=== PATIENT | female | born 1930 | race Hispanic/Latino ===

== ENCOUNTER 2017-09-30 11:15 | Emergency (ER) | payer OTHER ==
--- NOTE | 2017-09-30 13:30 | ER ---
Nurse's Notes [facility] Name: Hannah Hogan Age: 87 yrs Sex: Female : 1930 Arrival Date: 09/30/2017 Time: 11:19 Bed 24 Private MD: Khadijah Qiu F Diagnosis: Allergic Reaction Presentation: 09/30 11:27 Presenting complaint: Child states: Pt was prescribed Clindamycin yesterday for face sv redness and pt started having a rash that started today that goes to the neck, chest, abd area. Transition of care: patient was not received from another setting of care. Onset: The symptoms/episode began/occurred suddenly, today. Anaphylaxis evaluation, no signs or symptoms of anaphylaxis were noted. Onset of symptoms was September 30, 2017. Care prior to arrival: None. 11:27 Method Of Arrival: Wheelchair sv 11:27 Acuity: NEHEMIAH 3 sv 13:17 Risk Assessment: Do you want to hurt yourself or someone else? Patient reports no kr2 desire to harm self or others. Initial Sepsis Screen: Does the patient meet any 2 criteria? No. Patient's initial sepsis screen is negative. Does the patient have a suspected source of infection? No. Patient's initial sepsis screen is negative. Triage Assessment: 11:27 General: Appears in no apparent distress. comfortable, Behavior is calm, cooperative, sv appropriate for age. Pain: Denies pain. EENT: No signs and/or symptoms were reported regarding the EENT system. Neuro: Level of Consciousness is awake, alert, obeys commands, Oriented to person, place, time, situation, Moves all extremities. Speech is normal. Cardiovascular: Patient's skin is warm and dry. Respiratory: Respiratory effort is even, unlabored, Respiratory pattern is regular, symmetrical, Denies shortness of breath air hunger. Derm: Skin is normal, Rash noted that is red, on chest, abdomen and neck. Historical: - Allergies: 11:31 ambien; sv 11:31 Flagyl; sv 11:31 Clindamycin; sv - Home Meds: :31 Atrovent 0.5 mg Neb [id number] as needed for wheezing [Active]; tatyana 100 mcg/25 mcg 1 sv puff bedtime [Active]; Coumadin 2.5 mg Oral tab 1 tab once daily [Active]; Coumadin 3mg oral daily at 1700 [Active]; Cranberry 4200 mg 1 tab BID [Active]; Lantus 30 units sub q daily 20 unit [Active]; losartan potassium 50 mg daily [Active]; Lumigan 0.01 % ophthalmic drop 1 drop nightly [Active]; ProAir HFA 90 mcg/actuation inhalation HFAA as needed [Active]; Propafenone HCL 225mg oral q8 hours [Active]; simvastatin 20 mg Oral tab 1 tab nightly [Active]; Vitamin C Oral 1 tab daily [Active]; - PMHx: 11:31 "Mitral Valve; Cataracts; Diabetes - IDDM; Glaucoma; Hyperlipidemia; Hypertension; sv - PSHx: 11:31 Mitral Valve Replacement; Cholecystectomy; ovary removal; sv - Immunization history:: Adult Immunizations up to date. - Social history:: Smoking status: Patient/guardian denies using tobacco. - Ebola Screening: : No symptoms or risks identified at this time. Screenin:17 Abuse screen: Denies threats or abuse. Denies injuries from another. Nutritional kr2 screening: No deficits noted. Tuberculosis screening: No symptoms or risk factors identified. Fall Risk None identified. Assessment: 13:16 General: Appears in no apparent distress. comfortable, well groomed, well developed, kr2 well nourished, Behavior is calm, cooperative, appropriate for age. Pain: Denies pain. Neuro: Level of Consciousness is awake, alert, obeys commands, Oriented to person, place, time, situation, Appropriate for age. Cardiovascular: Capillary refill < 3 seconds in bilateral fingers Patient's skin is warm and dry. Respiratory: Airway is patent Respiratory effort is even, unlabored, Respiratory pattern is regular, symmetrical, Breath sounds are clear bilaterally. GI: Abdomen is flat, non-distended. : No signs and/or symptoms were reported regarding the genitourinary system. EENT: Nares are clear Oral mucosa is moist. Throat is clear. Derm: Skin is intact, is healthy with good turgor, Skin is pink, warm \\T\\ dry. Rash noted that is itchy, red, on back and neck and abdomen and chest. Musculoskeletal: Circulation, motion, and sensation intact. Vital Signs: 11:31 BP 102 / 64; Pulse 80; Resp 18; Temp 98.7; Pulse Ox 92% on R/A; Weight 67.13 kg; Height sv 4 ft. 7 in. (139.70 cm); Pain 0/10; 13:18 BP 147 / 89; Pulse 66; Resp 16; Pulse Ox 97% on R/A; kr2 11:31 Body Mass Index 34.40 (67.13 kg, 139.70 cm) sv 11:31 Pt placed on O2 \\T\\ 2L per NC. sv ED Course: 11:19 Patient arrived in ED. sb2 11:19 Khadijah Qiu MD is Private Physician. sb2 11:29 Triage completed. sv 11:35 Arm band placed on right wrist. sv 12:58 Pradip Cheema PA is PHCP. jr8 12:58 Abhi Erwin MD is Attending Physician. jr8 13:06 Abby Porter, RN is Primary Nurse. kr2 13:18 Patient has correct armband on for positive identification. Bed in low position. Call kr2 light in reach. Side rails up X 1. Pulse ox on. NIBP on. Door closed. Warm blanket given. Head of bed elevated. 13:28 Khadijah Qiu MD is Referral Physician. jr8 13:48 No provider procedures requiring assistance completed. Patient did not have IV access kr2 during this emergency room visit. Administered Medications: 13:35 Drug: predniSONE 40 mg Route: PO; kr2 13:47 Follow up: Response: Medication administered at discharge. kr2 13:35 Drug: Benadryl 25 mg Route: PO; kr2 13:47 Follow up: Response: Medication administered at discharge. kr2 Outcome: 13:29 Discharge ordered by . jr8 13:48 Discharged to home via wheelchair, with family. kr2 13:48 Condition: good 13:48 Discharge instructions given to family, Instructed on discharge instructions, follow up and referral plans. medication usage, Demonstrated understanding of instructions, follow-up care, medications, Prescriptions given X 3. 13:48 Patient left the ED. kr2 Signatures: Jessica Silva RN CHETAN Pradip Cheema PA PA jr8 Abby Porter, CHETAN RN kr2 David Bryanti sb2
--- NOTE | 2017-09-30 13:30 | EDPHYS ---
Physician Documentation [facility] Name: Hannah Hogan Age: 87 yrs Sex: Female : 1930 Arrival Date: 09/30/2017 Time: 11:19 Bed 24 Private MD: Khadijah Qiu F ED Physician Abhi Erwin HPI: 09/30 13:25 This 87 yrs old Female presents to ER via Wheelchair with complaints of jr8 Allergic Reaction. 13:25 The patient presents with itching, redness of skin. Onset: The symptoms/episode jr8 began/occurred acutely, today. Associated signs and symptoms: The patient has no apparent associated signs or symptoms. Possible causes: antibiotics, clindamycin . Severity of symptoms: At their worst the symptoms were mild in the emergency department the symptoms are unchanged. The patient has not experienced similar symptoms in the past. The patient has been recently seen by a physician:. Patient recently seen by PCP for lower jaw swelling. Was pun on Clindamycin. Now having redness of skin and itching post medication administration . Historical: - Allergies: 11:31 ambien; sv 11:31 Flagyl; sv 11:31 Clindamycin; sv - Home Meds: 11:31 Atrovent 0.5 mg Neb [id number] as needed for wheezing [Active]; tatyana 100 mcg/25 mcg 1 sv puff bedtime [Active]; Coumadin 2.5 mg Oral tab 1 tab once daily [Active]; Coumadin 3mg oral daily at 1700 [Active]; Cranberry 4200 mg 1 tab BID [Active]; Lantus 30 units sub q daily 20 unit [Active]; losartan potassium 50 mg daily [Active]; Lumigan 0.01 % ophthalmic drop 1 drop nightly [Active]; ProAir HFA 90 mcg/actuation inhalation HFAA as needed [Active]; Propafenone HCL 225mg oral q8 hours [Active]; simvastatin 20 mg Oral tab 1 tab nightly [Active]; Vitamin C Oral 1 tab daily [Active]; - PMHx: 11:31 "Mitral Valve; Cataracts; Diabetes - IDDM; Glaucoma; Hyperlipidemia; Hypertension; sv - PSHx: 11:31 Mitral Valve Replacement; Cholecystectomy; ovary removal; sv - Immunization history:: Adult Immunizations up to date. - Social history:: Smoking status: Patient/guardian denies using tobacco. - Ebola Screening: : No symptoms or risks identified at this time. ROS: 13:25 Eyes: Negative for injury, pain, redness, and discharge, ENT: Negative for injury, jr8 pain, and discharge, Neck: Negative for injury, pain, and swelling, Cardiovascular: Negative for chest pain, palpitations, and edema, Respiratory: Negative for shortness of breath, cough, wheezing, and pleuritic chest pain, Abdomen/GI: Negative for abdominal pain, nausea, vomiting, diarrhea, and constipation, Back: Negative for injury and pain, MS/Extremity: Negative for injury and deformity, Neuro: Negative for headache, weakness, numbness, tingling, and seizure. 13:25 Skin: Positive for erythema. Exam: 13:25 Eyes: Pupils equal round and reactive to light, extra-ocular motions intact. Lids and jr8 lashes normal. Conjunctiva and sclera are non-icteric and not injected. Cornea within normal limits. Periorbital areas with no swelling, redness, or edema. ENT: Nares patent. No nasal discharge, no septal abnormalities noted. Tympanic membranes are normal and external auditory canals are clear. Oropharynx with no redness, swelling, or masses, exudates, or evidence of obstruction, uvula midline. Mucous membranes moist. Neck: Trachea midline, no thyromegaly or masses palpated, and no cervical lymphadenopathy. Supple, full range of motion without nuchal rigidity, or vertebral point tenderness. No Meningismus. Cardiovascular: Regular rate and rhythm with a normal S1 and S2. No gallops, murmurs, or rubs. Normal PMI, no JVD. No pulse deficits. Respiratory: Lungs have equal breath sounds bilaterally, clear to auscultation and percussion. No rales, rhonchi or wheezes noted. No increased work of breathing, no retractions or nasal flaring. Abdomen/GI: Soft, non-tender, with normal bowel sounds. No distension or tympany. No guarding or rebound. No evidence of tenderness throughout. Back: No spinal tenderness. No costovertebral tenderness. Full range of motion. MS/ Extremity: Pulses equal, no cyanosis. Neurovascular intact. Full, normal range of motion. Neuro: Awake and alert, GCS 15, oriented to person, place, time, and situation. Cranial nerves II-XII grossly intact. Motor strength 5/5 in all extremities. Sensory grossly intact. Cerebellar exam normal. Normal gait. 13:25 Head/face: Noted is swelling, that is mild, of the left jaw. 13:25 Skin: mild erythema noted to chest, abdomen, and left arm and back . Vital Signs: 11:31 BP 102 / 64; Pulse 80; Resp 18; Temp 98.7; Pulse Ox 92% on R/A; Weight 67.13 kg; Height sv 4 ft. 7 in. (139.70 cm); Pain 0/10; 13:18 BP 147 / 89; Pulse 66; Resp 16; Pulse Ox 97% on R/A; kr2 11:31 Body Mass Index 34.40 (67.13 kg, 139.70 cm) sv 11:31 Pt placed on O2 \\T\\ 2L per NC. sv MDM: 12:58 Patient medically screened. jr8 13:25 Data reviewed: vital signs, nurses notes, and as a result, I will discharge patient. jr8 Data interpreted: Pulse oximetry: on room air is 97 %. Interpretation: normal. Counseling: I had a detailed discussion with the patient and/or guardian regarding: the historical points, exam findings, and any diagnostic results supporting the discharge/admit diagnosis, the need for outpatient follow up, a family practitioner, to return to the emergency department if symptoms worsen or persist or if there are any questions or concerns that arise at home. ED course: Discussed with patient that she more then likely has had allergic reaction to the Clindamycin. That she needs to not take anymore of that. Will put her on medications to help with reaction and will switch antibiotics for her . Administered Medications: 13:35 Drug: predniSONE 40 mg Route: PO; kr2 13:47 Follow up: Response: Medication administered at discharge. kr2 13:35 Drug: Benadryl 25 mg Route: PO; kr2 13:47 Follow up: Response: Medication administered at discharge. kr2 Disposition: 19:03 Co-signature as Attending Physician, Abhi Erwin MD. Disposition: 09/30/17 13:29 Discharged to Home. Impression: Allergic Reaction . - Condition is Stable. - Discharge Instructions: Anaphylactic Reaction, Dental Abscess. - Prescriptions for Augmentin 875- 125 mg Oral Tablet - take 1 tablet by ORAL route every 12 hours for 10 days; 20 tablet. Pepcid 20 mg Oral Tablet - take 1 tablet by ORAL route every 12 hours for 5 days; 10 tablet. Prednisone 20 mg Oral Tablet - take 2 tablet by ORAL route once daily for 5 days; 10 tablet. - Medication Reconciliation Form, Thank You Letter, Antibiotic Education, Prescription Opioid Use form. - Follow up: Khadijah Qiu MD; When: 5 - 6 days; Reason: Recheck today's complaints, Continuance of care, Re-evaluation by your physician. - Problem is new. - Symptoms have improved. - Notes: Benadryl 25 mg over the counter as prescribed on box Signatures: Jessica Silva RN RN Pradip King PA PA jr8 Abhi Erwin MD MD Abby Porter RN RN kr2 Corrections: (The following items were deleted from the chart) 13:48 13:29 09/30/2017 13:29 Discharged to Home. Impression: Allergic Reaction . Condition is kr2 Stable. Forms are Medication Reconciliation Form, Thank You Letter, Antibiotic Education, Prescription Opioid Use. Follow up: Khadijah Qiu; When: 5 - 6 days; Reason: Recheck today's complaints, Continuance of care, Re-evaluation by your physician. Problem is new. Symptoms have improved. jr8
[2017-09-30] MEDS ORDERED: DIPHENHYDRAMINE 25 MG TAB/CAP ONE (13:35)
[2017-09-30] MEDS ORDERED: predniSONE 20 MG TAB ONE (13:35)
[2017-09-30 14:02] VITALS: TEMP 98.7
[2017-09-30 14:04] VITALS: BP 147/89; O2SAT 97
== END 2017-09-30 13:48 | disposition home or self-care (01) ==
LOC: ER 11:15
DX: R21 Rash and other nonspecific skin eruption (principal); I10 Essential (primary) hypertension; E11.9 Type 2 diabetes mellitus without complications; E78.5 Hyperlipidemia, unspecified; Z79.4 Long term (current) use of insulin; Z79.01 Long term (current) use of anticoagulants; Z88.3 Allergy status to other anti-infective agents; Z88.8 Allergy status to other drugs, medicaments and biological substances
CPT/HCPCS: 99283; J7512

== ENCOUNTER 2017-10-27 17:06 | Inpatient (IN) | payer OTHER ==
[2017-10-27 18:34] LABS: Absolute Lymphocytes (CBC) 1.7 K/uL (0.7-4.9); Absolute Monocytes 1.5 K/uL (0.1-1.3); Absolute Neutrophil 5.7 K/uL (1.8-8.0); Basophils % 0.7 % (0-1.3); Eosinophils % 1.3 % (0-4.4); Hematocrit 45.8 % (36.0-45.0); Lymphocytes % 18.5 % (15.3-44.8); MCH 28.7 pg (27.0-35.0); MCV 85.6 fL (80-100); MPV 9.6 fL (7.6-11.3); Monocytes % 16.4 % (3.3-12.3); RBC Red Blood Cell Count 5.35 M/uL (3.86-4.86)
[2017-10-27 18:41] LABS: Protime INR 2.35
[2017-10-27 18:54] LABS: Albumin 3.1 g/dL (3.4-5.0); Bilirubin Direct 0.3 mg/dL (0-0.2); Bilirubin Total 0.7 mg/dL (0.2-1.0); Magnesium 2.5 mg/dL (1.8-2.4); Potassium 4.6 mmol/L (3.5-5.1); Protein, Total 6.7 g/dL (6.4-8.2)
--- NOTE | 2017-10-27 19:02 | RAD REPORT ---
[facility] CLINICAL HISTORY: sob COMPARISON: March 2017 FINDINGS: Mild right pulmonary opacities are present. Minimal left lung opacities are seen. The hea rt is mildly enlarged. Pacemaker leads are in place IMPRESSION: Mild right and minimal left pulmonary opacities may represent pulmonary edema or pneumon ia
--- NOTE | 2017-10-27 19:58 | ER ---
Nurse's Notes [facility] Name: Hannah Hogan Age: 87 yrs Sex: Female : 1930 Arrival Date: 10/27/2017 Time: 17:09 Bed 5 Private MD: Khadijah Qiu F Diagnosis: Dyspnea, unspecified;Pneumonia;Pulmonary edema Presentation: 10/27 17:15 Presenting complaint: Child states: Shortness of breath that started last night, denies sg cough CP diziness at this time. pt denies pain. Transition of care: patient was not received from another setting of care. Onset of symptoms was October 27, 2017. Initial Sepsis Screen: Does the patient meet any 2 criteria? No. Patient's initial sepsis screen is negative. Does the patient have a suspected source of infection? No. Patient's initial sepsis screen is negative. Care prior to arrival: None. 17:15 Method Of Arrival: Ambulatory sg 17:15 Acuity: NEHEMIAH 3 sg 17:20 Presenting complaint: pt reports using her prohair inhaler, reports not helping with sg the shortness of breath. reports pain in her back in the left scapular area for two days now, denies fall or trauma. 19:48 Risk Assessment: Do you want to hurt yourself or someone else? Patient reports no lp1 desire to harm self or others. Historical: - Allergies: 17:11 ambien; sg 17:11 Clindamycin; sg 17:11 Flagyl; sg - Home Meds: 19:49 Atrovent 0.5 mg Neb [id number] as needed for wheezing [Active]; Bimatoprost 1 drop at lp1 bedtime [Active]; tatyana 100 mcg/25 mcg 1 puff bedtime [Active]; Coumadin 2.5 mg Oral tab 1 tab once daily [Active]; Coumadin 3mg oral daily at 1700 [Active]; Cozaar 50mg oral daily [Active]; Cranberry 4200 mg 1 tab BID [Active]; Flucticasone/Vilanterol 100-25 mch INH at bedtime [Active]; Lantus 30 units sub q daily 20 unit [Active]; losartan potassium 50 mg daily [Active]; Lumigan 0.01 % ophthalmic drop 1 drop nightly [Active]; ProAir HFA 90 mcg/actuation inhalation HFAA as needed [Active]; Propafenone HCL 225mg oral q8 hours [Active]; simvastatin 20 mg Oral tab 1 tab nightly [Active]; sulfamethoxazole-trimethoprim Oral 1 tab once daily [Active]; Vitamin C Oral 1 tab daily [Active]; - PMHx: 17:11 "Mitral Valve; Cataracts; Diabetes - IDDM; Glaucoma; Hyperlipidemia; Hypertension; sg - PSHx: 17:11 Mitral Valve Replacement; Cholecystectomy; ovary removal; sg - Immunization history:: Adult Immunizations up to date. - Ebola Screening: : Patient denies travel to an Ebola-affected area in the 21 days before illness onset. - Social history:: Smoking status: Patient/guardian denies using tobacco. Screenin:47 Abuse screen: Denies threats or abuse. Denies injuries from another. Nutritional lp1 screening: No deficits noted. Tuberculosis screening: No symptoms or risk factors identified. Fall Risk None identified. Assessment: 17:53 General: Appears comfortable, Behavior is cooperative, anxious. Pain: Denies pain. ae1 Neuro: Level of Consciousness is awake, alert, obeys commands, Oriented to person, place, time, situation. Cardiovascular: Heart tones S1 S2 present Patient's skin is warm and dry. Rhythm is regular. Respiratory: Airway is patent Respiratory effort is even, unlabored, Respiratory pattern is regular, Breath sounds are diminished in left lower lobe, right lower lobe, left posterior lower lobe, right posterior middle lobe and right posterior lower lobe Breath sounds with wheezes bilaterally. GI: No signs and/or symptoms were reported involving the gastrointestinal system. Abdomen is round Bowel sounds present X 4 quads. : No signs and/or symptoms were reported regarding the genitourinary system. EENT: No signs and/or symptoms were reported regarding the EENT system. Derm: Skin is. Musculoskeletal: No signs and/or symptoms reported regarding the musculoskeletal system. 19:46 Reassessment: Patient appears in no apparent distress at this time. Patient is alert, lp1 oriented x 3, equal unlabored respirations, skin warm/dry/pink. Patient states feeling better. Respiratory: Reports shortness of breath Breath sounds are diminished bilaterally. Onset: The symptoms/episode began/occurred gradually, the patient has mild shortness of breath. 20:45 Reassessment: Patient appears in no apparent distress at this time. Patient is alert, lp1 oriented x 3, equal unlabored respirations, skin warm/dry/pink. Patient eating sandwich, family at bedside Patient denies pain at this time. 21:20 Reassessment: Attempted to call report on patient, nurse will call back. lp1 Vital Signs: 17:14 Pulse 73; Resp 22; Temp 99.2; Pulse Ox 92% on R/A; Pain 0/10; sg 17:16 BP 137 / 85; sg 19:45 BP 117 / 95; Pulse 70; Resp 21; Pulse Ox 96% on 2 lpm NC; lp1 21:00 BP 124 / 98; Pulse 75; Resp 20; Pulse Ox 97% on 2 lpm NC; lp1 ED Course: 17:09 Patient arrived in ED. sb2 17:10 Khadijah Qiu MD is Private Physician. sb2 17:12 Arm band placed on. sg 17:16 Triage completed. sg 17:23 Humberto Healy MD is Attending Physician. kdr 17:30 Jhonny David RN is Primary Nurse. ae1 17:42 EKG done, by fabrication technician. reviewed by Humberto Healy MD. sm3 18:01 Bed in low position. Call light in reach. Side rails up X 1. Adult w/ patient. Pulse ox ae1 on. Warm blanket given. 18:13 X-ray completed. Portable x-ray completed in exam room. Patient tolerated procedure kw well. 18:15 XRAY Chest (1 view) In Process Unspecified. EDMS 18:29 Inserted saline lock: 22 gauge in left antecubital area, using aseptic technique. Blood ae1 collected. 19:09 Attending Physician role handed off by Humberto Healy MD rn 19:09 Preston Myers MD is Attending Physician. rn 19:57 Khadijah Qiu MD is Hospitalizing Provider. rn 21:17 No provider procedures requiring assistance completed. Patient admitted, IV remains in lp1 place. Administered Medications: 20:30 Drug: Rocephin - (cefTRIAXone) 1 grams Route: IVPB; Infused Over: 30 mins; Site: left lp1 antecubital; 21:16 Follow up: Response: No adverse reaction; IV Status: Completed infusion lp1 20:30 Drug: Lasix 20 mg Route: IVP; Site: left antecubital; lp1 21:15 Follow up: Urine output 150 ml; Response: No adverse reaction lp1 20:35 Drug: AZITHromycin 500 mg Route: IVPB; Infused Over: 1 hrs; Site: left antecubital; lp1 21:31 Follow up: IV Status: Completed infusion lp1 Output: 21:15 Urine: 150ml; Total: 150ml. lp1 Outcome: 19:57 Decision to Hospitalize by Provider. rn 21:17 Condition: stable lp1 21:17 Instructed on the need for admit. 21:30 Admitted to Tele via stretcher, room 414, with oxygen, with chart, Report called to lp1 Amee Lr RN 21:54 Patient left the ED. 1 Signatures: Dispatcher [employer] EDMS Kobe Dominguez RN Humberto Wallace MD MD kdr Nieto, Roman, MD MD rn Whitley, Kimberlee kw Pena, Laura, RN RN lp1 Jhonny David RN RN ae1 Emily Bryant sb2 Karli Allen sm3 Corrections: (The following items were deleted from the chart) 19:48 19:46 Respiratory: Breath sounds are diminished bilaterally. lp1 lp1
--- NOTE | 2017-10-27 19:58 | EDPHYS ---
Physician Documentation [facility] Name: Hannah Hogan Age: 87 yrs Sex: Female : 1930 Arrival Date: 10/27/2017 Time: 17:09 Bed 5 Private MD: Khadijah Qiu F ED Physician Preston Myers HPI: 10/27 18:36 This 87 yrs old Female presents to ER via Ambulatory with complaints of kdr Shortness Of Breath. 18:36 The patient has shortness of breath at rest. Onset: The symptoms/episode began/occurred kdr last night. Duration: The symptoms are continuous, and are steadily getting worse. The patient's shortness of breath is aggravated by exertion, light activity. Associated signs and symptoms: The patient has no apparent associated signs or symptoms. Severity of symptoms: At their worst the symptoms were mild in the emergency department the symptoms are unchanged. The patient has experienced similar episodes in the past, several times. The patient has not recently seen a physician. Historical: - Allergies: 17:11 ambien; sg 17:11 Clindamycin; sg 17:11 Flagyl; sg - Home Meds: 19:49 Atrovent 0.5 mg Neb d2ojkol as needed for wheezing [Active]; Bimatoprost 1 drop at lp1 bedtime [Active]; tatyana 100 mcg/25 mcg 1 puff bedtime [Active]; Coumadin 2.5 mg Oral tab 1 tab once daily [Active]; Coumadin 3mg oral daily at 1700 [Active]; Cozaar 50mg oral daily [Active]; Cranberry 4200 mg 1 tab BID [Active]; Flucticasone/Vilanterol 100-25 mch INH at bedtime [Active]; Lantus 30 units sub q daily 20 unit [Active]; losartan potassium 50 mg daily [Active]; Lumigan 0.01 % ophthalmic drop 1 drop nightly [Active]; ProAir HFA 90 mcg/actuation inhalation HFAA as needed [Active]; Propafenone HCL 225mg oral q8 hours [Active]; simvastatin 20 mg Oral tab 1 tab nightly [Active]; sulfamethoxazole-trimethoprim Oral 1 tab once daily [Active]; Vitamin C Oral 1 tab daily [Active]; - PMHx: 17:11 "Mitral Valve; Cataracts; Diabetes - IDDM; Glaucoma; Hyperlipidemia; Hypertension; sg - PSHx: 17:11 Mitral Valve Replacement; Cholecystectomy; ovary removal; sg - Immunization history:: Adult Immunizations up to date. - Ebola Screening: : Patient denies travel to an Ebola-affected area in the 21 days before illness onset. - Social history:: Smoking status: Patient/guardian denies using tobacco. ROS: 18:36 Constitutional: Negative for fever, chills, and weight loss, Eyes: Negative for injury, kdr pain, redness, and discharge, Neck: Negative for injury, pain, and swelling, Cardiovascular: Negative for chest pain, palpitations, and edema, Abdomen/GI: Negative for abdominal pain, nausea, vomiting, diarrhea, and constipation, Back: Negative for injury and pain, : Negative for injury, bleeding, discharge, and swelling, MS/Extremity: Negative for injury and deformity, Skin: Negative for injury, rash, - she does have chronic discoloration of her lower extremities below the knee that is unchanged Neuro: Negative for headache, weakness, numbness, tingling, and seizure activity. Psych: Negative for depression, anxiety, suicide ideation, homicidal ideation, and hallucinations, Allergy/Immunology: Negative for hives, rash, and allergies, Endocrine: Negative for neck swelling, polydipsia, polyuria, polyphagia, and marked weight changes, Hematologic/Lymphatic: Negative for swollen nodes, abnormal bleeding, and unusual bruising. Exam: 18:36 Constitutional: This is a well developed, well nourished patient who is awake, alert, kdr and in no acute distress. Head/Face: Normocephalic, atraumatic. Eyes: Pupils equal round and reactive to light, extra-ocular motions intact. Lids and lashes normal. Conjunctiva and sclera are non-icteric and not injected. Cornea within normal limits. Periorbital areas with no swelling, redness, or edema. Neck: Trachea midline, no thyromegaly or masses palpated, and no cervical lymphadenopathy. Supple, full range of motion without nuchal rigidity, or vertebral point tenderness. No Meningismus. Chest/axilla: Normal chest wall appearance and motion. Nontender with no deformity. No lesions are appreciated. Cardiovascular: Regular rate and rhythm with a normal S1 and S2. No gallops, murmurs, or rubs. Normal PMI, no JVD. No pulse deficits. Back: No spinal tenderness. No costovertebral tenderness. Full range of motion. Neuro: Awake and alert, GCS 15, oriented to person, place, time, and situation. Cranial nerves II-XII grossly intact. Motor strength 5/5 in all extremities. Sensory grossly intact. Cerebellar exam normal. Normal gait. Psych: Awake, alert, with orientation to person, place and time. Behavior, mood, and affect are within normal limits. 18:36 Respiratory: mild respiratory distress is noted, Respirations: normal, Breath sounds: rales, that are mild, are scattered, are located in both bases. 18:36 Abdomen/GI: Inspection: obese Bowel sounds: active, diminished, in all quadrants. 18:36 Skin: induration, that is mild is noted, Mild venous stasis in both lower extremities - unchanged from ususal. Vital Signs: 17:14 Pulse 73; Resp 22; Temp 99.2; Pulse Ox 92% on R/A; Pain 0/10; sg 17:16 BP 137 / 85; sg 19:45 BP 117 / 95; Pulse 70; Resp 21; Pulse Ox 96% on 2 lpm NC; lp1 21:00 BP 124 / 98; Pulse 75; Resp 20; Pulse Ox 97% on 2 lpm NC; lp1 MDM: 19:09 Patient medically screened. rn 19:56 Differential diagnosis: asthma, CHF exacerbation, Myocardial Infarction pneumonia, rn Pneumothorax pulmonary edema, reactive airway disease. Data reviewed: vital signs, nurses notes, lab test result(s), EKG, radiologic studies, plain films, and as a result, I will admit patient. Counseling: I had a detailed discussion with the patient and/or guardian regarding: the historical points, exam findings, and any diagnostic results supporting the discharge/admit diagnosis, lab results, radiology results, the need for further work-up and treatment in the hospital. Response to treatment: the patient's symptoms have mildly improved after treatment. Admission orders: after a detailed discussion of the patient's condition and case, the admit orders are written by me. ED course: Pt admitted to Dr. Qiu, is being covered by Dr. Villarreal, called, no answer, message left \\T\\ 1955. 10/27 18:00 Order name: Basic Metabolic Panel; Complete Time: 19:10 kdr 10/27 18:00 Order name: CBC with Diff; Complete Time: 19:10 kdr 10/27 18:00 Order name: LFT's; Complete Time: 19:10 kdr 10/27 18:00 Order name: Magnesium; Complete Time: 19:10 kdr 10/27 18:00 Order name: NT PRO-BNP; Complete Time: 19:10 kdr 10/27 18:00 Order name: PT-INR; Complete Time: 19:10 kdr 10/27 17:59 Order name: EKG Electrocardiogram EDMS 10/27 18:00 Order name: Ptt, Activated; Complete Time: 19:10 kdr 10/27 18:00 Order name: Troponin (emerg Dept Use Only); Complete Time: 19:10 kdr 10/27 18:00 Order name: XRAY Chest (1 view); Complete Time: 19:10 kdr 10/27 21:19 Order name: Urine Dipstick--Ancillary (enter results) cc 10/27 18:00 Order name: Cardiac monitoring; Complete Time: 19:01 kdr 10/27 18:00 Order name: EKG - Nurse/Tech; Complete Time: 18:10 kdr 10/27 18:00 Order name: IV Saline Lock; Complete Time: 19:00 kdr 10/27 18:00 Order name: Labs collected and sent; Complete Time: 19:00 kdr 10/27 18:00 Order name: O2 Per Protocol; Complete Time: 19:00 kdr 10/27 18:00 Order name: O2 Sat Monitoring; Complete Time: 19:00 kdr 10/27 18:00 Order name: Urine Dipstick-Ancillary (obtain specimen); Complete Time: 21:15 kdr Administered Medications: 20:30 Drug: Rocephin - (cefTRIAXone) 1 grams Route: IVPB; Infused Over: 30 mins; Site: left lp1 antecubital; 21:16 Follow up: Response: No adverse reaction; IV Status: Completed infusion lp1 20:30 Drug: Lasix 20 mg Route: IVP; Site: left antecubital; lp1 21:15 Follow up: Urine output 150 ml; Response: No adverse reaction lp1 20:35 Drug: AZITHromycin 500 mg Route: IVPB; Infused Over: 1 hrs; Site: left antecubital; lp1 21:31 Follow up: IV Status: Completed infusion lp1 Disposition: 10/27/17 19:57 Hospitalization ordered by Khadijah Qiu for Inpatient Admission. Preliminary diagnosis are Dyspnea, unspecified, Pneumonia, Pulmonary edema. - Bed requested for Telemetry/MedSurg (Inpatient). - Status is Inpatient Admission. lp1 - Condition is Stable. - Problem is new. - Symptoms have improved. UTI on Admission? No Signatures: Dispatcher [employer] EDMS Ning Escobedo RN RN kl Kobe Dominguez RN RN Humberto Healy MD MD [facility] Preston Myers MD MD rn Pena, Laura, RN RN lp1 Jhonny David RN RN ae1 Corrections: (The following items were deleted from the chart) 20:22 19:57 Hospitalization Ordered by Khadijah Qiu MD for Inpatient Admission. Preliminary diagnosis is Dyspnea, unspecified; Pneumonia; Pulmonary edema. Bed requested for Telemetry/MedSurg (Inpatient). Status is Inpatient Admission. Condition is Stable. Problem is new. Symptoms have improved. UTI on Admission? No. rn 21:54 20:22 10/27/2017 19:57 Hospitalization Ordered by Khadijah Qiu MD for Inpatient lp1 Admission. Preliminary diagnosis is Dyspnea, unspecified; Pneumonia; Pulmonary edema. Bed requested for Telemetry/MedSurg (Inpatient). Status is Inpatient Admission. Condition is Stable. Problem is new. Symptoms have improved. UTI on Admission? No. kl
[2017-10-27] MEDS ORDERED: FUROSEMIDE 20 MG/ 2ML VIAL ONE (20:16)
[2017-10-27] MEDS ORDERED: CEFTRIAXONE/SWI 1gm 1 GM/10 ML SYR ONE (20:17)
[2017-10-27] MEDS ORDERED: AZITHROMYCIN 500 MG/250 ML BAG ONE (20:17)
[2017-10-27 21:57] LABS: Urine Blood 2+ (NEG); Urine Glucose NEGATIVE (NEG); Urine Protein NEGATIVE (NEG); Urine Specific Gravity 1.015 (1.005-1.030)
[2017-10-27] MEDS ORDERED: ACETAMINOPHEN 500 MG TAB PO PRN (22:24)
[2017-10-27] MEDS ORDERED: ONDANSETRON 4 MG/2 ML VIAL IV PRN (22:24)
[2017-10-27] MEDS ORDERED: ALBUTEROL 2.5 MG/3 ML NEB SOL NEB PRN (22:24)
[2017-10-27] MEDS ORDERED: IPRATROPIUM BROM 0.5MG/2.5ML NEB PRN (22:24)
[2017-10-28 06:32] LABS: Absolute Monocytes 1.5 K/uL (0.1-1.3); Absolute Neutrophil 5.4 K/uL (1.8-8.0); Basophils % 0.7 % (0-1.3); Eosinophils % 2.3 % (0-4.4); Hematocrit 45.2 % (36.0-45.0); Lymphocytes % 21.9 % (15.3-44.8); MCH 28.4 pg (27.0-35.0); MPV 10.5 fL (7.6-11.3); Monocytes % 16.2 % (3.3-12.3); RBC Red Blood Cell Count 5.32 M/uL (3.86-4.86)
[2017-10-28 06:58] LABS: Blood Morphology Comment NOT SEEN (NOT SEEN); Platelet Estimate ADEQ; Urine White Blood Cell Casts OK
[2017-10-28 06:59] LABS: BUN Blood Urea Nitrogen 16 mg/dL (7-18); Bicarbonate 27 mmol/L (21-32); NT PRO-BNP 16336 pg/mL (<450); Potassium 3.5 mmol/L (3.5-5.1); Sodium Level 139 mmol/L (136-145)
[2017-10-28 07:13] LABS: Glucose Level 41 mg/dL (74-106)
[2017-10-28] MEDS ORDERED: CEFTRIAXONE 1 GM/NS 50 ML 1 GM/50 ML BAG IV SCH (08:00)
[2017-10-28] MEDS: CEFTRIAXONE/SWI 1gm 1 GM/10 ML SYR IV SCH ×2 (09:51→21:19)
[2017-10-28] MEDS: AZITHROMYCIN IV 250 MG in NA CHLORIDE 0.9% 250 ML IVPB SCH (09:52)
--- NOTE | 2017-10-28 10:29 | EKG ---
Test Date: 2017-10-27 Test Time: 17:34:44 Fur Tanner: NAOMY MEASUREMENT RESULTS: Intervals: Rate: 67 ND: 352 QRSD: 240 QT: 552 QTc: 583 [place]: P: ND: 352 QRS: -54 T: 120 INTERPRETIVE STATEMENTS: Electronic ventricular pacemaker Compared to ECG 03/21/2017 13:35:32 No significant changes Electronically Signed On 10-28-17 10:27:17 CDT by Mike Russell
--- NOTE | 2017-10-28 13:48 | CON ---
Date of Consultation: 10/28/2017 The patient was admitted to Dr. Qiu's service on 10/27/2017. I saw the patient on 10/28/2017. Reason For Consultation: Congestive heart failure. History Of Present Illness: Ms. Hogan is an 87-year-old Latin-[place] woman with history of atrial fibrillation, chronic on Coumadin. She has a history of COPD, diabetes, dyslipidemia, and hypertens ion. She has a history of mitral valve replacement. She came in with shortness of breath that has r esolved since I saw her after IV Lasix. She had denied chest pain, denied syncope, denied palpitatio ns. Denied any fever or chills. Past Medical History: As stated earlier. Allergies: FLAGYL, AMBIEN, AND CLINDAMYCIN. Review of Systems: Negative. Social History: Negative. Family History: Noncontributory. Medications: At home include inhalers, Zocor, Cozaar, Coumadin, insulin, and Rythmol. Physical Examination: Vital Signs: Stable. She was in a paced rhythm. HEENT: Negative. Neck: Supple without any bruit, lymphadenopathy, JVD, or thyromegaly. Chest: Reveals some rales at both bases. Cardiac: Revealed a regular rhythm and rate without any murmurs, gallops, or rubs. Abdomen: Benign. Extremities: Revealed no edema, clubbing, or cyanosis. Diagnostic Data: EKG was chronic atrial fibrillation. BNP was [address]. Her troponin was negative. C hest x-ray showed mild CHF. Her INR is 2.35. EKG showed paced rhythm. Impression And Plan: 1.Mild exacerbation, acute of chronic diastolic congestive heart failure. 2.Status post pacemakers. The patient sees Dr. Hurt and she has had her pacemaker checked recentl y. 3.Status post mitral valve replacement, on Coumadin. INR is 2.35. 4.Atrial fibrillation, rate controlled. 5.Hypertension. 6.Dyslipidemia. 7.Chronic obstructive pulmonary disease. 8.Diabetes. I do not recommend any changes in her medical regimen now but I think we need to have her go home on a furosemide. She apparently takes it on an as-needed basis, but I recommended that she takes it twi ce a week for now and see how she does with that. Instructions were given regarding sodium control a nd compliance with medication. This case was discussed with the patient, the patient's family, the jayro Luke was available with me, and Dr. Qiu. Forty five minutes were spent in the care of Mrs. Nicholas luciano between chart review and seeing the patient. BELKYS Voice ID: [id number] Report ID: [id number]
[2017-10-28] MEDS ORDERED: PROPAFENONE 225 MG CAP PO SCH (17:00)
[2017-10-28] MEDS ORDERED: WARFARIN SODIUM 2.5 MG TAB PO SCH (17:00)
[2017-10-28] MEDS: PROPAFENONE HCL 150 MG TAB PO SCH (17:17)
[2017-10-28] MEDS ORDERED: D50W 25 GM/50 ML SYRINGE IV PRN (20:09)
[2017-10-28] MEDS ORDERED: GLUCAGON 1 MG/VIAL IM PRN (20:09)
[2017-10-28] MEDS: INSULIN -REGULAR HUMAN 50 UNIT/0.5 ML ML SQ SCH (21:00)
[2017-10-28] MEDS ORDERED: ATORVASTATIN 10 MG TAB PO SCH (21:00)
[2017-10-29] MEDS: PROPAFENONE HCL 150 MG TAB PO SCH ×2 (00:30→09:03)
--- NOTE | 2017-10-29 00:42 | HP ---
Date of Admission: 10/27/2017 History Of Present Illness: An 87-year-old female who presented to the emergency room with a complai nt of feeling short of breath while she was sitting at home. She tried her albuterol inhaler and casey t did not help. Her daughter mentioned that at home, her pulse oximetry was 86%, so she was brought to the emergency room and was admitted for that. The patient denies fever or chills, had minimal cou gh, but that is not unusual for her. She voiced no other complaints. Review of Systems: Cardiovascular: No complaint. Respiratory: As above. Genitourinary: No complaint. Skeletomuscular: No complaint. Neurological: No complaint. Gastrointestinal: No complaint. Past Medical History: 1.Type 2 diabetes. 2.Atrial fibrillation. 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 She had a bioprosthetic heart valve for which s he is on Coumadin. 4.Hypertension. 5.Hyperlipidemia. Social History: No smoking, alcohol, or drug abuse history. Family History: Noncontributing. Medications: Include albuterol 1 puff b.i.d. p.r.n., Lantus 20 mg subcutaneous daily, losartan 50 mg p.o. daily, propafenone 225 mg p.o. q.8 hours, simvastatin 20 mg p.o. daily, and Coumadin 2.5 mg p.o . daily. Allergies: METRONIDAZOLE, AMBIEN, CLINDAMYCIN. Physical Examination: Vital Signs: Blood pressure 125/60, pulse 85, temperature 97.3. Heart: Regular rate and rhythm. Chest: Clear to auscultation. Abdomen: Soft, nontender. No hepatosplenomegaly. Bowel sounds are normoactive. Extremities: No edema. No cyanosis. Peripheral pulses are felt. Neurological: Alert, oriented, nonfocal. Grossly intact. Imaging Studies: Chest x-ray, mild right and minimal left pulmonary opacities may represent edema ve rsus pneumonia. EKG, electronic ventricular pacemaker. Laboratory Data: White cell count 9.2, hemoglobin 15.1, hematocrit 45.2. PT 28. INR of 2.35. Chem istry: GFR more than 90. BNP is 16,336. Assessment And Plan: Shortness of breath for which the patient reports improvement since she has bee n in the hospital, could be from pneumonia versus pulmonary edema. We started her on Rocephin IV ant ibiotics, and we will go ahead and check her cardiac echo, and because of the ventricular pacemaker, we will ask Cardiology also to see the patient for that pacemaker function that may have initiated th at episode of shortness of breath. Meanwhile, we will monitor her blood sugar. We will continue her home medications and put her on a sliding scale. Look orders for details. BERTO/MODDeana Voice ID: [id number]
[2017-10-29 05:44] VITALS: BMI 33.5
[2017-10-29 06:22] LABS: Absolute Monocytes 1.9 K/uL (0.1-1.3); Absolute Neutrophil 5.8 K/uL (1.8-8.0); Basophils % 0.4 % (0-1.3); Eosinophils % 2.4 % (0-4.4); Hematocrit 44.2 % (36.0-45.0); Lymphocytes % 20.5 % (15.3-44.8); MCH 29.3 pg (27.0-35.0); MCV 86.7 fL (80-100); MPV 10.1 fL (7.6-11.3); Protime INR 3.04; RBC Red Blood Cell Count 5.09 M/uL (3.86-4.86)
[2017-10-29 06:26] LABS: Monocytes % 18.8 % (3.3-12.3)
[2017-10-29 06:34] LABS: BUN Blood Urea Nitrogen 18 mg/dL (7-18); Bicarbonate 29 mmol/L (21-32); Glucose Level 65 mg/dL (74-106); Potassium 3.8 mmol/L (3.5-5.1); Sodium Level 141 mmol/L (136-145)
[2017-10-29] MEDS: INSULIN -REGULAR HUMAN 50 UNIT/0.5 ML ML SQ SCH ×2 (07:30→11:30)
[2017-10-29 08:24] VITALS: BP 96/51; TEMP 97.9
[2017-10-29] MEDS ORDERED: ASCORBIC ACID 500 MG TABLET PO SCH (09:00)
[2017-10-29] MEDS ORDERED: LOSARTAN POTASSIUM 50 MG TABLET PO SCH (09:00)
[2017-10-29] MEDS: AZITHROMYCIN IV 250 MG in NA CHLORIDE 0.9% 250 ML IVPB SCH (09:02)
[2017-10-29] MEDS: CEFTRIAXONE/SWI 1gm 1 GM/10 ML SYR IV SCH (09:04)
[2017-10-29 09:18] VITALS: O2SAT 94
--- NOTE | 2017-10-30 07:31 | DS ---
Subjective: The patient is sitting comfortably, doing well, has no complaints. Has not had any shor tness of breath. She has not had any fever or chills. No cough. She is doing well. Objective: Vital Signs: Blood pressure 100/50, pulse 70, temperature 97.1. Heart: Regular rate and rhythm. Chest: Clear to auscultation. Abdomen: Soft, benign. Neurological: Alert, oriented, nonfocal. Grossly intact. Extremities: No edema. No cyanosis. Peripheral pulses are felt. Laboratory Data: CBC noted. PT/INR 36.3 and 3.04. Chemistry noted. Blood sugar fingersticks noted . Assessment/plan: Shortness of breath, resolved, more likely to be slightly fluid overload with conge stive failure. I appreciate Dr. Russell's input. We will put the patient on furosemide regimen at 2 0 mg p.o. daily and will be twice a week only. I have instructed the patient also about low-salt t. She understands the same plan . We will discharge the patient on Augmentin 875 b.i.d. for the next 5 days. We will have instructions for the patient to go tomorrow. Today, I have checke d her PT/INR. The patient note that antibiotics can change her warfarin level and needs t o be followed up closely. Look orders for details. MFS/MODL Voice ID: [id number] Report ID: [id number]
== END 2017-10-29 13:56 | disposition home or self-care (01) | DRG 291 ==
LOC: ER 17:06 → ERHOLD 20:08 → 4TH 21:36
PROVIDERS: ADMIT Internal Medicine; ATTEND Internal Medicine
DX: I11.0 Hypertensive heart disease with heart failure (principal); J18.9 Pneumonia, unspecified organism; I50.33 Acute on chronic diastolic (congestive) heart failure; I48.2 Chronic atrial fibrillation; E11.9 Type 2 diabetes mellitus without complications; E78.5 Hyperlipidemia, unspecified; J44.9 Chronic obstructive pulmonary disease, unspecified; Z95.3 Presence of xenogenic heart valve; Z79.01 Long term (current) use of anticoagulants; Z79.4 Long term (current) use of insulin; Z88.1 Allergy status to other antibiotic agents; Z88.8 Allergy status to other drugs, medicaments and biological substances; Z95.0 Presence of cardiac pacemaker
CPT/HCPCS: 36415; 71045; 80048; 80076; 81003; 82962; 83735; 83880; 84484; 85025; 85610; 85730; 93005; 94760; 96365; 96375; 99285; J0456; J0696; J1940

== ENCOUNTER 2017-11-28 07:00 | Day surgery (SDC) | payer OTHER ==
--- NOTE | 2017-11-24 10:31 | RAD REPORT ---
EXAM DESCRIPTION: RAD - Chest Pa And Lat (2 Views) - 11/24/2017 9:12 am CLINICAL HISTORY: Preop chest, pending cardiac catheterization and aortic valve assessment. COMPARISON: October 27 TECHNIQUE: PA and lateral views of the chest were obtained. FINDINGS: The lungs are normal volume. Chronic interstitial lung disease is present. Numerous small granulomatous calcifications are present. Interstitial pattern is not clearly different from prior im aging. No significant acute failure or volume overload. Prominent pericardial fat pad on the right. P acemaker is in place. Trachea is midline. Mild cardiomegaly similar to comparison. No pleural effusion or pneumothorax seen. No acute bony fin ding noted. No aortic abnormality. IMPRESSION: Chronic interstitial lung disease and chronic mild cardiomegaly. No acute finding suspected and no significant change from October 27.
[~2017-11-28 07:00] MED LIST: HEPA 1000U/500MLS 1,000 UNIT/500 ML BAG IV ONE; NA CHLORIDE 0.9% 0 ML ONE
[2017-11-28] MEDS ORDERED: NA CHLORIDE 0.9% 500 ML ONE (07:16)
[2017-11-28 08:02] LABS: Protime INR 0.98
[2017-11-28] MEDS ORDERED: LIDOCAINE 1% MPF 5 ML VIAL ONE (08:16)
[2017-11-28] MEDS ORDERED: NA CHLORIDE 0.9% 100 ML IV ONE (08:31)
[2017-11-28] MEDS ORDERED: MIDAZOLAM HCL 2 MG/2 ML INJ ONE (08:39)
[2017-11-28] MEDS ORDERED: FENTANYL CITR 100 MCG/2 ML ONE (08:40)
[2017-11-28] MEDS ORDERED: ATROPINE SULF 1 MG/10 ML SYR IV ONE (08:47)
[2017-11-28] MEDS ORDERED: NA CHLORIDE 0.9% 0 ML ONE (08:47)
[2017-11-28 12:29] VITALS: TEMP 97.1; O2SAT 100
[2017-11-28 12:55] VITALS: BP 139/68
--- NOTE | 2017-11-28 14:10 | OP ---
Surgeon: Braulio Hurt MD Additional Attending Physician: Khadijah Qiu MD Procedures Performed: Right and left heart catheterization, coronary angiography, determination of c ardiac output, and aortic valve area. Findings: The patient has critical aortic stenosis. Estimated aortic valve area is 0.5 square cm. The mean gradient was 40. Cardiac output 2.4. Her coronary arteries were normal. No left ventricul ar angiogram was done. Procedure In Detail: The patient had been on Coumadin. She stopped it, demonstrated an INR that is subtherapeutic. She had been on Lovenox. Her last dose of Lovenox was more than 12 hours ago. Brou ght to the cardiac laborer tree tapping in a fasting state, sedated with Versed, fentanyl, prepared and draped. Right femoral artery and vein were entered using lidocaine to anesthetize 18-gauge needle, modified S eldinger technique, 7-Guinean sheath in the vein, 4-Guinean in the artery. We used a Coleman-Osman cathete r. Thermodilution cardiac outputs for right heart measurements. Left heart measurements were done u sing a JL4 and a 3DRC. The valve was crossed using the 3DRC and straight wire. We did not inject th e ventricle. We measured the gradient for purposes of calculating aortic valve area. At the end of the procedure, an angiogram was done of the right femoral artery. Adequate anatomy was seen for [place]-Seal. Arteriotomy was closed with Angio-Seal. The vein puncture was closed using manual pressure. She will be discharged later today. She will undergo transcutaneous aortic valve replacement under the c are of Dr. Ellison. FRANCO/BURT Voice ID: [id number] Report ID: [id number]
== END 2017-11-28 13:40 | disposition home or self-care (01) ==
LOC: CCL 07:00
PROVIDERS: ATTEND Internal Medicine
PROC: 02HQ32Z Insertion of Monitoring Device into Right Pulmonary Artery, Percutaneous Approach (ICD-10-PCS; principal; 2017-11-28)
PROC: 4A133B3 Monitoring of Arterial Pressure, Pulmonary, Percutaneous Approach (ICD-10-PCS; 2017-11-28)
PROC: 4A1239Z Monitoring of Cardiac Output, Percutaneous Approach (ICD-10-PCS; 2017-11-28)
PROC: 4A023N7 Measurement of Cardiac Sampling and Pressure, Left Heart, Percutaneous Approach (ICD-10-PCS; 2017-11-28)
PROC: B211YZZ Fluoroscopy of Multiple Coronary Arteries using Other Contrast (ICD-10-PCS; 2017-11-28)
PROC: B215YZZ Fluoroscopy of Left Heart using Other Contrast (ICD-10-PCS; 2017-11-28)
DX: I08.0 Rheumatic disorders of both mitral and aortic valves (principal); Z79.01 Long term (current) use of anticoagulants; Z95.2 Presence of prosthetic heart valve; E78.2 Mixed hyperlipidemia; Z95.0 Presence of cardiac pacemaker; I48.0 Paroxysmal atrial fibrillation; J44.9 Chronic obstructive pulmonary disease, unspecified; E11.39 Type 2 diabetes mellitus with other diabetic ophthalmic complication; H42 Glaucoma in diseases classified elsewhere; E78.00 Pure hypercholesterolemia, unspecified; I10 Essential (primary) hypertension; I73.9 Peripheral vascular disease, unspecified
CPT/HCPCS: 36415; 71046; 82962 ×3; 85610; 85730; 93458; 93799; C1760; C1893; J2250; J3010; J0583

== ENCOUNTER 2017-12-04 19:12 | Observation (INO) | payer OTHER ==
--- OUTSIDE RECORDS SUMMARY | 2017-12-04 19:58 | XMS REPORT ---
:1930 Author Organization [facility] Address [address] [place] [address] Care Team Providers Name Role Phone VY FISHER Unavailable Unavailable Problems This patient has no known problems. Allergies, Adverse Reactions, Alerts This patient has no known allergies or adverse reactions. Medications This patient has no known medications. Results Test Description Test Time Test Comments Text Results Atomic Results Result Comments CT, CTA ABDOMEN 2017-12-04 12:28:[address] angiography of the thoracoabdominal aorta and pelvic arteries, 04 December 2017 INDICATION: This is a 87 year old female with a diagnosis of aortic stenosis, presents for preprocedure TAVR assessment. There is a clinical concern of aortic aneurysm. This study is performed in an attempt to avoid an invasive procedure. TECHNIQUE: Spiral acquisition before and during intravenous contrast administration using a Negro multidetector CT scanner. Images were obtained before and during the dynamic passage of intravenous contrast material. Multi-planar 3-D volume-rendering reconstruction was performed using an independent workstation interactively by the interpreting physician as well as the 3-D specialist for optimal visualization of the thoracoabdominal aorta, the pelvic arteries as well as its proximal branches. Please refer to the contrast sheet scanned in the EPIC system for the amount and route of contrast given. This exam was performed according to our departmental dose-optimisation programme, which includes automated exposure control, adjustment of the mA and/or kV according to patient size and/or use of iterative reconstruction technique. Dose modulation, iterative reconstruction, and/or weight based adjustment of the mA/kV was utilized to reduce the radiation dose to as low as reasonably achievable. FINDINGS: VASCULAR: An electronic device is identified in the left upper chest, with pacing leads identified in the right-sided cardiac chambers. The central pulmonary artery is normal in calibre. The cardiac chambers demonstrate normal atrioventricular and ventriculoarterial concordance, and systemic and pulmonary venous return. There could be some left ventricular prominence identified. Left atrial enlargement is seen. Patient is post mitral valve replacement. Coronary artery origins are normal, and coronary artery calcification is identified in the proximal and mid LAD, and also scattered along the RCA territories. Patient has a diagnosis of aortic stenosis. Aortic valve is tricuspid. Agatston score is 2025. Aortic valve area is quantified to be 35 mm sq by planimetry. The location of aortic valvular calcification can be seen in reformatted data set sent to PACS. The scattered calcifications seen in the aortic root and remainder of the ascending thoracic aorta is free of calcification. The transverse arch and descending thoracic aorta is free of calcification. The abdominal aorta only has scattered calcific atherosclerosis identified. The common iliac, external iliac, common femoral, and the Visualized superficial femoral arteries are seen to be patent with no obstructive lesion identified. A tiny hypodensity is identified in the right common femoral artery image 453, that could represent a closure device. The coeliac axis, SMA, PEPITO are widely patent. There are single left and right renal arteries that are widely patent with eccentric nonobstructive calcification identified. Single left and right renal veins are seen draining normally into the IVC. Arch vessel branching pattern is normal and the visualized arch vessels are seen to be widely patent proximally. The left subclavian artery, only had tiny focal calcific atherosclerosis identified, at image 12, it measures approximately 6 to 7 mm in diameter. The right subclavian artery, at image 12 measures approximately 6 to 7 mm in diameter. Dimensions that may be helpful for TAVR as follows: Only minimal calcification is identified at the aortic root. Remainder of the ascending thoracic aorta is free of calcification. The major and minor aortic annulus diameter measures 23.2 and 18.1 mm, respectively. The aortic annulus perimeter measured 68 mm and the cross-sectional area measures 357 mm2. The aortic annulus diameter at the traditional LVOT and coronal LVOT measures 19.3 and 18.3 mm, respectively. For reference purpose, per SHELL S3 brochure, recommendation are as follows: CT area between 273 to 345 mm2 (20 mm valve); 338 to 430 mm2 (23 mm valve); 430 to 546 mm2 (26 mm valve); 540 to 683 mm2 (29 mm valve). For reference purpose, per CoreValve Evolut R brochure, recommendation are as follows: CT perimeter between 56.5-62.8 mm (23 mm valve); 62.8-72.3 mm (26 mm valve); 72.3-81.7 mm (29 mm valve); and 81.7-94.2. mm (34 mm valve). Agatston Score is 2025. By planimetry, aortic valve area is 35 sq mm. The sinus of Valsalva height to the takeoff of the coronary artery ostium, RCC (diastole): 11.3 mmThe sinus of Valsalva height to the takeoff of the coronary artery ostium, LCC (diastole): 12.9 mm The sinus of Valsalva diameter, RCC (diastole): 29.7 mmThe sinus of Valsalva diameter, LCC (diastole): 28.8 mmThe sinus of Valsalva diameter, NCC (diastole): 27.0 mm The sinotubular junction measures approximately 25.1 x 26.6 mm. The aortic root angulation measures 56.8 degrees. The minimal and perpendicular abdominal aortic diameter measures 11.4 and 12.9 mm, respectively. There is no evidence of thoracoabdominal aortic aneurysm or stent placement present. The minimum and the perpendicular left common iliac artery measures 8.8 and 9.0 mm, respectively with minimal tortuosity and minimal calcific atherosclerosis present. The minimum and the perpendicular left external iliac artery measures 6.2 and 6.8 mm, respectively with mild to moderate tortuosity and no calcific atherosclerosis present. The minimum and the perpendicular left femoral artery measures 6.6 and 7.1 mm, respectively with minimal tortuosity and no calcific atherosclerosis present. The minimum and the perpendicular right common iliac artery measures 9.1 and 9.1 mm, respectively with mild tortuosity and minimal calcific atherosclerosis present. The minimum and the perpendicular right external iliac artery measures 5.4 and 5.9 mm, respectively with mild to moderate tortuosity and no calcific atherosclerosis present. The minimum and the perpendicular right femoral artery measures 6.3 and 6.3 mm, respectively with minimal tortuosity and no calcific atherosclerosis present. At image 454, small hypodensity is identified in the right common femoral artery, that could represent prior closure device. Overall, the left external iliac artery is a larger diameter when compared to the right external iliac artery. NONVASCULAR: Tiny focal calcification is identified in the left thyroid lobe. The chest wall and mediastinum is unremarkable. Some small lymph nodes are seen, overall small in size, therefore considered nonspecific in nature. In the lung windows, hypodensities identified in the posterior aspect of the trachea, image 48, potential differential diagnosis includes debris versus a small polyp. An addendum will be dictated thereafter, if needed. No pleural effusions identified. Some dependent changes are seen in the lung bases. Some subsegmental atelectatic changes are seen. Calcified granuloma is identified in the right lung at image 127. Small nodular opacity is seen abutting the fissure of the right lung at image 141 suggesting a small intrafissural lymph node. Overall, no suspicious pulmonary nodule is identified. In the abdomen, the liver appears unremarkable. The liver edge is smooth. There is likely perfusion phenomena identified, for example in the left hepatic lobe. Subcentimeter hypodensity is identified in the liver image 198, too small to characterize. The pancreas appears unremarkable. The spleen is not well appreciated. Correlate with patient have any prior surgical history. The adrenal glands are not enlarged. Patient is post cholecystectomy. No acute renal pathology is seen and no hydronephrosis or perirenal fluid collections identified. Minimal cortical scarring is present. Bowel is not well assessed by CT angiography as enteric contrast not given. No obvious bowel dilation is identified. Scattered diverticular disease is seen in the descending and sigmoid colon. Small lymph nodes are seen in both groins, considered nonspecific in nature and inflammatory changes are seen in the right groin with small lymph nodes, likely represent recent catheterization. Correlate clinically. In addition, there are also surgical clips identified anterior to the right SFA. No free air or free fluid seen abdomen and pelvis and no significant retroperitoneal adenopathy is identified. The uterus is identified. Calcification is seen, representing uterine fibroids. No obvious abnormal adnexal masses seen though CT is not optimised in the assessment of pelvic gynecological structures. In the bony windows, no acute bony pathology is seen. Some degenerative changes are noted. Compression fracture is identified at T12 level, age-indeterminate. Finally in the muscle group medial to the right SFA (the adductor muscle group), for example at image 533, is larger than the corresponding muscle group in the left, suggesting an haematoma. Correlate clinically as it appears patient could have recent cardiac catheterization performed. No acute extravasation of contrast is identified. CONCLUSIONS: 1. Patient has a diagnosis of aortic stenosis. Aortic valve is tricuspid. Agatston score is over 2000. Aortic valve area is 35 sq mm. Only minimal calcification seen in the aortic root. Patient is post mitral valve replacement. Dimensions that may be helpful for TAVR as described above. In general, the left pelvic arteries are larger than the right pelvic arteries. 2. Coronary atherosclerosis. 3. The central pulmonary artery is normal in calibre. Evidence of prior granulomatous disease. 4. Other findings as described above, including more prominent of the adductor muscle group in the right side that may represent an haematoma. No acute extravasation of contrast is identified. 5. An addendum will be dictated by the Assembler Crimper Radiologist regarding the nonvascular findings. 6. Impression was discussed with Dr. Fisher at the time of dictation. Signed: Sudhir Kovacs MDReport Verified Date/Time: 12/04/2017 12:28:54 Reading Location: [place] [address] Cardiology MRI , CTA, CHEST 2017-12-04 12:28:[address] angiography of the thoracoabdominal aorta and pelvic arteries, 04 December 2017 INDICATION: This is a 87 year old female with a diagnosis of aortic stenosis, presents for preprocedure TAVR assessment. There is a clinical concern of aortic aneurysm. This study is performed in an attempt to avoid an invasive procedure. TECHNIQUE: Spiral acquisition before and during intravenous contrast administration using a Negro multidetector CT scanner. Images were obtained before and during the dynamic passage of intravenous contrast material. Multi-planar 3-D volume-rendering reconstruction was performed using an independent workstation interactively by the interpreting physician as well as the 3-D specialist for optimal visualization of the thoracoabdominal aorta, the pelvic arteries as well as its proximal branches. Please refer to the contrast sheet scanned in the EPIC system for the amount and route of contrast given. This exam was performed according to our departmental dose-optimisation programme, which includes automated exposure control, adjustment of the mA and/or kV according to patient size and/or use of iterative reconstruction technique. Dose modulation, iterative reconstruction, and/or weight based adjustment of the mA/kV was utilized to reduce the radiation dose to as low as reasonably achievable. FINDINGS: VASCULAR: An electronic device is identified in the left upper chest, with pacing leads identified in the right-sided cardiac chambers. The central pulmonary artery is normal in calibre. The cardiac chambers demonstrate normal atrioventricular and ventriculoarterial concordance, and systemic and pulmonary venous return. There could be some left ventricular prominence identified. Left atrial enlargement is seen. Patient is post mitral valve replacement. Coronary artery origins are normal, and coronary artery calcification is identified in the proximal and mid LAD, and also scattered along the RCA territories. Patient has a diagnosis of aortic stenosis. Aortic valve is tricuspid. Agatston score is 2025. Aortic valve area is quantified to be 35 mm sq by planimetry. The location of aortic valvular calcification can be seen in reformatted data set sent to PACS. The scattered calcifications seen in the aortic root and remainder of the ascending thoracic aorta is free of calcification. The transverse arch and descending thoracic aorta is free of calcification. The abdominal aorta only has scattered calcific atherosclerosis identified. The common iliac, external iliac, common femoral, and the Visualized superficial femoral arteries are seen to be patent with no obstructive lesion identified. A tiny hypodensity is identified in the right common femoral artery image 453, that could represent a closure device. The coeliac axis, SMA, PEPITO are widely patent. There are single left and right renal arteries that are widely patent with eccentric nonobstructive calcification identified. Single left and right renal veins are seen draining normally into the IVC. Arch vessel branching pattern is normal and the visualized arch vessels are seen to be widely patent proximally. The left subclavian artery, only had tiny focal calcific atherosclerosis identified, at image 12, it measures approximately 6 to 7 mm in diameter. The right subclavian artery, at image 12 measures approximately 6 to 7 mm in diameter. Dimensions that may be helpful for TAVR as follows: Only minimal calcification is identified at the aortic root. Remainder of the ascending thoracic aorta is free of calcification. The major and minor aortic annulus diameter measures 23.2 and 18.1 mm, respectively. The aortic annulus perimeter measured 68 mm and the cross-sectional area measures 357 mm2. The aortic annulus diameter at the traditional LVOT and coronal LVOT measures 19.3 and 18.3 mm, respectively. For reference purpose, per SHELL S3 brochure, recommendation are as follows: CT area between 273 to 345 mm2 (20 mm valve); 338 to 430 mm2 (23 mm valve); 430 to 546 mm2 (26 mm valve); 540 to 683 mm2 (29 mm valve). For reference purpose, per CoreValve Evolut R dianna, recommendation are as follows: CT perimeter between 56.5-62.8 mm (23 mm valve); 62.8-72.3 mm (26 mm valve); 72.3-81.7 mm (29 mm valve); and 81.7-94.2. mm (34 mm valve). Agatston Score is 2025. By planimetry, aortic valve area is 35 sq mm. The sinus of Valsalva height to the takeoff of the coronary artery ostium, RCC (diastole): 11.3 mmThe sinus of Valsalva height to the takeoff of the coronary artery ostium, LCC (diastole): 12.9 mm The sinus of Valsalva diameter, RCC (diastole): 29.7 mmThe sinus of Valsalva diameter, LCC (diastole): 28.8 mmThe sinus of Valsalva diameter, NCC (diastole): 27.0 mm The sinotubular junction measures approximately 25.1 x 26.6 mm. The aortic root angulation measures 56.8 degrees. The minimal and perpendicular abdominal aortic diameter measures 11.4 and 12.9 mm, respectively. There is no evidence of thoracoabdominal aortic aneurysm or stent placement present. The minimum and the perpendicular left common iliac artery measures 8.8 and 9.0 mm, respectively with minimal tortuosity and minimal calcific atherosclerosis present. The minimum and the perpendicular left external iliac artery measures 6.2 and 6.8 mm, respectively with mild to moderate tortuosity and no calcific atherosclerosis present. The minimum and the perpendicular left femoral artery measures 6.6 and 7.1 mm, respectively with minimal tortuosity and no calcific atherosclerosis present. The minimum and the perpendicular right common iliac artery measures 9.1 and 9.1 mm, respectively with mild tortuosity and minimal calcific atherosclerosis present. The minimum and the perpendicular right external iliac artery measures 5.4 and 5.9 mm, respectively with mild to moderate tortuosity and no calcific atherosclerosis present. The minimum and the perpendicular right femoral artery measures 6.3 and 6.3 mm, respectively with minimal tortuosity and no calcific atherosclerosis present. At image 454, small hypodensity is identified in the right common femoral artery, that could represent prior closure device. Overall, the left external iliac artery is a larger diameter when compared to the right external iliac artery. NONVASCULAR: Tiny focal calcification is identified in the left thyroid lobe. The chest wall and mediastinum is unremarkable. Some small lymph nodes are seen, overall small in size, therefore considered nonspecific in nature. In the lung windows, hypodensities identified in the posterior aspect of the trachea, image 48, potential differential diagnosis includes debris versus a small polyp. An addendum will be dictated thereafter, if needed. No pleural effusions identified. Some dependent changes are seen in the lung bases. Some subsegmental atelectatic changes are seen. Calcified granuloma is identified in the right lung at image 127. Small nodular opacity is seen abutting the fissure of the right lung at image 141 suggesting a small intrafissural lymph node. Overall, no suspicious pulmonary nodule is identified. In the abdomen, the liver appears unremarkable. The liver edge is smooth. There is likely perfusion phenomena identified, for example in the left hepatic lobe. Subcentimeter hypodensity is identified in the liver image 198, too small to characterize. The pancreas appears unremarkable. The spleen is not well appreciated. Correlate with patient have any prior surgical history. The adrenal glands are not enlarged. Patient is post cholecystectomy. No acute renal pathology is seen and no hydronephrosis or perirenal fluid collections identified. Minimal cortical scarring is present. Bowel is not well assessed by CT angiography as enteric contrast not given. No obvious bowel dilation is identified. Scattered diverticular disease is seen in the descending and sigmoid colon. Small lymph nodes are seen in both groins, considered nonspecific in nature and inflammatory changes are seen in the right groin with small lymph nodes, likely represent recent catheterization. Correlate clinically. In addition, there are also surgical clips identified anterior to the right SFA. No free air or free fluid seen abdomen and pelvis and no significant retroperitoneal adenopathy is identified. The uterus is identified. Calcification is seen, representing uterine fibroids. No obvious abnormal adnexal masses seen though CT is not optimised in the assessment of pelvic gynecological structures. In the bony windows, no acute bony pathology is seen. Some degenerative changes are noted. Compression fracture is identified at T12 level, age-indeterminate. Finally in the muscle group medial to the right SFA (the adductor muscle group), for example at image 533, is larger than the corresponding muscle group in the left, suggesting an haematoma. Correlate clinically as it appears patient could have recent cardiac catheterization performed. No acute extravasation of contrast is identified. CONCLUSIONS: 1. Patient has a diagnosis of aortic stenosis. Aortic valve is tricuspid. Agatston score is over 2000. Aortic valve area is 35 sq mm. Only minimal calcification seen in the aortic root. Patient is post mitral valve replacement. Dimensions that may be helpful for TAVR as described above. In general, the left pelvic arteries are larger than the right pelvic arteries. 2. Coronary atherosclerosis. 3. The central pulmonary artery is normal in calibre. Evidence of prior granulomatous disease. 4. Other findings as described above, including more prominent of the adductor muscle group in the right side that may represent an haematoma. No acute extravasation of contrast is identified. 5. An addendum will be dictated by the Assembler Crimper Radiologist regarding the nonvascular findings. 6. Impression was discussed with Dr. Fisher at the time of dictation. Signed: Sudhir Kovacs MDReport Verified Date/Time: 12/04/2017 12:28:54 Reading Location: [place] [address] Cardiology MRI -CREATININE 2017-12-04 08:55:00 Test Item Value Reference Range Comments POC-CREATININE (ADITI) (test 0.5 mg/dL 0.6-1.3 TESTED AT [facility] [address] [facility] [id number]) [facility] [address] POC-EGFR (ADITI) (test mL/min/1.73M2 Insufficient clinical data to [id number]) calculate estimated GFR
--- OUTSIDE RECORDS SUMMARY | 2017-12-04 19:58 | XMS REPORT | Clinical Summary ---
:1930 Author Organization [facility] Address [address] [place] [address] Phone Care Team Providers Name Role Phone Unavailable Primary Care Provider Unavailable Allergies No Known Allergies Current Medications Not on file Active Problems Not on file Encounters Date Type Specialty Care Team Description 12/04/2017 Hospital Encounter Radiology Alberto Ellison Aortic valve MD Kerrie stenosis, etiology of cardiac valve disease unspecified 12/04/2017 Hospital Encounter Radiology Alberto Ellison Aortic valve MD Kerrie stenosis, etiology of cardiac valve disease unspecified 12/01/2017 Outside Orders Central Scheduling Alberto Ellison Aortic valve MD Kerrie stenosis, etiology of cardiac valve disease unspecified (Primary Dx) after 12/03/2016 Social History Tobacco Use Types Packs/Day Years Used Date Never Assessed Sex Assigned at Date Recorded Not on file Last Filed Vital Signs Not on file Plan of Treatment Date Type Specialty Care Team Description 12/07/2017 Office Visit Cardiology Rich Barr MD [address] [facility] [id number] [place] [address] 12/11/2017 Office Visit Cardiology Benny Hernandez MD [address] [facility] [id number] [place], [place] [id number] 12/14/2017 Surgery Alberto Ellison, TAVR / NAHID KP - MARGO [facility] PROC ONLY [address] [facility] [address] [place] [address] [phone] 12/14/2017 Procedure Pass 12/14/2017 Hospital Encounter Alberto Ellison MD [address] [place], [place] [id number] Health Maintenance Due Date Last Done Comments INFLUENZA VACCINE 01/15/2018 Results CTA chest (12/04/2017 9:41 AM) Specimen Performing Laboratory [employer] Narrative FINAL REPORT CT angiography of the thoracoabdominal [...] during the dynamic passage of intravenous contrast material.Multi-planar 3-D volume-rendering reconstruction was performed using an [...] mm (34 mm valve). Agatston Score is 2025.By planimetry, aortic valve area is 35 sq mm. The sinus of Valsalva height to the takeoff of the coronary artery ostium, RCC (diastole): 11.3 mm The sinus of Valsalva height to the takeoff of the coronary artery ostium, LCC (diastole): 12.9 mm The sinus of Valsalva diameter, RCC (diastole): 29.7 mm The sinus of Valsalva diameter, LCC (diastole): 28.8 mm The sinus of Valsalva diameter, NCC (diastole): 27.0 [...] measures 8.8 and 9.0 mm, respectively with minimaltortuosity and minimal calcific atherosclerosis present. The minimum and the perpendicular left external iliac artery measures 6.2 and 6.8 mm, respectively with mild to moderatetortuosity and nocalcific atherosclerosis present. The minimum and the perpendicular left femoral artery measures 6.6 and 7.1 mm, respectively with minimaltortuosity and no calcific atherosclerosis present. The minimum and the perpendicular right common iliac artery measures 9.1 and 9.1 mm, respectively with mildtortuosity and minimal calcific atherosclerosis present. The minimum and the perpendicular rightexternal iliac artery measures 5.4 and 5.9 mm, respectively with mild to moderatetortuosity and nocalcific atherosclerosis present. The minimum and the perpendicular right femoral artery measures 6.3 and 6.3 mm, respectively with minimaltortuosity and no calcific atherosclerosis present. At image [...] seen though CT is not optimised in theassessment of pelvic gynecological structures. In the bony [...] acute extravasation of contrast is identified. CONCLUSIONS: 1.Patient has a diagnosis of aortic stenosis. Aortic valve is tricuspid. Agatston score is over 2000. Aortic valve area is 35 sq mm. Only minimal calcification seen in the aortic root. Patient is post mitral valve replacement. Dimensions that may be helpful for TAVR as described above. In general, the left pelvic arteries are larger than the right pelvic arteries. 2.Coronary atherosclerosis. 3.The central pulmonary artery is normal in calibre. Evidence of prior granulomatous disease. 4.Other findings as described above, including more prominent of the adductor muscle group in the right side that may represent an haematoma. No acute extravasation of contrast is identified. 5.An addendum will be dictated by the [employer] Radiologist regarding the nonvascular findings. 6.Impression was discussed with Dr. Ellison at the time of dictation. Signed: Sudhir Kovacs MD Report Verified Date/Time:12/04/2017 12:28:54 Reading Location: [place] [id number] Cardiology MRI Procedure Note Interface, External Ris In - 12/04/2017 12:31 PM CDT FINAL REPORT CT angiography of the thoracoabdominal [...] the coronary artery ostium, RCC (diastole): 11.3 mm The sinus of Valsalva height to the takeoff of the coronary artery ostium, LCC (diastole): 12.9 mm The sinus of Valsalva diameter, RCC (diastole): 29.7 mm The sinus of Valsalva diameter, LCC (diastole): 28.8 mm The sinus of Valsalva diameter, NCC (diastole): 27.0 [...] An addendum will be dictated by the Music Catalog[employer] Radiologist regarding the nonvascular findings. 6. Impression was discussed with Dr. Ellison at the time of dictation. Signed: Sudhir Kovacs MD Report Verified Date/Time: 12/04/2017 12:28:54 Reading Location: [place] [address] Cardiology MRI abdomen & pelvis (12/04/2017 9:41 AM) Specimen Performing Laboratory [employer] Narrative FINAL REPORT CT angiography of the thoracoabdominal [...] during the dynamic passage of intravenous contrast material.Multi-planar 3-D volume-rendering reconstruction was performed using an [...] mm (34 mm valve). Agatston Score is 2025.By planimetry, aortic valve area is 35 sq mm. The sinus of Valsalva height to the takeoff of the coronary artery ostium, RCC (diastole): 11.3 mm The sinus of Valsalva height to the takeoff of the coronary artery ostium, LCC (diastole): 12.9 mm The sinus of Valsalva diameter, RCC (diastole): 29.7 mm The sinus of Valsalva diameter, LCC (diastole): 28.8 mm The sinus of Valsalva diameter, NCC (diastole): 27.0 [...] measures 8.8 and 9.0 mm, respectively with minimaltortuosity and minimal calcific atherosclerosis present. The minimum and the perpendicular left external iliac artery measures 6.2 and 6.8 mm, respectively with mild to moderatetortuosity and nocalcific atherosclerosis present. The minimum and the perpendicular left femoral artery measures 6.6 and 7.1 mm, respectively with minimaltortuosity and no calcific atherosclerosis present. The minimum and the perpendicular right common iliac artery measures 9.1 and 9.1 mm, respectively with mildtortuosity and minimal calcific atherosclerosis present. The minimum and the perpendicular rightexternal iliac artery measures 5.4 and 5.9 mm, respectively with mild to moderatetortuosity and nocalcific atherosclerosis present. The minimum and the perpendicular right femoral artery measures 6.3 and 6.3 mm, respectively with minimaltortuosity and no calcific atherosclerosis present. At image [...] seen though CT is not optimised in theassessment of pelvic gynecological structures. In the bony [...] acute extravasation of contrast is identified. CONCLUSIONS: 1.Patient has a diagnosis of aortic stenosis. Aortic valve is tricuspid. Agatston score is over 2000. Aortic valve area is 35 sq mm. Only minimal calcification seen in the aortic root. Patient is post mitral valve replacement. Dimensions that may be helpful for TAVR as described above. In general, the left pelvic arteries are larger than the right pelvic arteries. 2.Coronary atherosclerosis. 3.The central pulmonary artery is normal in calibre. Evidence of prior granulomatous disease. 4.Other findings as described above, including more prominent of the adductor muscle group in the right side that may represent an haematoma. No acute extravasation of contrast is identified. 5.An addendum will be dictated by the Music Catalog[employer] Radiologist regarding the nonvascular findings. 6.Impression was discussed with Dr. Ellison at the time of dictation. Signed: Sudhir Kovacs MD Report Verified Date/Time:12/04/2017 12:28:54 Reading Location: [place] [address] Cardiology MRI Procedure Note Interface, External Ris In - 12/04/2017 12:31 PM CDT FINAL REPORT CT angiography of the thoracoabdominal [...] the coronary artery ostium, RCC (diastole): 11.3 mm The sinus of Valsalva height to the takeoff of the coronary artery ostium, LCC (diastole): 12.9 mm The sinus of Valsalva diameter, RCC (diastole): 29.7 mm The sinus of Valsalva diameter, LCC (diastole): 28.8 mm The sinus of Valsalva diameter, NCC (diastole): 27.0 [...] An addendum will be dictated by the Music Catalog[employer] Radiologist regarding the nonvascular findings. 6. Impression was discussed with Dr. Ellison at the time of dictation. Signed: Sudhir Kovacs MD Report Verified Date/Time: 12/04/2017 12:28:54 Reading Location: [place] [address] Cardiology MRI -Creatinine (12/04/2017 8:51 AM) Component Value Ref Range POC-Creatinine 0.5 (L)Comment: TESTED AT [address] 0.6 - 1.3 mg/[place] [address] POC-EGFR Comment: Insufficient clinical data to calculate mL/min/1.73M2 estimated GFR Specimen Performing [place] [id number] after 12/03/2016
[2017-12-04 20:21] LABS: Absolute Lymphocytes (CBC) 1.7 K/uL (0.7-4.9); Absolute Monocytes 1.6 K/uL (0.1-1.3); Basophils % 0.6 % (0-1.3); Hematocrit 40.8 % (36.0-45.0); Lymphocytes % 11.6 % (15.3-44.8); MCH 28.4 pg (27.0-35.0); MCV 87.2 fL (80-100); Monocytes % 11.3 % (3.3-12.3); RBC Red Blood Cell Count 4.68 M/uL (3.86-4.86)
[2017-12-04 20:23] LABS: Protime INR 1.27
[2017-12-04 20:40] LABS: Albumin 3.1 g/dL (3.4-5.0); Bilirubin Direct 0.2 mg/dL (0-0.2); Bilirubin Total 0.7 mg/dL (0.2-1.0); CKMB Creatine Kinase MB 1.7 ng/mL (0.3-3.6); Magnesium 2.6 mg/dL (1.8-2.4); Potassium 4.8 mmol/L (3.5-5.1); Protein, Total 6.6 g/dL (6.4-8.2)
--- NOTE | 2017-12-04 20:42 | RAD REPORT ---
EXAM DESCRIPTION: RAD - Chest Single View - 12/04/2017 8:30 pm CLINICAL HISTORY: DYSPNEA Chest pain. COMPARISON: Chest Pa And Lat (2 Views) dated 11/24/2017; Chest Single View dated 10/27/2017; Chest Pa And Lat (2 Views) dated 03/25/2017; Chest Pa And Lat (2 Views) dated 03/21/2017 FINDINGS: Portable technique limits examination quality. The lungs are grossly clear. The heart is upper limit normal in size with a dual lead pacer device pr esent. Tortuous thoracic aorta is seen. No displaced fractures. IMPRESSION: No acute intrathoracic process suspected.
[2017-12-04] MEDS ORDERED: NA CHLORIDE 0.9% 500 ML ONE ×2 (20:51→22:45)
--- NOTE | 2017-12-04 22:50 | EDPHYS ---
Physician Documentation [facility] Name: Hannah Hogan Age: 87 yrs Sex: Female : 1930 Arrival Date: 12/04/2017 Time: 19:16 Bed 6 Private MD: ED Physician Gautam Beaver HPI: 12/05 00:43 This 87 yrs old Female presents to ER via Wheelchair with complaints of Leg tw4 Pain, Nausea. 00:43 The patient presents with pain, that is acute, swelling, tenderness. tw4 00:57 The complaints affect the medial aspect of right thigh and right quadriceps. Context: tw4 The problem was sustained in the hospital. Onset: The symptoms/episode began/occurred 2 day(s) ago. Modifying factors: The symptoms are alleviated by nothing. the symptoms are aggravated by nothing. Associated signs and symptoms: The patient has no apparent associated signs or symptoms. Severity of symptoms: At their worst the symptoms were moderate, in the emergency department the symptoms are unchanged. The patient has not experienced similar symptoms in the past. Historical: - Allergies: 12/04 19:41 ambien; sr5 19:41 Clindamycin; sr5 19:41 Flagyl; sr5 - Home Meds: 21:16 Atrovent 0.5 mg Neb h0tddax as needed for wheezing [Active]; Bimatoprost 1 drop at lp1 bedtime [Active]; tatyana 100 mcg/25 mcg 1 puff bedtime [Active]; Coumadin 2.5 mg Oral tab 1 tab once daily [Active]; Coumadin 3mg oral daily at 1700 [Active]; Cozaar 50mg oral daily [Active]; Cranberry 4200 mg 1 tab BID [Active]; Flucticasone/Vilanterol 100-25 mch INH at bedtime [Active]; Lantus 30 units sub q daily 20 unit [Active]; losartan potassium 50 mg daily [Active]; Lumigan 0.01 % ophthalmic drop 1 drop nightly [Active]; ProAir HFA 90 mcg/actuation inhalation HFAA as needed [Active]; Propafenone HCL 225mg oral q8 hours [Active]; simvastatin 20 mg Oral tab 1 tab nightly [Active]; sulfamethoxazole-trimethoprim Oral 1 tab once daily [Active]; Vitamin C Oral 1 tab daily [Active]; - PMHx: 21:16 "Mitral Valve; Cataracts; Diabetes - IDDM; Glaucoma; Hyperlipidemia; Hypertension; lp1 - PSHx: 21:16 Mitral valve replacement; Cholecystectomy; Ovary removal; cardiac cath 11/28/17; lp1 - Immunization history:: Adult Immunizations up to date. - Social history:: Smoking status: Patient/guardian denies using tobacco. - Ebola Screening: : No symptoms or risks identified at this time. ROS: 12/05 00:57 Constitutional: Negative for fever, chills, and weight loss, Eyes: Negative for injury, tw4 pain, redness, and discharge, Cardiovascular: Negative for chest pain, palpitations, and edema. Abdomen/GI: Negative for abdominal pain, nausea, vomiting, diarrhea, and constipation, Back: Negative for injury and pain, MS/Extremity: Negative for injury and deformity, Skin: Negative for injury, rash, and discoloration, Neuro: Negative for headache, weakness, numbness, tingling, and seizure. Respiratory: Positive for shortness of breath, at rest. Negative for cough, dyspnea on exertion, hemoptysis. Exam: 00:57 Constitutional: This is a well developed, well nourished patient who is awake, alert, tw4 and in no acute distress. Head/Face: Normocephalic, atraumatic. Chest/axilla: Normal chest wall appearance and motion. Nontender with no deformity. No lesions are appreciated. Cardiovascular: Regular rate and rhythm with a normal S1 and S2. No gallops, murmurs, or rubs. Normal PMI, no JVD. No pulse deficits. Respiratory: Lungs have equal breath sounds bilaterally, clear to auscultation and percussion. No rales, rhonchi or wheezes noted. No increased work of breathing, no retractions or nasal flaring. Neuro: Awake and alert, GCS 15, oriented to person, place, time, and situation. Cranial nerves II-XII grossly intact. Motor strength 5/5 in all extremities. Sensory grossly intact. Cerebellar exam normal. Normal gait. 00:57 Musculoskeletal/extremity: Extremities: noted in the medial aspect of right thigh: ecchymosis, swelling. Vital Signs: 12/04 19:41 BP 87 / 58 LA Sitting; sr5 19:42 BP 84 / 61 RA Sitting; Pulse 71; Resp 18; Temp 98.7; Pulse Ox 97% on R/A; Weight 68.04 sr5 kg (R); Height 4 ft. 8 in. (142.24 cm); Pain 7/10; 20:11 BP 98 / 40; Pulse 72; Resp 21; Pulse Ox 94% on R/A; lp1 21:00 BP 80 / 59; Pulse 85; Resp 23; Pulse Ox 96% on R/A; lp1 21:32 BP 97 / 50; Pulse 84; Resp 22; Pulse Ox 96% on R/A; lp1 21:50 BP 100 / 72; Pulse 86; Resp 20; Pulse Ox 96% on R/A; lp1 22:30 BP 83 / 57; Pulse 89; Resp 24; Pulse Ox 96% on R/A; lp1 23:15 BP 97 / 75; Pulse 85; Resp 24; Pulse Ox 94% on R/A; lp1 23:27 BP 100 / 48; Pulse 80; Resp 25; Pulse Ox 94% on R/A; lp1 12/05 00:29 BP 102 / 68; Pulse 89; Resp 25; Pulse Ox 96% on R/A; lp1 00:56 BP 112 / 64; Pulse 94; Resp 25; Pulse Ox 96% on R/A; lp1 12/04 19:42 Body Mass Index 33.63 (68.04 kg, 142.24 cm) sr5 12/04 19:42 took HTN meds around noon today "Losartan" sr5 MDM: 19:51 Patient medically screened. tw4 12/05 00:57 Differential diagnosis: contusion, tendonitis. Data reviewed: vital signs, nurses tw4 notes. Counseling: I had a detailed discussion with the patient and/or guardian regarding: the historical points, exam findings, and any diagnostic results supporting the discharge/admit diagnosis. Physician consultation: Khadijah Qiu MD was contacted at 22:36, regarding admission, patient's condition, and will see patient in inpatient room, would like consultation with Dr. Dr Hurt. Physician consultation: would like consultation with Dr. Dr Hurt consulted at [phone]. Admission orders: after a detailed discussion of the patient's condition and case, the admit orders are written by me. ED course: pt rested comfortably in the ER. Had no specifics complaints in the ED. CT scan negative for PE. Will admit pt for evaluation of hypotension. D/W Dr Goss will admit agrees with treatment plan. 12/04 19:59 Order name: Basic Metabolic Panel; Complete Time: 21:17 tw4 12/04 21:18 Interpretation: Normal except: NA 132; GFR 47; BUN 26; GLUC 217. 12/04 19:59 Order name: CBC with Diff; Complete Time: 21:17 tw4 12/04 21:18 Interpretation: WBC 14.4; RDW 16.1; LAILA% 76.5; LYM% 11.6; NEUT A 11.0. 12/04 19:59 Order name: Ckmb; Complete Time: 21:17 tw4 12/04 21:19 Interpretation: Within normal limits: CKMB 1.7. 12/04 19:59 Order name: CPK; Complete Time: 21:17 tw4 12/04 21:18 Interpretation: Normal except: CPK 197. 12/04 19:59 Order name: LFT's; Complete Time: 21:17 tw4 12/04 21:18 Interpretation: Normal except: ALB 3.1; A/G 0.9. 12/04 19:59 Order name: Magnesium; Complete Time: 21:17 4 12/04 21:18 Interpretation: Normal except: MG 2.6. 12/04 19:59 Order name: NT PRO-BNP; Complete Time: 21:17 tw4 12/04 21:18 Interpretation: Abnormal: NT PRO-BNP 41932. 12/04 19:59 Order name: PT-INR; Complete Time: 21:17 4 12/04 21:18 Interpretation: Normal except: PT 15.0. 12/04 19:59 Order name: Ptt, Activated; Complete Time: 21:17 4 12/04 21:19 Interpretation: Normal except: PTT 38.1. 12/04 19:59 Order name: Troponin (emerg Dept Use Only); Complete Time: 21:17 4 12/04 21:19 Interpretation: Within normal limits: TROPED 0.04. 12/04 19:59 Order name: XRAY Chest (1 view); Complete Time: 21:17 12/04 22:28 Order name: CT Chest Angio 12/05 00:28 Order name: Urine Dipstick--Ancillary (enter results) ms 12/04 19:59 Order name: EKG; Complete Time: 19:59 tw4 12/04 19:59 Order name: Cardiac monitoring; Complete Time: 20:32 tw4 12/04 19:59 Order name: EKG - Nurse/Tech; Complete Time: 20:32 tw4 12/04 19:59 Order name: IV Saline Lock; Complete Time: 20:32 tw4 12/04 19:59 Order name: Labs collected and sent; Complete Time: 20:32 tw4 12/04 19:59 Order name: O2 Per Protocol; Complete Time: 20:32 tw4 12/04 19:59 Order name: O2 Sat Monitoring; Complete Time: 20:32 tw4 12/04 19:59 Order name: Urine Dipstick-Ancillary (obtain specimen); Complete Time: 00:21 tw4 Administered Medications: 12/04 21:08 Drug: NS 0.9% 500 ml Route: IV; Rate: bolus; Site: right antecubital; lp1 21:45 Follow up: IV Status: Completed infusion; IV Intake: 500ml lp1 22:46 Drug: NS 0.9% 500 ml Route: IV; Rate: bolus; Site: right antecubital; ao 12/05 00:00 Follow up: IV Status: Completed infusion; IV Intake: 500ml lp1 Disposition: 12/04/17 22:49 Hospitalization ordered by Khadijah Qiu for Inpatient Admission. Preliminary diagnosis are Weakness, Hypotension, unspecified. - Bed requested for Intensive Care Unit. - Status is Inpatient Admission. lp1 - Condition is Stable. - Problem is an ongoing problem. - Symptoms are unchanged. UTI on Admission? No Signatures: Dispatcher [employer] EDMS Maria De Jesus Muñoz RN RN lp1 Mona Ibanez RN RN cg Christiano Sandoval RN RN ao Resecker, Sam RN RN sr5 Gautam Beaver MD MD tw4 Corrections: (The following items were deleted from the chart) 00:23 12/04 22:49 Hospitalization Ordered by Khadijah Qiu MD for Inpatient Admission. cg Preliminary diagnosis is Weakness; Hypotension, unspecified. Bed requested for Intensive Care Unit. Status is Inpatient Admission. Condition is Stable. Problem is an ongoing problem. Symptoms are unchanged. UTI on Admission? No. tw4 12/05 00:55 00:23 12/04/2017 22:49 Hospitalization Ordered by Khadijah Qiu MD for Inpatient lp1 Admission. Preliminary diagnosis is Weakness; Hypotension, unspecified. Bed requested for Intensive Care Unit. Status is Inpatient Admission. Condition is Stable. Problem is an ongoing problem. Symptoms are unchanged. UTI on Admission? No. cg
--- NOTE | 2017-12-04 22:50 | ER ---
Nurse's Notes [facility] Name: Hannah Hogan Age: 87 yrs Sex: Female : 1930 Arrival Date: 12/04/2017 Time: 19:16 Bed 6 Private MD: Diagnosis: Weakness;Hypotension, unspecified Presentation: 12/04 19:38 Presenting complaint: family reports concern regarding swelling to RIGHT groin area sr5 where cardiac cath was performed last Monday. Family reports pt was seen today for echo and CT but do not have results. Pt c/o nausea, weakness started today. Transition of care: patient was not received from another setting of care. Onset of symptoms was December 04, 2017. Risk Assessment: Do you want to hurt yourself or someone else? Patient reports no desire to harm self or others. Initial Sepsis Screen: Does the patient meet any 2 criteria? Systolic BP < 90 mmHg. Does the patient have a suspected source of infection? No. Patient's initial sepsis screen is negative. Care prior to arrival: None. 19:38 Method Of Arrival: Wheelchair sr5 19:38 Acuity: NEHEMIAH 2 sr5 Triage Assessment: 19:41 General: Appears ill, Behavior is calm, cooperative. Pain: Complains of pain in pelvis sr5 and right leg Aggravated by repositioning, unable to assess skin in triage, stockings on as well as pants. GI: Reports nausea. Historical: - Allergies: 19:41 ambien; sr5 19:41 Clindamycin; sr5 19:41 Flagyl; sr5 - Home Meds: 21:16 Atrovent 0.5 mg Neb [id number] as needed for wheezing [Active]; Bimatoprost 1 drop at lp1 bedtime [Active]; tatyana 100 mcg/25 mcg 1 puff bedtime [Active]; Coumadin 2.5 mg Oral tab 1 tab once daily [Active]; Coumadin 3mg oral daily at 1700 [Active]; Cozaar 50mg oral daily [Active]; Cranberry 4200 mg 1 tab BID [Active]; Flucticasone/Vilanterol 100-25 mch INH at bedtime [Active]; Lantus 30 units sub q daily 20 unit [Active]; losartan potassium 50 mg daily [Active]; Lumigan 0.01 % ophthalmic drop 1 drop nightly [Active]; ProAir HFA 90 mcg/actuation inhalation HFAA as needed [Active]; Propafenone HCL 225mg oral q8 hours [Active]; simvastatin 20 mg Oral tab 1 tab nightly [Active]; sulfamethoxazole-trimethoprim Oral 1 tab once daily [Active]; Vitamin C Oral 1 tab daily [Active]; - PMHx: 21:16 "Mitral Valve; Cataracts; Diabetes - IDDM; Glaucoma; Hyperlipidemia; Hypertension; lp1 - PSHx: 21:16 Mitral valve replacement; Cholecystectomy; Ovary removal; cardiac cath 11/28/17; lp1 - Immunization history:: Adult Immunizations up to date. - Social history:: Smoking status: Patient/guardian denies using tobacco. - Ebola Screening: : No symptoms or risks identified at this time. Screenin:12 Abuse screen: Denies threats or abuse. Denies injuries from another. Nutritional lp1 screening: No deficits noted. Tuberculosis screening: No symptoms or risk factors identified. Fall Risk Total Arzola Fall Scale indicates High Risk Score (45 or more points). Fall prevention measures have been instituted. Side Rails Up X 2 Family Present and informed to notify staff if the need to leave the bedside As available patient and family educated on Fall Prevention Program and Strategies. Assessment: 20:07 General: Appears in no apparent distress. Behavior is appropriate for age. Pain: lp1 Complains of pain in right femoral area Pain currently is 7 out of 10 on a pain scale. Quality of pain is described as aching, throbbing. Neuro: Level of Consciousness is awake, alert, obeys commands, Oriented to person, place, situation, Reports weakness generalized. Cardiovascular: Reports Cardiac Cath performed to right groin area last Monday Capillary refill < 3 seconds in bilateral fingers toes Patient's skin is warm and dry. Rhythm is Paced. Respiratory: Airway is patent Respiratory effort is even, unlabored, Respiratory pattern is regular, Breath sounds are clear bilaterally. GI: Abdomen is non-distended, Abd is soft and non tender X 4 quads. Reports nausea. : No signs and/or symptoms were reported regarding the genitourinary system. EENT: No signs and/or symptoms were reported regarding the EENT system. Derm: Skin is intact, Skin is dry, Bruising that is dark purple, on right femoral area, medial aspect of right thigh and lateral aspect of left thigh. Musculoskeletal: Circulation, motion, and sensation intact. 21:15 Reassessment: Patient appears in no apparent distress at this time. Patient and/or lp1 family updated on plan of care and expected duration. Pain level reassessed. 22:15 Reassessment: Patient appears in no apparent distress at this time. No changes from lp1 previously documented assessment. Patient and/or family updated on plan of care and expected duration. Pain level reassessed. 23:30 Reassessment: Patient appears in no apparent distress at this time. Patient and/or lp1 family updated on plan of care and expected duration. Pain level reassessed. Patient is alert, oriented x 3, equal unlabored respirations, skin warm/dry/pink. family at bedside, aware of waiting for CT results. 12/05 00:00 Reassessment: Patient attempted to void at this time on bed presley, small amount of urine lp1 voided with odor; Provider notified, verbal order for straight cath. Vital Signs: 12/04 19:41 BP 87 / 58 LA Sitting; sr5 19:42 BP 84 / 61 RA Sitting; Pulse 71; Resp 18; Temp 98.7; Pulse Ox 97% on R/A; Weight 68.04 sr5 kg (R); Height 4 ft. 8 in. (142.24 cm); Pain 7/10; 20:11 BP 98 / 40; Pulse 72; Resp 21; Pulse Ox 94% on R/A; lp1 21:00 BP 80 / 59; Pulse 85; Resp 23; Pulse Ox 96% on R/A; lp1 21:32 BP 97 / 50; Pulse 84; Resp 22; Pulse Ox 96% on R/A; lp1 21:50 BP 100 / 72; Pulse 86; Resp 20; Pulse Ox 96% on R/A; lp1 22:30 BP 83 / 57; Pulse 89; Resp 24; Pulse Ox 96% on R/A; lp1 23:15 BP 97 / 75; Pulse 85; Resp 24; Pulse Ox 94% on R/A; lp1 23:27 BP 100 / 48; Pulse 80; Resp 25; Pulse Ox 94% on R/A; lp1 12/05 00:29 BP 102 / 68; Pulse 89; Resp 25; Pulse Ox 96% on R/A; lp1 00:56 BP 112 / 64; Pulse 94; Resp 25; Pulse Ox 96% on R/A; lp1 12/04 19:42 Body Mass Index 33.63 (68.04 kg, 142.24 cm) sr5 12/04 19:42 took HTN meds around noon today "Losartan" sr5 ED Course: 19:16 Patient arrived in ED. es 19:40 Triage completed. sr5 19:42 Arm band placed on Patient placed in an exam room, on a stretcher, on developmental services worker, sr5 on pulse oximetry. 19:51 Gautam Beaver MD is Attending Physician. tw4 20:00 Inserted saline lock: 20 gauge in right antecubital area, using aseptic technique. lp1 Blood collected. 20:07 Maria De Jesus Muñoz, CHETAN is Primary Nurse. lp1 20:12 Patient has correct armband on for positive identification. Bed in low position. Call lp1 light in reach. Side rails up X2. hem marker on. Pulse ox on. NIBP on. 20:27 XRAY Chest (1 view) In Process Unspecified. EDMS 21:50 No provider procedures requiring assistance completed. lp1 22:48 Khadijah Qiu MD is Hospitalizing Provider. tw4 23:[address] via stretcher. nj 23:12 CT Chest Angio In Process Unspecified. EDMS 12/05 00:17 Straight cath inserted, using sterile technique, 16 Fr. Specimen obtained. lp1 00:17 Patient admitted, IV remains in place. lp1 Administered Medications: 12/04 21:08 Drug: NS 0.9% 500 ml Route: IV; Rate: bolus; Site: right antecubital; lp1 21:45 Follow up: IV Status: Completed infusion; IV Intake: 500ml lp1 22:46 Drug: NS 0.9% 500 ml Route: IV; Rate: bolus; Site: right antecubital; ao 12/05 00:00 Follow up: IV Status: Completed infusion; IV Intake: 500ml lp1 Intake: 12/04 21:45 IV: 500ml; Total: 500ml. lp1 12/05 00:00 IV: 500ml; Total: 1000ml. lp1 00:17 IV: 1000ml (IV Fluid); Total: 2000ml. lp1 Output: 00:17 Urine: 400ml (Straight Cath); Total: 400ml. lp1 Outcome: 12/04 22:49 Decision to Hospitalize by Provider. tw4 23:36 Condition: stable lp1 23:36 Instructed on the need for admit. 12/05 00:48 Admitted to ICU accompanied by nurse, accompanied by tech, family with patient, via lp1 stretcher, room 3, on monitor, with chart, Report called to CHETAN Cornejo 00:55 Patient left the ED. lp1 Signatures: Dispatcher [employer] Luisa Baxter Laura RN RN lp1 Christiano Sandoval RN RN Nicolas Mcghee RN RN sr5 Kaleb Holden Terrence, MD MD tw4 Corrections: (The following items were deleted from the chart) 12/04 21:32 21:15 Reassessment: Patient appears in no apparent distress at this time. Patient lp1 and/or family updated on plan of care and expected duration. Pain level reassessed. lp1
[2017-12-04] MEDS ORDERED: ACETAMINOPHEN 500 MG TAB PO PRN (23:29)
[2017-12-05 01:44] LABS: Urine Blood NEGATIVE (NEG); Urine Glucose NEGATIVE (NEG); Urine Protein NEGATIVE (NEG); Urine Specific Gravity 1.015 (1.005-1.030); Urine pH 6.5 (5.0-7.0)
[2017-12-05 01:52] VITALS: BMI 32.8
[2017-12-05 05:12] LABS: Absolute Lymphocytes (CBC) 2.6 K/uL (0.7-4.9); Absolute Monocytes 2.2 K/uL (0.1-1.3); Absolute Neutrophil 10.6 K/uL (1.8-8.0); Basophils % 0.4 % (0-1.3); Hematocrit 35.2 % (36.0-45.0); Lymphocytes % 16.8 % (15.3-44.8); MCH 29.2 pg (27.0-35.0); MCV 85.7 fL (80-100); MPV 12.1 fL (7.6-11.3); Monocytes % 14.4 % (3.3-12.3)
[2017-12-05 05:55] LABS: Potassium 4.3 mmol/L (3.5-5.1)
[2017-12-05] MEDS ORDERED: ESTRADIOL TOP SCH (07:45)
--- NOTE | 2017-12-05 08:13 | RAD REPORT ---
EXAM DESCRIPTION: CT - Chest Angio - 12/05/2017 4:17 am CLINICAL HISTORY: Chest pain. DYSPNEA COMPARISON: Chest For Pe Angio dated 03/21/2017Chest For Pe Angio dated 03/21/2017 TECHNIQUE: CT angiogram of the pulmonary arteries was performed with MIP. All CT scans are performed using dose optimization technique as appropriate and may include automated exposure control or mA/KV adjustment according to patient size. FINDINGS: No evidence of pulmonary thromboembolism. No acute aortic finding demonstrated. Prominent cardiomegaly seen. Mild interstitial pulmonary edema is noted. Linear subsegmental atelectasis is present both lung base s. No significant pericardial or pleural fluid. No concerning bony finding. IMPRESSION: No evidence of pulmonary thromboembolism. Mild CHF.
[2017-12-05] MEDS ORDERED: PROPAFENONE HCL 150 MG TAB PO SCH (09:00)
[2017-12-05] MEDS ORDERED: ENOXAPARIN 80 MG/0.8 ML SQ SCH (09:00)
[2017-12-05] MEDS ORDERED: LOSARTAN POTASSIUM 50 MG TABLET PO SCH (09:00)
[2017-12-05] MEDS: ALBUTEROL INHALER 60 PUFF/8 GM IH SCH ×2 (09:00→14:00)
[2017-12-05] MEDS ORDERED: INSULIN GLARGINE 100 UNITS/ML SQ SCH (09:00)
[2017-12-05] MEDS ORDERED: BIMATOPROST OPHTH DROPS/2.5 ML BTL OPTH SCH (09:00)
[2017-12-05] MEDS ORDERED: FUROSEMIDE 40 MG TABLET PO SCH (09:00)
--- NOTE | 2017-12-05 12:48 | EKG ---
Test Date: 2017-12-04 Test Time: 19:51:23 Weaver Hand: NICHELLE MEASUREMENT RESULTS: Intervals: Rate: 70 AR: 80 QRSD: 148 QT: 506 QTc: 546 [place]: P: 101 AR: 80 QRS: -43 T: -89 INTERPRETIVE STATEMENTS: Demand pacemaker, interpretation is based on intrinsic rhythm Sinus rhythm with short AR with frequent and consecutive premature ventricular complexes and fusion complexes Left axis deviation Left ventricular hypertrophy with QRS widening and repolarization abnormality Abnormal ECG Compared to ECG 10/27/2017 17:34:44 Fusion complex(es) now present Ventricular premature complex(es) now present Short AR interval now present Left-axis deviation now present Left ventricular hypertrophy now present Early repolarization now present Electronically Signed On 12-05-17 12:44:43 CDT by Mike Russell
[2017-12-05 14:29] VITALS: TEMP 97.5
[2017-12-05 15:09] VITALS: BP 121/68
[2017-12-05 15:49] VITALS: O2SAT 96
[2017-12-05] MEDS ORDERED: WARFARIN SODIUM 2.5 MG TAB PO SCH (17:00)
[2017-12-05] MEDS ORDERED: ATORVASTATIN 10 MG TAB PO SCH (21:00)
[2017-12-05] MEDS ORDERED: HOME MED 1 EA UNK (Fluticasone/Vilanterol [Breo Ellipta 100-25 Mcg Inh] 1 PUFF) IH SCH (21:00)
--- NOTE | 2017-12-06 11:00 | SS ---
Date of Discharge: 12/05/2017 History Of Present Illness: An 87-year-old female with severe aortic stenosis. She has been followi ng up with Cardiology here in [place], and she was having preparation to have next month surgery in h er aortic valve. She has been on Lovenox and warfarin. She has had her Cozaar medication increased recently to 100/12.5 once a day, however, when she started taking that the patient yesterday felt nasreen seated. After she had left heart catheterization, she went home, she then felt nauseated, and she sa id she felt short of breath, but no chest pain. She came to the emergency room. By that time her sh ortness of breath resolved, but she was found to have systolic blood pressure down to 90 and she was admitted for hypotension. Review of Systems: Cardiovascular: No complaints. Respiratory: The patient's shortness of breath resolved by the time she was in the emergency room. Gastrointestinal: Mild nausea and vomiting also resolved by the time she is in the hospital. Neurological: No complaints. Genitourinary: No complaints. Skeletomuscular: No complaints. Past Medical History: 1.Type 2 diabetes. 2.Atrial fibrillation. 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 4.Hypertension. 5.Hyperlipidemia. Social History: No smoking, alcohol, or drug abuse history. Family History: Noncontributory. Medications: Include Lovenox 80 subcutaneous b.i.d., furosemide 40 mg p.o. daily, Lantus 15 units duke bcutaneous daily, losartan 100 mg daily, simvastatin 20 mg p.o. daily, ProAir 2 puffs q.i.d. p.r.n., and warfarin 2.5 mg p.o. daily. Allergies: METRONIDAZOLE, ZOLPIDEM, CLINDAMYCIN. Physical Examination: Vital Signs: By the time the patient is seen, her blood pressure was 100/60, pulse 93, temperature 9 7.8. Heart: Regular rate and rhythm. Chest: Clear to auscultation. Abdomen: Soft, nontender, nondistended. Bowel sounds normoactive. Extremities: No edema. No cyanosis. Peripheral pulses are felt. Neurological: Alert, oriented x4. Nonfocal. Grossly intact. Diagnostic Data: Chest x-ray and chest CT, no PE and no acute pathology. White cell count 14.4, hem oglobin 13.3, hematocrit 40.8, platelets 170. PT 15. INR 1.27. Chemistry noted. Troponin 0.04 and 0.03. BNP 4402. Hospital Course: The patient was admitted to the hospital for observation, her room air pulse oximet ry remained above 90 on room air. She remained stable with no shortness of breath and no complaints. Her blood pressure went up to 120 systolic, however, when she was given the Cozaar 100 mg after an hour went down to 90. I think that the patient's hypotension was secondary to this blood pressure me dication as she is reacting for it but had instructed the family and the patient to stop this medicin e. We will put her on Cozaar 50 mg daily and followup with Cardiology. Cardiology has seen the griselda ent and thought that from the standpoint that she is stable to be discharged, so we will go ahead and discharge the patient on a lower dose of Cozaar, to continue the rest of current medications and to follow up with Cardiology as planned for her and to follow up with me. Look discharge orders for det ails. MFS/MODL Voice ID: [id number] Report ID: [id number]
--- NOTE | 2017-12-07 00:48 | CON ---
Date of Consultation: 12/05/2017 Ms. Hogan was admitted to Dr. Qiu's service on 12/04/2017. She was seen on 12/05/2017. Reason For Consultation: Weakness and hypotension. History Of Present Illness: Ms. Hogan is an 87-year-old [place] woman. She is a patient of Dr. Hurt. She has documented severe aortic stenosis. She has an appointment coming up in 1 week w sriram Ellison at [facility] for possible TAVR. She was admitted with hypotension, weakn ess. She has a very complicated past history including mitral valve replacement, pacemakers insertio n, diabetes, hypertension, and dyslipidemia. She denied any fever or chills or cough. Denied any PN D, orthopnea, pedal edema, palpitations, or syncope. She has improved after some gentle hydration. She is not in congestive heart failure. She had a normal chest x-ray, normal CT angiogram. EKG show ed paced rhythm. Her BNP was 4402. She had a white count of 15,000. She is on Coumadin with minima lly elevated INR. She is on Lovenox in preparation for her TAVR. Review of Systems: Negative. Social History: Negative. Family History: Noncontributory. Allergies: INCLUDE FLAGYL, AMBIEN, AND CLINDAMYCIN. Medications: At home include Coumadin, inhalers, Lovenox, Lasix, insulin, losartan, and Zocor. Physical Examination: General: She appears to be in no acute distress. Vital Signs: When I saw her pressure was 100/60. She was in a paced rhythm. HEENT: Negative. Neck: Supple with no bruit, lymphadenopathy, JVD, or thyromegaly. Chest: Clear. Cardiac: Revealed a regular rhythm and rate with an aortic stenosis, murmur radiating to the carotid s. Abdomen: Benign. Extremities: Revealed no clubbing, cyanosis, or edema. Diagnostic Data: As stated earlier. Impression And Plan: Severe aortic stenosis, probably causing the hypotension exacerbated by polypha rmacy. She is normotensive now. She is on Lovenox and no Coumadin. Has an appointment for possible TAVR with Dr. Ellison on . I believe her surgery is planned for the . We would continue Lo venox. No Coumadin. Continue her inhalers, insulin. Decrease her losartan. Continue Zocor. Hold Lasix. Her issues with diabetes, hypertension, dyslipidemia, and her mitral valve replacement appear to be stable at this point. Her pacemaker seems to be functioning properly. She can go home whenjosé miguele r it is okay with Dr. Qiu. LOU/BURT Voice ID: [id number] Report ID: [id number]
== END 2017-12-05 15:20 | disposition home or self-care (01) ==
LOC: ER 19:12 → INTOOBSV 22:49 → ERHOLD 22:49 → 3RD-ICU 12-05 00:50
PROVIDERS: ADMIT Internal Medicine; ATTEND Internal Medicine
DX: I95.9 Hypotension, unspecified (principal); I35.0 Nonrheumatic aortic (valve) stenosis; E11.9 Type 2 diabetes mellitus without complications; E78.5 Hyperlipidemia, unspecified; I10 Essential (primary) hypertension; R53.1 Weakness; H40.9 Unspecified glaucoma; Z95.0 Presence of cardiac pacemaker; Z95.2 Presence of prosthetic heart valve; Z53.1 Procedure and treatment not carried out because of patient's decision for reasons of belief and group pressure; Z88.1 Allergy status to other antibiotic agents; Z88.3 Allergy status to other anti-infective agents; Z88.8 Allergy status to other drugs, medicaments and biological substances; Z79.01 Long term (current) use of anticoagulants; Z79.4 Long term (current) use of insulin
CPT/HCPCS: 36415; 51702; 71045; 71275; 80048 ×2; 80076; 81003; 82550; 82553; 82962 ×2; 83605; 83735; 83880 ×2; 84484 ×3; 85025 ×2; 85610; 85730; 87040; 93005; 96360; 96361; 99285; G0378 ×2; J1650; Q9967

== ENCOUNTER 2017-12-13 16:21 | Inpatient (IN) | payer OTHER ==
--- OUTSIDE RECORDS SUMMARY | 2017-12-13 16:24 | XMS REPORT ---
:1930 [facility] [address] [place] [address] Care Team Providers Name Role Phone VY FISHER Unavailable Unavailable FIORELLA SIEGEL Unavailable Unavailable Problems This patient has no known problems. Allergies, Adverse Reactions, Alerts This patient has no known allergies or adverse reactions. Medications This patient has no known medications. Results Test Description Test Time Test Comments Text Results Atomic Results Result Comments B-TYPE NATRIURETIC FACTOR (BNP) 2017-12-11 16:03:00 Test Item Value Reference Range Comments B-TYPE NATRIURETIC PEPTIDE (BEAKER) (test xdhx=441) 1193 pg/mL 0-100 [id number] 15:49:00 Test Item Value Reference Range Comments ALBUMIN (BEAKER) (test nlin=2870) 3.2 g/dL 3.5-5.0 CBC W/PLT COUNT & AUTO [id number] 14:39:00 Test Item Value Reference Range Comments WHITE BLOOD CELL COUNT (BEAKER) (test glcd=780) 16.9 K/ L 3.5-10.5 RED BLOOD CELL COUNT (BEAKER) (test qjlx=899) 2.92 M/ L 3.93-5.22 HEMOGLOBIN (BEAKER) (test fgpk=495) 8.5 GM/DL 11.2-15.7 HEMATOCRIT (BEAKER) (test znni=206) 26.9 % 34.1-44.9 MEAN CORPUSCULAR VOLUME (BEAKER) (test tzti=037) 92.1 fL 79.4-94.8 MEAN CORPUSCULAR HEMOGLOBIN (BEAKER) (test 29.1 pg 25.6-32.2 evnu=430) MEAN CORPUSCULAR HEMOGLOBIN CONC (BEAKER) (test 31.6 GM/DL 32.2-35.5 ohyt=620) RED CELL DISTRIBUTION WIDTH (BEAKER) (test 19.9 % 11.7-14.4 euag=476) PLATELET COUNT (BEAKER) (test lroj=279) 328 K/CU MM 150-450 MEAN PLATELET VOLUME (BEAKER) (test efpb=653) 11.7 fL 9.4-12.3 NUCLEATED RED BLOOD CELLS (BEAKER) (test 9 /100 WBC 0-0 cien=591) (CELLAVISION MANUAL DIFF)2017-12-11 14:39:00 Test Item Value Reference Range Comments NEUTROPHILS - REL (CELLAVISION)(BEAKER) (test 64 % eyfd=6848) LYMPHOCYTES - REL (CELLAVISION)(BEAKER) (test 6 % wuwa=6296) MONOCYTES - REL (CELLAVISION)(BEAKER) (test 13 % ebxr=3666) EOSINOPHILS - REL (CELLAVISION)(BEAKER) (test 3 % efbp=6510) BASOPHILS - REL (CELLAVISION)(BEAKER) (test 1 % rplf=4338) METAMYELOCYTES - REL (CELLAVISION)(BEAKER) (test 2 % 0-0 prwl=1111) BANDS - REL (CELLAVISION)(BEAKER) (test 10 % 0-10 idhr=4831) NEUTROPHILS - ABS (CELLAVISION)(BEAKER) (test 10.82 K/ul 1.56-6.13 wqyp=9613) LYMPHOCYTES - ABS (CELLAVISION)(BEAKER) (test 1.01 K/ul 1.18-3.74 rhwi=0849) MONOCYTES - ABS (CELLAVISION)(BEAKER) (test 2.20 K/uL 0.24-0.36 bdzi=8084) EOSINOPHILS - ABS (CELLAVISION)(BEAKER) (test 0.51 K/uL 0.04-0.36 noda=7693) BASOPHILS - ABS (CELLAVISION)(BEAKER) (test 0.17 K/uL 0.01-0.08 bqiy=6628) METAMYELOCYTES - ABS (CELLAVISION)(BEAKER) (test 0.34 K/uL 0.00-0.00 qpez=1567) BANDS - ABS (CELLAVISION)(BEAKER) (test 1.69 K/uL 0.00-0.80 fzqv=8657) TOTAL COUNTED (BEAKER) (test tslp=4986) 100 MANUAL NRBC PER 100 CELLS (BEAKER) (test 10 /100 WBC 0-0 uimo=6898) WBC MORPHOLOGY (BEAKER) (test movl=996) Normal PLT MORPHOLOGY (BEAKER) (test sklj=419) Normal POLYCHROMATOPHILLIC RBCS(BEAKER) (test dymw=703) 2+ moderate ANISOCYTOSIS (BEAKER) (test opgm=230) 2+ moderate POIKILOCYTES (BEAKER) (test csox=826) 2+ moderate ARTIFACT (CELLAVISION)(BEAKER) (test vqqq=8228) Present PLATELET CONCENTRATION (CELLAVISION)(BEAKER) Adequate (test vfob=9090) Received comment: User comments: Slide comments:BILIRUBIN, ADULT [id number] 13:43:00 Test Item Value Reference Range Comments BILIRUBIN TOTAL (BEAKER) (test ymfc=396) 2.7 mg/dL 0.2-1.2 BASIC METABOLIC [id number] 13:43:00 Test Item Value Reference Range Comments SODIUM (BEAKER) (test 122 meq/L 136-145 fond=376) POTASSIUM (BEAKER) (test 4.6 meq/L 3.5-5.1 ebzw=969) CHLORIDE (BEAKER) (test 92 meq/L 98-107 rvnw=591) CO2 (BEAKER) (test 23 meq/L 22-29 oyhv=266) BLOOD UREA NITROGEN 25 mg/dL 7-21 (BEAKER) (test kqyi=796) CREATININE (BEAKER) (test 0.79 mg/dL 0.57-1.25 gatc=065) GLUCOSE RANDOM (BEAKER) 107 mg/dL 70-105 (test jkgh=276) CALCIUM (BEAKER) (test 8.4 mg/dL 8.4-10.2 pumw=417) EGFR (BEAKER) (test 69 mL/min/1.73 sq m ESTIMATED GFR IS NOT pcoh=4100) ACCURATE CREATININE CLEARANCE IN PREDICTING GLOMERULAR FILTRATION RATE. ESTIMATED GFR IS NOT APPLICABLE FOR DIALYSIS PATIENTS. Specimen slightly ictericPROTHROMBIN [id number] 13:36:00 Test Item Value Reference Range Comments PROTIME (BEAKER) (test yzvn=864) 15.8 seconds 11.7-14.7 INR (ADITI) (test tstm=074) 1.3 <=5.9 RECOMMENDED COUMADIN/WARFARIN INR THERAPY RANGESSTANDARD DOSE: 2.0 - 3.0 Includes: PROPHYLAXIS forvenous thrombosis, systemic embolization; TREATMENT for venous thrombosis and/or pulmonary embolus.HIGH RISK: Target INR is 2.5-3.5 for patients with mechanical heart valves.Within 24 hours, if on CoumadinCT, CTA [id number] 16:55:00Addendum BeginsREPORT STATUS:A Addendum: I agree with the previously described non vascular findings by Dr. Haddad. Signed: Tay Keenan MDReport Verified Date/Time: 12/05/201716: 55:06 Reading Location: [place] [address] Angio Body Reading RoomAddendum EndsFINAL REPORT CT angiography of the thoracoabdominal aorta and pelvic arteries, 04 December 2017 INDICATION: This is a 87 year old female with a diagnosis of aortic stenosis, presents for preprocedure TAVRassessment. There is a clinical concern of aortic aneurysm. This study is performed in an attempt toavoid an invasive procedure. TECHNIQUE: Spiral acquisition before and during intravenous contrast administration using a Negro multidetector CT scanner. Images were obtained before and during the dynamic passage of intravenous contrast material. Multi-planar 3-D volume-rendering reconstruction was performed using an independent workstation interactively by the interpreting physician as well as the3-D specialist for optimal visualization of the thoracoabdominal [...] descending thoracic aorta is free of calcification. Theabdominal aorta only has scattered calcific atherosclerosis identified. [...] (26 mm valve); 72.3-81.7 mm (29 mm valve);and 81.7-94.2. mm (34 mm valve). Agatston Score is 2025. By planimetry, aortic valve area is 35 sq mm. The sinus of Valsalva height to the takeoff of the coronary artery ostium, RCC ( diastole): 11.3 mmThe sinus of Valsalva height to the takeoff of the coronary artery ostium, LCC (diastole): 12.9 mm The sinus of Valsalva diameter, RCC ( diastole): 29.7 mmThe sinus of Valsalva diameter, LCC (diastole):28.8 mmThe sinus of Valsalva diameter, NCC (diastole): [...] thyroid lobe. The chest wall and mediastinum isunremarkable. Some small lymph nodes are seen, overall [...] to characterize. The pancreas appears unremarkable. The spleenis not well appreciated. Correlate with patient have any prior surgical history. The adrenal glands are not enlarged. Patient is post cholecystectomy. No acute renal pathology is seen and no hydronephrosis or perirenal fluid collections identified. Minimal cortical scarring is present. Bowel is not well assessed by CT angiography as enteric contrast not given. No obvious bowel dilation is identified.Scattered diverticular disease is seen in the descending [...] than the corresponding muscle group in the left , suggesting an haematoma. Correlate clinically as it appears patient could have recent cardiac catheterization performed. No acute extravasation of contrast is identified. CONCLUSIONS: 1. Patient hasa diagnosis of aortic stenosis. Aortic valve is tricuspid. Agatston score is over 2000. Aortic valvearea is 35 sq mm. Only minimal calcification [...] An addendum will be dictated by the Digital Community Manager Radiologist regarding the nonvascular findings. 6. Impression was discussed with Dr. Fisher at the time of dictation. Signed: Sudhir Haddad Verified Date/Time: 12/04/2017 12:28:54 Reading Location: [place] [address], CTA, [id number] 16:55:00Addendum BeginsREPORT STATUS:A Addendum: I agree with the previously described non vascular findings by Dr. Haddad. Signed: Tay Keenan Verified Date/Time: 12/05/201716:55:06 Reading Location: [place] [address] Angio Body Reading RoomAddendum EndsFINAL REPORT CT angiography of the thoracoabdominal aorta and pelvic arteries, 04 December 2017 INDICATION: This is a 87 year old female with a diagnosis of aortic stenosis, presents for preprocedure TAVRassessment. There is a clinical concern of aortic aneurysm. This study is performed in an attempt toavoid an invasive procedure. TECHNIQUE: Spiral acquisition before and during intravenous contrast administration using a Negro multidetector CT scanner. Images were obtained before and during the dynamic passage of intravenous contrast material. Multi-planar 3-D volume- rendering reconstruction was performed using an independent workstation interactively by the interpreting physician as well as the3-D specialist for optimal visualization of the thoracoabdominal aorta, the pelvic arteries as well as its proximal branches. Please refer to the contrast sheet scanned in the [employer] system for the amount and route of contrast given. This exam was performed according to our departmental dose-optimisation programme, which includes automated exposure control, adjustment of the mA and/or kV according to patient size and/or use of iterative reconstruction technique. Dose modulation, iterative reconstruction, and/or weight based adjustment of the mA/ kV was utilized to reduce the radiation dose [...] descending thoracic aorta is free of calcification. Theabdominal aorta only has scattered calcific atherosclerosis identified. [...] annulus perimeter measured 68 mm and the cross -sectional area measures 357 mm2. The aortic annulus [...] 62.8-72.3 mm (26 mm valve); 72.3-81.7 mm ( 29 mm valve);and 81.7-94.2. mm (34 mm valve). Agatston Score [...] 29.7 mmThe sinus of Valsalva diameter, LCC (diastole):28.8 mmThe sinus of Valsalva diameter, NCC ( diastole): 27.0 mm The sinotubular junction measures approximately [...] thyroid lobe. The chest wall and mediastinum isunremarkable. Some small lymph nodes are seen, overall [...] to characterize. The pancreas appears unremarkable. The spleenis not well appreciated. Correlate with patient have any prior surgical history. The adrenal glands are not enlarged. Patient is post cholecystectomy. No acute renal pathology is seen and no hydronephrosis or perirenal fluid collections identified. Minimal cortical scarring is present. Bowel is not well assessed by CT angiography as enteric contrast not given. No obvious bowel dilation is identified.Scattered diverticular disease is seen in the descending [...] than the corresponding muscle group in the left , suggesting an haematoma. Correlate clinically as it appears patient could have recent cardiac catheterization performed. No acute extravasation of contrast is identified. CONCLUSIONS: 1. Patient hasa diagnosis of aortic stenosis. Aortic valve is tricuspid. Agatston score is over 2000. Aortic valvearea is 35 sq mm. Only minimal calcification [...] An addendum will be dictated by the Digital Community Manager Radiologist regarding the nonvascular findings. 6. Impression was discussed with Dr. Fisher at the time of dictation. Signed: Sudhir Haddadeport Verified Date/Time: 12/04/2017 12:28:54 Reading Location: [place] [address] Cardiology MRI [id number] 08:55:00 Test Item Value Reference Range Comments POC-CREATININE (ADITI) 0.5 mg/dL 0.6-1.3 TESTED AT [facility] [address] [facility] (test ehuh=5735) [facility] [address] POC-EGFR (ADITI) (test mL/min/1.73M2 Insufficient clinical data to waew=7061) calculate estimated GFR
--- OUTSIDE RECORDS SUMMARY | 2017-12-13 16:24 | XMS REPORT | Clinical Summary ---
:1930 Author Organization [facility] Address [address] [place] [address] Phone Care Team Providers Name Role Phone Unavailable Primary Care Provider Unavailable Allergies Active Allergy Reactions Severity Noted Date Comments Clindamycin 12/07/2017 Metronidazole Zolpidem Current Medications Prescription Sig. Disp. Refills Start Date End Date Status bimatoprost (LUMIGAN) Place 1 drop into both Active 0.01 % Drop eyes nightly. ophthalmic solution albuterol HFA Inhale 2 puffs by mouth Active (VENTOLIN HFA) 90 via inhaler every 6 mcg/actuation inhaler (six) hours as needed for Wheezing. simvastatin (ZOCOR) Take 20 mg by mouth Active 20 MG tablet nightly. propafenone (RYTHMOL) Take 225 mg by mouth 2 Active 225 MG tablet (two) times daily . fluticasone-vilantero Inhale 1 puff by mouth Active l (BREO ELLIPTA) via inhaler daily. 100-25 mcg/dose DsDv losartan (COZAAR) 25 Take 25 mg by mouth Active MG tablet daily. insulin glargine Inject 15 Units Active (LANTUS) 100 unit/mL subcutaneously nightly injection Use as directed . furosemide (LASIX) 40 Take 40 mg by mouth Active MG tablet daily. warfarin (COUMADIN) Take 2.5 mg by mouth Active 2.5 MG tablet daily. estradiol (ESTRACE) Place 2 g vaginally Active 0.01 % (0.1 mg/gram) once a week. vaginal cream enoxaparin (LOVENOX) Inject 40 mg Active 80 mg/0.8 mL Syrg subcutaneously 2 (two) times daily . Active Problems Not on file Encounters Date Type Specialty Care Team Description 12/11/2017 Hospital Encounter Aleks Ellison MD 12/11/2017 Hospital Encounter Cardiology Crissy Ellison MD right femoral artery (HCC);Postprocedural hematoma of skin and subcutaneous tissue following other procedure 12/11/2017 Office Visit Cardiology Aleks Hernandez MD 12/11/2017 Outside Orders Central Scheduling Terra Pseudoaneurysm Boy Sy MD right femoral artery (HCC) (Primary Dx);Postprocedural hematoma of skin and subcutaneous tissue following other procedure 12/07/2017 Office Visit Cardiology Rich Barr Aortic stenosisRadha MD severe (Primary Dx);Type 2 diabetes mellitus without complication, unspecified whether fdc insulin use (HCC);Chronic atrial fibrillation (HCC);Chronic combined systolic and diastolic congestive heart failure (HCC) 12/04/2017 Hospital Encounter Radiology Terra Aortic valve stenosisAlberto MD etiology of cardiac valve disease unspecified 12/04/2017 Hospital Encounter Radiology Terra Aortic valve stenosisAlberto MD etiology of cardiac valve disease unspecified 12/01/2017 Outside Orders Central Scheduling Terra Aortic valve stenosis Alberto MD etiology of cardiac valve disease unspecified (Primary Dx) after 12/12/2016 Family History Medical History Relation Name Comments Cancer Brother Asthma Father Relation Name Status Comments Brother Father Social History Tobacco Use Types Packs/Day Years Used Date Former Smoker Smokeless Tobacco: Never Used Comments: quit in 1971 Alcohol Use Drinks/Week oz/Week Comments No Sex Assigned at Date Recorded Not on file Last Filed Vital Signs Vital Sign Reading Time Taken Blood Pressure 93/61 12/11/2017 1:45 PM CDT Pulse 86 12/11/2017 1:45 PM CDT Temperature 37.1 C (98.7 F) 12/11/2017 1:45 PM CDT Respiratory Rate 16 12/11/2017 1:45 PM CDT Oxygen Saturation 98% 12/11/2017 1:45 PM CDT Inhaled Oxygen Concentration - - Weight 70 kg (154 lb 6.4 oz) 12/11/2017 1:45 PM CDT Height 142.2 cm (4' 8") 12/11/2017 1:45 PM CDT Body Mass Index 34.62 12/11/2017 1:45 PM CDT Plan of Treatment Date Type Specialty Care Team Description 12/28/2017 Surgery Alberto Ellison, TAVR / NAHID MCR - IP PROC ONLY [address] [facility] [address] [place] [address] [phone] 12/28/2017 Procedure Pass 12/28/2017 Hospital Encounter Alberto Ellison MD [address] [facility] [address] [place], [place] [id number] Health Maintenance Due Date Last Done Comments INFLUENZA VACCINE 01/15/2018 Results B-type Natriuretic Factor (BNP) (12/11/2017 3:19 PM) Component Value Ref Range BNP 1193 (H) 0 - 100 pg/mL Specimen Performing Laboratory Blood [address] [address] Albumin (12/11/2017 3:19 PM) Component Value Ref Range Albumin 3.2 (L) 3.5 - 5.0 g/dL Specimen Performing Laboratory Blood [address] [address] Arterial Doppler Leg Right (12/11/2017 1:41 PM) Component Value Ref Range Ejection Fraction Specimen Performing Laboratory [facility] Impressions Right Impression 1. There is no pseudoaneurysm visualized. 2. There are two hematomas visualized. #1. 13 cm x 9.9 cm x 6.5 cm. #2. 6.2 cm x 4.3 cm x 6.6 cm. 3. There is no venous obstruction or arteriovenous fistula visualized. 4. The common femoral artery flow is biphasic with a velocity of 103 cm/sec. (within normal range). Left Impression Not ordered. Conclusions Summary Duplex imaging of the right groin area was performed. The vessels were adequately visualized. There was no evidence of a pseudoaneurysm, venous obstruction or arteriovenous fistula in the right groin area. There were two hematomas present in the upper leg groin region. Signature Velocities are measured in cm/s ; Diameters are measured in cm Narrative [facility] - Pseudoaneurysm Survey Demographics Patient Name GEMA HOGAN Date of Study2016 [id number] Visit Number [id number] Female Accession Number [id number] Birth1930 [facility] Alberto SyRoom Number Physician SonographerGniurka Valiente. Interpreting Rich Barr MD RVT, ARDMSPhysician Procedure Type of Study: Pseudoaneurysm: PSEUDOANEURYSM, GROIN DOPPLER RIGHT. Indications for Study:Hematoma. Patient Status:Routine. Study Location:Vascular Lab. Technical Quality:Technically Difficult. - Results were reported to:Dr. Ellison called at 13:25 on 12/11/2017.. Risk Factors History of Disease +---------+----+ + !Diagnosis!Date!Comments ! +---------+----+ + !Other!!post cath procedure 12/05/2017. ! +---------+----+ + Procedure Note Interface, External Ris In - 12/11/2017 4:20 PM CDT [facility] - Pseudoaneurysm Survey Demographics Patient Name GEMA HOGAN Date of Study 12/11/2017 Age 87 Visit Number [id number] Gender Female Accession Number [id number] Date of 1930 Referring Terra Sy Room Number Physician Director Loss Prevention Jama Valiente. Interpreting Rich Barr MD RVT, BANNERS Physician Procedure Type of Study: Pseudoaneurysm: PSEUDOANEURYSM, GROIN DOPPLER RIGHT. Indications for Study:Hematoma. Patient Status:Routine. Study Location:Vascular Lab. Technical Quality:Technically Difficult. - Results were reported to:Dr. Ellison called at 13:25 on 12/11/2017.. Risk Factors History of Disease +---------+----+ + !Diagnosis!Date!Comments ! +---------+----+ + !Other ! !post cath procedure 12/05/2017. ! +---------+----+ + Impressions Right Impression 1. There is no pseudoaneurysm visualized. 2. There are two hematomas visualized. #1. 13 cm x 9.9 cm x 6.5 cm. #2. 6.2 cm x 4.3 cm x 6.6 cm. 3. There is no venous obstruction or arteriovenous fistula visualized. 4. The common femoral artery flow is biphasic with a velocity of 103 cm/sec. (within normal range). Left Impression Not ordered. Conclusions Summary Duplex imaging of the right groin area was performed. The vessels were adequately visualized. There was no evidence of a pseudoaneurysm, venous obstruction or arteriovenous fistula in the right groin area. There were two hematomas present in the upper leg groin region. Signature Velocities are measured in cm/s ; Diameters are measured in cm Manual Differential (12/11/2017 1:19 PM) Component Value Ref Range % Neutros 64 % % Lymphs 6 % % Monos 13 % % Eos 3 % % Baso 1 % % Metamyelo 2 (H) 0 - 0 % % Bands 10 0 - 10 % # Neutros 10.82 (H) 1.56 - 6.13 K/ul # Lymphs 1.01 (L) 1.18 - 3.74 K/ul # Monos 2.20 (H) 0.24 - 0.36 K/uL # Eos 0.51 (H) 0.04 - 0.36 K/uL # Baso 0.17 (H) 0.01 - 0.08 K/uL # Metamyelo 0.34 (H) 0.00 - 0.00 K/uL # Bands 1.69 (H) 0.00 - 0.80 K/uL Total Counted 100 nRBC (manual) 10 (H) 0 - 0 /100 WBC WBC Morphology Normal Platelet Morphology Normal Polychromasia 2+ moderate Anisocytosis 2+ moderate Poikilocytes 2+ moderate Artifact Present Platelet Conc Adequate Specimen [place] [address] Narrative Received comment: User comments: Slide comments: CBC with platelet count + automated diff (12/11/2017 1:19 PM) Component Value Ref Range WBC 16.9 (H) 3.5 - 10.5 K/L RBC 2.92 (L) 3.93 - 5.22 M/L Hemoglobin 8.5 (L) 11.2 - 15.7 GM/DL Hematocrit 26.9 (L) 34.1 - 44.9 % MCV 92.1 79.4 - 94.8 fL MCH 29.1 25.6 - 32.2 pg MCHC 31.6 (L) 32.2 - 35.5 GM/DL RDW 19.9 (H) 11.7 - 14.4 % Platelets 328 150 - 450 K/CU MM MPV 11.7 9.4 - 12.3 fL nRBC 9 (H) 0 - 0 /100 WBC Specimen Performing Laboratory Blood [address] [address] Prothrombin time/INR (12/11/2017 1:19 PM) Component Value Ref Range Protime 15.8 (H) 11.7 - 14.7 seconds INR 1.3 <=5.9 Specimen Performing Laboratory Blood [place] [id number] Narrative RECOMMENDED COUMADIN/WARFARIN INR THERAPY RANGES STANDARD DOSE: 2.0 - 3.0 Includes: PROPHYLAXIS for venous thrombosis, systemic embolization; TREATMENT for venous thrombosis and/or pulmonary embolus. HIGH RISK: Target INR is 2.5-3.5 for patients with mechanical heart valves. Within 24 hours, if on Coumadin CBC with platelet count + automated diff (12/11/2017 1:19 PM) Specimen Performing Laboratory Blood Narrative The following orders were created for panel order CBC with platelet count + automated diff. Procedure Abnormality Status --------- ------ CBC with platelet count ...[[id number]]AbnormalFinal result Please view results for these tests on the individual orders. Bilirubin, adult total (12/11/2017 1:19 PM) Component Value Ref Range Total Bilirubin 2.7 (H) 0.2 - 1.2 mg/dL Specimen Performing Laboratory Blood [address] [address] Basic Metabolic Panel (12/11/2017 1:19 PM) Component Value Ref Range Sodium 122 (L) 136 - 145 meq/L Potassium 4.6 3.5 - 5.1 meq/L Chloride 92 (L) 98 - 107 meq/L CO2 23 22 - 29 meq/L BUN 25 (H) 7 - 21 mg/dL Creatinine 0.79 0.57 - 1.25 mg/dL Glucose 107 (H) 70 - 105 mg/dL Calcium 8.4 8.4 - 10.2 mg/dL EGFR 69Comment: ESTIMATED GFR IS NOT ACCURATE mL/min/1.73 sq m CREATININE CLEARANCE IN PREDICTING GLOMERULAR FILTRATION RATE. ESTIMATED GFR IS NOT APPLICABLE FOR DIALYSIS PATIENTS. Specimen Performing Laboratory Blood [address] [address] Narrative Specimen slightly icteric CTA chest (12/04/2017 9:41 AM) Specimen Performing Laboratory GE RIS Narrative Addendum Begins REPORT STATUS:A Addendum: I agree with the previously described non vascular findings by Dr. Haddad. Signed: Tay Keenan MD Report Verified Date/Time:12/05/2017 16:55:06 Reading Location: [place] [address] Angio Body Reading Room Addendum Ends FINAL REPORT CT angiography of the thoracoabdominal [...] 5.An addendum will be dictated by the Hyster Driver Radiologist regarding the nonvascular findings. 6.Impression was discussed with Dr. Ellison at the time of dictation. Signed: Sudhir Haddad MD Report Verified Date/Time:12/04/2017 12:28:54 Reading Location: [place] [id number] Cardiology MRI Procedure Note Interface, External Ris In - 12/05/2017 4:57 PM CDT Addendum Begins REPORT STATUS:A Addendum: I agree with the previously described non vascular findings by Dr. Haddad. Signed: Tay Keenan MD Report Verified Date/Time: 12/05/2017 16:55:06 Reading Location: [facility] P048 Angio Body Reading Room Addendum Ends FINAL REPORT CT angiography of the thoracoabdominal [...] An addendum will be dictated by the Hyster Driver Radiologist regarding the nonvascular findings. 6. Impression was discussed with Dr. Ellison at the time of dictation. Signed: Sudhir Haddad MD Report Verified Date/Time: 12/04/2017 12:28:54 Reading Location: [place] [id number] Cardiology MRI abdomen & pelvis (12/04/2017 9:41 AM) Specimen Performing Laboratory [facility] RIS Narrative Addendum Begins REPORT STATUS:A Addendum: I agree with the previously described non vascular findings by Dr. Haddad. Signed: Tay Keenan MD Report Verified Date/Time:12/05/2017 16:55:06 Reading Location: [facility] P048 Angio Body Reading Room Addendum Ends FINAL REPORT CT angiography of the thoracoabdominal [...] 5.An addendum will be dictated by the Hyster Driver Radiologist regarding the nonvascular findings. 6.Impression was discussed with Dr. Ellison at the time of dictation. Signed: Sudhir Haddad MD Report Verified Date/Time:12/04/2017 12:28:54 Reading Location: [place] [address] Cardiology MRI Procedure Note Interface, External Ris In - 12/05/2017 4:57 PM CDT Addendum Begins REPORT STATUS:A Addendum: I agree with the previously described non vascular findings by Dr. Haddad. Signed: Tay Keenan MD Report Verified Date/Time: 12/05/2017 16:55:06 Reading Location: [place] [address] Angio Body Reading Room Addendum Ends FINAL REPORT CT angiography of the thoracoabdominal [...] An addendum will be dictated by the Hyster Driver Radiologist regarding the nonvascular findings. 6. Impression was discussed with Dr. Ellison at the time of dictation. Signed: Sudhir Haddad MD Report Verified Date/Time: 12/04/2017 12:28:54 Reading Location: [place] [address] Cardiology MRI -Creatinine (12/04/2017 8:51 AM) Component Value Ref Range POC-Creatinine 0.5 (L)Comment: TESTED AT [address] 0.6 - 1.3 mg/[place] [id number] POC-EGFR Comment: Insufficient clinical data to calculate mL/min/1.73M2 estimated GFR Specimen Performing Laboratory Blood [facility] [address] [address] after 12/12/2016
[2017-12-13 17:35] LABS: Protime INR 1.04
[2017-12-13 17:52] LABS: Absolute Lymphocytes (CBC) 0.3 K/uL (0.7-4.9); Absolute Monocytes 1.1 K/uL (0.1-1.3); Absolute Neutrophil 12.3 K/uL (1.8-8.0); Basophils % 1.1 % (0-1.3); Eosinophils % 6.2 % (0-4.4); Hematocrit 26.9 % (36.0-45.0); Lymphocytes % 2.1 % (15.3-44.8); MCH 30.9 pg (27.0-35.0); MCV 93.7 fL (80-100); MPV 9.3 fL (7.6-11.3); Monocytes % 7.6 % (3.3-12.3); RBC Red Blood Cell Count 2.87 M/uL (3.86-4.86)
[2017-12-13 17:56] LABS: Albumin 2.7 g/dL (3.4-5.0); Bilirubin Direct 0.9 mg/dL (0-0.2); Bilirubin Total 2.6 mg/dL (0.2-1.0); CKMB Creatine Kinase MB 3.2 ng/mL (0.3-3.6); Magnesium 2.6 mg/dL (1.8-2.4); Potassium 5.2 mmol/L (3.5-5.1)
[2017-12-13 18:10] LABS: Platelet Estimate ADEQ; Urine White Blood Cell Casts OK
[2017-12-13 18:11] LABS: Blood Morphology Comment NOT SEEN (NOT SEEN)
--- NOTE | 2017-12-13 19:11 | RAD REPORT ---
EXAM DESCRIPTION: US - EXTREMITY VENOUS UNI LTD - 12/13/2017 5:58 pm CLINICAL HISTORY: Pain;Swelling<Reason For Exam>Pain;Swelling COMPARISON: Extrem Venous W Compress Hugo dated 10/30/2015<Comparisons> None. TECHNIQUE: Real-time sonographic evaluation of the right lower extremity deep venous systems was per formed. FINDINGS: Normal compressibility, flow augmentation, phasic flow and spontaneous flow are identified in the right lower extremity common femoral, superficial femoral, popliteal and posterior tibial vei ns. No intraluminal filling defects seen. Medial to the right common femoral vein and there is a large 9 x 7 x 5 centimeter oval hypoechoic mas s. On Doppler evaluation there was no blood flow within the mass. No evidence for communication to th e common femoral artery or vein to diagnosis pseudoaneurysm. IMPRESSION: No DVT in the right lower extremity. Large 9 centimeter hypoechoic mass medial to the right common femoral vasculature. Finding is most likely a large old hematoma. No grayscale or Doppler evidence for pseudoaneurysm.
--- NOTE | 2017-12-13 19:14 | RAD REPORT ---
EXAM DESCRIPTION: US - LOWER EXTREMITY ARTERY UNI LTD - 12/13/2017 5:57 pm CLINICAL HISTORY: Pain;Swelling<Reason For Exam>Pain;Swelling COMPARISON: Extremity Venous Uni Ltd dated 12/13/2017<Comparisons> TECHNIQUE: Doppler evaluation of the arterial tree performed. Grayscale and Doppler interrogation pe rformed. Waveforms and velocity values were obtained along with visual inspection. FINDINGS: Right common femoral artery triphasic waveform pattern is seen with a peak systolic veloci ty of 122 cm/second. Waveform pattern shows progressive transition from proximal triphasic waveform p attern to a monophasic waveform pattern at the ankle. No occlusion or flow restricting lesion identif iable. Femoral artery velocity values range from 72-83 cm/second. Popliteal artery velocity was 50 cm /second with posterior tibial and dorsalis pedis velocity values measuring 73 cm/second and 55 cm/sec ond, respectively. Medial to the right common femoral vasculature there is a 9 centimeter oval hypoechoic mass. This is detailed on the DVT study of the same date. This is most likely old hematoma. No sonographic findings to diagnosis pseudoaneurysm. IMPRESSION: Lower extremity peripheral arterial disease seen on the right; however, there is no flow restricting lesion or focal stenosis. The 9 centimeter mass medial to the vasculature is believed to be an old hematoma. No sonographic fin dings to diagnose pseudoaneurysm.
--- NOTE | 2017-12-13 19:24 | RAD REPORT ---
EXAM DESCRIPTION: RAD - Chest Single View - 12/13/2017 6:13 pm CLINICAL HISTORY: SWELLING<Reason For Exam>SWELLING Shortness of breath COMPARISON: Chest Single View dated 12/04/2017; Chest Pa And Lat (2 Views) dated 11/24/2017; Chest Sin gle View dated 10/27/2017; Chest Pa And Lat (2 Views) dated 03/25/2017<Comparisons> TECHNIQUE: AP portable chest image was obtained 1809 hours . FINDINGS: Lung volumes are low. Chronic interstitial lung disease is present not clearly different f rom comparison. Severity of the chronic disease could mask early infiltrate. Significant failure is d oubtful. Cardiac silhouette is enlarged but stable. Pacemaker is in place. No measurable pleural effu evelia and no pneumothorax. No gross bony abnormality seen. No acute aortic findings suspected. IMPRESSION: Chronic interstitial lung disease not clearly different from comparison. Cardiomegaly similar to comparison.
[2017-12-13] MEDS ORDERED: VANCOMYCIN 1 GM/250 ML BAG ONE (20:36)
[2017-12-13] MEDS ORDERED: PIPER/TAZO/NS 3.375gm 3.375 GM/100 ML BAG ONE (20:36)
[2017-12-13] MEDS ORDERED: NA CHLORIDE 0.9% 500 ML ONE ×2 (20:36→21:54)
--- NOTE | 2017-12-13 20:47 | ER ---
Nurse's Notes [facility] Name: Hannah Hogan Age: 87 yrs Sex: Female : 1930 Arrival Date: 12/13/2017 Time: 16:23 Bed 14 Private MD: Khadijah Qiu F Diagnosis: Cellulitis of right lower limb;Urinary tract infection, site not specified;Hyponatremia Presentation: 12/13 16:30 Presenting complaint: Patient states: Right lower leg swelling that got worse today. aj Transition of care: patient was not received from another setting of care. Onset of symptoms was December 13, 2017. Risk Assessment: Do you want to hurt yourself or someone else? Patient reports no desire to harm self or others. Initial Sepsis Screen: Does the patient meet any 2 criteria? No. Patient's initial sepsis screen is negative. Does the patient have a suspected source of infection? No. Patient's initial sepsis screen is negative. Care prior to arrival: None. 16:30 Method Of Arrival: Wheelchair aj 16:30 Acuity: NEHEMIAH 3 aj Triage Assessment: 16:32 General: Appears in no apparent distress. comfortable, obese, Behavior is calm, aj cooperative, appropriate for age. Pain: Denies pain. Neuro: Level of Consciousness is awake, alert, obeys commands, Oriented to person, place, time, situation, Appropriate for age. Respiratory: Airway is patent Respiratory effort is even, unlabored, Respiratory pattern is regular, symmetrical. Derm: Skin is intact, is healthy with good turgor, Skin is pink, warm \\T\\ dry. normal. Derm: Redness noted to bilateral lower extremities. Musculoskeletal: Swelling present in right leg. Historical: - Allergies: 16:32 ambien; aj 16:32 Clindamycin; aj 16:32 Flagyl; aj - Home Meds: 16:32 Atrovent 0.5 mg Neb [id number] as needed for wheezing [Active]; Bimatoprost 1 drop at aj bedtime [Active]; tatyana 100 mcg/25 mcg 1 puff bedtime [Active]; Coumadin 2.5 mg Oral tab 1 tab once daily [Active]; Coumadin 3mg oral daily at 1700 [Active]; Cozaar 50mg oral daily [Active]; Cranberry 4200 mg 1 tab BID [Active]; Flucticasone/Vilanterol 100-25 mch INH at bedtime [Active]; Lantus 30 units sub q daily 20 unit [Active]; losartan potassium 50 mg daily [Active]; Lumigan 0.01 % ophthalmic drop 1 drop nightly [Active]; ProAir HFA 90 mcg/actuation inhalation HFAA as needed [Active]; simvastatin 20 mg Oral tab 1 tab nightly [Active]; Propafenone HCL 225mg oral q8 hours [Active]; sulfamethoxazole-trimethoprim Oral 1 tab once daily [Active]; Vitamin C Oral 1 tab daily [Active]; - PMHx: 16:32 "Mitral Valve; Cataracts; Diabetes - IDDM; Glaucoma; Hyperlipidemia; Hypertension; aj - PSHx: 16:32 Mitral valve replacement; Ovary removal; Cholecystectomy; cardiac cath 11/28/17; aj - Immunization history:: Adult Immunizations up to date. - Social history:: Smoking status: Patient/guardian denies using tobacco. - Ebola Screening: : Patient negative for fever greater than or equal to 101.5 degrees Fahrenheit, and additional compatible Ebola Virus Disease symptoms Patient denies exposure to infectious person Patient denies travel to an Ebola-affected area in the 21 days before illness onset No symptoms or risks identified at this time. Screenin:33 Abuse screen: Denies threats or abuse. Denies injuries from another. Nutritional ph screening: No deficits noted. Tuberculosis screening: No symptoms or risk factors identified. Fall Risk No fall in past 12 months (0 pts). No secondary diagnosis (0 pts). No IV (0 pts). Ambulatory Aid- None/Bed Rest/Nurse Assist (0 pts). Gait- Impaired (20 pts.). Mental Status- Oriented to own ability (0 pts). Total Arzola Fall Scale indicates No Risk (0-24 pts). Assessment: 17:29 General: Appears in no apparent distress. uncomfortable, Behavior is calm, cooperative, ph appropriate for age, Reports fever for 12-24 hours. Pain: Complains of pain in right leg. Neuro: Level of Consciousness is awake, alert, obeys commands, Oriented to person, place, time, situation. Cardiovascular: Capillary refill < 3 seconds in bilateral fingers Patient's skin is warm and dry. skin to giovanny lower extremities noted to be darkened and discolored, appears to be worse on R leg. Edema is 2+ to right upper thigh, right lower thigh, right knee, right midcalf, right ankle, right foot and right toes. Respiratory: Airway is patent Respiratory effort is even, unlabored. GI: No signs and/or symptoms were reported involving the gastrointestinal system. Derm: Skin is fragile, is thin, Skin is. Musculoskeletal: Circulation, motion, and sensation intact. Range of motion: intact in all extremities. 18:30 Reassessment: Patient appears in no apparent distress at this time. Patient and/or ph family updated on plan of care and expected duration. Pain level reassessed. Patient is alert, oriented x 3, equal unlabored respirations, skin warm/dry/pink. Pt resting quietly, family at bedside, awaiting US and lab results. 19:05 Reassessment: Report received from CHETAN Kaur. bs1 19:05 General: Appears in no apparent distress. uncomfortable, Behavior is calm, cooperative, bs1 appropriate for age. General: Behavior is calm, cooperative, appropriate for age. Pain: Complains of pain in right leg. Neuro: Level of Consciousness is awake, alert, obeys commands, Oriented to person, place, time, situation. Cardiovascular: Denies chest pain, shortness of breath, Heart tones S1 S2 present Capillary refill < 3 seconds. Cardiovascular: Edema is 2+ to right toes and right foot and right ankle and right midcalf and right knee and right lower thigh and right upper thigh and right leg. Respiratory: Airway is patent Trachea midline Respiratory effort is even, unlabored, Respiratory pattern is regular, symmetrical, Breath sounds are clear bilaterally. GI: No signs and/or symptoms were reported involving the gastrointestinal system. Derm: Skin is fragile, is thin, Bruising that is dark purple, on right leg. Musculoskeletal: Circulation, motion, and sensation intact. Capillary refill < 3 seconds, Range of motion: limited in right leg. 20:45 Reassessment: Patient appears in no apparent distress at this time. Patient and/or bs1 family updated on plan of care and expected duration. Pain level reassessed. Patient is alert, oriented x 3, equal unlabored respirations, skin warm/dry/pink. No further needs. 22:15 Reassessment: Patient appears in no apparent distress at this time. Patient and/or bs1 family updated on plan of care and expected duration. Pain level reassessed. Patient is alert, oriented x 3, equal unlabored respirations, skin warm/dry/pink. Patient being admitted to 2nd floor. Patient a0x3, NS 100ml/hr started per meditech order/tylenol 500mg po x1 patient c/o pain. Vital Signs: 16:32 BP 97 / 43; Pulse 63; Resp 20; Temp 97.8; Pulse Ox 95% on R/A; Weight 69.85 kg; Height aj 4 ft. 8 in. (142.24 cm) (R); 16:40 BP 98 / 80; aj 18:00 BP 100 / 56; Pulse 87; Resp 16; Pulse Ox 96% on R/A; ph 19:00 BP 98 / 62; Pulse 76; Resp 18; Pulse Ox 97% on R/A; ph 19:39 BP 98 / 71; Pulse 100; Resp 17 S; Pulse Ox 95% on R/A; bs1 20:30 BP 94 / 61; Pulse 93; Resp 16; Pulse Ox 97% on R/A; bs1 21:00 BP 93 / 64; Pulse 101; Resp 16; Pulse Ox 99% on R/A; bs1 22:00 BP 96 / 63; Pulse 96; Resp 16; Pulse Ox 95% on R/A; bs1 22:30 BP 94 / 59; Pulse 98; Resp 16; Temp 98(O); Pulse Ox 98% on R/A; Pain 5/10; bs1 16:32 Body Mass Index 34.53 (69.85 kg, 142.24 cm) ED Course: 16:23 Patient arrived in ED. sb2 16:23 Khadijah Qiu MD is Private Physician. sb2 16:31 Triage completed. aj 16:32 Arm band placed on left wrist. Patient placed in an exam room. aj 16:37 Jeremy Charles NP is PHCP. pm1 16:37 Preston Myers MD is Attending Physician. pm1 16:59 Natasha Knapp, CHETAN is Primary Nurse. ph 17:06 EKG done, by line service technician. reviewed by Jeremy Charles NP. sm3 17:10 Missed attempt(s): 22 gauge in right hand. Bleeding controlled, band aid applied, ph catheter tip intact. 17:15 Inserted saline lock: 22 gauge in right antecubital area, using aseptic technique. ph Blood collected. 17:34 Patient has correct armband on for positive identification. Bed in low position. Call ph light in reach. Side rails up X2. personnel monitor on. Pulse ox on. NIBP on. Warm blanket given. Pillow given. 17:58 Lower Extremity Artery Uni Ltd US In Process Unspecified. EDMS 17:58 Extremity Venous Uni Ltd US In Process Unspecified. EDMS 18:11 X-ray completed. Portable x-ray completed in exam room. Patient tolerated procedure ml well. 18:13 XRAY Chest (1 view) In Process Unspecified. EDMS 20:05 Straight cath inserted, using sterile technique, 15F Returned candelario urine. Patient bs1 tolerated well. 20:46 Khadijah Qiu MD is Hospitalizing Provider. pm1 22:26 No provider procedures requiring assistance completed. Patient admitted, IV remains in bs1 place. intact. Administered Medications: 20:51 Drug: Zosyn 3.375 grams Route: IVPB; Infused Over: 60 mins; Site: left forearm; bs1 22:32 Follow up: IV Status: Completed infusion bs1 20:51 Drug: NS 0.9% 500 ml Route: IV; Rate: bolus; Site: left forearm; bs1 22:32 Follow up: IV Status: Completed infusion bs1 21:22 Drug: vancoMYCIN 1 grams Route: IVPB; Infused Over: 2 hrs; Site: left forearm; bs1 22:32 Follow up: IV Status: Infusion continued upon admission bs1 21:51 Not Given (incorrect med): NS 0.9% 1000 ml IV at 1 bolus Per protocol; 1000 mL bolus bs1 21:53 Drug: NS 0.9% 500 ml Route: IV; Rate: bolus; Site: left forearm; bs1 22:32 Follow up: IV Status: Completed infusion bs1 Outcome: 20:47 Decision to Hospitalize by Provider. pm1 22:26 Admitted to Med/surg accompanied by tech, via stretcher, room 201, with chart, Report bs1 called to CHETAN Saldivar 22:26 Condition: stable 22:26 Instructed on the need for admit, Demonstrated understanding of instructions. 22:57 Patient left the ED. bs1 Signatures: Dispatcher [employer] EDMS Divya Hollins RN RN aj Lopez, Melissa ml Hall, Patricia, RN RN ph Marinas, Patrick, BRINE ROOM LABORER BRINE ROOM LABORER pm1 Em Ross, RN RN bs1 Emily Bryant sb2 Karli Allen sm3
--- NOTE | 2017-12-13 20:47 | EDPHYS ---
Physician Documentation [facility] Name: Hannah Hogan Age: 87 yrs Sex: Female : 1930 Arrival Date: 12/13/2017 Time: 16:23 Bed 14 Private MD: Khadijah Qiu F ED Physician Preston Myers HPI: 12/13 17:00 This 87 yrs old Female presents to ER via Wheelchair with complaints of Leg pm1 Swelling. 17:00 The patient presents with pain, swelling. The complaints affect the right leg. Context: pm1 resulted from an unknown cause. Onset: The symptoms/episode began/occurred 10 day(s) ago. Modifying factors: The symptoms are alleviated by nothing. the symptoms are aggravated by movement, palpation. Associated signs and symptoms: Pertinent positives: calf tenderness, swelling, of the right leg, Pertinent negatives fever. Treatment prior to arrival includes: no previous treatment. Severity of symptoms: in the emergency department the symptoms are actually worse. The patient has been recently been admitted at [facility], was discharged last week. Patient was admitted last week to the hospital for hypotension. Patient's blood pressure improved with NS given in the emergency department and she was discharged home. Patient followed up with Dr. Ellison and he discontinued all her blood pressure medications and decreased the frequency of her propafenone 225 mg PO to BID from TID. Patient currently on a Lovenox bridge for her planned TAVR. Historical: - Allergies: 16:32 ambien; aj 16:32 Clindamycin; aj 16:32 Flagyl; aj - Home Meds: 16:32 Atrovent 0.5 mg Neb [id number] as needed for wheezing [Active]; Bimatoprost 1 drop at aj bedtime [Active]; tatyana 100 mcg/25 mcg 1 puff bedtime [Active]; Coumadin 2.5 mg Oral tab 1 tab once daily [Active]; Coumadin 3mg oral daily at 1700 [Active]; Cozaar 50mg oral daily [Active]; Cranberry 4200 mg 1 tab BID [Active]; Flucticasone/Vilanterol 100-25 mch INH at bedtime [Active]; Lantus 30 units sub q daily 20 unit [Active]; losartan potassium 50 mg daily [Active]; Lumigan 0.01 % ophthalmic drop 1 drop nightly [Active]; ProAir HFA 90 mcg/actuation inhalation HFAA as needed [Active]; simvastatin 20 mg Oral tab 1 tab nightly [Active]; Propafenone HCL 225mg oral q8 hours [Active]; sulfamethoxazole-trimethoprim Oral 1 tab once daily [Active]; Vitamin C Oral 1 tab daily [Active]; - PMHx: 16:32 "Mitral Valve; Cataracts; Diabetes - IDDM; Glaucoma; Hyperlipidemia; Hypertension; aj - PSHx: 16:32 Mitral valve replacement; Ovary removal; Cholecystectomy; cardiac cath 11/28/17; aj - Immunization history:: Adult Immunizations up to date. - Social history:: Smoking status: Patient/guardian denies using tobacco. - Ebola Screening: : Patient negative for fever greater than or equal to 101.5 degrees Fahrenheit, and additional compatible Ebola Virus Disease symptoms Patient denies exposure to infectious person Patient denies travel to an Ebola-affected area in the 21 days before illness onset No symptoms or risks identified at this time. ROS: 17:00 Constitutional: Negative for fever, chills, and weight loss, Eyes: Negative for injury, pm1 pain, redness, and discharge, ENT: Negative for injury, pain, and discharge, Neck: Negative for injury, pain, and swelling, Cardiovascular: Negative for chest pain, palpitations, and edema, Respiratory: Negative for shortness of breath, cough, wheezing, and pleuritic chest pain, Abdomen/GI: Negative for abdominal pain, nausea, vomiting, diarrhea, and constipation, Back: Negative for injury and pain. 17:00 Neuro: Negative for headache, weakness, numbness, tingling, and seizure. 17:00 : Positive for urinary frequency, small amounts, sensation of needing to urinate frequently without any urine or very little coming out. 17:00 MS/extremity: Positive for swelling, tenderness, of the lateral aspect of right calf, right calf, medial aspect of right calf and right daley. 17:00 Skin: Positive for ulceration, of the lateral aspect of right calf and medial aspect of right calf. Exam: 17:00 Constitutional: This is a well developed, well nourished patient who is awake, alert, pm1 and in no acute distress. Head/Face: Normocephalic, atraumatic. Neck: Trachea midline, no thyromegaly or masses palpated, and no cervical lymphadenopathy. Supple, full range of motion without nuchal rigidity, or vertebral point tenderness. No Meningismus. Chest/axilla: Normal chest wall appearance and motion. Nontender with no deformity. No lesions are appreciated. Cardiovascular: Regular rate and rhythm with a normal S1 and S2. No gallops, murmurs, or rubs. Normal PMI, no JVD. No pulse deficits. Respiratory: Lungs have equal breath sounds bilaterally, clear to auscultation and percussion. No rales, rhonchi or wheezes noted. No increased work of breathing, no retractions or nasal flaring. Abdomen/GI: Soft, non-tender, with normal bowel sounds. No distension or tympany. No guarding or rebound. No evidence of tenderness throughout. Back: No spinal tenderness. No costovertebral tenderness. Full range of motion. 17:00 Skin: Appearance: cellulitis, that is moderate, well demarcated, on the lateral aspect of right calf, right calf, medial aspect of right calf and right daley, lesion(s), located on the lateral aspect of right calf and medial aspect of right calf, two sub centimeter ulcerations, Ecchymosis present to right toes and dorsal aspect of right foot. 17:00 Neuro: Orientation: is normal, Motor: moves all fours. Vital Signs: 16:32 BP 97 / 43; Pulse 63; Resp 20; Temp 97.8; Pulse Ox 95% on R/A; Weight 69.85 kg; Height aj 4 ft. 8 in. (142.24 cm) (R); 16:40 BP 98 / 80; aj 18:00 BP 100 / 56; Pulse 87; Resp 16; Pulse Ox 96% on R/A; ph 19:00 BP 98 / 62; Pulse 76; Resp 18; Pulse Ox 97% on R/A; ph 19:39 BP 98 / 71; Pulse 100; Resp 17 S; Pulse Ox 95% on R/A; bs1 20:30 BP 94 / 61; Pulse 93; Resp 16; Pulse Ox 97% on R/A; bs1 21:00 BP 93 / 64; Pulse 101; Resp 16; Pulse Ox 99% on R/A; bs1 22:00 BP 96 / 63; Pulse 96; Resp 16; Pulse Ox 95% on R/A; bs1 22:30 BP 94 / 59; Pulse 98; Resp 16; Temp 98(O); Pulse Ox 98% on R/A; Pain 5/10; bs1 16:32 Body Mass Index 34.53 (69.85 kg, 142.24 cm) aj MDM: 16:37 Patient medically screened. pm1 20:44 Data reviewed: vital signs. Data interpreted: Pulse oximetry: on room air is 95 %. pm1 Interpretation: normal. Counseling: I had a detailed discussion with the patient and/or guardian regarding: the historical points, exam findings, and any diagnostic results supporting the discharge/admit diagnosis, lab results, radiology results, the need for further work-up and treatment in the hospital. 21:00 ED course: Patient's blood pressure medications have been discontinued by her pm1 branch lending officer Dr. Ellison. Propafenone 225 mg PO TID was decreased to BID. 21:30 Physician consultation: Khadijah Qiu MD was contacted at 21:30, regarding admission, pm1 patient's condition, and will see patient tomorrow, Discontinue patient's blood pressure medications. 12/13 16:49 Order name: Basic Metabolic Panel; Complete Time: 18:16 pm1 12/13 16:49 Order name: CBC with Diff; Complete Time: 18:16 pm1 12/13 16:49 Order name: Ckmb; Complete Time: 18:16 pm1 12/13 16:49 Order name: CPK; Complete Time: 18:16 pm1 12/13 16:49 Order name: LFT's; Complete Time: 18:16 pm1 12/13 16:49 Order name: Magnesium; Complete Time: 18:16 pm1 12/13 16:49 Order name: NT PRO-BNP; Complete Time: 18:16 pm1 12/13 16:49 Order name: PT-INR; Complete Time: 17:46 pm1 12/13 16:49 Order name: Ptt, Activated; Complete Time: 17:46 pm1 12/13 16:49 Order name: Troponin (emerg Dept Use Only); Complete Time: 18:03 pm1 12/13 17:45 Order name: Blood Culture Adult (2) pm1 12/13 18:10 Order name: CBC Smear Scan; Complete Time: 18:16 EDMS 12/13 20:06 Order name: Urine Culture bs1 08/29 20:17 Order name: Urine Microscopic Only; Complete Time: 21:48 bs1 12/13 16:49 Order name: XRAY Chest (1 view); Complete Time: 19:25 pm1 12/13 16:49 Order name: EKG; Complete Time: 16:49 pm12/13 16:49 Order name: Cardiac monitoring; Complete Time: 18:53 pm12/13 16:49 Order name: EKG - Nurse/Tech; Complete Time: 18:53 pm12/13 16:49 Order name: IV Saline Lock; Complete Time: 18:53 pm12/13 16:49 Order name: Labs collected and sent; Complete Time: 18:53 pm1 12/13 16:49 Order name: O2 Per Protocol; Complete Time: 18:53 pm12/13 16:49 Order name: O2 Sat Monitoring; Complete Time: 18:53 pm1 12/13 16:49 Order name: Lower Extremity Artery Duo Security US; Complete Time: 19:25 pm12/13 16:49 Order name: Extremity Venous Duo Security US; Complete Time: 19:25 pm12/13 20:23 Order name: Urine Dipstick--Ancillary (enter results); Complete Time: 21:20 mt 12/13 16:49 Order name: Urine Dipstick-Ancillary (obtain specimen); Complete Time: 20:21 pm1 12/13 20:09 Order name: Straight Cath; Complete Time: 20:09 bs1 Administered Medications: 20:51 Drug: Zosyn 3.375 grams Route: IVPB; Infused Over: 60 mins; Site: left forearm; bs1 22:32 Follow up: IV Status: Completed infusion bs1 20:51 Drug: NS 0.9% 500 ml Route: IV; Rate: bolus; Site: left forearm; bs1 22:32 Follow up: IV Status: Completed infusion bs1 21:22 Drug: vancoMYCIN 1 grams Route: IVPB; Infused Over: 2 hrs; Site: left forearm; bs1 22:32 Follow up: IV Status: Infusion continued upon admission bs1 21:51 Not Given (incorrect med): NS 0.9% 1000 ml IV at 1 bolus Per protocol; 1000 mL bolus bs1 21:53 Drug: NS 0.9% 500 ml Route: IV; Rate: bolus; Site: left forearm; bs1 22:32 Follow up: IV Status: Completed infusion bs1 Disposition: 12/14 08:11 Co-signature as Attending Physician, Preston Myers MD. rn Disposition: 12/13/17 20:47 Hospitalization ordered by Khadijah Qiu for Observation. Preliminary diagnosis are Cellulitis of right lower limb, Urinary tract infection, site not specified, Hyponatremia. - Bed requested for Telemetry/MedSurg (observation). - Status is Observation. bs1 - Condition is Stable. - Problem is new. - Symptoms have improved. UTI on Admission? Yes Signatures: Dispatcher [employer] EDMS Karly Nathan RN Divya Gutierres RN Preston Valdez MD MD rn Marinas, Patrick, ODIN LABOR CONTRACT ANALYST pm1 Em Ross RN RN bs1 Corrections: (The following items were deleted from the chart) 12/13 20:49 20:47 Hospitalization Ordered by Khadijah Qiu MD for Observation. Preliminary mw diagnosis is Cellulitis of right lower limb; Urinary tract infection, site not specified; Hyponatremia. Bed requested for Telemetry/MedSurg (observation). Status is Observation. Condition is Stable. Problem is new. Symptoms have improved. UTI on Admission? Yes. pm1 22:57 20:49 12/13/2017 20:47 Hospitalization Ordered by Khadijah Qiu MD for Observation. bs1 Preliminary diagnosis is Cellulitis of right lower limb; Urinary tract infection, site not specified; Hyponatremia. Bed requested for Telemetry/MedSurg (observation). Status is Observation. Condition is Stable. Problem is new. Symptoms have improved. UTI on Admission? Yes. mw
[2017-12-13 21:02] LABS: Urine Blood TRACE (NEG); Urine Glucose NEGATIVE (NEG); Urine Protein NEGATIVE (NEG); Urine Specific Gravity 1.015 (1.005-1.030); Urine pH 5.5 (5.0-7.0)
[2017-12-13 21:42] LABS: Urine Bacteria >50 /HPF (<20)
[2017-12-13 21:43] LABS: Urine Culture Reflex Order NOT NEEDED
[2017-12-13] MEDS ORDERED: NA CHLORIDE 0.9% 0 ML ONE (21:52)
[2017-12-13] MEDS ORDERED: D50W 25 GM/50 ML SYRINGE IV PRN (22:09)
[2017-12-13] MEDS ORDERED: GLUCAGON 1 MG/VIAL IM PRN (22:09)
[2017-12-13] MEDS: NA CHLORIDE 0.9% 1,000 ML IV SCH (22:09)
[2017-12-13] MEDS ORDERED: ACETAMINOPHEN 500 MG TAB ONE (22:25)
[2017-12-13] MEDS: ACETAMINOPHEN 500 MG TAB PO PRN (22:25)
[2017-12-13] MEDS ORDERED: NA CHLORIDE 0.9% 1,000 ML ONE (22:25)
[2017-12-13 23:44] VITALS: BMI 34.6
[2017-12-14] MEDS: PIPER/TAZO/NS 3.375gm 3.375 GM/100 ML BAG IVPB SCH ×3 (01:00→19:11)
[2017-12-14] MEDS ORDERED: PIPER/TAZO/NS 3.375gm 3.375 GM/100 ML BAG ONE (01:07)
[2017-12-14 05:31] LABS: Absolute Lymphocytes (CBC) 1.6 K/uL (0.7-4.9); Absolute Monocytes 1.9 K/uL (0.1-1.3); Absolute Neutrophil 9.9 K/uL (1.8-8.0); Basophils % 0.3 % (0-1.3); Hematocrit 24.8 % (36.0-45.0); Lymphocytes % 11.5 % (15.3-44.8); MCH 31.5 pg (27.0-35.0); MCV 94.1 fL (80-100); MPV 9.1 fL (7.6-11.3); Monocytes % 13.9 % (3.3-12.3); RBC Red Blood Cell Count 2.64 M/uL (3.86-4.86)
[2017-12-14 05:54] LABS: BUN Blood Urea Nitrogen 16 mg/dL (7-18); Bicarbonate 23 mmol/L (21-32); Glucose Level 85 mg/dL (74-106); Potassium 4.3 mmol/L (3.5-5.1); Sodium Level 132 mmol/L (136-145)
[2017-12-14 06:26] LABS: Anisocytosis 1+; Blood Morphology Comment NOTED (NOT SEEN); Burr Cells 1+; Platelet Estimate ADEQ; Polychromasia 3+; Target Cells 1+
--- NOTE | 2017-12-14 07:06 | EKG ---
Test Date: 2017-12-13 Test Time: 17:03:38 Egg Crater: NAOMY MEASUREMENT RESULTS: Intervals: Rate: 83 UT: QRSD: 228 QT: 516 QTc: 606 [place]: P: UT: QRS: -51 T: 121 INTERPRETIVE STATEMENTS: Electronic ventricular pacemaker Compared to ECG 12/04/2017 19:51:23 Sinus rhythm no longer present Ventricular premature complex(es) no longer present Short UT interval no longer present Left-axis deviation no longer present Left ventricular hypertrophy no longer present Early repolarization no longer present Electronically Signed On 12-14-17 07:05:28 CDT by Mike Russell
[2017-12-14] MEDS: INSULIN -REGULAR HUMAN 50 UNIT/0.5 ML ML SQ SCH ×4 (07:30→21:00)
[2017-12-14] MEDS ORDERED: VANCOMYCIN 1GM/D5W 200 ML IV SCH (09:00)
[2017-12-14] MEDS: NA CHLORIDE 0.9% 1,000 ML IV SCH ×3 (09:49→21:00)
[2017-12-14] MEDS: PROPAFENONE HCL 150 MG TAB PO SCH ×2 (09:49→20:59)
[2017-12-14] MEDS: ENOXAPARIN 40 MG/0.4 ML SQ SCH ×2 (09:51→21:00)
[2017-12-14] MEDS: ACETAMINOPHEN 500 MG TAB PO PRN ×3 (09:53→22:49)
[2017-12-14] MEDS ORDERED: PROPAFENONE HCL 225 MG PO SCH (16:30)
[2017-12-14] MEDS ORDERED: CALCIUM GLUC 10% INJ 4.65 MEQ in NA CHLORIDE 0.9% 100 ML IV ONE (17:00)
[2017-12-14] MEDS ORDERED: VANCOMYCIN 1.25 GM in NA CHLORIDE 0.9% 250 ML IVPB SCH (21:00)
[2017-12-14] MEDS ORDERED: HOME MED 1 EA UNK (Simvastatin [Simvastatin] 20 MG) PO SCH (21:00)
[2017-12-14] MEDS ORDERED: ATORVASTATIN 10 MG TAB PO SCH (21:00)
[2017-12-14] MEDS: PROPAFENONE 225 MG CAP PO SCH (21:00)
[2017-12-14] MEDS ORDERED: ALBUTEROL INHALER 60 PUFF/8 GM IH SCH (21:00)
[2017-12-15] MEDS: PIPER/TAZO/NS 3.375gm 3.375 GM/100 ML BAG IVPB SCH ×2 (00:59→09:47)
--- NOTE | 2017-12-15 03:59 | HP ---
Date of Admission: 12/13/2017 History Of Present Illness: The patient is an 87-year-old female with multiple medical problems incl uding bilateral lower extremity venous insufficiency and also she has severe aortic stenosis, for [facility] the plan for her was to have surgery for that in [place]. The patient, however, is a Jehovah's Wi tness. She refused to have blood transfusion and because she has significant chronic anemia. Cardio logy needs to put her on Epogen injections and we will wait until her blood numbers improved to where they can do the surgery. She came to emergency room because of right leg pain. She was found to jean baptiste ve cellulitis in that area. The patient has varicose vein ulcer. She apparently had scratched it an d started spreading erythema and warmness in that leg. She also was found to have cystitis and she w as admitted for all that. Past Medical History: Kindly look her recent admit and discharge plans and reports. Social History: Kindly look her recent admit and discharge plans and reports. Family History: Kindly look her recent admit and discharge plans and reports. Medications: Kindly look her recent admit and discharge plans and reports. Allergies: KINDLY LOOK HER RECENT ADMIT AND DISCHARGE PLANS AND REPORTS. Physical Examination: Vital Signs: Blood pressure 100/53, pulse 86, temperature 97.9. Heart: Regular rate and rhythm. Chest: Clear to auscultation. Abdomen: Soft, benign. Neurological: Alert, oriented, nonfocal. Grossly intact. Extremities: Bilateral venous insufficiency with visible varicose veins. The right leg showed a sma ll ulcer with dry eschar along with spreading erythema around that and tenderness. No discharge. Imaging: Chest x-ray: No acute pathology. Venous vascular study showed peripheral arterial disease , but no DVT. EKG, ventricular pacemaker rhythm. Laboratory Data: White cell count 14.8 that went down to 13.5, hemoglobin 8.3, hematocrit , platelets 352. PT/INR within normal. The patient had sodium 125, went up to 132. The rest of the chem 7 noted calcium at 7.2. Urinalysis showed evidence of infection. Assessment And Plan: 1.Right leg cellulitis. The patient is being admitted for IV antibiotic. She was put on vancomycin and Zosyn. The patient also had cystitis, for which also antibiotics are given. Cultures are pendi ng. 2.Hyponatremia, correcting. 3.Hypotension due to severe aortic stenosis. 4.Anemia of chronic illness, clinically stable. We will continue with the rest of her home medicati ons. Expect discharge in 1-2 days. Look orders for details. MFS/MODL Voice ID: [id number]
[2017-12-15 05:23] LABS: Absolute Lymphocytes (CBC) 1.1 K/uL (0.7-4.9); Absolute Monocytes 1.6 K/uL (0.1-1.3); Absolute Neutrophil 9.4 K/uL (1.8-8.0); Basophils % 0.4 % (0-1.3); Eosinophils % 1.1 % (0-4.4); Hematocrit 26.4 % (36.0-45.0); Lymphocytes % 9.2 % (15.3-44.8); MCH 31.9 pg (27.0-35.0); MCV 94.1 fL (80-100); MPV 8.5 fL (7.6-11.3); Monocytes % 13.1 % (3.3-12.3); RBC Red Blood Cell Count 2.81 M/uL (3.86-4.86)
[2017-12-15 05:46] LABS: BUN Blood Urea Nitrogen 13 mg/dL (7-18); Bicarbonate 24 mmol/L (21-32); Glucose Level 104 mg/dL (74-106); Potassium 4.6 mmol/L (3.5-5.1); Sodium Level 132 mmol/L (136-145)
[2017-12-15] MEDS: INSULIN -REGULAR HUMAN 50 UNIT/0.5 ML ML SQ SCH ×3 (07:30→16:30)
[2017-12-15] MEDS ORDERED: VANCOMYCIN 1.25 GM in NA CHLORIDE 0.9% 250 ML IVPB SCH (09:00)
[2017-12-15] MEDS ORDERED: INSULIN GLARGINE 100 UNITS/ML SQ SCH (09:00)
[2017-12-15] MEDS: PROPAFENONE 225 MG CAP PO SCH (09:00)
[2017-12-15] MEDS: PROPAFENONE HCL 150 MG TAB PO SCH (09:46)
[2017-12-15] MEDS: ENOXAPARIN 40 MG/0.4 ML SQ SCH (09:47)
[2017-12-15] MEDS: NA CHLORIDE 0.9% 1,000 ML IV SCH (10:43)
[2017-12-15 13:19] VITALS: O2SAT 95
[2017-12-15] MEDS ORDERED: EPOGEN SQ ONE (13:24)
[2017-12-15] MEDS: ACETAMINOPHEN 500 MG TAB PO PRN (14:58)
[2017-12-15 16:51] VITALS: BP 105/55; TEMP 97.5
[2017-12-15] MEDS ORDERED: Meropenem 1,000 MG in NA CHLORIDE 0.9% 100 ML IV SCH (18:00)
[2017-12-15] MEDS ORDERED: Meropenem 1000 MG/VIAL IV SCH (21:00)
--- NOTE | 2017-12-16 14:41 | DS ---
Date of Discharge: 12/15/2017 History Of Present Illness: The patient is an 87-year-old female who was admitted to the hospital be cause of right leg cellulitis along with UTI. The patient also has severe aortic stenosis. She was hypotensive from that at the time of her admission. Past Medical History: As per admit note. Social History: As per admit note. Family History: As per admit note. Medications: As per admit note. Allergies: PER ADMIT NOTE. Physical Examination: As per admit note. Diagnostic Data: As per admit note. Hospital Course: The patient was admitted to the hospital. She was initially put on Zosyn and vanco mycin, IV antibiotic for her UTI and right leg cellulitis. However, her urine culture grew E. coli w hich are resistant to most oral antibiotics except for meropenem, bacterium, so we have st opped the 2 antibiotics and started her on meropenem 1000 mg IV q.12 hours. The patient is feeling w ell and has no complaint. They have contacted her cardiovascular surgeon in [place], who wanted to d o valvoplasty on her aortic valve for severe aortic stenosis. He requested the patient be transferre d [facility] care from this standpoint so we can do the procedure too, and so we will initiate transfer of t patient. We will continue her on the current antibiotics and current medications, and we will tra nsfer the patient once the paperwork is done to the cardiovascular surgeon's care. From that standpo int the patient is hemodynamically stable and doing well. On her physical exam today, there is basically no change. Look orders for details. MFS/MODL Voice ID: [id number] Report ID: [id number]
== END 2017-12-15 17:35 | disposition short-term general hospital (02) | DRG 603 ==
LOC: ER 16:21 → ERHOLD 21:08 → 2ND 22:26 → OBSVTOIN 12-14 16:22
PROVIDERS: ADMIT Internal Medicine; ATTEND Internal Medicine
DX: L03.115 Cellulitis of right lower limb (principal); N39.0 Urinary tract infection, site not specified; E87.1 Hypo-osmolality and hyponatremia; I35.0 Nonrheumatic aortic (valve) stenosis; I95.9 Hypotension, unspecified; B96.20 Unspecified Escherichia coli [E. coli] as the cause of diseases classified elsewhere; Z16.24 Resistance to multiple antibiotics; I87.2 Venous insufficiency (chronic) (peripheral); D63.8 Anemia in other chronic diseases classified elsewhere; E11.9 Type 2 diabetes mellitus without complications; E78.5 Hyperlipidemia, unspecified; I10 Essential (primary) hypertension; Z79.4 Long term (current) use of insulin; Z88.8 Allergy status to other drugs, medicaments and biological substances; Z88.3 Allergy status to other anti-infective agents; Z88.1 Allergy status to other antibiotic agents; Z79.01 Long term (current) use of anticoagulants; Z95.2 Presence of prosthetic heart valve; Z53.29 Procedure and treatment not carried out because of patient's decision for other reasons; E66.9 Obesity, unspecified; Z68.34 Body mass index [BMI] 34.0-34.9, adult; H40.9 Unspecified glaucoma
CPT/HCPCS: 36415; 51702; 71045; 80048; 80076; 81003; 81015; 82550; 82553; 82962; 83735; 83880; 84484; 85025; 85610; 85730; 87040; 87077; 87086; 87088; 87186; 93005; 93926; 93971; 96365; 99285; J0610; J1650; J2543; J3370; J7030

== ENCOUNTER 2019-04-19 17:33 | Inpatient (IN) | payer OTHER ==
--- OUTSIDE RECORDS SUMMARY | 2019-04-19 17:37 | XMS REPORT ---
:1930 Author Organization [facility] Address [address] [place] [address] Care Team Providers Name Role Phone VY FISHER Unavailable Unavailable FIORELLA SIEGEL Unavailable Unavailable Problems This patient has no known problems. Allergies, Adverse Reactions, Alerts This patient has no known allergies or adverse reactions. Medications This patient has no known medications. Results Test Description Test Time Test Comments Text Results Atomic Results Result Comments POCT-GLUCOSE METER 2018-01-01 09:11:00 Test Item Value Reference Range Comments POC-GLUCOSE METER (BEAKER) (test 107 mg/dL 70-110 TESTED AT [address] wgwv=9414) [facility] [address] POCT-GLUCOSE [id number] 21:36:00 Test Item Value Reference Range Comments POC-GLUCOSE METER (BEAKER) 153 mg/dL 70-110 TESTED AT [address] (test iaok=0319) [facility] [address] POCT-GLUCOSE [id number] 18:41:00 Test Item Value Reference Range Comments POC-GLUCOSE METER (BEAKER) 109 mg/dL 70-110 TESTED AT [address] (test bjxy=3325) [facility] [address] POCT-GLUCOSE [id number] 13:04:00 Test Item Value Reference Range Comments POC-GLUCOSE METER (BEAKER) 152 mg/dL 70-110 TESTED AT [address] (test vvgy=1141) [facility] [address] POCT-GLUCOSE [id number] 08:44:00 Test Item Value Reference Range Comments POC-GLUCOSE METER (BEAKER) 100 mg/dL 70-110 TESTED AT [address] (test qhzr=3590) [facility] [address] (CELLAVISION MANUAL DIFF)2017-12-31 08:07:00 Test Item Value Reference Range Comments NEUTROPHILS - REL (CELLAVISION)(BEAKER) (test 68 % lptm=4367) LYMPHOCYTES - REL (CELLAVISION)(BEAKER) (test 14 % zjyu=8560) MONOCYTES - REL (CELLAVISION)(BEAKER) (test 13 % gxdv=0735) EOSINOPHILS - REL (CELLAVISION)(BEAKER) (test 3 % nlyc=9591) MYELOCYTES - REL (CELLAVISION)(BEAKER) (test 1 % 0-0 jocp=7487) NEUTROPHILS - ABS (CELLAVISION)(BEAKER) (test 8.16 K/ul 1.56-6.13 dkrk=1679) LYMPHOCYTES - ABS (CELLAVISION)(BEAKER) (test 1.68 K/ul 1.18-3.74 yzfz=9058) MONOCYTES - ABS (CELLAVISION)(BEAKER) (test 1.56 K/uL 0.24-0.36 tcbp=1792) EOSINOPHILS - ABS (CELLAVISION)(BEAKER) (test 0.36 K/uL 0.04-0.36 nctr=9612) MYELOCYTES-ABS (CELLAVISION)(BEAKER) (test 0.12 K/uL 0.00-0.00 jfxu=8001) TOTAL COUNTED (BEAKER) (test siak=7289) 100 MANUAL NRBC PER 100 CELLS (BEAKER) (test 1 /100 WBC 0-0 ccmy=9082) SMUDGE CELLS (BEAKER) (test eroi=3544) Present GIANT PLATELETS (BEAKER) (test xcis=315) Present ANISOCYTOSIS (BEAKER) (test puhc=935) 2+ moderate MACROCYTES (BEAKER) (test gnmf=770) 1+ few POIKILOCYTES (BEAKER) (test okil=906) 2+ moderate SCHISTOCYTES (BEAKER) (test frbi=890) 1+ few TOMMY CELLS (BEAKER) (test eulb=885) 2+ moderate PLATELET CONCENTRATION (CELLAVISION)(BEAKER) Adequate (test yeev=3113) Received comment: User comments: Slide comments:[id number] 05:39:00 Test Item Value Reference Range Comments MAGNESIUM (BEAKER) (test 1.7 mg/dL 1.6-2.6 Specimen slightly hemolyzed vhna=857) BASIC METABOLIC [id number] 05:39:00 Test Item Value Reference Range Comments SODIUM (BEAKER) (test 134 meq/L 136-145 fgcr=707) POTASSIUM (BEAKER) (test 4.3 meq/L 3.5-5.1 Specimen slightly bvgm=752) hemolyzed CHLORIDE (BEAKER) (test 102 meq/L 98-107 egmg=119) CO2 (BEAKER) (test 25 meq/L 22-29 nygd=322) BLOOD UREA NITROGEN 16 mg/dL 7-21 (BEAKER) (test kzvl=710) CREATININE (BEAKER) (test 0.61 mg/dL 0.57-1.25 Specimen slightly cthc=039) hemolyzed GLUCOSE RANDOM (BEAKER) 132 mg/dL 70-105 (test jlmm=287) CALCIUM (BEAKER) (test 8.2 mg/dL 8.4-10.2 yqny=426) EGFR (BEAKER) (test 93 mL/min/1.73 sq m ESTIMATED GFR IS NOT cwwg=3895) ACCURATE CREATININE CLEARANCE IN PREDICTING GLOMERULAR FILTRATION RATE. ESTIMATED GFR IS NOT APPLICABLE FOR DIALYSIS PATIENTS. CBC W/PLT COUNT & AUTO [id number] 05:13:00 Test Item Value Reference Range Comments WHITE BLOOD CELL COUNT (BEAKER) (test escj=005) 12.0 K/ L 3.5-10.5 RED BLOOD CELL COUNT (BEAKER) (test lqsj=535) 3.27 M/ L 3.93-5.22 HEMOGLOBIN (BEAKER) (test shtj=813) 9.9 GM/DL 11.2-15.7 HEMATOCRIT (BEAKER) (test ishj=205) 32.4 % 34.1-44.9 MEAN CORPUSCULAR VOLUME (BEAKER) (test ehhb=015) 99.1 fL 79.4-94.8 MEAN CORPUSCULAR HEMOGLOBIN (BEAKER) (test 30.3 pg 25.6-32.2 dkpm=921) MEAN CORPUSCULAR HEMOGLOBIN CONC (BEAKER) (test 30.6 GM/DL 32.2-35.5 ubsh=934) RED CELL DISTRIBUTION WIDTH (BEAKER) (test 19.8 % 11.7-14.4 hzjf=136) PLATELET COUNT (BEAKER) (test rjls=973) 193 K/CU MM 150-450 MEAN PLATELET VOLUME (BEAKER) (test axwn=739) 11.8 fL 9.4-12.3 NUCLEATED RED BLOOD CELLS (BEAKER) (test 0 /100 WBC 0-0 nbdi=338) POCT-GLUCOSE [id number] 20:52:00 Test Item Value Reference Range Comments POC-GLUCOSE METER (BEAKER) 150 mg/dL 70-110 TESTED AT [address] (test aems=4768) [place] [id number] URINALYSIS W/ REFLEX URINE [id number] 18:42:00 Test Item Value Reference Range Comments COLOR (BEAKER) (test ygov=130) Yellow CLARITY (BEAKER) (test rpaq=254) Clear SPECIFIC GRAVITY UA (BEAKER) (test swoz=410) 1.009 1.001-1.035 PH UA (BEAKER) (test uexm=424) 5.0 5.0-8.0 PROTEIN UA (BEAKER) (test gcfm=961) Negative Negative GLUCOSE UA (BEAKER) (test yyis=947) Negative Negative KETONES UA (BEAKER) (test ykek=459) Negative Negative BILIRUBIN UA (BEAKER) (test zjpp=831) Negative Negative BLOOD UA (BEAKER) (test roas=953) Small Negative NITRITE UA (BEAKER) (test bhse=175) Negative Negative LEUKOCYTE ESTERASE UA (BEAKER) (test ihqe=998) Moderate Negative UROBILINOGEN UA (BEAKER) (test ukff=810) 0.2 mg/dL 0.2-1.0 RBC UA (BEAKER) (test wutt=545) 4 /HPF WBC UA (BEAKER) (test oych=075) 12 /HPF BACTERIA (BEAKER) (test apzi=723) Rare SQUAMOUS EPITHELIAL (BEAKER) (test aiyw=668) < /HPF HYALINE CASTS (BEAKER) (test gcnu=358) 1 /LPF SOURCE(BEAKER) (test svcz=2514) POCT-GLUCOSE [id number] 17:21:00 Test Item Value Reference Range Comments POC-GLUCOSE METER (BEAKER) 195 mg/dL 70-110 TESTED AT [address] (test ydln=4577) [place] [address] POCT-GLUCOSE [id number] 13:31:00 Test Item Value Reference Range Comments POC-GLUCOSE METER (BEAKER) 181 mg/dL 70-110 TESTED AT [address] (test eqvl=2400) [facility] [address] POCT-GLUCOSE [id number] 08:23:00 Test Item Value Reference Range Comments POC-GLUCOSE METER (BEAKER) 117 mg/dL 70-110 TESTED AT [address] (test fjzo=3500) [facility] [address] POCT-GLUCOSE [id number] 21:13:00 Test Item Value Reference Range Comments POC-GLUCOSE METER (BEAKER) 186 mg/dL 70-110 TESTED AT [address] (test plmn=4731) [facility] [address] POCT-GLUCOSE [id number] 18:30:00 Test Item Value Reference Range Comments POC-GLUCOSE METER (BEAKER) 135 mg/dL 70-110 TESTED AT [address] (test ppuh=5533) [facility] [address] CBC W/PLT COUNT & AUTO [id number] 15:55:00 Test Item Value Reference Range Comments WHITE BLOOD CELL COUNT (BEAKER) (test dbwz=892) 15.2 K/ L 3.5-10.5 RED BLOOD CELL COUNT (BEAKER) (test cepu=284) 3.56 M/ L 3.93-5.22 HEMOGLOBIN (BEAKER) (test mshb=805) 10.9 GM/DL 11.2-15.7 HEMATOCRIT (BEAKER) (test bdww=879) 35.5 % 34.1-44.9 MEAN CORPUSCULAR VOLUME (BEAKER) (test gnva=043) 99.7 fL 79.4-94.8 MEAN CORPUSCULAR HEMOGLOBIN (BEAKER) (test 30.6 pg 25.6-32.2 ityx=655) MEAN CORPUSCULAR HEMOGLOBIN CONC (BEAKER) (test 30.7 GM/DL 32.2-35.5 eqwb=999) RED CELL DISTRIBUTION WIDTH (BEAKER) (test 20.5 % 11.7-14.4 igci=031) PLATELET COUNT (BEAKER) (test ufrj=440) 223 K/CU MM 150-450 MEAN PLATELET VOLUME (BEAKER) (test xidi=956) 10.7 fL 9.4-12.3 NUCLEATED RED BLOOD CELLS (BEAKER) (test 0 /100 WBC 0-0 iyft=249) NEUTROPHILS RELATIVE PERCENT (BEAKER) (test 70 % bfml=507) LYMPHOCYTES RELATIVE PERCENT (BEAKER) (test 14 % pgyv=277) MONOCYTES RELATIVE PERCENT (BEAKER) (test 15 % ddvh=292) EOSINOPHILS RELATIVE PERCENT (BEAKER) (test 0 % wpto=740) BASOPHILS RELATIVE PERCENT (BEAKER) (test 0 % pqqd=797) NEUTROPHILS ABSOLUTE COUNT (BEAKER) (test 10.62 K/ L 1.56-6.13 pwzq=937) LYMPHOCYTES ABSOLUTE COUNT (BEAKER) (test 2.15 K/ L 1.18-3.74 tpqz=823) MONOCYTES ABSOLUTE COUNT (BEAKER) (test 2.28 K/ L 0.24-0.36 skqu=152) EOSINOPHILS ABSOLUTE COUNT (BEAKER) (test 0.00 K/ L 0.04-0.36 zacj=443) BASOPHILS ABSOLUTE COUNT (BEAKER) (test 0.06 K/ L 0.01-0.08 arnu=652) IMMATURE GRANULOCYTES-RELATIVE PERCENT (BEAKER) 1 % 0-1 (test zale=0714) POCT-GLUCOSE [id number] 12:55:00 Test Item Value Reference Range Comments POC-GLUCOSE METER (BEAKER) 162 mg/dL 70-110 TESTED AT [place] [id number] [facility] (test igpr=2704) [facility] [address] CBC W/PLT COUNT & AUTO [id number] 10:06:00 Test Item Value Reference Range Comments WHITE BLOOD CELL COUNT (BEAKER) (test dfbd=359) 15.9 K/ L 3.5-10.5 RED BLOOD CELL COUNT (BEAKER) (test llac=579) 3.79 M/ L 3.93-5.22 HEMOGLOBIN (BEAKER) (test yysx=501) 11.5 GM/DL 11.2-15.7 HEMATOCRIT (BEAKER) (test bsme=675) 38.2 % 34.1-44.9 MEAN CORPUSCULAR VOLUME (BEAKER) (test ahww=339) 100.8 fL 79.4-94.8 MEAN CORPUSCULAR HEMOGLOBIN (BEAKER) (test 30.3 pg 25.6-32.2 sjaz=842) MEAN CORPUSCULAR HEMOGLOBIN CONC (BEAKER) (test 30.1 GM/DL 32.2-35.5 icvh=996) RED CELL DISTRIBUTION WIDTH (BEAKER) (test 21.2 % 11.7-14.4 opsb=776) PLATELET COUNT (BEAKER) (test dncy=513) 260 K/CU MM 150-450 MEAN PLATELET VOLUME (BEAKER) (test nsks=331) 11.2 fL 9.4-12.3 NUCLEATED RED BLOOD CELLS (BEAKER) (test 0 /100 WBC 0-0 aygf=847) (CELLAVISION MANUAL DIFF)2017-12-29 10:06:00 Test Item Value Reference Range Comments NEUTROPHILS - REL (CELLAVISION)(BEAKER) (test 89 % hiih=6760) LYMPHOCYTES - REL (CELLAVISION)(BEAKER) (test 2 % awnv=7504) MONOCYTES - REL (CELLAVISION)(BEAKER) (test 4 % vrux=0341) BASOPHILS - REL (CELLAVISION)(BEAKER) (test 1 % zbsb=2421) MYELOCYTES - REL (CELLAVISION)(BEAKER) (test 1 % 0-0 bewo=8555) BANDS - REL (CELLAVISION)(BEAKER) (test 3 % 0-10 dnix=4424) NEUTROPHILS - ABS (CELLAVISION)(BEAKER) (test 14.15 K/ul 1.56-6.13 jmvy=4833) LYMPHOCYTES - ABS (CELLAVISION)(BEAKER) (test 0.32 K/ul 1.18-3.74 uusy=4359) MONOCYTES - ABS (CELLAVISION)(BEAKER) (test 0.64 K/uL 0.24-0.36 wijb=1954) BASOPHILS - ABS (CELLAVISION)(BEAKER) (test 0.16 K/uL 0.01-0.08 wznk=2260) MYELOCYTES-ABS (CELLAVISION)(BEAKER) (test 0.16 K/uL 0.00-0.00 jczl=6189) BANDS - ABS (CELLAVISION)(BEAKER) (test 0.48 K/uL 0.00-0.80 xyqs=4297) TOTAL COUNTED (BEAKER) (test pgwh=4279) 100 SMUDGE CELLS (BEAKER) (test szpa=7994) Present GIANT PLATELETS (BEAKER) (test mapi=615) Present ANISOCYTOSIS (BEAKER) (test rsuf=483) 2+ moderate MACROCYTES (BEAKER) (test rzvd=217) 2+ moderate POIKILOCYTES (BEAKER) (test xvlk=460) 2+ moderate SCHISTOCYTES (BEAKER) (test vbyg=331) 1+ few SPHEROCYTES (BEAKER) (test ckoi=457) 1+ few TOMMY CELLS (BEAKER) (test uhhm=899) 1+ few PLATELET CONCENTRATION (CELLAVISION)(BEAKER) Adequate (test fctp=1926) Received comment: User comments: Slide comments:POCT-GLUCOSE [id number] 08: 47:00 Test Item Value Reference Range Comments POC-GLUCOSE METER (BEAKER) 133 mg/dL 70-110 TESTED AT [facility] [address] [facility] (test qmbk=4949) [facility] [address] [id number] 05:18:00 Test Item Value Reference Range Comments MAGNESIUM (BEAKER) (test hxje=257) 1.8 mg/dL 1.6-2.6 BASIC METABOLIC [id number] 05:18:00 Test Item Value Reference Range Comments SODIUM (BEAKER) (test 138 meq/L 136-145 pqqy=234) POTASSIUM (BEAKER) (test 4.2 meq/L 3.5-5.1 pfqa=469) CHLORIDE (BEAKER) (test 106 meq/L 98-107 ngvp=619) CO2 (BEAKER) (test 23 meq/L 22-29 riup=856) BLOOD UREA NITROGEN 11 mg/dL 7-21 (BEAKER) (test xkgm=359) CREATININE (BEAKER) (test 0.72 mg/dL 0.57-1.25 rapl=763) GLUCOSE RANDOM (BEAKER) 160 mg/dL 70-105 (test oxbe=168) CALCIUM (BEAKER) (test 8.4 mg/dL 8.4-10.2 cpov=321) EGFR (BEAKER) (test 77 mL/min/1.73 sq m ESTIMATED GFR IS NOT pchy=8900) ACCURATE CREATININE CLEARANCE IN PREDICTING GLOMERULAR FILTRATION RATE. ESTIMATED GFR IS NOT APPLICABLE FOR DIALYSIS PATIENTS. POCT-GLUCOSE [id number] 19:36:00 Test Item Value Reference Range Comments POC-GLUCOSE METER (BEAKER) 187 mg/dL 70-110 TESTED AT [address] (test ppgf=4247) [place] [id number] 16:33:00 Test Item Value Reference Range Comments ACTIVATED CLOTTING TIME 147 sec TESTED AT [place] [address] [address] (BEAKER) (test dsur=876) [place] [address] [id number] 16:09:00 Test Item Value Reference Range Comments ACTIVATED CLOTTING TIME 274 sec TESTED AT [place] [address] [address] (BEAKER) (test ulyv=156) [place] [address] [id number] 16:09:00 Test Item Value Reference Range Comments ACTIVATED CLOTTING TIME 257 sec TESTED AT [address] (BEAKER) (test brtg=513) [place] [id number] POCT-GLUCOSE [id number] 09:19:00 Test Item Value Reference Range Comments POC-GLUCOSE METER (BEAKER) 115 mg/dL 70-110 TESTED AT [address] (test hwwn=9658) [facility] [address] COMPREHENSIVE METABOLIC [id number] 07:07:00 Test Item Value Reference Range Comments TOTAL PROTEIN (BEAKER) 5.7 gm/dL 6.0-8.3 (test yqys=063) ALBUMIN (BEAKER) (test 3.1 g/dL 3.5-5.0 padq=8698) ALKALINE PHOSPHATASE 111 U/L 40-150 (BEAKER) (test qkbt=053) BILIRUBIN TOTAL (BEAKER) 0.8 mg/dL 0.2-1.2 (test ficy=338) SODIUM (BEAKER) (test 132 meq/L 136-145 ptnk=334) POTASSIUM (BEAKER) (test 3.9 meq/L 3.5-5.1 tigi=523) CHLORIDE (BEAKER) (test 100 meq/L 98-107 ecuu=066) CO2 (BEAKER) (test 25 meq/L 22-29 vlkr=216) BLOOD UREA NITROGEN 13 mg/dL 7-21 (BEAKER) (test kcrx=796) CREATININE (BEAKER) (test 0.65 mg/dL 0.57-1.25 ajcg=888) GLUCOSE RANDOM (BEAKER) 106 mg/dL 70-105 (test ysyd=472) CALCIUM (BEAKER) (test 8.5 mg/dL 8.4-10.2 kdnu=396) AST (SGOT) (BEAKER) (test 30 U/L 5-34 tjtc=487) ALT (SGPT) (BEAKER) (test 12 U/L 6-55 sibc=732) EGFR (BEAKER) (test 86 mL/min/1.73 sq m ESTIMATED GFR IS NOT xlmd=7558) ACCURATE CREATININE CLEARANCE IN PREDICTING GLOMERULAR FILTRATION RATE. ESTIMATED GFR IS NOT APPLICABLE FOR DIALYSIS PATIENTS. [id number] 06:31:00 Test Item Value Reference Range Comments PARTIAL THROMBOPLASTIN TIME (BEAKER) (test 33.9 seconds 22.5-36.0 djzw=066) PROTHROMBIN [id number] 06:30:00 Test Item Value Reference Range Comments PROTIME (BEAKER) (test xojg=173) 15.4 seconds 11.7-14.7 INR (BEAKER) (test zkdr=046) 1.2 <=5.9 RECOMMENDED COUMADIN/WARFARIN INR THERAPY RANGESSTANDARD DOSE: 2.0 - 3.0 Includes: PROPHYLAXIS forvenous thrombosis, systemic embolization; TREATMENT for venous thrombosis and/or pulmonary embolus.HIGH RISK: Target INR is 2.5-3.5 for patients with mechanical heart valves.CBC W/PLT COUNT & AUTO [id number] 06:25:00 Test Item Value Reference Range Comments WHITE BLOOD CELL COUNT (BEAKER) (test ziao=015) 8.2 K/ L 3.5-10.5 RED BLOOD CELL COUNT (BEAKER) (test ojyy=731) 4.03 M/ L 3.93-5.22 HEMOGLOBIN (BEAKER) (test tjix=551) 12.3 GM/DL 11.2-15.7 HEMATOCRIT (BEAKER) (test wdil=143) 39.8 % 34.1-44.9 MEAN CORPUSCULAR VOLUME (BEAKER) (test bdkp=254) 98.8 fL 79.4-94.8 MEAN CORPUSCULAR HEMOGLOBIN (BEAKER) (test 30.5 pg 25.6-32.2 ztnu=835) MEAN CORPUSCULAR HEMOGLOBIN CONC (BEAKER) (test 30.9 GM/DL 32.2-35.5 jrdh=159) RED CELL DISTRIBUTION WIDTH (BEAKER) (test 21.1 % 11.7-14.4 ohto=993) PLATELET COUNT (BEAKER) (test hxeq=387) 324 K/CU MM 150-450 MEAN PLATELET VOLUME (BEAKER) (test ojnj=716) 10.5 fL 9.4-12.3 NUCLEATED RED BLOOD CELLS (BEAKER) (test 0 /100 WBC 0-0 slba=468) NEUTROPHILS RELATIVE PERCENT (BEAKER) (test 53 % dlak=670) LYMPHOCYTES RELATIVE PERCENT (BEAKER) (test 25 % asdv=837) MONOCYTES RELATIVE PERCENT (BEAKER) (test 16 % zhae=372) EOSINOPHILS RELATIVE PERCENT (BEAKER) (test 3 % ffgw=263) BASOPHILS RELATIVE PERCENT (BEAKER) (test 1 % jgrn=466) NEUTROPHILS ABSOLUTE COUNT (BEAKER) (test 4.28 K/ L 1.56-6.13 kquh=542) LYMPHOCYTES ABSOLUTE COUNT (BEAKER) (test 2.01 K/ L 1.18-3.74 qazq=130) MONOCYTES ABSOLUTE COUNT (BEAKER) (test 1.34 K/ L 0.24-0.36 nfoj=900) EOSINOPHILS ABSOLUTE COUNT (BEAKER) (test 0.28 K/ L 0.04-0.36 cyop=360) BASOPHILS ABSOLUTE COUNT (BEAKER) (test 0.09 K/ L 0.01-0.08 jbbt=568) IMMATURE GRANULOCYTES-RELATIVE PERCENT (BEAKER) 2 % 0-1 (test nmlc=1192) POCT-GLUCOSE [id number] 22:59:00 Test Item Value Reference Range Comments POC-GLUCOSE METER (BEAKER) 128 mg/dL 70-110 TESTED AT [address] (test ttyh=8478) [facility] [address] POCT-GLUCOSE [id number] 18:57:00 Test Item Value Reference Range Comments POC-GLUCOSE METER (BEAKER) 143 mg/dL 70-110 TESTED AT [address] (test nofa=3779) [facility] [address] POCT-GLUCOSE [id number] 12:03:00 Test Item Value Reference Range Comments POC-GLUCOSE METER (BEAKER) 113 mg/dL 70-110 TESTED AT [address] (test ncud=7474) [facility] [address] POCT-GLUCOSE [id number] 08:00:00 Test Item Value Reference Range Comments POC-GLUCOSE METER (BEAKER) 110 mg/dL 70-110 TESTED AT [address] (test ntrj=0238) [facility] [address] POCT-GLUCOSE [id number] 21:07:00 Test Item Value Reference Range Comments POC-GLUCOSE METER (BEAKER) 185 mg/dL 70-110 TESTED AT [address] (test squu=7530) [facility] [address] POCT-GLUCOSE [id number] 18:42:00 Test Item Value Reference Range Comments POC-GLUCOSE METER (BEAKER) 110 mg/dL 70-110 TESTED AT [address] (test kgxu=1940) [facility] [address] POCT-GLUCOSE [id number] 11:54:00 Test Item Value Reference Range Comments POC-GLUCOSE METER (BEAKER) 172 mg/dL 70-110 TESTED AT [address] (test emom=3651) [facility] [address] BASIC METABOLIC [id number] 10:16:00 Test Item Value Reference Range Comments SODIUM (BEAKER) (test 135 meq/L 136-145 vgig=687) POTASSIUM (BEAKER) (test 4.1 meq/L 3.5-5.1 xdkb=694) CHLORIDE (BEAKER) (test 102 meq/L 98-107 qouf=714) CO2 (BEAKER) (test 23 meq/L 22-29 lfvp=058) BLOOD UREA NITROGEN 12 mg/dL 7-21 (BEAKER) (test njjd=671) CREATININE (BEAKER) (test 0.60 mg/dL 0.57-1.25 rktk=451) GLUCOSE RANDOM (BEAKER) 121 mg/dL 70-105 (test iusn=111) CALCIUM (BEAKER) (test 9.0 mg/dL 8.4-10.2 rbhf=780) EGFR (BEAKER) (test 95 mL/min/1.73 sq m ESTIMATED GFR IS NOT gsgl=0892) ACCURATE CREATININE CLEARANCE IN PREDICTING GLOMERULAR FILTRATION RATE. ESTIMATED GFR IS NOT APPLICABLE FOR DIALYSIS PATIENTS. CBC W/PLT COUNT & AUTO [id number] 10:16:00 Test Item Value Reference Range Comments WHITE BLOOD CELL COUNT (BEAKER) (test pbnp=642) 9.3 K/ L 3.5-10.5 RED BLOOD CELL COUNT (BEAKER) (test iinx=731) 4.34 M/ L 3.93-5.22 HEMOGLOBIN (BEAKER) (test ucnk=222) 13.2 GM/DL 11.2-15.7 HEMATOCRIT (BEAKER) (test rljg=219) 43.5 % 34.1-44.9 MEAN CORPUSCULAR VOLUME (BEAKER) (test cjsn=175) 100.2 fL 79.4-94.8 MEAN CORPUSCULAR HEMOGLOBIN (BEAKER) (test 30.4 pg 25.6-32.2 xvfj=615) MEAN CORPUSCULAR HEMOGLOBIN CONC (BEAKER) (test 30.3 GM/DL 32.2-35.5 quqa=480) RED CELL DISTRIBUTION WIDTH (BEAKER) (test 22.2 % 11.7-14.4 jxwy=602) PLATELET COUNT (BEAKER) (test egkj=203) 341 K/CU MM 150-450 MEAN PLATELET VOLUME (BEAKER) (test bgec=230) 10.6 fL 9.4-12.3 NUCLEATED RED BLOOD CELLS (BEAKER) (test 1 /100 WBC 0-0 rvxq=350) NEUTROPHILS RELATIVE PERCENT (BEAKER) (test 58 % eqzg=203) LYMPHOCYTES RELATIVE PERCENT (BEAKER) (test 24 % jisj=413) MONOCYTES RELATIVE PERCENT (BEAKER) (test 13 % mbhx=572) EOSINOPHILS RELATIVE PERCENT (BEAKER) (test 2 % ghpp=143) BASOPHILS RELATIVE PERCENT (BEAKER) (test 1 % kuhp=927) NEUTROPHILS ABSOLUTE COUNT (BEAKER) (test 5.41 K/ L 1.56-6.13 dexa=453) LYMPHOCYTES ABSOLUTE COUNT (BEAKER) (test 2.19 K/ L 1.18-3.74 ljra=769) MONOCYTES ABSOLUTE COUNT (BEAKER) (test 1.24 K/ L 0.24-0.36 wtla=858) EOSINOPHILS ABSOLUTE COUNT (BEAKER) (test 0.22 K/ L 0.04-0.36 ztbc=899) BASOPHILS ABSOLUTE COUNT (BEAKER) (test 0.10 K/ L 0.01-0.08 xmhf=455) IMMATURE GRANULOCYTES-RELATIVE PERCENT (BEAKER) 2 % 0-1 (test fdtv=3000) POCT-GLUCOSE [id number] 08:56:00 Test Item Value Reference Range Comments POC-GLUCOSE METER (BEAKER) 104 mg/dL 70-110 TESTED AT [address] (test ehvo=1140) [facility] [id number] POCT-GLUCOSE [id number] 21:49:00 Test Item Value Reference Range Comments POC-GLUCOSE METER (BEAKER) 163 mg/dL 70-110 TESTED AT [address] (test nqjx=2968) [facility] [address] POCT-GLUCOSE [id number] 18:18:00 Test Item Value Reference Range Comments POC-GLUCOSE METER (BEAKER) 124 mg/dL 70-110 TESTED AT [address] (test pyvg=6303) [facility] [address] POCT-GLUCOSE [id number] 12:56:00 Test Item Value Reference Range Comments POC-GLUCOSE METER (BEAKER) 135 mg/dL 70-110 TESTED AT [address] (test akmi=5717) [place] [id number] POCT-GLUCOSE [id number] 08:50:00 Test Item Value Reference Range Comments POC-GLUCOSE METER (BEAKER) 131 mg/dL 70-110 TESTED AT [address] (test xfsa=6280) [facility] [address] POCT-GLUCOSE [id number] 23:31:00 Test Item Value Reference Range Comments POC-GLUCOSE METER (BEAKER) 125 mg/dL 70-110 TESTED AT [address] (test ehcu=8715) [facility] [address] POCT-GLUCOSE [id number] 18:55:00 Test Item Value Reference Range Comments POC-GLUCOSE METER (BEAKER) 114 mg/dL 70-110 TESTED AT [address] (test rwzd=7450) [facility] [address] POCT-GLUCOSE [id number] 13:26:00 Test Item Value Reference Range Comments POC-GLUCOSE METER (BEAKER) 121 mg/dL 70-110 TESTED AT [address] (test ijsa=1960) [facility] [address] POCT-GLUCOSE [id number] 08:23:00 Test Item Value Reference Range Comments POC-GLUCOSE METER (BEAKER) 81 mg/dL 70-110 TESTED AT [address] (test caju=4919) [facility] [address] POCT-GLUCOSE [id number] 22:43:00 Test Item Value Reference Range Comments POC-GLUCOSE METER (BEAKER) 187 mg/dL 70-110 TESTED AT [address] (test ssng=7327) [facility] [address] POCT-GLUCOSE [id number] 18:01:00 Test Item Value Reference Range Comments POC-GLUCOSE METER (BEAKER) 149 mg/dL 70-110 TESTED AT [address] (test csuf=1285) [facility] [address] POCT-GLUCOSE [id number] 12:48:00 Test Item Value Reference Range Comments POC-GLUCOSE METER (BEAKER) 87 mg/dL 70-110 TESTED AT [address] (test wyen=8552) [facility] [address] POCT-GLUCOSE [id number] 09:05:00 Test Item Value Reference Range Comments POC-GLUCOSE METER (BEAKER) 105 mg/dL 70-110 TESTED AT [address] (test hvzj=6972) [place] [id number] POCT-GLUCOSE [id number] 08:04:00 Test Item Value Reference Range Comments POC-GLUCOSE METER (BEAKER) 67 mg/dL 70-110 TESTED AT [address] (test faqq=3666) [place] [id number] POCT-GLUCOSE [id number] 21:37:00 Test Item Value Reference Range Comments POC-GLUCOSE METER (BEAKER) 274 mg/dL 70-110 TESTED AT [address] (test pqpt=2283) [place] [id number] POCT-GLUCOSE [id number] 14:28:00 Test Item Value Reference Range Comments POC-GLUCOSE METER (BEAKER) 84 mg/dL 70-110 TESTED AT [address] (test lcjm=8427) [facility] [address] POCT-GLUCOSE [id number] 08:08:00 Test Item Value Reference Range Comments POC-GLUCOSE METER (BEAKER) 97 mg/dL 70-110 TESTED AT [address] (test tvhq=2841) [facility] [address] BASIC METABOLIC [id number] 06:56:00 Test Item Value Reference Range Comments SODIUM (BEAKER) (test 130 meq/L 136-145 szcn=059) POTASSIUM (BEAKER) (test 4.2 meq/L 3.5-5.1 umfr=929) CHLORIDE (BEAKER) (test 96 meq/L 98-107 xtnc=095) CO2 (BEAKER) (test 30 meq/L 22-29 gzis=611) BLOOD UREA NITROGEN 11 mg/dL 7-21 (BEAKER) (test oxqu=656) CREATININE (BEAKER) (test 0.54 mg/dL 0.57-1.25 fhad=642) GLUCOSE RANDOM (BEAKER) 71 mg/dL 70-105 (test ckiq=691) CALCIUM (BEAKER) (test 8.3 mg/dL 8.4-10.2 bdvh=234) EGFR (BEAKER) (test 107 mL/min/1.73 sq m ESTIMATED GFR IS NOT jrvh=2264) ACCURATE CREATININE CLEARANCE IN PREDICTING GLOMERULAR FILTRATION RATE. ESTIMATED GFR IS NOT APPLICABLE FOR DIALYSIS PATIENTS. CBC W/PLT COUNT & AUTO [id number] 06:10:00 Test Item Value Reference Range Comments WHITE BLOOD CELL COUNT (BEAKER) (test mhpa=588) 10.6 K/ L 3.5-10.5 RED BLOOD CELL COUNT (BEAKER) (test nqef=161) 3.35 M/ L 3.93-5.22 HEMOGLOBIN (BEAKER) (test hemz=581) 10.1 GM/DL 11.2-15.7 HEMATOCRIT (BEAKER) (test waki=145) 33.3 % 34.1-44.9 MEAN CORPUSCULAR VOLUME (BEAKER) (test vinn=368) 99.4 fL 79.4-94.8 MEAN CORPUSCULAR HEMOGLOBIN (BEAKER) (test 30.1 pg 25.6-32.2 sqoo=115) MEAN CORPUSCULAR HEMOGLOBIN CONC (BEAKER) (test 30.3 GM/DL 32.2-35.5 bxib=621) RED CELL DISTRIBUTION WIDTH (BEAKER) (test 23.9 % 11.7-14.4 kdiw=649) PLATELET COUNT (BEAKER) (test pnqr=827) 365 K/CU MM 150-450 MEAN PLATELET VOLUME (BEAKER) (test jhkg=044) 10.4 fL 9.4-12.3 NUCLEATED RED BLOOD CELLS (BEAKER) (test 1 /100 WBC 0-0 zxua=005) NEUTROPHILS RELATIVE PERCENT (BEAKER) (test 68 % eyyz=751) LYMPHOCYTES RELATIVE PERCENT (BEAKER) (test 15 % qefe=456) MONOCYTES RELATIVE PERCENT (BEAKER) (test 12 % ommq=971) EOSINOPHILS RELATIVE PERCENT (BEAKER) (test 4 % kwol=432) BASOPHILS RELATIVE PERCENT (BEAKER) (test 0 % gkzs=581) NEUTROPHILS ABSOLUTE COUNT (BEAKER) (test 7.18 K/ L 1.56-6.13 gtqr=401) LYMPHOCYTES ABSOLUTE COUNT (BEAKER) (test 1.62 K/ L 1.18-3.74 amvq=232) MONOCYTES ABSOLUTE COUNT (BEAKER) (test 1.23 K/ L 0.24-0.36 qwlh=958) EOSINOPHILS ABSOLUTE COUNT (BEAKER) (test 0.40 K/ L 0.04-0.36 vrno=307) BASOPHILS ABSOLUTE COUNT (BEAKER) (test 0.03 K/ L 0.01-0.08 ximx=231) IMMATURE GRANULOCYTES-RELATIVE PERCENT (BEAKER) 1 % 0-1 (test hqck=6535) POCT-GLUCOSE [id number] 21:34:00 Test Item Value Reference Range Comments POC-GLUCOSE METER (BEAKER) 194 mg/dL 70-110 TESTED AT [address] (test jvkv=8961) [place] [address] POCT-GLUCOSE [id number] 13:42:00 Test Item Value Reference Range Comments POC-GLUCOSE METER (BEAKER) 120 mg/dL 70-110 TESTED AT [address] (test bijs=4570) [place] [address] POCT-GLUCOSE [id number] 08:16:00 Test Item Value Reference Range Comments POC-GLUCOSE METER (BEAKER) 134 mg/dL 70-110 TESTED AT [address] (test frwv=6047) [place] [address] BLOOD [id number] 06:00:00 Test Item Value Reference Range Comments CULTURE (BEAKER) (test xfyi=0584) No growth in 5 days BLOOD [id number] 06:00:00 Test Item Value Reference Range Comments CULTURE (BEAKER) (test tdej=2380) No growth in 5 days POCT-GLUCOSE [id number] 21:09:00 Test Item Value Reference Range Comments POC-GLUCOSE METER (BEAKER) 93 mg/dL 70-110 TESTED AT [address] (test shih=8748) [facility] [address] POCT-GLUCOSE [id number] 17:50:00 Test Item Value Reference Range Comments POC-GLUCOSE METER (BEAKER) 103 mg/dL 70-110 TESTED AT [address] (test huwf=5161) [facility] [address] POCT-GLUCOSE [id number] 08:53:00 Test Item Value Reference Range Comments POC-GLUCOSE METER (BEAKER) 97 mg/dL 70-110 TESTED AT [address] (test evua=9045) [facility] [address] POCT-GLUCOSE [id number] 21:32:00 Test Item Value Reference Range Comments POC-GLUCOSE METER (BEAKER) 143 mg/dL 70-110 TESTED AT [address] (test tshu=2372) [facility] [address] POCT-GLUCOSE [id number] 17:35:00 Test Item Value Reference Range Comments POC-GLUCOSE METER (BEAKER) 110 mg/dL 70-110 TESTED AT [address] (test tywr=7648) [facility] [address] POCT-GLUCOSE [id number] 13:23:00 Test Item Value Reference Range Comments POC-GLUCOSE METER (BEAKER) 101 mg/dL 70-110 TESTED AT [address] (test qmdq=5687) [facility] [address] POCT-GLUCOSE [id number] 07:50:00 Test Item Value Reference Range Comments POC-GLUCOSE METER (BEAKER) 91 mg/dL 70-110 TESTED AT [address] (test cxdq=7701) [facility] [address] POCT-GLUCOSE [id number] 22:30:00 Test Item Value Reference Range Comments POC-GLUCOSE METER (BEAKER) 131 mg/dL 70-110 TESTED AT [address] (test titk=7230) [facility] [address] POCT-GLUCOSE [id number] 22:01:00 Test Item Value Reference Range Comments POC-GLUCOSE METER (BEAKER) 149 mg/dL 70-110 TESTED AT [address] (test mesl=4552) [facility] [address] CBC W/PLT COUNT & AUTO [id number] 10:35:00 Test Item Value Reference Range Comments WHITE BLOOD CELL COUNT (BEAKER) (test uubd=261) 12.0 K/ L 3.5-10.5 RED BLOOD CELL COUNT (BEAKER) (test mhon=578) 3.04 M/ L 3.93-5.22 HEMOGLOBIN (BEAKER) (test zxsq=336) 9.0 GM/DL 11.2-15.7 HEMATOCRIT (BEAKER) (test dzfe=083) 29.6 % 34.1-44.9 MEAN CORPUSCULAR VOLUME (BEAKER) (test fqhy=445) 97.4 fL 79.4-94.8 MEAN CORPUSCULAR HEMOGLOBIN (BEAKER) (test 29.6 pg 25.6-32.2 vwzk=998) MEAN CORPUSCULAR HEMOGLOBIN CONC (BEAKER) (test 30.4 GM/DL 32.2-35.5 mbjt=960) RED CELL DISTRIBUTION WIDTH (BEAKER) (test 24.8 % 11.7-14.4 simb=394) PLATELET COUNT (BEAKER) (test ugty=837) 410 K/CU MM 150-450 MEAN PLATELET VOLUME (BEAKER) (test lxtx=502) 10.1 fL 9.4-12.3 NUCLEATED RED BLOOD CELLS (BEAKER) (test 14 /100 WBC 0-0 gzwk=986) (CELLAVISION MANUAL DIFF)2017-12-17 10:35:00 Test Item Value Reference Range Comments NEUTROPHILS - REL (CELLAVISION)(BEAKER) (test 70 % akkl=3699) LYMPHOCYTES - REL (CELLAVISION)(BEAKER) (test 11 % wecp=9998) MONOCYTES - REL (CELLAVISION)(BEAKER) (test 6 % fmgf=9706) METAMYELOCYTES - REL (CELLAVISION)(BEAKER) (test 1 % 0-0 eijk=2587) MYELOCYTES - REL (CELLAVISION)(BEAKER) (test 1 % 0-0 tlrx=0057) BANDS - REL (CELLAVISION)(BEAKER) (test 11 % 0-10 pfle=4200) NEUTROPHILS - ABS (CELLAVISION)(BEAKER) (test 8.40 K/ul 1.56-6.13 ojep=5551) LYMPHOCYTES - ABS (CELLAVISION)(BEAKER) (test 1.32 K/ul 1.18-3.74 fjxg=2365) MONOCYTES - ABS (CELLAVISION)(BEAKER) (test 0.72 K/uL 0.24-0.36 nycx=6159) METAMYELOCYTES - ABS (CELLAVISION)(BEAKER) (test 0.12 K/uL 0.00-0.00 jxzx=7569) MYELOCYTES-ABS (CELLAVISION)(BEAKER) (test 0.12 K/uL 0.00-0.00 qlit=4873) BANDS - ABS (CELLAVISION)(BEAKER) (test 1.32 K/uL 0.00-0.80 bxnm=3803) TOTAL COUNTED (BEAKER) (test eswa=3840) 100 MANUAL NRBC PER 100 CELLS (BEAKER) (test 15 /100 WBC 0-0 knry=1698) WBC MORPHOLOGY (BEAKER) (test fuli=934) Normal PLT MORPHOLOGY (BEAKER) (test divx=309) Normal POLYCHROMATOPHILLIC RBCS(BEAKER) (test liye=498) 3+ many ANISOCYTOSIS (BEAKER) (test vwtp=964) 3+ many POIKILOCYTES (BEAKER) (test psax=535) 2+ moderate TARGET CELLS (BEAKER) (test nztv=321) 2+ moderate SCHISTOCYTES (BEAKER) (test bhzq=821) 1+ few TOMMY CELLS (BEAKER) (test kliy=132) 2+ moderate ARTIFACT (CELLAVISION)(BEAKER) (test ucll=1643) Present PLATELET CONCENTRATION (CELLAVISION)(BEAKER) Adequate (test ctzh=7041) Received comment: User comments: Slide comments:POCT-GLUCOSE [id number] 07: 47:00 Test Item Value Reference Range Comments POC-GLUCOSE METER (BEAKER) 156 mg/dL 70-110 TESTED AT [facility] [address] [place] [address] (test jqmg=3987) [facility] [address] BASIC METABOLIC [id number] 07:03:00 Test Item Value Reference Range Comments SODIUM (BEAKER) (test 129 meq/L 136-145 bqzs=879) POTASSIUM (BEAKER) (test 4.4 meq/L 3.5-5.1 llzm=712) CHLORIDE (BEAKER) (test 101 meq/L 98-107 emnw=628) CO2 (BEAKER) (test 23 meq/L 22-29 rjef=723) BLOOD UREA NITROGEN 9 mg/dL 7-21 (BEAKER) (test ipzf=577) CREATININE (BEAKER) (test 0.53 mg/dL 0.57-1.25 zhco=510) GLUCOSE RANDOM (BEAKER) 110 mg/dL 70-105 (test ugwv=413) CALCIUM (BEAKER) (test 7.9 mg/dL 8.4-10.2 mdck=401) EGFR (BEAKER) (test 109 mL/min/1.73 sq m ESTIMATED GFR IS NOT qntx=4876) ACCURATE CREATININE CLEARANCE IN PREDICTING GLOMERULAR FILTRATION RATE. ESTIMATED GFR IS NOT APPLICABLE FOR DIALYSIS PATIENTS. [id number] 07:02:00 Test Item Value Reference Range Comments MAGNESIUM (BEAKER) (test jhic=045) 2.1 mg/dL 1.6-2.6 [id number] 17:22:00 Test Item Value Reference Range Comments POTASSIUM (BEAKER) (test wbby=321) 3.8 meq/L 3.5-5.1 Check Serum Potassium level 2 hours after oral potassium replacement completed or 30 min after intravenous potassium replacement.[id number] 17:22:00 Test Item Value Reference Range Comments MAGNESIUM (BEAKER) (test ziue=822) 2.0 mg/dL 1.6-2.6 Check Serum Potassium level 2 hours after oral potassium replacement completed or 30 min after intravenous potassium replacement.POCT-GLUCOSE [id number] 13:31:00 Test Item Value Reference Range Comments POC-GLUCOSE METER (BEAKER) 127 mg/dL 70-110 TESTED AT [address] (test wxvh=5792) [facility] [address] CBC W/PLT COUNT & AUTO [id number] 10:22:00 Test Item Value Reference Range Comments WHITE BLOOD CELL COUNT (BEAKER) (test ojbs=506) 13.9 K/ L 3.5-10.5 RED BLOOD CELL COUNT (BEAKER) (test jwar=555) 2.80 M/ L 3.93-5.22 HEMOGLOBIN (BEAKER) (test oudu=053) 8.4 GM/DL 11.2-15.7 HEMATOCRIT (BEAKER) (test sxjb=732) 26.7 % 34.1-44.9 MEAN CORPUSCULAR VOLUME (BEAKER) (test wrex=766) 95.4 fL 79.4-94.8 MEAN CORPUSCULAR HEMOGLOBIN (BEAKER) (test 30.0 pg 25.6-32.2 exbj=367) MEAN CORPUSCULAR HEMOGLOBIN CONC (BEAKER) (test 31.5 GM/DL 32.2-35.5 wkae=317) RED CELL DISTRIBUTION WIDTH (BEAKER) (test 23.6 % 11.7-14.4 bpqy=642) PLATELET COUNT (BEAKER) (test svyy=273) 419 K/CU MM 150-450 MEAN PLATELET VOLUME (BEAKER) (test reux=480) 10.1 fL 9.4-12.3 NUCLEATED RED BLOOD CELLS (BEAKER) (test 8 /100 WBC 0-0 npnm=213) (CELLAVISION MANUAL DIFF)2017-12-16 10:22:00 Test Item Value Reference Range Comments NEUTROPHILS - REL (CELLAVISION)(BEAKER) (test 85 % nyeu=7850) LYMPHOCYTES - REL (CELLAVISION)(BEAKER) (test 6 % uaxi=5925) MONOCYTES - REL (CELLAVISION)(BEAKER) (test 7 % fdti=9621) MYELOCYTES - REL (CELLAVISION)(BEAKER) (test 1 % 0-0 gngt=6165) ATYPICAL LYMPHOCYTES - REL (CELLAVISION)(BEAKER) 1 % 0-0 (test uvhk=1537) NEUTROPHILS - ABS (CELLAVISION)(BEAKER) (test 11.82 K/ul 1.56-6.13 mudo=0329) LYMPHOCYTES - ABS (CELLAVISION)(BEAKER) (test 0.83 K/ul 1.18-3.74 hjwt=1962) MONOCYTES - ABS (CELLAVISION)(BEAKER) (test 0.97 K/uL 0.24-0.36 ecvo=1777) MYELOCYTES-ABS (CELLAVISION)(BEAKER) (test 0.14 K/uL 0.00-0.00 sfic=5213) ATYPICAL LYMPHOCYTES - ABS (CELLAVISION)(BEAKER) 0.14 K/uL 0.00-0.00 (test zwrd=7241) TOTAL COUNTED (BEAKER) (test nbur=0040) 100 MANUAL NRBC PER 100 CELLS (BEAKER) (test 12 /100 WBC 0-0 ptur=7443) SMUDGE CELLS (BEAKER) (test gwug=1172) Present GIANT PLATELETS (BEAKER) (test lxui=534) Present POLYCHROMATOPHILLIC RBCS(BEAKER) (test uzno=626) 2+ moderate ANISOCYTOSIS (BEAKER) (test lvfr=992) 2+ moderate MACROCYTES (BEAKER) (test bxqm=181) 2+ moderate POIKILOCYTES (BEAKER) (test qddp=847) 3+ many TARGET CELLS (BEAKER) (test wmal=109) 1+ few TOMMY CELLS (BEAKER) (test dbzh=936) 2+ moderate PLATELET CONCENTRATION (CELLAVISION)(BEAKER) Adequate (test hndo=7363) Received comment: User comments: Slide comments:URINALYSIS W/ REFLEX URINE [id number] 10:09:00 Test Item Value Reference Range Comments COLOR (BEAKER) (test qira=671) Colorless CLARITY (BEAKER) (test gtnp=501) Clear SPECIFIC GRAVITY UA (BEAKER) (test dsub=243) 1.003 1.001-1.035 PH UA (BEAKER) (test irhj=729) 5.0 5.0-8.0 PROTEIN UA (BEAKER) (test xwoq=268) Negative Negative GLUCOSE UA (BEAKER) (test fyup=646) Negative Negative KETONES UA (BEAKER) (test yfts=735) Negative Negative BILIRUBIN UA (BEAKER) (test hhxs=967) Negative Negative BLOOD UA (BEAKER) (test mwey=059) Negative Negative NITRITE UA (BEAKER) (test ntgd=805) Negative Negative LEUKOCYTE ESTERASE UA (BEAKER) (test gyfi=502) Large Negative UROBILINOGEN UA (BEAKER) (test edqv=823) 0.2 mg/dL 0.2-1.0 RBC UA (BEAKER) (test cltz=196) 2 /HPF WBC UA (BEAKER) (test tpfv=021) 10 /HPF BACTERIA (BEAKER) (test zvyw=288) Rare SQUAMOUS EPITHELIAL (BEAKER) (test vois=247) < /HPF SOURCE(BEAKER) (test auhr=3821) POCT-GLUCOSE [id number] 07:56:00 Test Item Value Reference Range Comments POC-GLUCOSE METER (BEAKER) 132 mg/dL 70-110 TESTED AT [facility] [address] (test znvq=1170) [facility] [address] BASIC METABOLIC [id number] 07:17:00 Test Item Value Reference Range Comments SODIUM (BEAKER) (test 126 meq/L 136-145 ovue=660) POTASSIUM (BEAKER) (test 4.3 meq/L 3.5-5.1 pqol=053) CHLORIDE (BEAKER) (test 99 meq/L 98-107 znqw=104) CO2 (BEAKER) (test 19 meq/L 22-29 sczs=713) BLOOD UREA NITROGEN 14 mg/dL 7-21 (BEAKER) (test smyb=503) CREATININE (BEAKER) (test 0.62 mg/dL 0.57-1.25 anqd=457) GLUCOSE RANDOM (BEAKER) 130 mg/dL 70-105 (test fbvu=225) CALCIUM (BEAKER) (test 7.9 mg/dL 8.4-10.2 cxlm=488) EGFR (BEAKER) (test 91 mL/min/1.73 sq m ESTIMATED GFR IS NOT zpcc=6229) ACCURATE CREATININE CLEARANCE IN PREDICTING GLOMERULAR FILTRATION RATE. ESTIMATED GFR IS NOT APPLICABLE FOR DIALYSIS PATIENTS. [id number] 07:14:00 Test Item Value Reference Range Comments MAGNESIUM (BEAKER) (test ctlk=187) 2.0 mg/dL 1.6-2.6 RAD, CHEST, 1 VIEW, NON [id number] 03:24:00Reason for exam:->to rule out shortness of breatheShould this be performed at the bedside?->YesFINAL REPORT History: Shortness of breath. Comparison: None. Findings: A single view of the chest is submitted. The cardiac silhouette is enlarged. There is atherosclerotic calcification of the aorta. 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 There is central pulmonary vascular congestion. Bilateral interstitial and airspace opacities are centered on the perihilar lungs and may reflect a combination of atelectasis and edema. Pneumonitis should be excluded clinically. Small bilateral pleural effusions are suspected. There is no pneumothorax or acute bony abnormality. Signed: Kristin Herreraeport Verified Date/Time: 12/16/2017 03:24:14 Reading Location : [address] Reading Room VANCOMYCIN LEVEL, [id number] 00:20:00 Test Item Value Reference Range Comments VANCOMYCIN RANDOM (BEAKER) (test mydx=841) 8.3 ug/mL Reference Range: No [id number] 22:40:00 Test Item Value Reference Range Comments PROCALCITONIN (BEAKER) (test tqnp=4574) 0.05 ng/mL <0.05 SEPSIS RISK (ng/mL)Low: 0.05-0.50Intermediate: 0.51-2.00High: & gt;=2.01B-TYPE NATRIURETIC FACTOR (BNP)2017-12-15 22:11:00 Test Item Value Reference Range Comments B-TYPE NATRIURETIC PEPTIDE (BEAKER) (test 3331 pg/mL 0-100 nong=777) CBC W/PLT COUNT & AUTO [id number] 22:07:00 Test Item Value Reference Range Comments WHITE BLOOD CELL COUNT (BEAKER) (test veuf=892) 14.8 K/ L 3.5-10.5 RED BLOOD CELL COUNT (BEAKER) (test nfbu=438) 3.06 M/ L 3.93-5.22 HEMOGLOBIN (BEAKER) (test dyfs=530) 9.2 GM/DL 11.2-15.7 HEMATOCRIT (BEAKER) (test jowj=102) 29.6 % 34.1-44.9 MEAN CORPUSCULAR VOLUME (BEAKER) (test bhlw=296) 96.7 fL 79.4-94.8 MEAN CORPUSCULAR HEMOGLOBIN (BEAKER) (test 30.1 pg 25.6-32.2 suia=433) MEAN CORPUSCULAR HEMOGLOBIN CONC (BEAKER) (test 31.1 GM/DL 32.2-35.5 zgif=513) RED CELL DISTRIBUTION WIDTH (BEAKER) (test 23.9 % 11.7-14.4 yojk=405) PLATELET COUNT (BEAKER) (test puqn=545) 440 K/CU MM 150-450 MEAN PLATELET VOLUME (BEAKER) (test ancy=163) 9.9 fL 9.4-12.3 NUCLEATED RED BLOOD CELLS (BEAKER) (test 8 /100 WBC 0-0 uvrq=327) (CELLAVISION MANUAL DIFF)2017-12-15 22:07:00 Test Item Value Reference Range Comments NEUTROPHILS - REL (CELLAVISION)(BEAKER) (test 88 % wemy=8762) LYMPHOCYTES - REL (CELLAVISION)(BEAKER) (test 3 % fhrr=2460) MONOCYTES - REL (CELLAVISION)(BEAKER) (test 5 % stix=8655) METAMYELOCYTES - REL (CELLAVISION)(BEAKER) (test 1 % 0-0 cfsm=9472) MYELOCYTES - REL (CELLAVISION)(BEAKER) (test 1 % 0-0 zzwn=4476) BANDS - REL (CELLAVISION)(BEAKER) (test 2 % 0-10 kwdj=4601) NEUTROPHILS - ABS (CELLAVISION)(BEAKER) (test 13.02 K/ul 1.56-6.13 eeje=9601) LYMPHOCYTES - ABS (CELLAVISION)(BEAKER) (test 0.44 K/ul 1.18-3.74 ogbo=6265) MONOCYTES - ABS (CELLAVISION)(BEAKER) (test 0.74 K/uL 0.24-0.36 wnip=5484) METAMYELOCYTES - ABS (CELLAVISION)(BEAKER) (test 0.15 K/uL 0.00-0.00 sibe=8243) MYELOCYTES-ABS (CELLAVISION)(BEAKER) (test 0.15 K/uL 0.00-0.00 aqwo=3857) BANDS - ABS (CELLAVISION)(BEAKER) (test 0.30 K/uL 0.00-0.80 tnsw=3389) TOTAL COUNTED (BEAKER) (test slhz=5629) 100 MANUAL NRBC PER 100 CELLS (BEAKER) (test 9 /100 WBC 0-0 jond=0060) WBC MORPHOLOGY (BEAKER) (test pfkj=480) Normal GIANT PLATELETS (BEAKER) (test bilf=403) Present POLYCHROMATOPHILLIC RBCS(BEAKER) (test aipr=772) 3+ many ANISOCYTOSIS (BEAKER) (test eovs=735) 2+ moderate MACROCYTES (BEAKER) (test wllp=754) 2+ moderate POIKILOCYTES (BEAKER) (test ynzw=870) 3+ many TARGET CELLS (BEAKER) (test doen=004) 1+ few TEAR DROP CELLS (BEAKER) (test lpgu=035) 1+ few TOMMY CELLS (BEAKER) (test tvtt=167) 1+ few ARTIFACT (CELLAVISION)(BEAKER) (test hpau=0471) Present HELMET CELLS (CELLAVISION)(BEAKER) (test 1+ few itgc=0933) PLATELET CONCENTRATION (CELLAVISION)(BEAKER) Adequate (test wiyh=1681) Received comment: User comments: Slide comments:COMPREHENSIVE METABOLIC [id number] 22:06:00 Test Item Value Reference Range Comments TOTAL PROTEIN (BEAKER) 5.7 gm/dL 6.0-8.3 (test nxay=836) ALBUMIN (BEAKER) (test 2.9 g/dL 3.5-5.0 xfpq=7586) ALKALINE PHOSPHATASE 120 U/L 40-150 (BEAKER) (test yyfq=876) BILIRUBIN TOTAL (BEAKER) 2.7 mg/dL 0.2-1.2 (test oqtg=225) SODIUM (BEAKER) (test 125 meq/L 136-145 gwoz=878) POTASSIUM (BEAKER) (test 5.0 meq/L 3.5-5.1 shnb=508) CHLORIDE (BEAKER) (test 100 meq/L 98-107 hbsk=239) CO2 (BEAKER) (test 18 meq/L 22-29 fvta=152) BLOOD UREA NITROGEN 14 mg/dL 7-21 (BEAKER) (test sgaf=752) CREATININE (BEAKER) (test 0.71 mg/dL 0.57-1.25 jnmc=883) GLUCOSE RANDOM (BEAKER) 141 mg/dL 70-105 (test lpfg=144) CALCIUM (BEAKER) (test 8.4 mg/dL 8.4-10.2 zfvv=853) AST (SGOT) (BEAKER) (test 30 U/L 5-34 aziw=460) ALT (SGPT) (BEAKER) (test 17 U/L 6-55 othx=744) EGFR (BEAKER) (test 78 mL/min/1.73 sq m ESTIMATED GFR IS NOT pedx=5329) ACCURATE CREATININE CLEARANCE IN PREDICTING GLOMERULAR FILTRATION RATE. ESTIMATED GFR IS NOT APPLICABLE FOR DIALYSIS PATIENTS. POCT-GLUCOSE [id number] 19:09:00 Test Item Value Reference Range Comments POC-GLUCOSE METER (BEAKER) 184 mg/dL 70-110 TESTED AT [facility] [address] [facility] (test lcfi=7979) [facility] [address] B-TYPE NATRIURETIC FACTOR (BNP)2017-12-11 16:03:00 Test Item Value Reference Range Comments B-TYPE NATRIURETIC PEPTIDE (BEAKER) (test 1193 pg/mL 0-100 tqvy=984) [id number] 15:49:00 Test Item Value Reference Range Comments ALBUMIN (BEAKER) (test drpz=2292) 3.2 g/dL 3.5-5.0 CBC W/PLT COUNT & AUTO [id number] 14:39:00 Test Item Value Reference Range Comments WHITE BLOOD CELL COUNT (BEAKER) (test bhqc=997) 16.9 K/ L 3.5-10.5 RED BLOOD CELL COUNT (BEAKER) (test bpie=129) 2.92 M/ L 3.93-5.22 HEMOGLOBIN (BEAKER) (test yaxj=093) 8.5 GM/DL 11.2-15.7 HEMATOCRIT (BEAKER) (test bvok=201) 26.9 % 34.1-44.9 MEAN CORPUSCULAR VOLUME (BEAKER) (test tawo=272) 92.1 fL 79.4-94.8 MEAN CORPUSCULAR HEMOGLOBIN (BEAKER) (test 29.1 pg 25.6-32.2 dbln=316) MEAN CORPUSCULAR HEMOGLOBIN CONC (BEAKER) (test 31.6 GM/DL 32.2-35.5 wnmz=673) RED CELL DISTRIBUTION WIDTH (BEAKER) (test 19.9 % 11.7-14.4 jzdh=594) PLATELET COUNT (BEAKER) (test wqjl=322) 328 K/CU MM 150-450 MEAN PLATELET VOLUME (BEAKER) (test xgvi=590) 11.7 fL 9.4-12.3 NUCLEATED RED BLOOD CELLS (BEAKER) (test 9 /100 WBC 0-0 oesd=481) (CELLAVISION MANUAL DIFF)2017-12-11 14:39:00 Test Item Value Reference Range Comments NEUTROPHILS - REL (CELLAVISION)(BEAKER) (test 64 % inbt=2958) LYMPHOCYTES - REL (CELLAVISION)(BEAKER) (test 6 % jito=7335) MONOCYTES - REL (CELLAVISION)(BEAKER) (test 13 % iyjv=4563) EOSINOPHILS - REL (CELLAVISION)(BEAKER) (test 3 % owwz=1479) BASOPHILS - REL (CELLAVISION)(BEAKER) (test 1 % hqlf=0451) METAMYELOCYTES - REL (CELLAVISION)(BEAKER) (test 2 % 0-0 touv=0025) BANDS - REL (CELLAVISION)(BEAKER) (test 10 % 0-10 axvk=4770) NEUTROPHILS - ABS (CELLAVISION)(BEAKER) (test 10.82 K/ul 1.56-6.13 vonb=0862) LYMPHOCYTES - ABS (CELLAVISION)(BEAKER) (test 1.01 K/ul 1.18-3.74 ypgp=5619) MONOCYTES - ABS (CELLAVISION)(BEAKER) (test 2.20 K/uL 0.24-0.36 evcd=9761) EOSINOPHILS - ABS (CELLAVISION)(BEAKER) (test 0.51 K/uL 0.04-0.36 axbo=7244) BASOPHILS - ABS (CELLAVISION)(BEAKER) (test 0.17 K/uL 0.01-0.08 ulqg=3834) METAMYELOCYTES - ABS (CELLAVISION)(BEAKER) (test 0.34 K/uL 0.00-0.00 ntdb=3938) BANDS - ABS (CELLAVISION)(BEAKER) (test 1.69 K/uL 0.00-0.80 luri=1196) TOTAL COUNTED (BEAKER) (test vkfm=4928) 100 MANUAL NRBC PER 100 CELLS (BEAKER) (test 10 /100 WBC 0-0 wxrx=4554) WBC MORPHOLOGY (BEAKER) (test elfz=349) Normal PLT MORPHOLOGY (BEAKER) (test qpkt=944) Normal POLYCHROMATOPHILLIC RBCS(BEAKER) (test odkb=265) 2+ moderate ANISOCYTOSIS (BEAKER) (test wefe=763) 2+ moderate POIKILOCYTES (BEAKER) (test pkwk=729) 2+ moderate ARTIFACT (CELLAVISION)(BEAKER) (test mpra=4888) Present PLATELET CONCENTRATION (CELLAVISION)(BEAKER) Adequate (test narg=5082) Received comment: User comments: Slide comments:BILIRUBIN, ADULT [id number] 13:43:00 Test Item Value Reference Range Comments BILIRUBIN TOTAL (BEAKER) (test hajv=700) 2.7 mg/dL 0.2-1.2 BASIC METABOLIC [id number] 13:43:00 Test Item Value Reference Range Comments SODIUM (BEAKER) (test 122 meq/L 136-145 hvcy=239) POTASSIUM (BEAKER) (test 4.6 meq/L 3.5-5.1 sbcc=264) CHLORIDE (BEAKER) (test 92 meq/L 98-107 plxz=708) CO2 (BEAKER) (test 23 meq/L 22-29 ohrk=693) BLOOD UREA NITROGEN 25 mg/dL 7-21 (BEAKER) (test gcdl=753) CREATININE (BEAKER) (test 0.79 mg/dL 0.57-1.25 kicj=714) GLUCOSE RANDOM (BEAKER) 107 mg/dL 70-105 (test edtc=604) CALCIUM (BEAKER) (test 8.4 mg/dL 8.4-10.2 fiae=249) EGFR (BEAKER) (test 69 mL/min/1.73 sq m ESTIMATED GFR IS NOT rnmx=2469) ACCURATE CREATININE CLEARANCE IN PREDICTING GLOMERULAR FILTRATION RATE. ESTIMATED GFR IS NOT APPLICABLE FOR DIALYSIS PATIENTS. Specimen slightly ictericPROTHROMBIN [id number] 13:36:00 Test Item Value Reference Range Comments PROTIME (BEAKER) (test ndzj=591) 15.8 seconds 11.7-14.7 INR (BEAKER) (test ggww=573) 1.3 <=5.9 RECOMMENDED COUMADIN/WARFARIN INR THERAPY RANGESSTANDARD DOSE: 2.0 - 3.0 Includes: PROPHYLAXIS forvenous thrombosis, systemic embolization; TREATMENT for venous thrombosis and/or pulmonary embolus.HIGH RISK: Target INR is 2.5-3.5 for patients with mechanical heart valves.Within 24 hours, if on CoumadinCT, CTA [id number] 16:55:00Addendum BeginsREPORT STATUS:A Addendum: I agree with the previously described non vascular findings by Dr. Haddad. Signed: Tay Keenan MDReport Verified Date/Time: 12/05/201716: 55:06 Reading Location: [place] [address] Angio Body Reading RoomAddendum EndsFINAL REPORT CT [...] An addendum will be dictated by the Materials Manager Radiologist regarding the nonvascular findings. 6. Impression was discussed with Dr. Fisher at the time of dictation. Signed: Sudhir Haddad MDReport Verified Date/Time: 12/04/2017 12:28:54 Reading Location: [place] [address], CTA, [id number] 16:55:00Addendum BeginsREPORT STATUS:A Addendum: I agree with the previously described non vascular findings by Dr. Haddad. Signed: Tay Keenan MDReport Verified Date/Time: 12/05/201716:55:06 Reading Location: [place] [address] Angio Body Reading RoomAddendum EndsFINAL REPORT CT [...] An addendum will be dictated by the Materials Manager Radiologist regarding the nonvascular findings. 6. Impression was discussed with Dr. Fisher at the time of dictation. Signed: Sudhir Haddadeport Verified Date/Time: 12/04/2017 12:28:54 Reading Location: [place] [address] Cardiology MRI [id number] 08:55:00 Test Item Value Reference Range Comments POC-CREATININE (ADITI) 0.5 mg/dL 0.6-1.3 TESTED AT [facility] [address] (test lsbe=2623) [facility] [address] POC-EGFR (ADITI) (test mL/min/1.73M2 Insufficient clinical data to tcbu=6311) calculate estimated GFR
[2019-04-19] MEDS ORDERED: ALBUTEROL 2.5 MG/3 ML NEB SOL ONE (18:29)
[2019-04-19 18:46] LABS: Basophils % 0.5 % (0-1.3); Hematocrit 43.2 % (36.0-45.0); Lymphocytes % 17.3 % (15.3-44.8); MPV 11.4 fL (7.6-11.3); RBC Red Blood Cell Count 5.05 M/uL (3.86-4.86)
[2019-04-19 18:55] LABS: Potassium 3.6 mmol/L (3.5-5.1)
--- NOTE | 2019-04-19 19:02 | RAD REPORT ---
EXAM DESCRIPTION: Fay Zurita (2 Views)04/19/2019 6:41 pm CLINICAL HISTORY: Cough COMPARISON: 2018 FINDINGS: Onur-ay-wwugixpx right lower lobe opacity Left lung appears clear The heart is mildly enlarged. Pacemaker leads are in place. Postsurgical changes involve the chest Marked old compression fracture lower thoracic vertebral body IMPRESSION: Mild to moderate right lower lobe opacity probably pneumonia
[2019-04-19] MEDS ORDERED: AZITHROMYCIN 250 MG TAB ONE (19:59)
[2019-04-19] MEDS ORDERED: CEFTRIAXONE/SWI 1gm 1 GM/10 ML SYR ONE (20:00)
--- NOTE | 2019-04-19 20:16 | EDPHYS ---
Physician Documentation [facility] Name: Hannah Hogan Age: 88 yrs Sex: Female : 1930 Arrival Date: 04/19/2019 Time: 17:36 Bed 30 Private MD: Khadijah Qiu F ED Physician Manuel Quintero HPI: 04/19 18:24 This 88 yrs old Female presents to ER via Ambulatory with complaints of Fever, kdr Congestion. 18:29 The patient or guardian reports cough, flu symptoms, low-grade fever, myalgias. Onset: kdr The symptoms/episode began/occurred gradually, yesterday. Severity of symptoms: At their worst the symptoms were mild, in the emergency department the symptoms are unchanged. Modifying factors: The symptoms are alleviated by nothing, the symptoms are aggravated by nothing. Associated signs and symptoms: Pertinent positives: fever, Pertinent negatives: chest pain, diarrhea, ear ache, nausea, rhinorrhea, sore throat, vomiting. The patient has not experienced similar symptoms in the past. The patient has not recently seen a physician. Family noted that the patient has been wheezing since yesterday. Historical: - Allergies: 17:50 ambien; ss 17:50 Clindamycin; ss 17:50 Flagyl; ss - PMHx: 17:50 "Mitral Valve; Glaucoma; Hyperlipidemia; Cataracts; Diabetes - IDDM; Hypertension; ss - PSHx: 17:50 Mitral valve replacement; Ovary removal; Cholecystectomy; cardiac cath 11/28/17; ss - Immunization history:: Adult Immunizations up to date. - Social history:: Smoking status: Patient/guardian denies using tobacco. - Ebola Screening: : Patient denies exposure to infectious person Patient denies travel to an Ebola-affected area in the 21 days before illness onset. ROS: 18:29 Constitutional: Negative for chills, and weight loss - the patient has had subjective kdr fever Eyes: Negative for injury, pain, redness, and discharge, ENT: Negative for injury, pain, and discharge, Neck: Negative for injury, pain, and swelling, Cardiovascular: Negative for chest pain, palpitations, and edema, Abdomen/GI: Negative for abdominal pain, nausea, vomiting, diarrhea, and constipation, Back: Negative for injury and pain, : Negative for injury, bleeding, discharge, and swelling, MS/Extremity: Negative for injury and deformity, Skin: Negative for injury, rash, and discoloration, Neuro: Negative for headache, weakness, numbness, tingling, and seizure activity. Psych: Negative for depression, anxiety, suicide ideation, homicidal ideation, and hallucinations, Allergy/Immunology: Negative for hives, rash, and allergies, Endocrine: Negative for neck swelling, polydipsia, polyuria, polyphagia, and marked weight changes, Hematologic/Lymphatic: Negative for swollen nodes, abnormal bleeding, and unusual bruising. 18:29 Respiratory: Positive for cough, with clear sputum, Negative for dyspnea on exertion, hemoptysis, orthopnea, pleurisy, shortness of breath, wheezing. Exam: 18:29 Constitutional: This is a well developed, well nourished patient who is awake, alert, kdr and in no acute distress. Head/Face: Normocephalic, atraumatic. Eyes: Pupils equal round and reactive to light, extra-ocular motions intact. Lids and lashes normal. Conjunctiva and sclera are non-icteric and not injected. Cornea within normal limits. Periorbital areas with no swelling, redness, or edema. Neck: Trachea midline, no thyromegaly or masses palpated, and no cervical lymphadenopathy. Supple, full range of motion without nuchal rigidity, or vertebral point tenderness. No Meningismus. Chest/axilla: Normal chest wall appearance and motion. Nontender with no deformity. No lesions are appreciated. Cardiovascular: Regular rate and rhythm with a normal S1 and S2. No gallops, murmurs, or rubs. Normal PMI, no JVD. No pulse deficits. Abdomen/GI: Soft, non-tender, with normal bowel sounds. No distension or tympany. No guarding or rebound. No evidence of tenderness throughout. Back: No spinal tenderness. No costovertebral tenderness. Full range of motion. Skin: Warm, dry with normal turgor. Normal color with no rashes, no lesions, and no evidence of cellulitis. MS/ Extremity: Pulses equal, no cyanosis. Neurovascular intact. Full, normal range of motion. Neuro: Awake and alert, GCS 15, oriented to person, place, time, and situation. Cranial nerves II-XII grossly intact. Motor strength 5/5 in all extremities. Sensory grossly intact. Cerebellar exam normal. Normal gait. Psych: Awake, alert, with orientation to person, place and time. Behavior, mood, and affect are within normal limits. 18:29 Respiratory: the patient does not display signs of respiratory distress, Respirations: normal, Breath sounds: wheezing: expiratory that is mild, is heard diffusely, is heard in the left posterior lower lobe and right posterior lower lobe. Vital Signs: 17:50 BP 144 / 78; Pulse 76; Resp 20; Temp 98.8(TE); Pulse Ox 92% on R/A; Weight 65.32 kg; ss Height 4 ft. 5 in. (134.62 cm); 18:45 BP 138 / 81; Pulse 72; Resp 16 S; Pulse Ox 93% on R/A; ca1 19:51 BP 123 / 76; Pulse 79; Resp 18 S; Pulse Ox 95% on R/A; ca1 20:49 BP 145 / 95; Pulse 72; Resp 19 S; Temp 98.7(O); Pulse Ox 100% on R/A; ca1 17:50 Body Mass Index 36.04 (65.32 kg, 134.62 cm) ss MDM: 18:29 Data reviewed: vital signs, nurses notes, lab test result(s), radiologic studies. kdr Counseling: I had a detailed discussion with the patient and/or guardian regarding: the historical points, exam findings, and any diagnostic results supporting the discharge/admit diagnosis, lab results, radiology results, the need for outpatient follow up. 20:12 Patient medically screened. ps1 04/19 18:19 Order name: Flu; Complete Time: 19:46 kdr 04/19 18:19 Order name: CBC with Diff kdr 04/19 18:19 Order name: Chem 7; Complete Time: 19:46 kdr 04/19 20:23 Order name: Basic Metabolic Panel EDMS 04/19 20:23 Order name: Basic Metabolic Panel EDMS 04/19 20:23 Order name: CBC with Automated Diff EDMS 04/19 18:19 Order name: Chest Pa And Lat (2 Views) XRAY; Complete Time: 19:46 kdr 04/19 20:23 Order name: CBC with Automated Diff EDMS 04/19 20:23 Order name: NT PRO-BNP EDMS 04/19 20:23 Order name: NT PRO-BNP EDMS 04/19 20:23 Order name: Troponin I EDMS 04/19 20:23 Order name: Troponin I EDMS 04/19 20:23 Order name: Troponin I EDMS Administered Medications: 18:44 Drug: Albuterol 2.5 mg Route: Inhalation; ca1 19:55 Drug: Rocephin 1 grams Route: IV; Rate: bolus; Site: right antecubital; ca1 20:44 Follow up: Response: No adverse reaction; IV Status: Completed infusion ca1 20:05 Drug: AZITHromycin 500 mg Route: PO; ca1 20:44 Follow up: Response: No adverse reaction ca1 Disposition: 04/19/19 20:14 Hospitalization ordered by Khadijah Qiu for Observation. Preliminary diagnosis are Community Acquired Pneumonia, Shortness of breath. - Bed requested for Telemetry/MedSurg (observation). - Status is Observation. ca1 - Condition is Stable. - Problem is new. - Symptoms are unchanged. UTI on Admission? No Signatures: Dispatcher [employer] EDMS Sujata Yates RN RN dw Humberto Healy MD MD [facility] Naila Dillon RN RN ss Manuel Quintero MD MD ps1 Margaux Jacobo RN RN ca1 Corrections: (The following items were deleted from the chart) 20:28 20:14 Hospitalization Ordered by Khadijah Qiu MD for Observation. Preliminary dw diagnosis is Community Acquired Pneumonia; Shortness of breath. Bed requested for Telemetry/MedSurg (observation). Status is Observation. Condition is Stable. Problem is new. Symptoms are unchanged. UTI on Admission? No. ps1 21:17 20:28 04/19/2019 20:14 Hospitalization Ordered by Khadijah Qiu MD for Observation. ca1 Preliminary diagnosis is Community Acquired Pneumonia; Shortness of breath. Bed requested for Telemetry/MedSurg (observation). Status is Observation. Condition is Stable. Problem is new. Symptoms are unchanged. UTI on Admission? No. dw
--- NOTE | 2019-04-19 20:16 | ER ---
Nurse's Notes [facility] Name: Hannah Hogan Age: 88 yrs Sex: Female : 1930 Arrival Date: 04/19/2019 Time: 17:36 Bed 30 Private MD: Khadijah Qiu F Diagnosis: Community Acquired Pneumonia;Shortness of breath Presentation: 04/19 17:48 Presenting complaint: granddaughter is concerned because they have noticed patient has ss had some wheezing, productive cough and a low grade temperature since yesterday. Family is concerned because patient has a history of pneumonia. Transition of care: patient was not received from another setting of care. Resp Distress? No respiratory distress is noted at this time. Onset of symptoms was April 18, 2019. Risk Assessment: Do you want to hurt yourself or someone else? Patient reports no desire to harm self or others. Initial Sepsis Screen: Does the patient meet any 2 criteria? No. Patient's initial sepsis screen is negative. Does the patient have a suspected source of infection? Yes: Productive cough/pneumonia. Care prior to arrival: None. 17:48 Method Of Arrival: Ambulatory ss 17:48 Acuity: NEHEMIAH 2 ss Historical: - Allergies: 17:50 ambien; ss 17:50 Clindamycin; ss 17:50 Flagyl; ss - PMHx: 17:50 "Mitral Valve; Glaucoma; Hyperlipidemia; Cataracts; Diabetes - IDDM; Hypertension; ss - PSHx: 17:50 Mitral valve replacement; Ovary removal; Cholecystectomy; cardiac cath 11/28/17; ss - Immunization history:: Adult Immunizations up to date. - Social history:: Smoking status: Patient/guardian denies using tobacco. - Ebola Screening: : Patient denies exposure to infectious person Patient denies travel to an Ebola-affected area in the 21 days before illness onset. Screenin:05 Abuse screen: Denies threats or abuse. Denies injuries from another. Nutritional ca1 screening: No deficits noted. Tuberculosis screening: No symptoms or risk factors identified. Fall Risk IV access (20 points). Ambulatory Aid- Crutches/Cane/Walker (15 pts). Assessment: 18:05 General: Appears in no apparent distress. comfortable, Behavior is calm, cooperative, ca1 appropriate for age. Pain: Denies pain. Neuro: Level of Consciousness is awake, alert, obeys commands, Oriented to person, place, time, situation. Cardiovascular: Heart tones S1 S2 present Capillary refill < 3 seconds Patient's skin is warm and dry. Respiratory: Reports cough that is Airway is patent Trachea midline Respiratory effort is even, unlabored, Respiratory pattern is regular, symmetrical, Breath sounds are clear bilaterally. GI: Abdomen is round non-distended, Bowel sounds present X 4 quads. Abd is soft and non tender X 4 quads. : No deficits noted. No signs and/or symptoms were reported regarding the genitourinary system. EENT: No signs and/or symptoms were reported regarding the EENT system. EENT: Reports nasal discharge that is watery. Derm: Skin is intact, is healthy with good turgor, Skin is pink, warm \\T\\ dry. Musculoskeletal: Circulation, motion, and sensation intact. Capillary refill < 3 seconds. 18:45 Reassessment: Patient appears in no apparent distress at this time. Patient is alert, ca1 oriented x 3, equal unlabored respirations, skin warm/dry/pink. 19:51 Reassessment: Patient appears in no apparent distress at this time. Patient is alert, ca1 oriented x 3, equal unlabored respirations, skin warm/dry/pink. 20:49 Reassessment: Patient appears in no apparent distress at this time. Patient is alert, ca1 oriented x 3, equal unlabored respirations, skin warm/dry/pink. Vital Signs: 17:50 BP 144 / 78; Pulse 76; Resp 20; Temp 98.8(TE); Pulse Ox 92% on R/A; Weight 65.32 kg; ss Height 4 ft. 5 in. (134.62 cm); 18:45 BP 138 / 81; Pulse 72; Resp 16 S; Pulse Ox 93% on R/A; ca1 19:51 BP 123 / 76; Pulse 79; Resp 18 S; Pulse Ox 95% on R/A; ca1 20:49 BP 145 / 95; Pulse 72; Resp 19 S; Temp 98.7(O); Pulse Ox 100% on R/A; ca1 17:50 Body Mass Index 36.04 (65.32 kg, 134.62 cm) ED Course: 17:36 Patient arrived in ED. mr 17:36 Khadijah Qiu MD is Private Physician. mr 17:49 Triage completed. ss 17:50 Arm band placed on right wrist. ss 17:55 Margaux Jacobo, CHETAN is Primary Nurse. ca1 18:05 Patient has correct armband on for positive identification. Placed in gown. Bed in low ca1 position. Call light in reach. Side rails up X 1. Pulse ox on. NIBP on. Warm blanket given. 18:13 Humberto Healy MD is Attending Physician. kdr 18:33 No provider procedures requiring assistance completed. Initial lab(s) drawn, by me, ca1 sent to lab. Flu and/or RSV swab sent to lab. Inserted saline lock: 22 gauge 24 gauge antecubital area, using aseptic technique. Blood collected. 18:40 Chest Pa And Lat (2 Views) XRAY In Process Unspecified. EDMS 19:46 Attending Physician role handed off by Humberto Healy MD ps1 19:46 Manuel Quintero MD is Attending Physician. ps1 20:14 Khadijah Qiu MD is Hospitalizing Provider. ps1 20:48 Patient admitted, IV remains in place. ca1 Administered Medications: 18:44 Drug: Albuterol 2.5 mg Route: Inhalation; ca1 19:55 Drug: Rocephin 1 grams Route: IV; Rate: bolus; Site: right antecubital; ca1 20:44 Follow up: Response: No adverse reaction; IV Status: Completed infusion ca1 20:05 Drug: AZITHromycin 500 mg Route: PO; ca1 20:44 Follow up: Response: No adverse reaction ca1 Outcome: 20:14 Decision to Hospitalize by Provider. ps1 20:48 Admitted to Tele accompanied by [facility], via wheelchair, room 430, with chart, Report ca1 called to Chantal Truong 20:48 Condition: stable 20:48 Instructed on the need for admit. 21:17 Patient left the ED. ca1 Signatures: Dispatcher [employer] EDMS Humberto Healy MD MD kdr Rivera, Mary mr Smirch, Shelby, CHETAN RN Manuel Qiuntero MD MD ps1 Margaux Jacobo, CHETAN RN ca1 Corrections: (The following items were deleted from the chart) 17:51 17:50 BP 144 / 78; Pulse 76bpm; Resp 19bpm; Pulse Ox 92% RA; Temp 98.8F Temporal; 65.32 ss kg; Height 4 ft. 5 in.; BMI: 36.0; ss
[2019-04-19] MEDS ORDERED: ACETAMINOPHEN 500 MG TAB PO PRN (20:17)
[2019-04-19] MEDS ORDERED: IPRATROPIUM BROM 0.5MG/2.5ML NEB PRN (20:17)
[2019-04-19] MEDS ORDERED: ALBUTEROL 2.5 MG/3 ML NEB SOL NEB PRN (20:17)
[2019-04-19] MEDS ORDERED: CEFTRIAXONE 1 GM/NS 50 ML 1 GM/50 ML BAG IV SCH (21:00)
[2019-04-19] MEDS: CEFTRIAXONE/SWI 1gm 1 GM/10 ML SYR IV SCH (22:15)
[2019-04-20 06:46] LABS: Absolute Lymphocytes (CBC) 1.7 K/uL (0.7-4.9); Basophils % 0.3 % (0-1.3); Hematocrit 40.9 % (36.0-45.0); Lymphocytes % 15.7 % (15.3-44.8); MPV 10.3 fL (7.6-11.3); RBC Red Blood Cell Count 4.74 M/uL (3.86-4.86)
[2019-04-20 07:03] LABS: Potassium 3.5 mmol/L (3.5-5.1)
[2019-04-20] MEDS ORDERED: ALBUTEROL 2.5 MG/3 ML NEB SOL NEB PRN (08:00)
[2019-04-20] MEDS: CEFTRIAXONE/SWI 1gm 1 GM/10 ML SYR IV SCH ×2 (08:42→21:22)
[2019-04-20] MEDS: AZITHROMYCIN IV 250 MG in NA CHLORIDE 0.9% 250 ML IVPB SCH (09:00)
[2019-04-20] MEDS ORDERED: CEFTRIAXONE/SWI 1gm 1 GM/10 ML SYR IV SCH (09:00)
[2019-04-20] MEDS ORDERED: GLUCAGON 1 MG/VIAL IM PRN (11:26)
[2019-04-20] MEDS ORDERED: D50W 25 GM/50 ML SYRINGE/VIAL IV PRN (11:26)
[2019-04-20] MEDS: INSULIN -REGULAR HUMAN 50 UNIT/0.5 ML ML SQ SCH ×3 (11:59→21:00)
--- NOTE | 2019-04-20 12:19 | HP ---
Date of Admission: 04/19/2019 History Of Present Illness: 88-year-old female who presented to the emergency room with a complaint of being coughing for few days and then started feeling feverish, but she did not take her temperatur e. She had minimal chills. However, workup in the emergency room showed that the patient had right lower lobe pneumonia and was admitted for that. Review of Systems: Respiratory: As above. Cardiovascular: No complaints. Genitourinary: No complaints. Skeletomuscular: No complaints. Neurological: No complaints. Gastrointestinal: No complaint. Past Medical History: Includes: 1.Type 2 diabetes. 2.Chronic atrial fibrillation. 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 4.Hypertension. 5.Hyperlipidemia. Social History: No smoking, alcohol, or drug abuse history. Family History: Noncontributing. Medications: Includes Cordarone 200 mg p.o. daily, Eliquis 2.5 mg p.o. b.i.d., Lantus 15 units subcu taneous daily, Synthroid 25 60 mg p.o. daily, simvastatin 20 mg p.o. daily. Demadex 20 mg p.o. daily. Allergies: METRONIDAZOLE AND CLINDAMYCIN. Physical Examination: Vital Signs: Blood pressure 145/65, pulse 70, temperature 100.2. Heart: Regular rate and rhythm. Chest: Right basilar crackles and wheezing. Abdomen: Soft, nontender, no hepatosplenomegaly. Bowel sounds are normoactive. Extremities: No edema. No cyanosis. Peripheral pulses are felt. Neurological examination: Alert, oriented, nonfocal. Grossly intact. Chest x-ray [id number] right lower lobe opacity for pneumonia. Laboratory Data: White cell count 11.6, hemoglobin 14.4, hematocrit 43.21, platelets 134. Chemistry : Sodium 133, BNP 7832, troponin 0.04 and 0.05. Assessment And Plan: Right lower lobe pneumonia. The patient is being admitted, put on IV ceftriaxo ne antibiotic 1 g q.12 hours. We will monitor her blood sugar and we will continue her home medicati ons and we will put her on regular insulin sliding scale. We will put her on also with agonist breat nico treatments. The patient's BNP and mild elevation in troponin, she has no symptoms suggestive of coronary problem at this time. I think it is from her pneumonia and could have increased that and a lso she is clinically not in heart failure, pending sputum cultures. Look orders for details. MFS/MODL Voice ID: [id number]
[2019-04-20 13:54] LABS: Urine Appearance CLEAR; Urine Bilirubin NEGATIVE (NEG); Urine Blood NEGATIVE (NEG); Urine Color YELLOW; Urine Glucose NEGATIVE (NEG); Urine Protein NEGATIVE (NEG); Urine Specific Gravity 1.015 (1.005-1.030); Urine pH 6.5 (5.0-7.0)
[2019-04-20 13:56] LABS: Urine Microscopic Reflex ORDER UMIC
[2019-04-20 14:18] LABS: Urine Bacteria <20 /HPF (<20); Urine Culture Reflex Order REFLEXED; Urine RBC NONE SEEN /HPF (NONE SEEN)
[2019-04-20] MEDS ORDERED: METHYLPREDNISOLONE 40 MG INJ IV ONE (15:47)
[2019-04-20] MEDS ORDERED: FUROSEMIDE 20 MG/ 2ML VIAL IV ONE (15:52)
[2019-04-20] MEDS ORDERED: HOME MED 1 EA UNK (Simvastatin [Simvastatin] 20 MG) PO SCH (21:00)
[2019-04-20] MEDS: APIXABAN 2.5 MG TABLET PO SCH (21:21)
[2019-04-20] MEDS: ATORVASTATIN 10 MG TAB PO SCH (21:22)
[2019-04-20] MEDS: IPRATROPIUM BROM 0.5MG/2.5ML NEB PRN (22:20)
[2019-04-20] MEDS: ALBUTEROL 2.5 MG/3 ML NEB SOL NEB SCH (22:20)
[2019-04-21] MEDS: ALBUTEROL 2.5 MG/3 ML NEB SOL NEB SCH ×4 (02:58→19:15)
[2019-04-21] MEDS: IPRATROPIUM BROM 0.5MG/2.5ML NEB PRN ×3 (02:58→19:15)
[2019-04-21 05:14] LABS: Absolute Lymphocytes (CBC) 0.5 K/uL (0.7-4.9); Basophils % 0.1 % (0-1.3); Hematocrit 42.3 % (36.0-45.0); MPV 11.1 fL (7.6-11.3); RBC Red Blood Cell Count 4.91 M/uL (3.86-4.86)
[2019-04-21 05:22] LABS: Potassium 3.6 mmol/L (3.5-5.1)
[2019-04-21] MEDS: LEVOTHYROXINE SOD 0.025 MG TAB PO SCH (06:18)
[2019-04-21 06:23] LABS: Blood Morphology Comment NOT SEEN (NOT SEEN); Platelet Estimate DECR
[2019-04-21] MEDS: INSULIN -REGULAR HUMAN 50 UNIT/0.5 ML ML SQ SCH ×4 (08:31→21:00)
[2019-04-21] MEDS ORDERED: OSPEMIFENE 60 MG PO SCH (09:00)
[2019-04-21] MEDS: AZITHROMYCIN IV 250 MG in NA CHLORIDE 0.9% 250 ML IVPB SCH ×2 (09:00→11:26)
[2019-04-21] MEDS: APIXABAN 2.5 MG TABLET PO SCH ×3 (09:00→21:26)
[2019-04-21] MEDS ORDERED: TORSEMIDE 20 MG TAB PO SCH ×2 (09:00→11:00)
[2019-04-21] MEDS: INSULIN GLARGINE 100 UNITS/ML SQ SCH (09:43)
[2019-04-21] MEDS: AMIODARONE HCL 200 MG TAB PO SCH (09:43)
[2019-04-21] MEDS: CEFTRIAXONE/SWI 1gm 1 GM/10 ML SYR IV SCH ×2 (09:43→21:26)
--- NOTE | 2019-04-21 16:46 | PN ---
Subjective: Patient this morning is doing very well. She is resting comfortable on 2 L nasal cannul a. Has no new complaint. Objective: Vital Signs: Blood pressure 122/98, pulse 85, temperature 97.5. Heart: Regular rate and rhythm. Chest: Mild right basilar crackles. No wheezing. Abdomen: Soft, nontender. No hepatosplenomegaly. Bowel sounds are normoactive. Extremities: No edema. No cyanosis. Peripheral pulses are felt. Neurological: Alert, oriented, nonfocal. Grossly intact. Laboratory Data: Influenza A and B on admission were negative. Her sputum Gram stain showed more th an 25 white BCs with gram-positive cocci in pairs and clusters. White cell count 9.7, hemoglobin 14. 5, hematocrit 42.3, platelets 142. Assessment And Plan: 1.Patient for right basilar pneumonia. She apparently went into rapid breathing and she was thought to have decompensated respiratory function seen by the hospitalist and was moved to the ICU. She wa s put on BiPAP and about 2 hours after being on BiPAP, the patient have come down and her breathing w as basically back with saturation on 2 L oxygen nasal cannula more than 90%. She is clinically stabl e. We will go ahead and transfer her to a regular floor bed and will continue her on her current ant ibiotics and will do a chest x-ray. 2.Rest of chronic medical problems stable. Continue current treatment. Look orders for detail. MFS/MODL Voice ID: [id number] Report ID: [id number]
--- NOTE | 2019-04-21 17:31 | RAD REPORT ---
EXAM DESCRIPTION: RAD - Chest Single View - 04/21/2019 5:00 pm CLINICAL HISTORY: for monitoring Chest pain. COMPARISON: Chest Pa And Lat (2 Views) dated 04/19/2019; Chest Single View dated 12/13/2017; Chest Sing le View dated 12/04/2017; Chest Pa And Lat (2 Views) dated 11/24/2017 FINDINGS: Portable technique limits examination quality. Mild interstitial pulmonary edema is present. The heart is enlarged with dual lead pacer device prese nt. No displaced fractures. IMPRESSION: Mild CHF versus volume overload.
[2019-04-21] MEDS: ATORVASTATIN 10 MG TAB PO SCH (21:26)
[2019-04-21] MEDS: FUROSEMIDE 20 MG/ 2ML VIAL IV SCH (21:27)
[2019-04-21 23:18] VITALS: BMI 33.3
[2019-04-21] MEDS ORDERED: ALPRAZOLAM 0.25 MG TABLET PO PRN (23:33)
[2019-04-22] MEDS: ALBUTEROL 2.5 MG/3 ML NEB SOL NEB SCH ×4 (02:18→19:40)
[2019-04-22] MEDS: LEVOTHYROXINE SOD 0.025 MG TAB PO SCH (05:13)
[2019-04-22 05:55] LABS: Absolute Lymphocytes (CBC) 1.1 K/uL (0.7-4.9); Basophils % 0.2 % (0-1.3); Lymphocytes % 8.1 % (15.3-44.8); MPV 11.3 fL (7.6-11.3); RBC Red Blood Cell Count 5.28 M/uL (3.86-4.86)
[2019-04-22 06:05] LABS: Potassium 3.5 mmol/L (3.5-5.1)
[2019-04-22] MEDS: INSULIN -REGULAR HUMAN 50 UNIT/0.5 ML ML SQ SCH ×4 (07:30→21:00)
[2019-04-22] MEDS: AMIODARONE HCL 200 MG TAB PO SCH (08:31)
[2019-04-22] MEDS: APIXABAN 2.5 MG TABLET PO SCH ×2 (08:31→21:08)
[2019-04-22] MEDS: FUROSEMIDE 20 MG/ 2ML VIAL IV SCH ×2 (08:31→21:08)
[2019-04-22] MEDS: CEFTRIAXONE/SWI 1gm 1 GM/10 ML SYR IV SCH ×2 (08:32→21:10)
[2019-04-22] MEDS: INSULIN GLARGINE 100 UNITS/ML SQ SCH (08:32)
[2019-04-22] MEDS ORDERED: ALPRAZOLAM 0.25 MG TABLET PO SCH (09:00)
[2019-04-22] MEDS: OSPEMIFENE 60 MG PO SCH (09:00)
[2019-04-22] MEDS: AZITHROMYCIN IV 250 MG in NA CHLORIDE 0.9% 250 ML IVPB SCH (09:43)
[2019-04-22] MEDS: IPRATROPIUM BROM 0.5MG/2.5ML NEB PRN (19:40)
[2019-04-22] MEDS: ATORVASTATIN 10 MG TAB PO SCH (21:09)
[2019-04-23] MEDS: ALBUTEROL 2.5 MG/3 ML NEB SOL NEB SCH ×4 (01:40→20:05)
[2019-04-23] MEDS: LEVOTHYROXINE SOD 0.025 MG TAB PO SCH (05:21)
[2019-04-23 06:57] LABS: Magnesium 2.4 mg/dL (1.8-2.4)
[2019-04-23] MEDS: INSULIN -REGULAR HUMAN 50 UNIT/0.5 ML ML SQ SCH ×4 (07:30→20:49)
--- NOTE | 2019-04-23 07:59 | ECHO ---
HEIGHT: 4 ft 7 in WEIGHT: 143 lb 4.8 oz DATE OF STUDY: 04/22/[address]: Khadijah Qiu MD 2-DIMENSIONAL: YES M.MODE: YES DOPPLER: YES COLOR FLOW: YES TDS: YES PORTABLE: YES DEFINITY: NO BUBBLE STUDY: NO DIAGNOSIS: CONGESTIVE HEART FAILURE CARDIAC HISTORY: CATHERIZATION: YES SURGERY: YES PROSTHETIC VALVE: YES PACEMAKER: YES MEASUREMENTS (cm) DIASTOLIC (NORMALS) SYSTOLIC (NORMALS) IVSd 1.0 (0.6-1.2) LA Diam 4.7 (1.9-4.0) LVEF 50-55% LVIDd 3.9 (3.5-5.7) LVIDs 3.1 (2.0-3.5) %FS 20% LVPWd 1.0 (0.6-1.2) Ao Diam 2.6 (2.0-3.7) 2 DIMENSIONAL ASSESSMENT: RIGHT ATRIUM: DILATED LEFT ATRIUM: DILATED RIGHT VENTRICLE: PACEMAKER CATHETER LEFT VENTRICLE: NORMAL TRICUSPID VALVE: NORMAL MITRAL VALVE: BIO PROSTHETIC PULMONIC VALVE: NORMAL AORTIC VALVE: BIO PROSTHETIC PERICARDIAL EFFUSION: NONE AORTIC ROOT: NORMAL LEFT VENTRICULAR WALL MOTION: NORMAL DOPPLER/COLOR FLOW: MILD TRICUSPID REGURGITATION. MODERATE PULMONARY HYPERTENSION. ESTIMATED RIGHT VENTRICULAR SYSTOLIC PRESSURE 50 mmHg. COMMENTS: NORMAL LEFT VENTRICULAR EJECTION FRACTION. DILATED LEFT AND RIGHT ATRIUM. BIO PROSTHETIC AORTIC AND MITRAL VALVES WITH NORMAL FUNCTION. MILD TRICUSPID REGURGITATION. MODERATE PULMONARY HYPERTENSION. PACEMAKER IN RIGHT VENTRICLE. TECHNOLOGIST: Marva ROBIN
[2019-04-23] MEDS: AZITHROMYCIN IV 250 MG in NA CHLORIDE 0.9% 250 ML IVPB SCH (08:36)
[2019-04-23] MEDS: CEFTRIAXONE/SWI 1gm 1 GM/10 ML SYR IV SCH ×2 (08:36→20:49)
[2019-04-23] MEDS: INSULIN GLARGINE 100 UNITS/ML SQ SCH (08:37)
[2019-04-23] MEDS: AMIODARONE HCL 200 MG TAB PO SCH (08:42)
[2019-04-23] MEDS: APIXABAN 2.5 MG TABLET PO SCH ×2 (08:43→20:49)
[2019-04-23] MEDS: FUROSEMIDE 20 MG/ 2ML VIAL IV SCH (08:43)
[2019-04-23] MEDS: OSPEMIFENE 60 MG PO SCH (08:43)
[2019-04-23] MEDS ORDERED: POTASSIUM CL SA 10 MEQ TAB PO ONE (09:00)
[2019-04-23] MEDS: IPRATROPIUM BROM 0.5MG/2.5ML NEB PRN (20:05)
[2019-04-23] MEDS: ATORVASTATIN 10 MG TAB PO SCH (20:49)
--- NOTE | 2019-04-23 21:27 | PN ---
Subjective: The patient is doing well. She is not short of breath and sitting in bed, comfortable. Objective: Vital Signs: Blood pressure 115/70, pulse 80, temperature 97.3. Heart: Regular rate and rhythm. Chest: Clear to auscultation. Abdomen: Soft, benign. Bowel sounds are active. Extremities: No edema. No cyanosis. Peripheral pulses are felt. Neurological: Alert, oriented, nonfocal. Grossly intact. The patient's cardiac echo showed left ventricular ejection fraction at 50% to 55%. She had moderate pulmonary hypertension. Assessment And Plan: 1.Right lower lobe pneumonia, the patient recovering well. 2.Shortness of breath. I think the patient with pulmonary hypertension had some acute diastolic dys function, which caused her shortness of breath. She responded well to Lasix. We will then decrease that to once a day IV and then we may send her home on oral 20 mg daily. Should the patient continue to do well. Expect discharge her tomorrow. The rest of her medical problems are stable. MFS/MODL Voice ID: [id number] Report ID: [id number]
[2019-04-24] MEDS: IPRATROPIUM BROM 0.5MG/2.5ML NEB PRN ×2 (01:56→13:52)
[2019-04-24] MEDS: ALBUTEROL 2.5 MG/3 ML NEB SOL NEB SCH ×3 (01:56→13:52)
[2019-04-24] MEDS: LEVOTHYROXINE SOD 0.025 MG TAB PO SCH (05:09)
[2019-04-24 06:03] LABS: Potassium 3.8 mmol/L (3.5-5.1)
[2019-04-24] MEDS: INSULIN -REGULAR HUMAN 50 UNIT/0.5 ML ML SQ SCH ×2 (07:30→11:30)
[2019-04-24] MEDS: CEFTRIAXONE/SWI 1gm 1 GM/10 ML SYR IV SCH (08:39)
[2019-04-24] MEDS: AZITHROMYCIN IV 250 MG in NA CHLORIDE 0.9% 250 ML IVPB SCH (08:40)
[2019-04-24] MEDS: AMIODARONE HCL 200 MG TAB PO SCH (08:40)
[2019-04-24] MEDS: APIXABAN 2.5 MG TABLET PO SCH (08:41)
[2019-04-24] MEDS: OSPEMIFENE 60 MG PO SCH (08:42)
[2019-04-24] MEDS: INSULIN GLARGINE 100 UNITS/ML SQ SCH (08:43)
[2019-04-24 08:56] VITALS: O2SAT 97
[2019-04-24] MEDS ORDERED: FUROSEMIDE 20 MG TABLET PO SCH (09:00)
[2019-04-24] MEDS ORDERED: POTASSIUM CL SA 10 MEQ TAB PO ONE (09:00)
[2019-04-24 12:08] VITALS: BP 137/72; TEMP 97.1
--- NOTE | 2019-04-25 03:00 | DS ---
Date of Discharge: 04/24/2019 History: An 88-year-old female, was admitted to the hospital because of right lower lobe pneumonia w hen she presented with increased shortness of breath. Past Medical History: As per admit note. Social History: As per admit note. Family History: As per admit note. Medications: As per admit note. Allergies: PER ADMIT NOTE. Physical Examination: As per admit note. Diagnostic Data: As per admit note. Hospital Course: The patient was admitted to the hospital. She was put on IV ceftriaxone and Zithro max antibiotics. We monitored her blood sugar and put her on regular insulin sliding scale. The pat ient improved, however her shortness of breath kept getting worse at times and the patient had to be transferred one day to the ICU to be put on BiPAP. Her chest x-ray followup showed that patient may have congestive heart failure, mild. We went ahead and did a cardiac echo, which showed left ventric ular ejection fraction of 50% to 55% with moderate pulmonary hypertension and I think that the patien t had diastolic dysfunction with the pulmonary hypertension that may have caused her also increased s hortness of breath. We put her on IV Lasix on top of the torsemide that she was on as diuretic and s he got good relief from that. We monitored her electrolytes and put her on electrolyte protocol. Th e patient has improved significant and her pulse oximetry saturation is above 90% on room air. It wa s thought that the patient is stable enough to be discharged home to follow up with me and she was di scharged to continue her home medicines including the diuretic torsemide, and also I have added her p otassium 10 mEq p.o. daily and have put her also on 5 days of Augmentin 500 one p.o. b.i.d. for the next 5 day s. Look discharge orders for details. MFS/MODL Voice ID: [id number] Report ID: [id number]
== END 2019-04-24 14:23 | disposition home or self-care (01) | DRG 193 ==
LOC: ER 17:33 → ERHOLD 20:48 → OBSVTOIN 20:48 → INTOOBSV 20:48 → 4TH 20:53 → OBSVTOIN 04-20 11:30 → 3RD-ICU 04-20 16:00 → 2ND 04-21 22:58
PROVIDERS: ADMIT Internal Medicine; ATTEND Internal Medicine
PROC: 5A09357 Assistance with Respiratory Ventilation, Less than 24 Consecutive Hours, Continuous Positive Airway Pressure (ICD-10-PCS; principal; 2019-04-20)
DX: J18.9 Pneumonia, unspecified organism (principal); I50.31 Acute diastolic (congestive) heart failure; I48.20 Chronic atrial fibrillation, unspecified; I11.0 Hypertensive heart disease with heart failure; I27.20 Pulmonary hypertension, unspecified; E11.9 Type 2 diabetes mellitus without complications; Z79.01 Long term (current) use of anticoagulants; Z95.2 Presence of prosthetic heart valve; E78.5 Hyperlipidemia, unspecified
CPT/HCPCS: 36415; 71045; 71046; 80048; 81003; 81015; 82947; 83735; 83880; 84100; 84132; 84484; 85025; 87070; 87086; 87088; 87205; 87804; 93306; 94640; 94660; 94760; 96365; 99285; G0378; J0456; J0696; J1815; J1940; J2920; J7030

== ENCOUNTER 2019-09-08 16:31 | Observation (INO) | payer OTHER ==
--- OUTSIDE RECORDS SUMMARY | 2019-09-08 16:35 | XMS REPORT | Clinical Summary ---
:1930 Author Organization [facility] Address [address] [place] [address] Care Team Providers Name Role Phone Khadijah Qiu MD Primary Care Provider [phone] [facility] Unavailable Allergies Active Allergy Reactions Severity Noted Date Comments Clindamycin 12/07/2017 Metronidazole Zolpidem Medications Medication Sig Dispensed Refills Start Date End Date Status bimatoprost Place 1 drop into 0 Active (LUMIGAN) 0.01 % both eyes nightly. Drop ophthalmic solution albuterol HFA Inhale 2 puffs by 0 Active (VENTOLIN HFA) 90 mouth via inhaler mcg/actuation every 6 (six) hours inhaler as needed for Wheezing. fluticasone-vilan Inhale 1 puff by 0 Active terol (BREO mouth via inhaler ELLIPTA) 100-25 daily. mcg/dose DsDv insulin glargine Inject 15 Units 0 Active (LANTUS) 100 subcutaneously unit/mL injection nightly Use as directed . estradiol Place 2 g vaginally 0 Active (ESTRACE) 0.01 % once a week. (0.1 mg/gram) vaginal cream apixaban Take 1 tablet (2.5 180 tablet 3 01/01/2018 Active (ELIQUIS) 2.5 mg mg total) by mouth 2 Tab tablet (two) times daily. amiodarone Take 1 tablet (200 90 tablet 3 01/01/2018 09/17/201 9 (PACERONE) 200 MG mg total) by mouth tablet daily. torsemide Take 1 tablet (20 mg 30 tablet 11 01/02/2018 01/03/20 19 (DEMADEX) 20 MG total) by mouth tablet daily. 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 Severe aortic stenosis Insulin dependent diabetes mellitus Hypertension Asthma COPD (chronic obstructive pulmonary disease) Pacemaker S/P MVR (mitral valve repair) Atrial fibrillation CHF (congestive heart failure) Pulmonary hypertension Obesity Advanced age Frailty Family History Medical History Relation Name Comments Cancer Brother Asthma Father Relation Name Status Comments Brother Father Social History Tobacco Use Types Packs/Day Years Used Date Former Smoker Smokeless Tobacco: Never Used Comments: quit in 1971 Alcohol Use Drinks/Week oz/Week Comments No Sex Assigned at Date Recorded Not on file Job Start Date Occupation Industry Not on file Not on file Not on file Travel History Travel Start Travel End No recent travel history available. Last Filed Vital Signs Not on file Plan of Treatment Health Maintenance Due Date Last Done Comments PNEUMOCOCCAL 65+ HIGH/HIGHEST RISK (1 of 2 - PCV13) 09/17/1996 HEMOGLOBIN A1C 12/16/2017 MEDICARE ANNUAL WELLNESS (YEAR 2 or FIRST YEAR if no 04/18/2018 IPPE) INFLUENZA VACCINE (Season Ended) 2019 Implants Implanted Type Area Od Grinder Operator Device Shelf Model / Identifier Expiration Serial / Date Lot Valve Heart Amanda 3 23mm [id number] - [id number] Valves N/A: SHELL [employer]IFESCI 09/19/2019 [id number] / Implanted: Qty: 1 on 12/28/2017 by [facility] [id number] / Results Not on fileafter 09/07/2018 Insurance Payer Benefit Plan / Group Subscriber ID Type Phone A ddress CARE IMPROVEMENT MEDICARE CARE IMPROVEMENT PLUS xxxxxxxxx MGD CARE MEDICAID MEDICAID OF [place] xxxxxxxxx Medicaid Advance Directives Patient has advance care planning documents, and code status on file. For more information, please contact:[address] [phone] Code Status Date Activated Date Inactivated Comments Full Code 12/28/2017 10:55 PM 01/01/2018 8:27 PM This code status was determined by: Patient Full Code 12/26/2017 6:11 PM 12/28/2017 10:55 PM This code status was determined by: Patient Partial Code 12/15/2017 9:47 PM 12/18/2017 3:01 PM This code status was determined by: Patient Drug Protocol After Arrest Occurs? Yes Mechanical Ventilation with Intubation? No Bag/Mask? Yes Internal/External Pacemaker? Yes Transfer to Critical Care? Yes Chest Compressions? Yes Defibrillation/Cardioversion? Yes Full Code 12/15/2017 9:09 PM 12/15/2017 9:47 PM This code status was determined by: Patient
--- OUTSIDE RECORDS SUMMARY | 2019-09-08 16:38 | XMS REPORT ---
:1930 Author Organization [facility] Address [address] [place] [address] Care Team Providers Name Role Phone VY ELLISON Attending Clinician Unavailable MARIE SIEGEL Attending Clinician Unavailable Kerrie ELLISON Admitting Clinician Unavailable Problems This patient has no known problems. Allergies, Adverse Reactions, Alerts This patient has no known allergies or adverse reactions. Medications This patient has no known medications. Procedures This patient has no known procedures. Results Test Description Test Time Test Comments Results Result Comments Source POCT-GLUCOSE METER 2018-01-01 09:11:00 Test Item Value Reference Range Interpretation Comme nts POC-GLUCOSE METER ([employer]) (test 107 mg/dL 70-110 [address] 1538) [facility] 7703 0 POCT-GLUCOSE [id number] 21:36:00 Test Item Value Reference Range Interpretation Comments POC-GLUCOSE METER 153 mg/dL 70-[address] [facility] 6720 ([employer]) (test code = [facility] 1538) [id number] POCT-GLUCOSE [id number] 18:41:00 Test Item Value Reference Range Interpretation Comments POC-GLUCOSE METER 109 mg/dL 70-[address] [facility] 6720 [facility] (test code = [facility] 1538) [address] POCT-GLUCOSE [id number] 13:04:00 Test Item Value Reference Range Interpretation Comments POC-GLUCOSE METER 152 mg/dL 70-[address] [facility] 6720 ([employer]) (test code = [facility] 1538) [address] POCT-GLUCOSE [id number] 08:44:00 Test Item Value Reference Range Interpretation Comments POC-GLUCOSE METER 100 mg/dL 70-[address] [facility] 6720 [facility] (test code = [facility] 1538) [id number] (CELLAVISION MANUAL DIFF)2017-12-31 08:07:00 Test Item Value Reference Range Interpretation Comments NEUTROPHILS - REL 68 % (CELLAVISION)(BEAKER) (test code = 2816) LYMPHOCYTES - REL 14 % (CELLAVISION)(BEAKER) (test code = 2817) MONOCYTES - REL 13 % (CELLAVISION)(BEAKER) (test code = 2818) EOSINOPHILS - REL 3 % (CELLAVISION)(BEAKER) (test code = 2819) MYELOCYTES - REL 1 % 0-0 H (CELLAVISION)(BEAKER) (test code = 2822) NEUTROPHILS - ABS 8.16 K/ul 1.56-6.13 H (CELLAVISION)(BEAKER) (test code = 2830) LYMPHOCYTES - ABS 1.68 K/ul 1.18-3.74 (CELLAVISION)(BEAKER) (test code = 2831) MONOCYTES - ABS 1.56 K/uL 0.24-0.36 H (CELLAVISION)(BEAKER) (test code = 2832) EOSINOPHILS - ABS 0.36 K/uL 0.04-0.36 (CELLAVISION)(BEAKER) (test code = 2834) MYELOCYTES-ABS 0.12 K/uL 0.00-0.00 H (CELLAVISION)(BEAKER) (test code = 2837) TOTAL COUNTED (BEAKER) (test code 100 = 1351) MANUAL NRBC PER 100 CELLS 1 /100 WBC 0-0 H (BEAKER) (test code = 1353) SMUDGE CELLS (BEAKER) (test code Present = 1371) GIANT PLATELETS (BEAKER) (test Present code = 313) ANISOCYTOSIS (BEAKER) (test code 2+ moderate = 961) MACROCYTES (BEAKER) (test code = 1+ few 964) POIKILOCYTES (BEAKER) (test code 2+ moderate = 966) SCHISTOCYTES (BEAKER) (test code 1+ few = 765) TOMMY CELLS (BEAKER) (test code = 2+ moderate 474) PLATELET CONCENTRATION Adequate (CELLAVISION)(BEAKER) (test code = 3438) Received comment: User comments: Slide comments:[id number] 05:39:00 Test Item Value Reference Range Interpretation Comments MAGNESIUM (BEAKER) 1.7 mg/dL 1.6-2.6 Specimen slightly (test code = 627) hemolyzed BASIC METABOLIC [id number] 05:39:00 Test Item Value Reference Range Interpretation Comments SODIUM (BEAKER) 134 meq/L 136-145 L (test code = 381) POTASSIUM (BEAKER) 4.3 meq/L 3.5-5.1 Specimen slightly (test code = 379) hemolyzed CHLORIDE (BEAKER) 102 meq/L 98-107 (test code = 382) CO2 (BEAKER) (test 25 meq/L 22-29 code = 355) BLOOD UREA NITROGEN 16 mg/dL 7-21 (BEAKER) (test code = 354) CREATININE (BEAKER) 0.61 mg/dL 0.57-1.25 Specimen slightly (test code = 358) hemolyzed GLUCOSE RANDOM 132 mg/dL 70-105 H (BEAKER) (test code = 652) CALCIUM (BEAKER) 8.2 mg/dL 8.4-10.2 L (test code = 697) EGFR (BEAKER) (test 93 mL/min/1.73 ESTIMA OLIVIA GFR IS code = 1092) sq m NOT ACCURATE CREATININE CLEARANCE IN PREDICTING GLOMERULAR FILTRATION RATE . ESTIMATED GFR I S NOT APPLICABLE FOR DIALYSIS PATIEN TS. CBC W/PLT COUNT & AUTO [id number] 05:13:00 Test Item Value Reference Range Interpretation Comments WHITE BLOOD CELL COUNT (BEAKER) 12.0 K/ L 3.5-10.5 H (test code = 775) RED BLOOD CELL COUNT (BEAKER) 3.27 M/ L 3.93-5.22 L (test code = 761) HEMOGLOBIN (BEAKER) (test code = 9.9 GM/DL 11.2-15.7 L 410) HEMATOCRIT (BEAKER) (test code = 32.4 % 34.1-44.9 L 411) MEAN CORPUSCULAR VOLUME (BEAKER) 99.1 fL 79.4-94.8 H (test code = 753) MEAN CORPUSCULAR HEMOGLOBIN 30.3 pg 25.6-32.2 (BEAKER) (test code = 751) MEAN CORPUSCULAR HEMOGLOBIN CONC 30.6 GM/DL 32.2-35.5 L (BEAKER) (test code = 752) RED CELL DISTRIBUTION WIDTH 19.8 % 11.7-14.4 H (BEAKER) (test code = 412) PLATELET COUNT (BEAKER) (test 193 K/CU MM 150-450 code = 756) MEAN PLATELET VOLUME (BEAKER) 11.8 fL 9.4-12.3 (test code = 754) NUCLEATED RED BLOOD CELLS 0 /100 WBC 0-0 (BEAKER) (test code = 413) POCT-GLUCOSE [id number] 20:52:00 Test Item Value Reference Range Interpretation Comments POC-GLUCOSE METER 150 mg/dL 70-[address] [facility] 6720 (BEAKER) (test code = [facility] 1538) [id number] URINALYSIS W/ REFLEX URINE [id number] 18:42:00 Test Item Value Reference Range Interpretation Comments COLOR (BEAKER) (test code = 470) Yellow CLARITY (BEAKER) (test code = 469) Clear SPECIFIC GRAVITY UA (BEAKER) (test 1.009 1.001-1.035 code = 468) PH UA (BEAKER) (test code = 467) 5.0 5.0-8.0 PROTEIN UA (BEAKER) (test code = Negative Negative 464) GLUCOSE UA (BEAKER) (test code = Negative Negative 365) KETONES UA (BEAKER) (test code = Negative Negative 371) BILIRUBIN UA (BEAKER) (test code = Negative Negative 462) BLOOD UA (BEAKER) (test code = 461) Small Negative A NITRITE UA (BEAKER) (test code = Negative Negative 465) LEUKOCYTE ESTERASE UA (BEAKER) Moderate Negative A (test code = 466) UROBILINOGEN UA (BEAKER) (test code 0.2 mg/dL 0.2-1.0 = 463) RBC UA (BEAKER) (test code = 519) 4 /HPF WBC UA (BEAKER) (test code = 520) 12 /HPF BACTERIA (BEAKER) (test code = 517) Rare SQUAMOUS EPITHELIAL (BEAKER) (test < /HPF code = 516) HYALINE CASTS (BEAKER) (test code = 1 /LPF 514) SOURCE(BEAKER) (test code = 2795) POCT-GLUCOSE [id number] 17:21:00 Test Item Value Reference Range Interpretation Comments POC-GLUCOSE METER 195 mg/dL 70-110 H TESTED AT [place] [address] ([facility]) (test code = [facility] 1538) [address] POCT-GLUCOSE [id number] 13:31:00 Test Item Value Reference Range Interpretation Comments POC-GLUCOSE METER 181 mg/dL 70-110 H TESTED AT [place] [address] ([facility]) (test code = [facility] [employer] [place] 1538) [address] POCT-GLUCOSE [id number] 08:23:00 Test Item Value Reference Range Interpretation Comments POC-GLUCOSE METER 117 mg/dL 70-110 H TESTED AT [place] [address] ([facility]) (test code = [facility] 1538) [address] POCT-GLUCOSE [id number] 21:13:00 Test Item Value Reference Range Interpretation Comments POC-GLUCOSE METER 186 mg/dL 70-110 H TESTED AT [place] [address] ([facility]) (test code = [facility] 1538) [address] POCT-GLUCOSE [id number] 18:30:00 Test Item Value Reference Range Interpretation Comments POC-GLUCOSE METER 135 mg/dL 70-110 H TESTED AT [place] [address] ([facility]) (test code = [facility] 1538) [address] CBC W/PLT COUNT & AUTO [id number] 15:55:00 Test Item Value Reference Range Interpretation Comments WHITE BLOOD CELL COUNT (AKER) 15.2 K/ L 3.5-10.5 H (test code = 775) RED BLOOD CELL COUNT (AKER) 3.56 M/ L 3.93-5.22 L (test code = 761) HEMOGLOBIN (BEAKER) (test code = 10.9 GM/DL 11.2-15.7 L 410) HEMATOCRIT (BEAKER) (test code = 35.5 % 34.1-44.9 411) MEAN CORPUSCULAR VOLUME (BEAKER) 99.7 fL 79.4-94.8 H (test code = 753) MEAN CORPUSCULAR HEMOGLOBIN 30.6 pg 25.6-32.2 (BEAKER) (test code = 751) MEAN CORPUSCULAR HEMOGLOBIN CONC 30.7 GM/DL 32.2-35.5 L (BEAKER) (test code = 752) RED CELL DISTRIBUTION WIDTH 20.5 % 11.7-14.4 H (BEAKER) (test code = 412) PLATELET COUNT (BEAKER) (test 223 K/CU MM 150-450 code = 756) MEAN PLATELET VOLUME (BEAKER) 10.7 fL 9.4-12.3 (test code = 754) NUCLEATED RED BLOOD CELLS 0 /100 WBC 0-0 (BEAKER) (test code = 413) NEUTROPHILS RELATIVE PERCENT 70 % (BEAKER) (test code = 429) LYMPHOCYTES RELATIVE PERCENT 14 % (BEAKER) (test code = 430) MONOCYTES RELATIVE PERCENT 15 % (BEAKER) (test code = 431) EOSINOPHILS RELATIVE PERCENT 0 % (BEAKER) (test code = 432) BASOPHILS RELATIVE PERCENT 0 % (BEAKER) (test code = 437) NEUTROPHILS ABSOLUTE COUNT 10.62 K/ L 1.56-6.13 H (BEAKER) (test code = 670) LYMPHOCYTES ABSOLUTE COUNT 2.15 K/ L 1.18-3.74 (BEAKER) (test code = 414) MONOCYTES ABSOLUTE COUNT (BEAKER) 2.28 K/ L 0.24-0.36 H (test code = 415) EOSINOPHILS ABSOLUTE COUNT 0.00 K/ L 0.04-0.36 L (BEAKER) (test code = 416) BASOPHILS ABSOLUTE COUNT (BEAKER) 0.06 K/ L 0.01-0.08 (test code = 417) IMMATURE GRANULOCYTES-RELATIVE 1 % 0-1 PERCENT (BEAKER) (test code = 2801) POCT-GLUCOSE [id number] 12:55:00 Test Item Value Reference Range Interpretation Comments POC-GLUCOSE METER 162 mg/dL 70-[address] [facility] 6720 (BEAKER) (test code = [facility] [place] 1538) [address] CBC W/PLT COUNT & AUTO [id number] 10:06:00 Test Item Value Reference Range Interpretation Comments WHITE BLOOD CELL COUNT (BEAKER) 15.9 K/ L 3.5-10.5 H (test code = 775) RED BLOOD CELL COUNT (BEAKER) 3.79 M/ L 3.93-5.22 L (test code = 761) HEMOGLOBIN (BEAKER) (test code = 11.5 GM/DL 11.2-15.7 410) HEMATOCRIT (BEAKER) (test code = 38.2 % 34.1-44.9 411) MEAN CORPUSCULAR VOLUME (BEAKER) 100.8 fL 79.4-94.8 H (test code = 753) MEAN CORPUSCULAR HEMOGLOBIN 30.3 pg 25.6-32.2 (BEAKER) (test code = 751) MEAN CORPUSCULAR HEMOGLOBIN CONC 30.1 GM/DL 32.2-35.5 L (BEAKER) (test code = 752) RED CELL DISTRIBUTION WIDTH 21.2 % 11.7-14.4 H (BEAKER) (test code = 412) PLATELET COUNT (BEAKER) (test 260 K/CU MM 150-450 code = 756) MEAN PLATELET VOLUME (BEAKER) 11.2 fL 9.4-12.3 (test code = 754) NUCLEATED RED BLOOD CELLS 0 /100 WBC 0-0 (BEAKER) (test code = 413) (CELLAVISION MANUAL DIFF)[id number] 10:06:00 Test Item Value Reference Range Interpretation Comments NEUTROPHILS - REL 89 % (CELLAVISION)(BEAKER) (test code = 2816) LYMPHOCYTES - REL 2 % (CELLAVISION)(BEAKER) (test code = 2817) MONOCYTES - REL 4 % (CELLAVISION)(BEAKER) (test code = 2818) BASOPHILS - REL 1 % (CELLAVISION)(BEAKER) (test code = 2820) MYELOCYTES - REL 1 % 0-0 H (CELLAVISION)(BEAKER) (test code = 2822) BANDS - REL (CELLAVISION)(BEAKER) 3 % 0-10 (test code = 2826) NEUTROPHILS - ABS 14.15 K/ul 1.56-6.13 H (CELLAVISION)(BEAKER) (test code = 2830) LYMPHOCYTES - ABS 0.32 K/ul 1.18-3.74 L (CELLAVISION)(BEAKER) (test code = 2831) MONOCYTES - ABS 0.64 K/uL 0.24-0.36 H (CELLAVISION)(BEAKER) (test code = 2832) BASOPHILS - ABS 0.16 K/uL 0.01-0.08 H (CELLAVISION)(BEAKER) (test code = 2835) MYELOCYTES-ABS 0.16 K/uL 0.00-0.00 H (CELLAVISION)(BEAKER) (test code = 2837) BANDS - ABS (CELLAVISION)(BEAKER) 0.48 K/uL 0.00-0.80 (test code = 2840) TOTAL COUNTED (BEAKER) (test code 100 = 1351) SMUDGE CELLS (BEAKER) (test code Present = 1371) GIANT PLATELETS (BEAKER) (test Present code = 313) ANISOCYTOSIS (BEAKER) (test code 2+ moderate = 961) MACROCYTES (BEAKER) (test code = 2+ moderate 964) POIKILOCYTES (BEAKER) (test code 2+ moderate = 966) SCHISTOCYTES (BEAKER) (test code 1+ few = 765) SPHEROCYTES (BEAKER) (test code = 1+ few 768) TOMMY CELLS (BEAKER) (test code = 1+ few 474) PLATELET CONCENTRATION Adequate (CELLAVISION)(BEAKER) (test code = 3438) Received comment: User comments: Slide comments:POCT-GLUCOSE [id number] 08:47:00 Test Item Value Reference Range Interpretation Comments POC-GLUCOSE METER 133 mg/dL 70-[address] [facility] 6720 (BEAKER) (test code = [facility] 1538) [id number] 05:18:00 Test Item Value Reference Range Interpretation Comments MAGNESIUM (BEAKER) (test code = 1.8 mg/dL 1.6-2.6 627) BASIC METABOLIC [id number] 05:18:00 Test Item Value Reference Range Interpretation Comments SODIUM (BEAKER) 138 meq/L 136-145 (test code = 381) POTASSIUM (BEAKER) 4.2 meq/L 3.5-5.1 (test code = 379) CHLORIDE (BEAKER) 106 meq/L 98-107 (test code = 382) CO2 (BEAKER) (test 23 meq/L 22-29 code = 355) BLOOD UREA NITROGEN 11 mg/dL 7-21 (BEAKER) (test code = 354) CREATININE (BEAKER) 0.72 mg/dL 0.57-1.25 (test code = 358) GLUCOSE RANDOM 160 mg/dL 70-105 H (BEAKER) (test code = 652) CALCIUM (BEAKER) 8.4 mg/dL 8.4-10.2 (test code = 697) EGFR ([facility]) (test 77 mL/min/1.73 ESTIMA OLIVIA GFR IS code = 1092) sq m NOT ACCURATE CREATININE CLEARANCE IN PREDICTING GLOMERULAR FILTRATION RATE . ESTIMATED GFR I S NOT APPLICABLE FOR DIALYSIS PATIEN TS. POCT-GLUCOSE [id number] 19:36:00 Test Item Value Reference Range Interpretation Comments POC-GLUCOSE METER 187 mg/dL 70-110 H TESTED AT [place] [address] ([facility]) (test code = [facility] 1538) [id number] 16:33:00 Test Item Value Reference Range Interpretation Comments ACTIVATED CLOTTING TIME 147 sec TEST ED AT [place] [address] ([facility]) (test code = [facility] 441) [id number] 16:09:00 Test Item Value Reference Range Interpretation Comments ACTIVATED CLOTTING TIME 274 sec TEST ED AT [place] [address] ([facility]) (test code = [facility] 441) [address] [id number] 16:09:00 Test Item Value Reference Range Interpretation Comments ACTIVATED CLOTTING TIME 257 sec TEST ED AT [place] [address] ([facility]) (test code = [facility] 441) [id number] POCT-GLUCOSE [id number] 09:19:00 Test Item Value Reference Range Interpretation Comments POC-GLUCOSE METER 115 mg/dL 70-110 H TESTED AT [place] [address] ([facility]) (test code = [facility] 1538) [address] COMPREHENSIVE METABOLIC [id number] 07:07:00 Test Item Value Reference Range Interpretation Comments TOTAL PROTEIN 5.7 gm/dL 6.0-8.3 L ([facility]) (test code = 770) ALBUMIN ([facility]) 3.1 g/dL 3.5-5.0 L (test code = 1145) ALKALINE PHOSPHATASE 111 U/L 40-150 ([facility]) (test code = 346) BILIRUBIN TOTAL 0.8 mg/dL 0.2-1.2 ([facility]) (test code = 377) [facility] (test 132 meq/L 136-145 L code = 381) POTASSIUM (BEAKER) 3.9 meq/L 3.5-5.1 (test code = 379) CHLORIDE (BEAKER) 100 meq/L 98-107 (test code = 382) CO2 (BEAKER) (test 25 meq/L 22-29 code = 355) BLOOD UREA NITROGEN 13 mg/dL 7-21 (BEAKER) (test code = 354) CREATININE (BEAKER) 0.65 mg/dL 0.57-1.25 (test code = 358) GLUCOSE RANDOM 106 mg/dL 70-105 H (BEAKER) (test code = 652) CALCIUM (BEAKER) 8.5 mg/dL 8.4-10.2 (test code = 697) AST (SGOT) (BEAKER) 30 U/L 5-34 (test code = 353) ALT (SGPT) (BEAKER) 12 U/L 6-55 (test code = 347) EGFR (BEAKER) (test 86 mL/min/1.73 ESTIMA OLIVIA GFR IS code = 1092) sq m NOT ACCURATE CREATININE CLEARANCE IN PREDICTING GLOMERULAR FILTRATION RATE . ESTIMATED GFR I S NOT APPLICABLE FOR DIALYSIS PATIEN TS. [id number] 06:31:00 Test Item Value Reference Range Interpretation Comments PARTIAL THROMBOPLASTIN TIME 33.9 seconds 22.5-36.0 (BEAKER) (test code = 760) PROTHROMBIN [id number] 06:30:00 Test Item Value Reference Range Interpretation Comments PROTIME (BEAKER) (test code = 15.4 seconds 11.7-14.7 H 759) INR (BEAKER) (test code = 370) 1.2 <=5.9 RECOMMENDED COUMADIN/WARFARIN INR THERAPY RANGESSTANDARD DOSE: 2.0 - 3.0 Includes: PROPHYLAXIS forvenous thrombosis, systemic embolization; TREATMENT for venous thrombosis and/or pulmonary embolus.HIGH RISK: Target INR is 2.5-3.5 for patients with mechanical heart valves.CBC W/PLT COUNT & AUTO DIFFERENTIAL 2017-12-28 06:25:00 Test Item Value Reference Range Interpretation Comments WHITE BLOOD CELL COUNT (BEAKER) 8.2 K/ L 3.5-10.5 (test code = 775) RED BLOOD CELL COUNT (BEAKER) 4.03 M/ L 3.93-5.22 (test code = 761) HEMOGLOBIN (BEAKER) (test code = 12.3 GM/DL 11.2-15.7 410) HEMATOCRIT (BEAKER) (test code = 39.8 % 34.1-44.9 411) MEAN CORPUSCULAR VOLUME (BEAKER) 98.8 fL 79.4-94.8 H (test code = 753) MEAN CORPUSCULAR HEMOGLOBIN 30.5 pg 25.6-32.2 (BEAKER) (test code = 751) MEAN CORPUSCULAR HEMOGLOBIN CONC 30.9 GM/DL 32.2-35.5 L (BEAKER) (test code = 752) RED CELL DISTRIBUTION WIDTH 21.1 % 11.7-14.4 H (BEAKER) (test code = 412) PLATELET COUNT (BEAKER) (test 324 K/CU MM 150-450 code = 756) MEAN PLATELET VOLUME (BEAKER) 10.5 fL 9.4-12.3 (test code = 754) NUCLEATED RED BLOOD CELLS 0 /100 WBC 0-0 (BEAKER) (test code = 413) NEUTROPHILS RELATIVE PERCENT 53 % (BEAKER) (test code = 429) LYMPHOCYTES RELATIVE PERCENT 25 % (BEAKER) (test code = 430) MONOCYTES RELATIVE PERCENT 16 % (BEAKER) (test code = 431) EOSINOPHILS RELATIVE PERCENT 3 % (BEAKER) (test code = 432) BASOPHILS RELATIVE PERCENT 1 % (BEAKER) (test code = 437) NEUTROPHILS ABSOLUTE COUNT 4.28 K/ L 1.56-6.13 (BEAKER) (test code = 670) LYMPHOCYTES ABSOLUTE COUNT 2.01 K/ L 1.18-3.74 (BEAKER) (test code = 414) MONOCYTES ABSOLUTE COUNT (BEAKER) 1.34 K/ L 0.24-0.36 H (test code = 415) EOSINOPHILS ABSOLUTE COUNT 0.28 K/ L 0.04-0.36 (BEAKER) (test code = 416) BASOPHILS ABSOLUTE COUNT (BEAKER) 0.09 K/ L 0.01-0.08 H (test code = 417) IMMATURE GRANULOCYTES-RELATIVE 2 % 0-1 H PERCENT (BEAKER) (test code = 2801) POCT-GLUCOSE [id number] 22:59:00 Test Item Value Reference Range Interpretation Comments POC-GLUCOSE METER 128 mg/dL 70-[address] [facility] 6720 (BEAKER) [facility] 1538) [id number] POCT-GLUCOSE [id number] 18:57:00 Test Item Value Reference Range Interpretation Comments POC-GLUCOSE METER 143 mg/dL 70-110 H TESTED AT [place] [address] ([facility]) (test code = [facility] 1538) [id number] POCT-GLUCOSE [id number] 12:03:00 Test Item Value Reference Range Interpretation Comments POC-GLUCOSE METER 113 mg/dL 70-110 H TESTED AT [place] [address] ([facility]) (test code = [facility] 1538) [id number] POCT-GLUCOSE [id number] 08:00:00 Test Item Value Reference Range Interpretation Comments POC-GLUCOSE METER 110 mg/dL 70-110 TESTED AT [place] [address] ([facility]) (test code = [facility] 1538) [id number] POCT-GLUCOSE [id number] 21:07:00 Test Item Value Reference Range Interpretation Comments POC-GLUCOSE METER 185 mg/dL 70-110 H TESTED AT [place] [address] ([facility]) (test code = [facility] 1538) [id number] POCT-GLUCOSE [id number] 18:42:00 Test Item Value Reference Range Interpretation Comments POC-GLUCOSE METER 110 mg/dL 70-110 TESTED AT [place] [address] ([facility]) (test code = [facility] 1538) [id number] POCT-GLUCOSE [id number] 11:54:00 Test Item Value Reference Range Interpretation Comments POC-GLUCOSE METER 172 mg/dL 70-110 H TESTED AT [place] [address] ([facility]) (test code = [facility] 1538) [id number] BASIC METABOLIC [id number] 10:16:00 Test Item Value Reference Range Interpretation Comments SODIUM (BEAKER) 135 meq/L 136-145 L (test code = 381) POTASSIUM (BEAKER) 4.1 meq/L 3.5-5.1 (test code = 379) CHLORIDE (BEAKER) 102 meq/L 98-107 (test code = 382) CO2 (BEAKER) (test 23 meq/L 22-29 code = 355) BLOOD UREA NITROGEN 12 mg/dL 7-21 (BEAKER) (test code = 354) CREATININE (BEAKER) 0.60 mg/dL 0.57-1.25 (test code = 358) GLUCOSE RANDOM 121 mg/dL 70-105 H (BEAKER) (test code = 652) CALCIUM (BEAKER) 9.0 mg/dL 8.4-10.2 (test code = 697) EGFR (BEAKER) (test 95 mL/min/1.73 ESTIMA OLIVIA GFR IS code = 1092) sq m NOT ACCURATE CREATININE CLEARANCE IN PREDICTING GLOMERULAR FILTRATION RATE . ESTIMATED GFR I S NOT APPLICABLE FOR DIALYSIS PATIEN TS. CBC W/PLT COUNT & AUTO [id number] 10:16:00 Test Item Value Reference Range Interpretation Comments WHITE BLOOD CELL COUNT (BEAKER) 9.3 K/ L 3.5-10.5 (test code = 775) RED BLOOD CELL COUNT (BEAKER) 4.34 M/ L 3.93-5.22 (test code = 761) HEMOGLOBIN (BEAKER) (test code = 13.2 GM/DL 11.2-15.7 410) HEMATOCRIT (BEAKER) (test code = 43.5 % 34.1-44.9 411) MEAN CORPUSCULAR VOLUME (BEAKER) 100.2 fL 79.4-94.8 H (test code = 753) MEAN CORPUSCULAR HEMOGLOBIN 30.4 pg 25.6-32.2 (BEAKER) (test code = 751) MEAN CORPUSCULAR HEMOGLOBIN CONC 30.3 GM/DL 32.2-35.5 L (BEAKER) (test code = 752) RED CELL DISTRIBUTION WIDTH 22.2 % 11.7-14.4 H (BEAKER) (test code = 412) PLATELET COUNT (BEAKER) (test 341 K/CU MM 150-450 code = 756) MEAN PLATELET VOLUME (BEAKER) 10.6 fL 9.4-12.3 (test code = 754) NUCLEATED RED BLOOD CELLS 1 /100 WBC 0-0 H (BEAKER) (test code = 413) NEUTROPHILS RELATIVE PERCENT 58 % (BEAKER) (test code = 429) LYMPHOCYTES RELATIVE PERCENT 24 % (BEAKER) (test code = 430) MONOCYTES RELATIVE PERCENT 13 % (BEAKER) (test code = 431) EOSINOPHILS RELATIVE PERCENT 2 % (BEAKER) (test code = 432) BASOPHILS RELATIVE PERCENT 1 % (BEAKER) (test code = 437) NEUTROPHILS ABSOLUTE COUNT 5.41 K/ L 1.56-6.13 ([facility]) (test code = 670) LYMPHOCYTES ABSOLUTE COUNT 2.19 K/ L 1.18-3.74 (BEAKER) (test code = 414) MONOCYTES ABSOLUTE COUNT (BEAKER) 1.24 K/ L 0.24-0.36 H (test code = 415) EOSINOPHILS ABSOLUTE COUNT 0.22 K/ L 0.04-0.36 (BEAKER) (test code = 416) BASOPHILS ABSOLUTE COUNT (BEAKER) 0.10 K/ L 0.01-0.08 H (test code = 417) IMMATURE GRANULOCYTES-RELATIVE 2 % 0-1 H PERCENT ([facility]) (test code = 2801) POCT-GLUCOSE [id number] 08:56:00 Test Item Value Reference Range Interpretation Comments POC-GLUCOSE METER 104 mg/dL 70-110 TESTED AT [place] [address] ([facility]) (test code = [employer] [place]) [id number] POCT-GLUCOSE [id number] 21:49:00 Test Item Value Reference Range Interpretation Comments POC-GLUCOSE METER 163 mg/dL 70-110 H TESTED AT [place] [address] ([facility]) (test code = [employer] [place] 15[address]) [id number] POCT-GLUCOSE [id number] 18:18:00 Test Item Value Reference Range Interpretation Comments POC-GLUCOSE METER 124 mg/dL 70-110 H TESTED AT [place] [address] ([facility]) (test code = [employer] [place] 15[address]) [address] POCT-GLUCOSE [id number] 12:56:00 Test Item Value Reference Range Interpretation Comments POC-GLUCOSE METER 135 mg/dL 70-110 H TESTED AT [place] [address] ([facility]) (test code = [employer] [place] 1538) [id number] POCT-GLUCOSE [id number] 08:50:00 Test Item Value Reference Range Interpretation Comments POC-GLUCOSE METER 131 mg/dL 70-110 H TESTED AT [place] [address] ([facility]) (test code = [employer] [place] 1538) [address] POCT-GLUCOSE [id number] 23:31:00 Test Item Value Reference Range Interpretation Comments POC-GLUCOSE METER 125 mg/dL 70-110 H TESTED AT [place] [address] ([facility]) (test code = [facility] 1538) [id number] POCT-GLUCOSE [id number] 18:55:00 Test Item Value Reference Range Interpretation Comments POC-GLUCOSE METER 114 mg/dL 70-110 H TESTED AT [place] [address] ([facility]) (test code = [facility] 1538) [address] POCT-GLUCOSE [id number] 13:26:00 Test Item Value Reference Range Interpretation Comments POC-GLUCOSE METER 121 mg/dL 70-110 H TESTED AT [place] [address] ([facility]) (test code = [facility] 1538) [id number] POCT-GLUCOSE [id number] 08:23:00 Test Item Value Reference Range Interpretation Comments POC-GLUCOSE METER 81 mg/dL 70-110 TESTED AT [place] [address] ([facility]) (test code = [facility] [address] 1538) POCT-GLUCOSE [id number] 22:43:00 Test Item Value Reference Range Interpretation Comments POC-GLUCOSE METER 187 mg/dL 70-110 H TESTED AT [place] [address] ([facility]) (test code = [facility] 1538) [address] POCT-GLUCOSE [id number] 18:01:00 Test Item Value Reference Range Interpretation Comments POC-GLUCOSE METER 149 mg/dL 70-110 H TESTED AT [place] [address] ([facility]) (test code = [facility] 1538) [address] POCT-GLUCOSE [id number] 12:48:00 Test Item Value Reference Range Interpretation Comments POC-GLUCOSE METER 87 mg/dL 70-110 TESTED AT [place] [address] ([facility]) (test code = [facility] [address] 1538) POCT-GLUCOSE [id number] 09:05:00 Test Item Value Reference Range Interpretation Comments POC-GLUCOSE METER 105 mg/dL 70-110 TESTED AT [place] [address] ([facility]) (test code = [facility] 1538) [address] POCT-GLUCOSE [id number] 08:04:00 Test Item Value Reference Range Interpretation Comments POC-GLUCOSE METER 67 mg/dL 70-110 L TESTED AT [place] [address] ([facility]) (test code = [facility] [address] 1538) POCT-GLUCOSE [id number] 21:37:00 Test Item Value Reference Range Interpretation Comments POC-GLUCOSE METER 274 mg/dL 70-[address] [facility] [address] ([facility]) (test code = [facility] 1538) [address] POCT-GLUCOSE [id number] 14:28:00 Test Item Value Reference Range Interpretation Comments POC-GLUCOSE METER 84 mg/dL 70-[address] [facility] [address] ([facility] (test code = [facility] [address] 1538) POCT-GLUCOSE [id number] 08:08:00 Test Item Value Reference Range Interpretation Comments POC-GLUCOSE METER 97 mg/dL 70-[address] [facility] [address] ([facility]) (test code = [facility] [address] 1538) BASIC METABOLIC [id number] 06:56:00 Test Item Value Reference Range Interpretation Comments SODIUM (BEAKER) 130 meq/L 136-145 L (test code = 381) POTASSIUM (BEAKER) 4.2 meq/L 3.5-5.1 (test code = 379) CHLORIDE (BEAKER) 96 meq/L 98-107 L (test code = 382) CO2 (BEAKER) (test 30 meq/L 22-29 H code = 355) BLOOD UREA NITROGEN 11 mg/dL 7-21 (BEAKER) (test code = 354) CREATININE (BEAKER) 0.54 mg/dL 0.57-1.25 L (test code = 358) GLUCOSE RANDOM 71 mg/dL 70-105 (BEAKER) (test code = 652) CALCIUM (BEAKER) 8.3 mg/dL 8.4-10.2 L (test code = 697) EGFR (BEAKER) (test 107 mL/min/1.73 ESTIM ATED GFR IS code = 1092) sq m NOT ACCURATE CREATININE CLEARANCE IN PREDICTING GLOMERULAR FILTRATION RATE . ESTIMATED GFR I S NOT APPLICABLE FOR DIALYSIS PATIEN TS. CBC W/PLT COUNT & AUTO [id number] 06:10:00 Test Item Value Reference Range Interpretation Comments WHITE BLOOD CELL COUNT (BEAKER) 10.6 K/ L 3.5-10.5 H (test code = 775) RED BLOOD CELL COUNT (BEAKER) 3.35 M/ L 3.93-5.22 L (test code = 761) HEMOGLOBIN (BEAKER) (test code = 10.1 GM/DL 11.2-15.7 L 410) HEMATOCRIT (BEAKER) (test code = 33.3 % 34.1-44.9 L 411) MEAN CORPUSCULAR VOLUME (BEAKER) 99.4 fL 79.4-94.8 H (test code = 753) MEAN CORPUSCULAR HEMOGLOBIN 30.1 pg 25.6-32.2 (BEAKER) (test code = 751) MEAN CORPUSCULAR HEMOGLOBIN CONC 30.3 GM/DL 32.2-35.5 L (BEAKER) (test code = 752) RED CELL DISTRIBUTION WIDTH 23.9 % 11.7-14.4 H (BEAKER) (test code = 412) PLATELET COUNT (BEAKER) (test 365 K/CU MM 150-450 code = 756) MEAN PLATELET VOLUME (BEAKER) 10.4 fL 9.4-12.3 (test code = 754) NUCLEATED RED BLOOD CELLS 1 /100 WBC 0-0 H (BEAKER) (test code = 413) NEUTROPHILS RELATIVE PERCENT 68 % (BEAKER) (test code = 429) LYMPHOCYTES RELATIVE PERCENT 15 % (BEAKER) (test code = 430) MONOCYTES RELATIVE PERCENT 12 % (BEAKER) (test code = 431) EOSINOPHILS RELATIVE PERCENT 4 % (BEAKER) (test code = 432) BASOPHILS RELATIVE PERCENT 0 % (BEAKER) (test code = 437) NEUTROPHILS ABSOLUTE COUNT 7.18 K/ L 1.56-6.13 H (BEAKER) (test code = 670) LYMPHOCYTES ABSOLUTE COUNT 1.62 K/ L 1.18-3.74 (BEAKER) (test code = 414) MONOCYTES ABSOLUTE COUNT (BEAKER) 1.23 K/ L 0.24-0.36 H (test code = 415) EOSINOPHILS ABSOLUTE COUNT 0.40 K/ L 0.04-0.36 H (BEAKER) (test code = 416) BASOPHILS ABSOLUTE COUNT (BEAKER) 0.03 K/ L 0.01-0.08 (test code = 417) IMMATURE GRANULOCYTES-RELATIVE 1 % 0-1 PERCENT (BEAKER) (test code = 2801) POCT-GLUCOSE [id number] 21:34:00 Test Item Value Reference Range Interpretation Comments POC-GLUCOSE METER 194 mg/dL 70-110 H TESTED AT [facility] 67[address] (BEAKER) (test code = [facility] [place] 1538) [address] POCT-GLUCOSE [id number] 13:42:00 Test Item Value Reference Range Interpretation Comments POC-GLUCOSE METER 120 mg/dL 70-110 H TESTED AT [place] [address] ([facility]) (test code = [facility] [place] 1538) [address] POCT-GLUCOSE [id number] 08:16:00 Test Item Value Reference Range Interpretation Comments POC-GLUCOSE METER 134 mg/dL 70-110 H TESTED AT [place] [address] ([facility]) (test code = [facility] [place] 1538) [address] BLOOD [id number] 06:00:00 Test Item Value Reference Range Interpretation Comments CULTURE (BEAKER) (test No growth in 5 days code = 1095) BLOOD [id number] 06:00:00 Test Item Value Reference Range Interpretation Comments CULTURE (BEAKER) (test No growth in 5 days code = 1095) POCT-GLUCOSE [id number] 21:09:00 Test Item Value Reference Range Interpretation Comments POC-GLUCOSE METER 93 mg/dL 70-110 TESTED AT [place] [address] ([facility]) (test code = [facility] [address] 1538) POCT-GLUCOSE [id number] 17:50:00 Test Item Value Reference Range Interpretation Comments POC-GLUCOSE METER 103 mg/dL 70-110 TESTED AT [place] [address] ([facility]) (test code = [facility] [place] 1538) [address] POCT-GLUCOSE [id number] 08:53:00 Test Item Value Reference Range Interpretation Comments POC-GLUCOSE METER 97 mg/dL 70-110 TESTED AT [place] [address] ([facility]) (test code = [place] [address] 1538) POCT-GLUCOSE [id number] 21:32:00 Test Item Value Reference Range Interpretation Comments POC-GLUCOSE METER 143 mg/dL 70-110 H TESTED AT [place] [address] ([facility]) (test code = [facility] [place] 1538) [address] POCT-GLUCOSE [id number] 17:35:00 Test Item Value Reference Range Interpretation Comments POC-GLUCOSE METER 110 mg/dL 70-110 TESTED AT [place] [address] ([facility]) (test code = [facility] 1538) [address] POCT-GLUCOSE [id number] 13:23:00 Test Item Value Reference Range Interpretation Comments POC-GLUCOSE METER 101 mg/dL 70-110 TESTED AT [place] [address] ([facility]) ([facility] = [facility] 1538) [address] POCT-GLUCOSE [id number] 07:50:00 Test Item Value Reference Range Interpretation Comments POC-GLUCOSE METER 91 mg/dL 70-110 TESTED AT [place] [address] ([facility]) (test code = [facility] [address] 1538) POCT-GLUCOSE [id number] 22:30:00 Test Item Value Reference Range Interpretation Comments POC-GLUCOSE METER 131 mg/dL 70-110 H TESTED AT [place] [address] ([facility]) (test code = [facility] 1538) [address] POCT-GLUCOSE [id number] 22:01:00 Test Item Value Reference Range Interpretation Comments POC-GLUCOSE METER 149 mg/dL 70-110 H TESTED AT [place] [address] ([facility]) (test code = [facility] 1538) [address] CBC W/PLT COUNT & AUTO [id number] 10:35:00 Test Item Value Reference Range Interpretation Comments WHITE BLOOD CELL COUNT (BEAKER) 12.0 K/ L 3.5-10.5 H (test code = 775) RED BLOOD CELL COUNT (AKER) 3.04 M/ L 3.93-5.22 L (test code = 761) HEMOGLOBIN (BEAKER) (test code = 9.0 GM/DL 11.2-15.7 L 410) HEMATOCRIT (BEAKER) (test code = 29.6 % 34.1-44.9 L 411) MEAN CORPUSCULAR VOLUME (BEAKER) 97.4 fL 79.4-94.8 H (test code = 753) MEAN CORPUSCULAR HEMOGLOBIN 29.6 pg 25.6-32.2 (BEAKER) (test code = 751) MEAN CORPUSCULAR HEMOGLOBIN CONC 30.4 GM/DL 32.2-35.5 L (BEAKER) (test code = 752) RED CELL DISTRIBUTION WIDTH 24.8 % 11.7-14.4 H (BEAKER) (test code = 412) PLATELET COUNT (BEAKER) (test 410 K/CU MM 150-450 code = 756) MEAN PLATELET VOLUME (BEAKER) 10.1 fL 9.4-12.3 (test code = 754) NUCLEATED RED BLOOD CELLS 14 /100 WBC 0-0 H (BEAKER) (test code = 413) (CELLAVISION MANUAL DIFF)2017-12-17 10:35:00 Test Item Value Reference Range Interpretation Comments NEUTROPHILS - REL 70 % (CELLAVISION)(BEAKER) (test code = 2816) LYMPHOCYTES - REL 11 % (CELLAVISION)(BEAKER) (test code = 2817) MONOCYTES - REL 6 % (CELLAVISION)(BEAKER) (test code = 2818) METAMYELOCYTES - REL 1 % 0-0 H (CELLAVISION)(BEAKER) (test code = 2821) MYELOCYTES - REL 1 % 0-0 H (CELLAVISION)(BEAKER) (test code = 2822) BANDS - REL (CELLAVISION)(BEAKER) 11 % 0-10 H (test code = 2826) NEUTROPHILS - ABS 8.40 K/ul 1.56-6.13 H (CELLAVISION)(BEAKER) (test code = 2830) LYMPHOCYTES - ABS 1.32 K/ul 1.18-3.74 (CELLAVISION)(BEAKER) (test code = 2831) MONOCYTES - ABS 0.72 K/uL 0.24-0.36 H (CELLAVISION)(BEAKER) (test code = 2832) METAMYELOCYTES - ABS 0.12 K/uL 0.00-0.00 H (CELLAVISION)(BEAKER) (test code = 2836) MYELOCYTES-ABS 0.12 K/uL 0.00-0.00 H (CELLAVISION)(BEAKER) (test code = 2837) BANDS - ABS (CELLAVISION)(BEAKER) 1.32 K/uL 0.00-0.80 H (test code = 2840) TOTAL COUNTED (BEAKER) (test code 100 = 1351) MANUAL NRBC PER 100 CELLS 15 /100 WBC 0-0 H (BEAKER) (test code = 1353) WBC MORPHOLOGY (BEAKER) (test Normal code = 487) PLT MORPHOLOGY (BEAKER) (test Normal code = 486) POLYCHROMATOPHILLIC RBCS(BEAKER) 3+ many (test code = 478) ANISOCYTOSIS (BEAKER) (test code 3+ many = 961) POIKILOCYTES (BEAKER) (test code 2+ moderate = 966) TARGET CELLS (BEAKER) (test code 2+ moderate = 480) SCHISTOCYTES (BEAKER) (test code 1+ few = 765) TOMMY CELLS (BEAKER) (test code = 2+ moderate 474) ARTIFACT (CELLAVISION)(BEAKER) Present (test code = 3432) PLATELET CONCENTRATION Adequate (CELLAVISION)(BEAKER) (test code = 3438) Received comment: User comments: Slide comments:POCT-GLUCOSE [id number] 07:47:00 Test Item Value Reference Range Interpretation Comments POC-GLUCOSE METER 156 mg/dL 70-[address] [facility] 67[address] (BEAKER) (test code = [facility] [place] 1538) [address] BASIC METABOLIC [id number] 07:03:00 Test Item Value Reference Range Interpretation Comments SODIUM (BEAKER) 129 meq/L 136-145 L (test code = 381) POTASSIUM (BEAKER) 4.4 meq/L 3.5-5.1 (test code = 379) CHLORIDE (BEAKER) 101 meq/L 98-107 (test code = 382) CO2 (BEAKER) (test 23 meq/L 22-29 code = 355) BLOOD UREA NITROGEN 9 mg/dL 7-21 (BEAKER) (test code = 354) CREATININE (BEAKER) 0.53 mg/dL 0.57-1.25 L (test code = 358) GLUCOSE RANDOM 110 mg/dL 70-105 H (BEAKER) (test code = 652) CALCIUM (BEAKER) 7.9 mg/dL 8.4-10.2 L (test code = 697) EGFR (BEAKER) (test 109 mL/min/1.73 ESTIM ATED GFR IS code = 1092) sq m NOT ACCURATE CREATININE CLEARANCE IN PREDICTING GLOMERULAR FILTRATION RATE . ESTIMATED GFR I S NOT APPLICABLE FOR DIALYSIS PATIEN TS. [id number] 07:02:00 Test Item Value Reference Range Interpretation Comments MAGNESIUM (BEAKER) (test code = 2.1 mg/dL 1.6-2.6 627) [id number] 17:22:00 Test Item Value Reference Range Interpretation Comments POTASSIUM (BEAKER) (test code = 3.8 meq/L 3.5-5.1 379) Check Serum Potassium level 2 hours after oral potassium replacement completed or 30 min after intravenous potassium replacement.[id number] 17:22:00 Test Item Value Reference Range Interpretation Comments MAGNESIUM (BEAKER) (test code = 2.0 mg/dL 1.6-2.6 627) Check Serum Potassium level 2 hours after oral potassium replacement completed or 30 min after intravenous potassium replacement.POCT-GLUCOSE [id number] 13:31:00 Test Item Value Reference Range Interpretation Comments POC-GLUCOSE METER 127 mg/dL 70-[address] [facility] 67[address] (BEAKER) (test code = [facility] [place] 1538) [address] CBC W/PLT COUNT & AUTO [id number] 10:22:00 Test Item Value Reference Range Interpretation Comments WHITE BLOOD CELL COUNT (BEAKER) 13.9 K/ L 3.5-10.5 H (test code = 775) RED BLOOD CELL COUNT (BEAKER) 2.80 M/ L 3.93-5.22 L (test code = 761) HEMOGLOBIN (BEAKER) (test code = 8.4 GM/DL 11.2-15.7 L 410) HEMATOCRIT (BEAKER) (test code = 26.7 % 34.1-44.9 L 411) MEAN CORPUSCULAR VOLUME (BEAKER) 95.4 fL 79.4-94.8 H (test code = 753) MEAN CORPUSCULAR HEMOGLOBIN 30.0 pg 25.6-32.2 (BEAKER) (test code = 751) MEAN CORPUSCULAR HEMOGLOBIN CONC 31.5 GM/DL 32.2-35.5 L (BEAKER) (test code = 752) RED CELL DISTRIBUTION WIDTH 23.6 % 11.7-14.4 H (BEAKER) (test code = 412) PLATELET COUNT (BEAKER) (test 419 K/CU MM 150-450 code = 756) MEAN PLATELET VOLUME (BEAKER) 10.1 fL 9.4-12.3 (test code = 754) NUCLEATED RED BLOOD CELLS 8 /100 WBC 0-0 H (BEAKER) (test code = 413) (CELLAVISION MANUAL DIFF)2017-12-16 10:22:00 Test Item Value Reference Range Interpretation Comments NEUTROPHILS - REL 85 % (CELLAVISION)(BEAKER) (test code = 2816) LYMPHOCYTES - REL 6 % (CELLAVISION)(BEAKER) (test code = 2817) MONOCYTES - REL 7 % (CELLAVISION)(BEAKER) (test code = 2818) MYELOCYTES - REL 1 % 0-0 H (CELLAVISION)(BEAKER) (test code = 2822) ATYPICAL LYMPHOCYTES - REL 1 % 0-0 H (CELLAVISION)(BEAKER) (test code = 2829) NEUTROPHILS - ABS 11.82 K/ul 1.56-6.13 H (CELLAVISION)(BEAKER) (test code = 2830) LYMPHOCYTES - ABS 0.83 K/ul 1.18-3.74 L (CELLAVISION)(BEAKER) (test code = 2831) MONOCYTES - ABS 0.97 K/uL 0.24-0.36 H (CELLAVISION)(BEAKER) (test code = 2832) MYELOCYTES-ABS 0.14 K/uL 0.00-0.00 H (CELLAVISION)(BEAKER) (test code = 2837) ATYPICAL LYMPHOCYTES - ABS 0.14 K/uL 0.00-0.00 H (CELLAVISION)(BEAKER) (test code = 2858) TOTAL COUNTED (BEAKER) (test code 100 = 1351) MANUAL NRBC PER 100 CELLS 12 /100 WBC 0-0 H (BEAKER) (test code = 1353) SMUDGE CELLS (BEAKER) (test code Present = 1371) GIANT PLATELETS (BEAKER) (test Present code = 313) POLYCHROMATOPHILLIC RBCS(BEAKER) 2+ moderate (test code = 478) ANISOCYTOSIS (BEAKER) (test code 2+ moderate = 961) MACROCYTES (BEAKER) (test code = 2+ moderate 964) POIKILOCYTES (BEAKER) (test code 3+ many = 966) TARGET CELLS (BEAKER) (test code 1+ few = 480) TOMMY CELLS (BEAKER) (test code = 2+ moderate 474) PLATELET CONCENTRATION Adequate (CELLAVISION)(BEAKER) (test code = 3438) Received comment: User comments: Slide comments:URINALYSIS W/ REFLEX URINE [id number] 10:09:00 Test Item Value Reference Range Interpretation Comments COLOR (BEAKER) (test code = 470) Colorless CLARITY (BEAKER) (test code = 469) Clear SPECIFIC GRAVITY UA (BEAKER) (test 1.003 1.001-1.035 code = 468) PH UA (BEAKER) (test code = 467) 5.0 5.0-8.0 PROTEIN UA (BEAKER) (test code = Negative Negative 464) GLUCOSE UA (BEAKER) (test code = Negative Negative 365) KETONES UA (BEAKER) (test code = Negative Negative 371) BILIRUBIN UA (BEAKER) (test code = Negative Negative 462) BLOOD UA (BEAKER) (test code = 461) Negative Negative NITRITE UA (BEAKER) (test code = Negative Negative 465) LEUKOCYTE ESTERASE UA (BEAKER) Large Negative A (test code = 466) UROBILINOGEN UA (BEAKER) (test code 0.2 mg/dL 0.2-1.0 = 463) RBC UA (BEAKER) (test code = 519) 2 /HPF WBC UA (BEAKER) (test code = 520) 10 /HPF BACTERIA (BEAKER) (test code = 517) Rare SQUAMOUS EPITHELIAL (BEAKER) (test < /HPF code = 516) SOURCE(BEAKER) (test code = 2795) POCT-GLUCOSE [id number] 07:56:00 Test Item Value Reference Range Interpretation Comments POC-GLUCOSE METER 132 mg/dL 70-[address] [facility] 67[address] (BEAKER) (test code = [facility] 1538) [address] BASIC METABOLIC [id number] 07:17:00 Test Item Value Reference Range Interpretation Comments SODIUM (BEAKER) 126 meq/L 136-145 L (test code = 381) POTASSIUM (BEAKER) 4.3 meq/L 3.5-5.1 (test code = 379) CHLORIDE (BEAKER) 99 meq/L 98-107 (test code = 382) CO2 (BEAKER) (test 19 meq/L 22-29 L code = 355) BLOOD UREA NITROGEN 14 mg/dL 7-21 (BEAKER) (test code = 354) CREATININE (BEAKER) 0.62 mg/dL 0.57-1.25 (test code = 358) GLUCOSE RANDOM 130 mg/dL 70-105 H (BEAKER) (test code = 652) CALCIUM (BEAKER) 7.9 mg/dL 8.4-10.2 L (test code = 697) EGFR (BEAKER) (test 91 mL/min/1.73 ESTIMA OLIVIA GFR IS code = 1092) sq m NOT ACCURATE CREATININE CLEARANCE IN PREDICTING GLOMERULAR FILTRATION RATE . ESTIMATED GFR I S NOT APPLICABLE FOR DIALYSIS PATIEN TS. [id number] 07:14:00 Test Item Value Reference Range Interpretation Comments MAGNESIUM (BEAKER) (test code = 2.0 mg/dL 1.6-2.6 627) RAD, CHEST, 1 VIEW, NON [id number] 03:24:00Reason for exam:->to rule out shortness of breatheShould this be performed at the bedside?->YesFINAL REPORT History: Shortness of breath. Comparison: None. Findings: A single view of the chest is submitted. The cardiac silhouette is enlarged. There is atherosclerotic calcification of the aorta. 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 There is central pulmonary vascular congestion. Bilateral interstitial and airspace opacities are centered on the perihilar lungs and may reflect a combination of atelectasis and edema. Pneumonitis should be excluded clinically. Small bilateral pleural effusions are suspected. There is no pneumothorax or acute bony abnormality. Signed: Justin Herrera MDReport Verified Date/Time: 12/16/2017 03:24:14 Reading Location: [address] Reading Room VANCOMYCIN LEVEL, [id number] 00:20:00 Test Item Value Reference Range Interpretation Comments VANCOMYCIN RANDOM (BEAKER) (test 8.3 ug/mL code = 523) Reference Range: No [id number] 22:40:00 Test Item Value Reference Range Interpretation Comments PROCALCITONIN (BEAKER) (test code 0.05 ng/mL <0.05 H = 3036) SEPSIS RISK (ng/mL)Low: 0.05-0.50Intermediate: 0.51-2.00High: >=2.01B-TYPE NATRIURETIC FACTOR (BNP)2017-12-15 22:11:00 Test Item Value Reference Range Interpretation Comments B-TYPE NATRIURETIC PEPTIDE 3331 pg/mL 0-100 H (BEAKER) (test code = 700) CBC W/PLT COUNT & AUTO [id number] 22:07:00 Test Item Value Reference Range Interpretation Comments WHITE BLOOD CELL COUNT (BEAKER) 14.8 K/ L 3.5-10.5 H (test code = 775) RED BLOOD CELL COUNT (BEAKER) 3.06 M/ L 3.93-5.22 L (test code = 761) HEMOGLOBIN (BEAKER) (test code = 9.2 GM/DL 11.2-15.7 L 410) HEMATOCRIT (BEAKER) (test code = 29.6 % 34.1-44.9 L 411) MEAN CORPUSCULAR VOLUME (BEAKER) 96.7 fL 79.4-94.8 H (test code = 753) MEAN CORPUSCULAR HEMOGLOBIN 30.1 pg 25.6-32.2 (BEAKER) (test code = 751) MEAN CORPUSCULAR HEMOGLOBIN CONC 31.1 GM/DL 32.2-35.5 L (BEAKER) (test code = 752) RED CELL DISTRIBUTION WIDTH 23.9 % 11.7-14.4 H (BEAKER) (test code = 412) PLATELET COUNT (BEAKER) (test 440 K/CU MM 150-450 code = 756) MEAN PLATELET VOLUME (BEAKER) 9.9 fL 9.4-12.3 (test code = 754) NUCLEATED RED BLOOD CELLS 8 /100 WBC 0-0 H (BEAKER) (test code = 413) (CELLAVISION MANUAL DIFF)2017-12-15 22:07:00 Test Item Value Reference Range Interpretation Comments NEUTROPHILS - REL 88 % (CELLAVISION)(BEAKER) (test code = 2816) LYMPHOCYTES - REL 3 % (CELLAVISION)(BEAKER) (test code = 2817) MONOCYTES - REL 5 % (CELLAVISION)(BEAKER) (test code = 2818) METAMYELOCYTES - REL 1 % 0-0 H (CELLAVISION)(BEAKER) (test code = 2821) MYELOCYTES - REL 1 % 0-0 H (CELLAVISION)(BEAKER) (test code = 2822) BANDS - REL (CELLAVISION)(BEAKER) 2 % 0-10 (test code = 2826) NEUTROPHILS - ABS 13.02 K/ul 1.56-6.13 H (CELLAVISION)(BEAKER) (test code = 2830) LYMPHOCYTES - ABS 0.44 K/ul 1.18-3.74 L (CELLAVISION)(BEAKER) (test code = 2831) MONOCYTES - ABS 0.74 K/uL 0.24-0.36 H (CELLAVISION)(BEAKER) (test code = 2832) METAMYELOCYTES - ABS 0.15 K/uL 0.00-0.00 H (CELLAVISION)(BEAKER) (test code = 2836) MYELOCYTES-ABS 0.15 K/uL 0.00-0.00 H (CELLAVISION)(BEAKER) (test code = 2837) BANDS - ABS (CELLAVISION)(BEAKER) 0.30 K/uL 0.00-0.80 (test code = 2840) TOTAL COUNTED (BEAKER) (test code 100 = 1351) MANUAL NRBC PER 100 CELLS 9 /100 WBC 0-0 H (BEAKER) (test code = 1353) WBC MORPHOLOGY (BEAKER) (test Normal code = 487) GIANT PLATELETS (BEAKER) (test Present code = 313) POLYCHROMATOPHILLIC RBCS(BEAKER) 3+ many (test code = 478) ANISOCYTOSIS (BEAKER) (test code 2+ moderate = 961) MACROCYTES (BEAKER) (test code = 2+ moderate 964) POIKILOCYTES (BEAKER) (test code 3+ many = 966) TARGET CELLS (BEAKER) (test code 1+ few = 480) TEAR DROP CELLS (BEAKER) (test 1+ few code = 481) TOMMY CELLS (BEAKER) (test code = 1+ few 474) ARTIFACT (CELLAVISION)(BEAKER) Present (test code = 3432) HELMET CELLS 1+ few (CELLAVISION)(BEAKER) (test code = 3434) PLATELET CONCENTRATION Adequate (CELLAVISION)(BEAKER) (test code = 3434) Received comment: User comments: Slide comments:COMPREHENSIVE METABOLIC PANEL 2017-12-15 22:06:00 Test Item Value Reference Range Interpretation Comments TOTAL PROTEIN 5.7 gm/dL 6.0-8.3 L (BEAKER) (test code = 770) ALBUMIN (BEAKER) 2.9 g/dL 3.5-5.0 L (test code = 1145) ALKALINE PHOSPHATASE 120 U/L 40-150 (BEAKER) (test code = 346) BILIRUBIN TOTAL 2.7 mg/dL 0.2-1.2 H (BEAKER) (test code = 377) SODIUM (BEAKER) (test 125 meq/L 136-145 L code = 381) POTASSIUM (BEAKER) 5.0 meq/L 3.5-5.1 (test code = 379) CHLORIDE (BEAKER) 100 meq/L 98-107 (test code = 382) CO2 (BEAKER) (test 18 meq/L 22-29 L code = 355) BLOOD UREA NITROGEN 14 mg/dL 7-21 (BEAKER) (test code = 354) CREATININE (BEAKER) 0.71 mg/dL 0.57-1.25 (test code = 358) GLUCOSE RANDOM 141 mg/dL 70-105 H (BEAKER) (test code = 652) CALCIUM (BEAKER) 8.4 mg/dL 8.4-10.2 (test code = 697) AST (SGOT) (BEAKER) 30 U/L 5-34 (test code = 353) ALT (SGPT) (BEAKER) 17 U/L 6-55 (test code = 347) EGFR (BEAKER) (test 78 mL/min/1.73 ESTIMA OLIVIA GFR IS code = 1092) sq m NOT ACCURATE CREATININE CLEARANCE IN PREDICTING GLOMERULAR FILTRATION RATE . ESTIMATED GFR I S NOT APPLICABLE FOR DIALYSIS PATIEN TS. POCT-GLUCOSE [id number] 19:09:00 Test Item Value Reference Range Interpretation Comments POC-GLUCOSE METER 184 mg/dL 70-[address] [facility] [address] (BEAKER) (test code = [place] 1538) [id number] B-TYPE NATRIURETIC FACTOR (BNP)2017-12-11 16:03:00 Test Item Value Reference Range Interpretation Comments B-TYPE NATRIURETIC PEPTIDE 1193 pg/mL 0-100 H (BEAKER) (test code = 700) [id number] 15:49:00 Test Item Value Reference Range Interpretation Comments ALBUMIN (BEAKER) (test code = 1145) 3.2 g/dL 3.5-5.0 L CBC W/PLT COUNT & AUTO [id number] 14:39:00 Test Item Value Reference Range Interpretation Comments WHITE BLOOD CELL COUNT (BEAKER) 16.9 K/ L 3.5-10.5 H (test code = 775) RED BLOOD CELL COUNT (BEAKER) 2.92 M/ L 3.93-5.22 L (test code = 761) HEMOGLOBIN (BEAKER) (test code = 8.5 GM/DL 11.2-15.7 L 410) HEMATOCRIT (BEAKER) (test code = 26.9 % 34.1-44.9 L 411) MEAN CORPUSCULAR VOLUME (BEAKER) 92.1 fL 79.4-94.8 (test code = 753) MEAN CORPUSCULAR HEMOGLOBIN 29.1 pg 25.6-32.2 (BEAKER) (test code = 751) MEAN CORPUSCULAR HEMOGLOBIN CONC 31.6 GM/DL 32.2-35.5 L (BEAKER) (test code = 752) RED CELL DISTRIBUTION WIDTH 19.9 % 11.7-14.4 H (BEAKER) (test code = 412) PLATELET COUNT (BEAKER) (test 328 K/CU MM 150-450 code = 756) MEAN PLATELET VOLUME (BEAKER) 11.7 fL 9.4-12.3 (test code = 754) NUCLEATED RED BLOOD CELLS 9 /100 WBC 0-0 H (BEAKER) (test code = 413) (CELLAVISION MANUAL DIFF)2017-12-11 14:39:00 Test Item Value Reference Range Interpretation Comments NEUTROPHILS - REL 64 % (CELLAVISION)(BEAKER) (test code = 2816) LYMPHOCYTES - REL 6 % (CELLAVISION)(BEAKER) (test code = 2817) MONOCYTES - REL 13 % (CELLAVISION)(BEAKER) (test code = 2818) EOSINOPHILS - REL 3 % (CELLAVISION)(BEAKER) (test code = 2819) BASOPHILS - REL 1 % (CELLAVISION)(BEAKER) (test code = 2820) METAMYELOCYTES - REL 2 % 0-0 H (CELLAVISION)(BEAKER) (test code = 2821) BANDS - REL (CELLAVISION)(BEAKER) 10 % 0-10 (test code = 2826) NEUTROPHILS - ABS 10.82 K/ul 1.56-6.13 H (CELLAVISION)(BEAKER) (test code = 2830) LYMPHOCYTES - ABS 1.01 K/ul 1.18-3.74 L (CELLAVISION)(BEAKER) (test code = 2831) MONOCYTES - ABS 2.20 K/uL 0.24-0.36 H (CELLAVISION)(BEAKER) (test code = 2832) EOSINOPHILS - ABS 0.51 K/uL 0.04-0.36 H (CELLAVISION)(BEAKER) (test code = 2834) BASOPHILS - ABS 0.17 K/uL 0.01-0.08 H (CELLAVISION)(BEAKER) (test code = 2835) METAMYELOCYTES - ABS 0.34 K/uL 0.00-0.00 H (CELLAVISION)(BEAKER) (test code = 2836) BANDS - ABS (CELLAVISION)(BEAKER) 1.69 K/uL 0.00-0.80 H (test code = 2840) TOTAL COUNTED (BEAKER) (test code 100 = 1351) MANUAL NRBC PER 100 CELLS 10 /100 WBC 0-0 H (BEAKER) (test code = 1353) WBC MORPHOLOGY (BEAKER) (test Normal code = 487) PLT MORPHOLOGY (BEAKER) (test Normal code = 486) POLYCHROMATOPHILLIC RBCS(BEAKER) 2+ moderate (test code = 478) ANISOCYTOSIS (BEAKER) (test code 2+ moderate = 961) POIKILOCYTES (BEAKER) (test code 2+ moderate = 966) ARTIFACT (CELLAVISION)(BEAKER) Present (test code = 3432) PLATELET CONCENTRATION Adequate (CELLAVISION)(BEAKER) (test code = 3438) Received comment: User comments: Slide comments:BILIRUBIN, ADULT [id number] 13:43:00 Test Item Value Reference Range Interpretation Comments BILIRUBIN TOTAL (BEAKER) (test code 2.7 mg/dL 0.2-1.2 H = 377) BASIC METABOLIC [id number] 13:43:00 Test Item Value Reference Range Interpretation Comments SODIUM (BEAKER) 122 meq/L 136-145 L (test code = 381) POTASSIUM (BEAKER) 4.6 meq/L 3.5-5.1 (test code = 379) CHLORIDE (BEAKER) 92 meq/L 98-107 L (test code = 382) CO2 (BEAKER) (test 23 meq/L 22-29 code = 355) BLOOD UREA NITROGEN 25 mg/dL 7-21 H (BEAKER) (test code = 354) CREATININE (BEAKER) 0.79 mg/dL 0.57-1.25 (test code = 358) GLUCOSE RANDOM 107 mg/dL 70-105 H (BEAKER) (test code = 652) CALCIUM (BEAKER) 8.4 mg/dL 8.4-10.2 (test code = 697) EGFR (BEAKER) (test 69 mL/min/1.73 ESTIMA OLIVIA GFR IS code = 1092) sq m NOT ACCURATE CREATININE CLEARANCE IN PREDICTING GLOMERULAR FILTRATION RATE . ESTIMATED GFR I S NOT APPLICABLE FOR DIALYSIS PATIEN TS. Specimen slightly ictericPROTHROMBIN [id number] 13:36:00 Test Item Value Reference Range Interpretation Comments PROTIME (BEAKER) (test code = 15.8 seconds 11.7-14.7 H 759) INR (BEAKER) (test code = 370) 1.3 <=5.9 RECOMMENDED COUMADIN/WARFARIN INR THERAPY RANGESSTANDARD DOSE: 2.0 - 3.0 Includes: PROPHYLAXIS forvenous thrombosis, systemic embolization; TREATMENT for venous thrombosis and/or pulmonary embolus.HIGH RISK: Target INR is 2.5-3.5 for patients with mechanical heart valves.Within 24 hours, if on CoumadinCT, CTA [id number] 16:55:00Addendum BeginsREPORT STATUS:A Addendum: I agree with the previously described non vascular findings by Dr. Haddad. Signed: Tay Keenan MDReport Verified Date/Time: 12/05/201716:55:06 Reading Location: [facility] P048 Angio Body Reading RoomAddendum EndsFINAL REPORT CT [...] contrast material. Multi-planar 3-D volume-rendering reconstruction was p erformed using an independent workstation interactively by the [...] chest, with pacing leads identified in the right- sided cardiac chambers. The central pulmonary artery is [...] are seen to be patent with no ob structive lesion identified. A tiny hypodensity is identified [...] present. The minimum and the perpendicular left com mon iliac artery measures 8.8 and 9.0 mm, [...] An addendum will be dictated by the Hospital Clerk Radiologist regarding the nonvascular findings. 6. Impression was discussed with Dr. Ellison at the time of dictation. Signed: Catie, Sudhir MDReport Verified Date/Time: 12/04/2017 12:28:54 Reading Location: [facility] P[address], CTA, [id number] 16:55:00 Addendum BeginsREPORT STATUS:A Addendum: I agree with the previously described non vascular findings by Dr. Haddad. Signed: Tay Keenan MDReport Verified Date/Time: 12/05/201716:55:06 Reading Location: [facility] P048 Angio Body Reading RoomAddendum EndsFINAL REPORT CT angiography of the thoracoabdominal aorta and pelvic arteries, 04 December 2017 INDICATION: This is a 87 year old female with a diagnosis of aortic stenosis, presents for preprocedure TAVRassessment. There is a clinical concern of aortic aneurysm. This study is performed in an attempt toavoid an invasive procedure. TECHNIQUE: Spiral acquisition before and during intravenous contrast adm inistration using a Negro multidetector CT scanner. Images were obtained before and during the dynamic passage of intravenous contrast material. Multi- planar 3-D volume-rendering reconstruction was performed using an [...] mm, respectively. There is no evidence of th oracoabdominal aortic aneurysm or stent placement present. The [...] described above. In general, the left pelvic ar teries are larger than the right pelvic arteries. 2. Coronary atherosclerosis. 3. The central pulmonary artery is normal in calibre. Evidence of prior granulomatous disease. 4. Other findings as described above, including more prominent of the adductor muscle group in the right side that may represent an haematoma. No acute extravasation of contrast is identified. 5. An addendum will be dictated by the Hospital Clerk Radiologist regarding the nonvascular findings. 6. Impression was discussed with Dr. Ellison at the time of dictation. Signed: Sudhir Haddad MDReport Verified Date/Time: 12/04/2017 12:28:54 Reading Location: [place] [address] Cardiology MRI [id number] 08:55:00 Test Item Value Reference Range Interpretation Comments POC-CREATININE 0.5 mg/dL 0.6-1.[address] [facility] 67[address] ([facility]) (test [place]DE [place] code = 1859) [address] POC-EGFR mL/min/1.73M2 Insufficient clinical ([facility]) (test data to calcu late code = 1730) estimated GFR
[2019-09-08 17:00] LABS: Basophils % 0.2 % (0-1.3); Hematocrit 45.4 % (36.0-45.0); Lymphocytes % 9.5 % (15.3-44.8); MPV 8.4 fL (7.6-11.3); RBC Red Blood Cell Count 5.29 M/uL (3.86-4.86)
[2019-09-08 17:09] LABS: Protime INR 1.32
[2019-09-08 17:33] LABS: Albumin 3.5 g/dL (3.4-5.0); Bilirubin Direct 0.4 mg/dL (0-0.2); Bilirubin Total 1.1 mg/dL (0.2-1.0); Protein, Total 6.9 g/dL (6.4-8.2); Troponin (Emerg Dept Use Only) 0.02 ng/mL (0.0-0.045)
[2019-09-08 17:38] LABS: Potassium 5.3 mmol/L (3.5-5.1)
[2019-09-08 17:39] LABS: Magnesium 2.4 mg/dL (1.8-2.4)
--- NOTE | 2019-09-08 18:13 | RAD REPORT ---
EXAM DESCRIPTION: RAD - Chest Single View - 09/08/2019 5:46 pm CLINICAL HISTORY: shortness of breath COMPARISON: Portable April 2019 TECHNIQUE: AP portable chest image was obtained 09/08/2019 5:46 pm . FINDINGS: Interstitial and patchy alveolar opacities are present. Opacification is most pronounced i n the right lung base. Pacemaker is in place. Cardiomegaly is present with prominent vasculature. Hugo ateral pleural effusions are present. No acute bony abnormality seen. No acute aortic findings suspec riya. IMPRESSION: Moderate CHF/ volume overload pattern.
[2019-09-08] MEDS ORDERED: FUROSEMIDE 20 MG/ 2ML VIAL ONE (18:42)
[2019-09-08] MEDS ORDERED: CEFTRIAXONE/SWI 1gm 1 GM/10 ML SYR ONE (19:17)
[2019-09-08] MEDS ORDERED: ONDANSETRON 4 MG/2 ML VIAL IV PRN (19:31)
[2019-09-08] MEDS ORDERED: ACETAMINOPHEN 500 MG TAB PO PRN (19:31)
--- NOTE | 2019-09-08 19:32 | ER ---
Nurse's Notes [facility] Name: Hannah Hogan Age: 88 yrs Sex: Female : 1930 Arrival Date: 09/08/2019 Time: 16:36 Bed 2 Private MD: Diagnosis: Acute on chronic combined systolic (congestive) and diastolic (congestive) heart failure Presentation: 09/07 16:28 Chief complaint: EMS states: dyspnea all day today, was given a breathing tx by EMS and sv pt felt a little better after that. 92% RA, BS-159. Coronavirus screen: Proceed with normal triage. Patient denies a cough. Patient denies shortness of breath or difficulty breathing. Patient denies measured and/or subjective temperature greater than 100.4F prior to today's visit. Patient denies travel on a cruise ship or to a country the [facility] currently lists as an affected area. Patient denies contact with known and/or suspected case of COVID-19. Ebola Screen: No symptoms or risks identified at this time. Risk Assessment: Do you want to hurt yourself or someone else? Patient reports no desire to harm self or others. Onset of symptoms was September 08, 2019. 16:28 Method Of Arrival: EMS: [facility] sv 16:28 Acuity: NEHEMIAH 2 sv 19:26 Initial Sepsis Screen: Does the patient meet any 2 criteria? No. Patient's initial jd3 sepsis screen is negative. Does the patient have a suspected source of infection? No. Patient's initial sepsis screen is negative. Triage Assessment: 19:26 Respiratory: Onset: The symptoms/episode began/occurred today, the patient has moderate jd3 shortness of breath. Historical: - Allergies: 16:46 ambien; sv 16:46 Clindamycin; sv 16:46 Flagyl; sv - PMHx: 16:46 "Mitral Valve; Cataracts; Diabetes - IDDM; Glaucoma; Hyperlipidemia; Hypertension; sv Asthma; COPD; - PSHx: 16:46 Mitral valve replacement; Cholecystectomy; Ovary removal; cardiac cath 11/28/17; sv - Immunization history:: Adult Immunizations up to date. - Social history:: Smoking status: Patient denies any tobacco usage or history of. Screenin:40 Abuse screen: Denies threats or abuse. Nutritional screening: No deficits noted. em Tuberculosis screening: No symptoms or risk factors identified. Fall Risk None identified. Assessment: 16:25 General: Appears distressed, ill, Behavior is cooperative, restless. Pain: Denies pain. em Neuro: Level of Consciousness is awake, alert, obeys commands. Cardiovascular: Rhythm is sinus rhythm. Respiratory: Reports shortness of breath at rest cough that is hacking, labored breathing since this morning Airway is patent Respiratory effort is labored, Respiratory pattern is tachypnea Breath sounds with wheezes bilaterally. GI: Abdomen is round distended, Abd is rigid X 4 quads. Patient currently denies nausea, vomiting. Derm: Skin is intact, is fragile, is thin, Skin is clammy, Skin is pale, Skin temperature is cool. Musculoskeletal: Capillary refill is > 3 seconds, is sluggish, in bilateral fingers. toes. Range of motion: intact in all extremities. 16:40 Reassessment: pt placed on BiPAP, symptoms have improved, provider notified, pt reports em feeling bett. 17:04 Reassessment: Patient appears in no apparent distress at this time. Patient states em feeling better. Patient states symptoms have improved. 18:13 Reassessment: Patient appears in no apparent distress at this time. Patient and/or em family updated on plan of care and expected duration. Pain level reassessed. Patient is alert, oriented x 3, equal unlabored respirations, skin warm/dry/pink. 19:23 Reassessment: Patient states feeling better. General: Appears comfortable, Behavior is jd3 calm, cooperative, appropriate for age. Pain: Denies pain. Neuro: Level of Consciousness is awake, alert, obeys commands, Oriented to person, place, time, situation. Cardiovascular: Patient's skin is warm and dry. Rhythm is Respiratory: Airway is patent Respiratory effort is labored, Respiratory pattern is tachypnea. GI: No signs and/or symptoms were reported involving the gastrointestinal system. : No signs and/or symptoms were reported regarding the genitourinary system. EENT: No signs and/or symptoms were reported regarding the EENT system. Derm: Skin is intact, is fragile, is thin, Skin is dry, Skin is normal, Skin temperature is warm. Musculoskeletal: Circulation, motion, and sensation intact. Capillary refill < 3 seconds, Range of motion: intact in all extremities. 20:33 Reassessment: No changes from previously documented assessment. Patient and/or family jd3 updated on plan of care and expected duration. Pain level reassessed. Patient is alert, oriented x 3, equal unlabored respirations, skin warm/dry/pink. awaiting admission report attempt made. nurse reported being busy, will call back. 21:30 Reassessment: Patient appears in no apparent distress at this time. No changes from jd3 previously documented assessment. Patient and/or family updated on plan of care and expected duration. Pain level reassessed. Patient is alert, oriented x 3, equal unlabored respirations, skin warm/dry/pink. 22:06 Reassessment: Patient appears in no apparent distress at this time. Patient and/or jd3 family updated on plan of care and expected duration. Pain level reassessed. Patient is alert, oriented x 3, equal unlabored respirations, skin warm/dry/pink. report given to Hector BENTON. Vital Signs: 16:28 BP 179 / 129; Pulse 63; Resp 26; Pulse Ox 96% ; sv 16:30 Temp 97.8(TE); em 17:00 BP 153 / 83; Pulse 60; Resp 18; Pulse Ox 95% on BiPAP; em 18:08 BP 138 / 76; Pulse 61; Resp 20; Pulse Ox 97% on BiPAP; em 19:25 BP 132 / 69; Pulse 63; Resp 25 S; Pulse Ox 99% on BiPAP; jd3 20:34 BP 132 / 66; Pulse 63; Resp 20; Pulse Ox 97% on BiPAP; jd3 22:07 BP 119 / 57; Pulse 64; Resp 25; Pulse Ox 98% on BiPAP; jd3 ED Course: 16:36 Patient arrived in ED. sv 16:37 Honorio Lorenzana MD is Attending Physician. 7 16:39 Triage completed. sv 16:39 Nikhil Marcial PA is PHCP. [facility] 16:40 Initial lab(s) drawn, by me, sent to lab. Inserted saline lock: 20 gauge in right em antecubital area, using aseptic technique. Blood collected. 16:40 Patient has correct armband on for positive identification. Placed in gown. Bed in low em position. Call light in reach. Side rails up X2. Adult w/ patient. monitoring specialist on. Pulse ox on. NIBP on. Warm blanket given. 16:40 Arm band placed on. em 16:42 Brennen Raymond, RN is Primary Nurse. em 17:46 XRAY Chest (1 view) In Process Unspecified. EDMS 18:02 Vaz cath inserted, using sterile technique, 16 Fr., by de, balloon inflated, to dh3 gravity drainage, returned clear yellow urine. Patient tolerated well. 18:51 Urine collected: Vaz catheter specimen, cloudy. em 19:31 Tnoy Foley MD is Hospitalizing Provider. [facility] 22:07 No provider procedures requiring assistance completed. Patient admitted, IV remains in jd3 place. Administered Medications: 18:42 Drug: Lasix 40 mg Route: IVP; Site: right antecubital; em 19:40 Follow up: Response: No adverse reaction jd3 19:20 Drug: Rocephin 1 grams Route: IV; Rate: calculated rate; Site: right antecubital; jd3 20:05 Follow up: Response: No adverse reaction; IV Status: Completed infusion; IV Intake: [id number] Intake: 20:05 IV: 10ml; Total: 10ml. jd3 Outcome: 19:31 Decision to Hospitalize by Provider. [facility] 22:07 Admitted to Med/surg accompanied by tech, via stretcher, room 418, with chart, Report jd3 called to Hector BENTON 22:07 Condition: stable 22:07 Instructed on the need for admit, Demonstrated understanding of instructions. 22:24 Patient left the ED. lp1 Signatures: Dispatcher [employer] DALIAID Jessica Silva, RN CHETAN Nikhil Marcial PA PA [facility] Brennen Raymond, RN RN Maria De Jesus Muñoz RN RN 1 Theodora Pelayo [facility] Brian Steel RN RN jd3 Holmes, Maurice, MD MD 7
--- NOTE | 2019-09-08 19:32 | EDPHYS ---
Physician Documentation [facility] Name: Hannah Hogan Age: 88 yrs Sex: Female : 1930 Arrival Date: 09/08/2019 Time: 16:36 Bed 2 Private MD: ED Physician Honorio Lorenzana HPI: 09/07 16:41 This 88 yrs old Female presents to ER via EMS with complaints of Breathing jmm Difficulty. 16:41 The patient has shortness of breath at rest. Onset: The symptoms/episode began/occurred jmm gradually, at 12:00. Duration: The symptoms are continuous. The patient's shortness of breath is aggravated by nothing, is alleviated by nothing. Associated signs and symptoms: Pertinent negatives: fever. This is an 88 year old female with a history of DM, HLP that presents to the ED with shortness of breath beginning after an episode of confusion. Daughter states the patient BGL was low and administered honey. Confusion has resolved but patient had continued to be SOB. Albuterol administer by EMS with no relief. Historical: - Allergies: 16:46 ambien; sv 16:46 Clindamycin; sv 16:46 Flagyl; sv - PMHx: 16:46 "Mitral Valve; Cataracts; Diabetes - IDDM; Glaucoma; Hyperlipidemia; Hypertension; sv Asthma; COPD; - PSHx: 16:46 Mitral valve replacement; Cholecystectomy; Ovary removal; cardiac cath 11/28/17; sv - Immunization history:: Adult Immunizations up to date. - Social history:: Smoking status: Patient denies any tobacco usage or history of. ROS: 16:41 Constitutional: Negative for fever, chills, and weight loss, Cardiovascular: Negative jmm for chest pain, palpitations, and edema. 16:41 Respiratory: Positive for shortness of breath. 16:41 All other systems are negative. Exam: 16:41 Constitutional: This is a well developed, well nourished patient who is awake, alert, jmm and in no acute distress. Head/Face: atraumatic. Eyes: EOMI, no conjunctival erythema appreciated ENT: Moist Mucus Membranes Neck: Trachea midline, Supple Chest/axilla: Normal chest wall appearance and motion. 16:41 Abdomen/GI: Non distended, soft Back: Normal ROM Skin: General appearance color normal MS/ Extremity: Moves all extremities, no obvious deformities appreciated, no edema noted to the lower extremities Neuro: Awake and alert, normal gait Psych: Behavior is normal, Mood is normal, Patient is cooperative and pleasant 16:41 Cardiovascular: Rate: normal, Rhythm: regular. 16:41 Respiratory: moderate respiratory distress is noted, Respirations: labored breathing, that is moderate, shallow respirations, Breath sounds: Vital Signs: 16:28 BP 179 / 129; Pulse 63; Resp 26; Pulse Ox 96% ; sv 16:30 Temp 97.8(TE); em 17:00 BP 153 / 83; Pulse 60; Resp 18; Pulse Ox 95% on BiPAP; em 18:08 BP 138 / 76; Pulse 61; Resp 20; Pulse Ox 97% on BiPAP; em 19:25 BP 132 / 69; Pulse 63; Resp 25 S; Pulse Ox 99% on BiPAP; jd3 20:34 BP 132 / 66; Pulse 63; Resp 20; Pulse Ox 97% on BiPAP; jd3 22:07 BP 119 / 57; Pulse 64; Resp 25; Pulse Ox 98% on BiPAP; jd3 MDM: 16:41 Patient medically screened. [facility] 19:28 Data reviewed: vital signs, nurses notes. Counseling: I had a detailed discussion with [facility] the patient and/or guardian regarding: the historical points, exam findings, and any diagnostic results supporting the discharge/admit diagnosis, lab results, radiology results, the need for further work-up and treatment in the hospital. ED course: Dr. Atwood is out to hospitalist. I discussed the patient with Dr. Foley whom accepted admission. . 09/07 16:41 Order name: Basic Metabolic Panel; Complete Time: 17:44 [facility] 09/07 16:41 Order name: CBC with Diff; Complete Time: 17:11 [facility] 09/07 16:41 Order name: LFT's; Complete Time: 17:44 [facility] 09/07 16:41 Order name: Magnesium; Complete Time: 17:44 [facility] 09/07 16:41 Order name: NT PRO-BNP; Complete Time: 17:44 [facility] 09/07 16:41 Order name: PT-INR; Complete Time: 17:18 [facility] 09/07 16:41 Order name: Troponin (emerg Dept Use Only); Complete Time: 17:44 [facility] 09/07 18:50 Order name: Urine Culture [facility] 09/07 18:56 Order name: Urine Dipstick--Ancillary (enter results); Complete Time: 20:18 em 09/07 19:35 Order name: CBC with Automated Diff [facility] 09/07 19:35 Order name: CBC with Automated Diff [facility] 09/07 19:35 Order name: Comprehensive Metabolic Panel [facility] 09/07 19:35 Order name: Comprehensive Metabolic Panel [facility] 09/07 19:35 Order name: Lipid Profile [facility] 09/07 16:41 Order name: XRAY Chest (1 view); Complete Time: 18:25 [facility] 09/07 16:41 Order name: EKG; Complete Time: 16:43 [facility] 09/07 16:41 Order name: BIPAP [facility] 09/07 19:34 Order name: CONS Physician Consult [facility] 09/07 19:34 Order name: Echo with Doppler [facility] 09/07 19:35 Order name: Echo with Doppler [facility] 09/07 19:35 Order name: Lipid Profile [facility] 09/07 19:35 Order name: Magnesium [facility] 09/07 19:35 Order name: Magnesium [facility] 09/07 19:35 Order name: NT PRO-BNP [facility] 09/07 19:35 Order name: NT PRO-BNP [facility] 09/07 19:35 Order name: Phosphorus [facility] 09/07 19:35 Order name: Phosphorus [facility] 09/07 19:38 Order name: COVID-19; Complete Time: 20:44 lp1 09/07 16:41 Order name: Cardiac monitoring; Complete Time: 17:03 [facility] 09/07 16:41 Order name: EKG - Nurse/Tech; Complete Time: 17:03 [facility] 09/07 16:41 Order name: IV Saline Lock; Complete Time: 17:03 [facility] 09/07 16:41 Order name: Labs collected and sent; Complete Time: 17:03 [facility] 09/07 16:41 Order name: O2 Per Protocol; Complete Time: 17:03 [facility] 09/07 16:41 Order name: O2 Sat Monitoring; Complete Time: 17:03 [facility] 09/07 16:42 Order name: Urine Dipstick-Ancillary (obtain specimen); Complete Time: 18:51 [facility] 09/07 19:34 Order name: Heart Healthy EDMS Administered Medications: 18:42 Drug: Lasix 40 mg Route: IVP; Site: right antecubital; em 19:40 Follow up: Response: No adverse reaction jd3 19:20 Drug: Rocephin 1 grams Route: IV; Rate: calculated rate; Site: right antecubital; jd3 20:05 Follow up: Response: No adverse reaction; IV Status: Completed infusion; IV Intake: [id number] Disposition: 09/08/19 19:31 Hospitalization ordered by Tony Foley for Inpatient Admission. Preliminary diagnosis is Acute on chronic combined systolic (congestive) and diastolic (congestive) heart failure. - Bed requested for Telemetry/MedSurg (Inpatient). - Status is Inpatient Admission. lp1 - Condition is Stable. - Problem is new. - Symptoms are unchanged. Addendum: 09/12/2019 21:14 Co-signature as Attending Physician, Honorio Lorenzana MD. m h7 Signatures: Dispatcher [employer] Jessica Mayo RN CHETAN Karly Nathan RN CHETAN Sujata Yates RN RN Nikhil Marcial PA PA jmm Munoz, Edgar, RN CHETAN Maria De Jesus Muñoz, RN RN lp1 Brian Steel RN RN jd3 Holmes, Maurice, MD MD mh7 Corrections: (The following items were deleted from the chart) 09/07 19:43 19:31 Hospitalization Ordered by Tony Foley MD for Inpatient Admission. Preliminary diagnosis is Acute on chronic combined systolic (congestive) and diastolic (congestive) heart failure. Bed requested for Telemetry/MedSurg (Inpatient). Status is Inpatient Admission. Condition is Stable. Problem is new. Symptoms are unchanged. [facility] 20:50 19:43 09/08/2019 19:31 Hospitalization Ordered by Tony Foley MD for Inpatient mw Admission. Preliminary diagnosis is Acute on chronic combined systolic (congestive) and diastolic (congestive) heart failure. Bed requested for Telemetry/MedSurg (Inpatient). Status is Inpatient Admission. Condition is Stable. Problem is new. Symptoms are unchanged. 22:24 20:50 09/08/2019 19:31 Hospitalization Ordered by Tony Foley MD for Inpatient lp1 Admission. Preliminary diagnosis is Acute on chronic combined systolic (congestive) and diastolic (congestive) heart failure. Bed requested for Telemetry/MedSurg (Inpatient). Status is Inpatient Admission. Condition is Stable. Problem is new. Symptoms are unchanged. mw
[2019-09-08 20:09] LABS: Urine Blood NEGATIVE (NEG); Urine Glucose NEGATIVE (NEG); Urine Protein NEGATIVE (NEG); Urine Specific Gravity 1.015 (1.005-1.030); Urine pH 5.5 (5.0-7.0)
--- NOTE | 2019-09-09 00:18 | CON ---
Date of Consultation: 09/08/2019 Reason For Consultation: Congestive heart failure. History Of Present Illness: Ms. Hogan is an 88-year-old Latin-Cuban woman. She is a patient of Dr. Qiu. In April of 2019, she was here for pneumonia. Echocardiogram at that time showed mod erate pulmonary hypertension, normal ejection fraction, and a patent bioprosthetic aortic valve. Act ually, the patient had a TAVR in November of 2017. She also is status post pacemaker. Has a history o f hypertension, COPD, atrial fibrillation, diabetes, hypothyroidism, diastolic congestive heart failu re, and dyslipidemia. Came in with shortness of breath, weakness, was found to have congestive heart failure on chest x-ray. Was also found to have a UTI, hyponatremia. Glucose was 190. Her BNP was 10,006. Her troponin was negative. Patient has already received Lovenox and Lasix and is improving. Her O2 saturation on BiPAP is 96%. She denied any chest pain or syncope or palpitation. Denied an y fever or chills or cough. Allergies: SHE IS ALLERGIC TO FLAGYL, AMBIEN, AND CLINDAMYCIN. Review of Systems: Negative. Social History: Negative. Family History: Noncontributory. Medications: At home include; potassium, Zocor, amiodarone, Eliquis, insulin, and Synthroid. Physical Examination: General: She was alert and oriented x3. She was in a paced rhythm, afebrile. Mild respiratory dist ress. HEENT: Negative. Neck: Supple without any bruit, lymphadenopathy, JVD, or thyromegaly. Chest: Reveals some rales at both bases. Cardiac: Revealed a paced rhythm. No murmurs, gallops, or rubs. Abdomen: Benign. Extremities: Revealed no clubbing, cyanosis. She had trace edema. Neurological: She was nonfocal. Pulses were present distally bilaterally. Skin: Dry and intact. Diagnostic Data: As stated earlier. Impression And Plan: 1.Acute on chronic diastolic congestive heart failure. Patient needs to be diuresed, which is being done. Her hyponatremia is secondary to volume overload and this hopefully will correct with diuresi s. 2.Status post transcatheter aortic valve replacement in November of 2017. Echocardiogram is pending. 3.Atrial fibrillation, controlled paced rhythm on amiodarone and Eliquis. Continue both of those. 4.Hypertension, well controlled. 5.Diabetes, poorly controlled. 6.Chronic obstructive pulmonary disease. 7.Hypothyroidism. 8.Dyslipidemia. I recommend diuresis. Continue her home medication otherwise. I think when she go es home, she needs to be on a diuretic beside in addition to her spironolactone, she needs to be on D emadex as well. She took that in the past. Ms. Hogan had been in sinus rhythm for a long time on a miodarone. Certainly an option will be to stop it 1 day and see how she does as far as her lungs are concerned, but we will decide that as an outpatient. LOU/BURT Voice ID: [id number] Report ID: [id number]
[2019-09-09] MEDS ORDERED: FUROSEMIDE 40 MG/4 ML VIAL IV SCH (01:00)
[2019-09-09 04:44] LABS: Bilirubin Total 0.8 mg/dL (0.2-1.0); Magnesium 2.2 mg/dL (1.8-2.4); Phosphorus 3.8 mg/dL (2.5-4.9); Potassium 5.1 mmol/L (3.5-5.1); Protein, Total 6.1 g/dL (6.4-8.2)
[2019-09-09 04:50] LABS: Absolute Lymphocytes (CBC) 0.9 K/uL (0.7-4.9); Basophils % 0.3 % (0-1.3); Hematocrit 40.5 % (36.0-45.0); Lymphocytes % 11.2 % (15.3-44.8); MPV 9.5 fL (7.6-11.3); RBC Red Blood Cell Count 4.75 M/uL (3.86-4.86)
[2019-09-09] MEDS ORDERED: D50W 25 GM/50 ML SYRINGE/VIAL IV PRN (07:39)
[2019-09-09] MEDS ORDERED: GLUCAGON 1 MG/VIAL IM PRN (07:39)
[2019-09-09] MEDS ORDERED: ALBUTEROL INHALER 60 PUFF/8 GM IH PRN (07:39)
--- NOTE | 2019-09-09 08:53 | EKG ---
Test Date: 2019-09-08 Test Time: 16:57:29 Manager Therapy: RILEY MEASUREMENT RESULTS: Intervals: Rate: 60 MS: QRSD: 222 QT: 586 QTc: 586 [place]: P: MS: QRS: -48 T: 102 INTERPRETIVE STATEMENTS: Electronic atrial pacemaker Left axis deviation Left ventricular hypertrophy with QRS widening and repolarization abnormality Possible Lateral infarct, age undetermined Abnormal ECG Compared to ECG 12/13/2017 17:03:38 Left-axis deviation now present Left ventricular hypertrophy now present Early repolarization now present Myocardial infarct finding now present Ventricular-paced complex(es) or rhythm no longer present Electronically Signed On 09-09-19 08:52:17 CDT by Mike Russell
[2019-09-09] MEDS ORDERED: FUROSEMIDE 20 MG/ 2ML VIAL IV SCH (09:00)
[2019-09-09] MEDS ORDERED: ENOXAPARIN 40 MG/0.4 ML SQ SCH (09:00)
[2019-09-09] MEDS: HOME MED 1 EA UNK (Fluticasone/Vilanterol [Breo Ellipta 200-25 Mcg Inh] 1 PUFF) IH SCH ×2 (09:00→20:43)
[2019-09-09] MEDS: AMIODARONE HCL 200 MG TAB PO SCH (10:15)
[2019-09-09] MEDS: SPIRONOLACTONE 25 MG TABLET PO SCH (10:15)
[2019-09-09] MEDS: APIXABAN 2.5 MG TABLET PO SCH ×2 (10:15→20:42)
[2019-09-09] MEDS: CRANBERRY FRUIT EXTRACT 200 MG CAP PO SCH (10:15)
[2019-09-09] MEDS: FUROSEMIDE 40 MG/4 ML VIAL IV SCH ×2 (10:23→20:42)
--- NOTE | 2019-09-09 11:47 | P.DS ---
Admission Date: 09/08/19 Discharge Date: 09/09/19 Primary Care Provider: Dr. Qiu(Covering for him due to holiday) Disposition: DC HOME/HOME HEALTH CARE Discharge Condition: GOOD Reason for Admission: SOB Consultations: Cardiology-Dr. Russell Procedures: CXR: Medical Problem List: Dyspnea secondary to acute on chronic diastolic CHF with moderate pulmonary hypertension Atrial fibrillation on chronic anti coagulation therapy Hyperlipidemia Diabetes mellitus type 2 insulin dependent COPD History of transcatheter bioprosthetic aortic valve replacement Hypothyroidism COPD Brief History of Present Illness: 88-year-old female. She is a patient of Dr. Qiu. Patient with history of moderate pulmonary hypertension, biprosthetic aortic valve, COPD, hypertension, atrial fibrillation on chronic anti coagulation therapy, diabetes mellitus type 2 insulin dependent, hypothyroidism, hyperlipidemia and diastolic CHF. Patient presented with shortness of breast secondary to acute on chronic diastolic CHF. Patient was high pony tree make. Patient was given IV Lasix with improvement. Patient has done well then the course of her stay. : Congestive heart failure. History Of Present Illness: Ms. Hogan is an 88-year-old Latin-Norwegian woman. She is a patient of Dr. Qiu. In April of 2019, she was here for pneumonia. Echocardiogram at that time showed moderate pulmonary hypertension, normal ejection fraction, and a patent bioprosthetic aortic valve. Actually, the patient had a TAVR in November of 2017. She also is status post pacemaker. Has a history of hypertension, COPD, atrial fibrillation, diabetes, hypothyroidism, diastolic congestive heart failure, and dyslipidemia. Came in with shortness of breath, weakness, was found to have congestive heart failure on chest x-ray. Was also found to have a UTI, hyponatremia. Glucose was 190. Her BNP was 10,006. Her troponin was negative. Patient has already received Lovenox and Lasix and is improving. Her O2 saturation on BiPAP is 96%. She denied any chest pain or syncope or palpitation. Denied any fever or chills or cough. Hospital Course: Patient presented with shortness of breath secondary to acute on chronic diastolic CHF with moderate pulmonary hypertension. The patient was admitted for diuresis. Patient was seen by Cardiology. No further intervention was required. Patient did well with diuresis. Patient takes Aldactone. Additional medication is recommended. At discharge patient will continue with home oxygen to maintain sats above 93%. Home health and physical therapy will be arranged. At discharge cardiology recommends to continue Aldactone 25 mg daily and Demadex 20 mg daily. Recommend to continue a 1500 cc per day fluid restriction and low- salt diet. Recommend to monitor her weight daily. If her weight increases by more than 5 lb she is to contact cardiology for further recommendation. Recommend follow up with cardiology to further monitor and address within 1 week. She patient with atrial fibrillation on chronic anti coagulation therapy. This has remained stable. At discharge she will continue with amiodarone 200 mg daily and Eliquis 2.5 mg 1 pill twice daily. Patient with diabetes mellitus type 2. She is insulin dependent. At discharge she will continue with her current medication Lantus 15 units subcu daily. Recommend to maintain blood sugar less than 140 fasting and less than 200 after meals. Further adjustment can be done by her PCP. Patient with hypothyroidism. At discharge she will continue with levothyroxine 25 mcg daily. Patient with hyperlipidemia. At discharge she will continue with Zocor daily. Patient with history of transcatheter bioprosthetic heart valve replacement. This has remained stable. Continue with above recommendations. Patient with COPD. At discharge she will continue with her medication. Patient will continue with home oxygen to maintain sats above 93%. Vital Signs/Physical Exam: Temp Pulse Resp BP Pulse Ox 97.1 F 61 18 121/62 98 09/09/19 08:00 09/09/19 10:23 09/09/19 08:00 09/09/19 10:23 09/09/19 08:00 General: Alert, In no apparent distress, Cooperative HEENT: Atraumatic Neck: Supple Respiratory: Clear to auscultation bilaterally, Normal air movement Cardiovascular: Normal pulses, Regular rate/rhythm Gastrointestinal: Normal bowel sounds, Soft and benign, Non-distended Neurological: Normal speech, Normal strength at 5/5 x4 extr, Normal tone, Normal affect Laboratory Data at Discharge: WBC 8.4 K/uL (4.3-10.9) D 09/09/19 03:22 Hgb 13.3 g/dL (12.0-15.0) 09/09/19 03:22 Hct 40.5 % (36.0-45.0) 09/09/19 03:22 Plt Count 194 K/uL (152-406) 09/09/19 03:22 PT 15.5 SECONDS (9.5-12.5) H 09/08/19 16:40 INR 1.32 09/08/19 16:40 Sodium 132 mmol/L (136-145) L 09/09/19 03:22 Potassium 5.1 mmol/L (3.5-5.1) 09/09/19 03:22 BUN 23 mg/dL (7-18) H 09/09/19 03:22 Creatinine 0.89 mg/dL (0.55-1.3) 09/09/19 03:22 Glucose 75 mg/dL (74-106) 09/09/19 03:22 Phosphorus 3.8 mg/dL (2.5-4.9) 09/09/19 03:22 Magnesium 2.2 mg/dL (1.8-2.4) 09/09/19 03:22 Total Bilirubin 0.8 mg/dL (0.2-1.0) 09/09/19 03:22 AST 115 U/L (15-37) H 09/09/19 03:22 ALT 75 U/L (12-78) 09/09/19 03:22 Alkaline Phosphatase 114 U/L (45-117) 09/09/19 03:22 Triglycerides 54 mg/dL (<150) 09/09/19 03:22 Cholesterol 113 mg/dL (<200) 09/09/19 03:22 HDL Cholesterol 55 mg/dL (40-60) 09/09/19 03:22 Cholesterol/HDL Ratio 2.05 09/09/19 03:22 Home Medications: Insulin Glargine Human [Lantus*] 15 unit SQ DAILY 02/04/13 Simvastatin 20 mg PO BEDTIME 02/04/13 Bimatoprost [Lumigan Opthalmic Drops*] 1 drop EACH EYE DAILY 04/14/15 Amiodarone HCl [Cordarone*] 200 mg PO DAILY 04/19/19 Apixaban [Eliquis *] 2.5 mg PO BID 04/19/19 Levothyroxine [Synthroid*] 25 mcg PO [id number] 04/19/19 Ospemifene [Osphena] 60 mg PO DAILY 04/19/19 Potassium Oral Tab [Klor-Con 10 mEq Tab*] 10 meq PO DAILY #30 tab 04/24/19 Albuterol Sulfate [Proair Hfa] 2 puff IH Q6HP PRN 09/08/19 Cranberry Fruit Extract [Ellura] 1 tab PO DAILY 09/08/19 Fluticasone/Vilanterol [Breo Ellipta 200-25 Mcg INH] 1 puff IH BID 09/08/19 Spironolactone 25 mg PO DAILY 09/08/19 Torsemide [Demadex] 20 mg PO DAILY #30 tab 09/09/19 New Medications: Torsemide [Demadex] 20 mg PO DAILY #30 tab Patient Discharge Instructions: 1. Recommend follow up with PCP in 1 week to follow up this hospitalization. 2. Patient presented with shortness of breath secondary to acute on chronic diastolic CHF with moderate pulmonary hypertension. The patient was admitted for diuresis. Patient was seen by Cardiology. No further intervention was required. Patient did well with diuresis. Patient takes Aldactone. Additional medication is recommended. At discharge patient will continue with home oxygen to maintain sats above 93%. [facility] and physical therapy will be arranged. At discharge cardiology recommends to continue Aldactone 25 mg daily and Demadex 20 mg daily. Recommend to continue a 1500 cc per day fluid restriction and low-salt diet. Recommend to monitor her weight daily. If her weight increases by more than 5 lb she is to contact cardiology for further recommendation. Recommend follow up with cardiology to further monitor and address within 1 week. 3. She patient with atrial fibrillation on chronic anti coagulation therapy. This has remained stable. At discharge she will continue with amiodarone 200 mg daily and Eliquis 2.5 mg 1 pill twice daily. 4. Patient with diabetes mellitus type 2. She is insulin dependent. At discharge she will continue with her current medication Lantus 15 units subcu daily. Recommend to maintain blood sugar less than 140 fasting and less than 200 after meals. Further adjustment can be done by her PCP. 5. Patient with hypothyroidism. At discharge she will continue with levothyroxine 25 mcg daily. 6. Patient with hyperlipidemia. At discharge she will continue with Zocor daily. 7. Patient with history of transcatheter bioprosthetic heart valve replacement. This has remained stable. Continue with above recommendations. 8. Patient with COPD. At discharge she will continue with her medication. Patient will continue with home oxygen to maintain sats above 93%. Diet: ADA (1500 cc per day fluid restriction) Activity: Fall precautions Time spent managing pt's care (in minutes): 55
--- NOTE | 2019-09-09 12:34 | P.HP ---
Certification for Inpatient Patient admitted to: Observation With expected LOS: <2 Midnights Patient will require the following post-hospital care: None Practitioner: I am a practitioner with admitting privileges, knowledge of patient current condition, hospital course, and medical plan of care. Services: Services provided to patient in accordance with Admission requirements found in Title 42 Section 412.3 of the Code of Federal Regulations Patient History Date of Service: 09/08/19 Reason for admission: SOB History of Present Illness: Ms. Hogan is an 88-year-old Latin-Kyrgy[place] woman. She Presented to the hospital with shortness of breath. Patient has a history of congestive heart failure as she has had a bioprosthetic valve placed. This was done a couple of years ago. She also has a history of a pacemaker placement. She came into the hospital for worsening shortness of breath. Patient had an echocardiogram in April which revealed moderate pulmonary hypertension, normal ejection fraction, and a patent bioprosthetic aortic valve. Patient also has a history of pacemaker placement along wth hypertension, COPD, atrial fibrillation, diabetes, hypothyroidism, diastolic congestive heart failure, and dyslipidemia. Patient's workup in the emergency room revealed pulmonary edema as well as a urinary tract infection. Patient also has slightly hyponatremic. Patient will be admitted to the hospital for further evaluation. Patient was initially placed on BiPAP support. Will wean this off and get her back down to room air after we gently di urese the patient. Allergies Metronidazole HCl [From Flagyl] Allergy (Verified 11/24/17 08:51) Hives/Rash zolpidem tartrate [From Ambien] Adverse Reaction (Verified 11/24/17 08:51) HALLUCINATIONS Clindamycin Allergy (Uncoded 12/05/17 02:47) Hives/Rash Home Medications: Insulin Glargine Human [Lantus*] 15 unit SQ DAILY 02/04/13 Simvastatin 20 mg PO BEDTIME 02/04/13 Bimatoprost [Lumigan Opthalmic Drops*] 1 drop EACH EYE DAILY 04/14/15 Amiodarone HCl [Cordarone*] 200 mg PO DAILY 04/19/19 Apixaban [Eliquis *] 2.5 mg PO BID 04/19/19 Levothyroxine [Synthroid*] 25 mcg PO [id number] 04/19/19 Ospemifene [Osphena] 60 mg PO DAILY 04/19/19 Potassium Oral Tab [Klor-Con 10 mEq Tab*] 10 meq PO DAILY #30 tab 04/24/19 Albuterol Sulfate [Proair Hfa] 2 puff IH Q6HP PRN 09/08/19 Cranberry Fruit Extract [Ellura] 1 tab PO DAILY 09/08/19 Fluticasone/Vilanterol [Breo Ellipta 200-25 Mcg INH] 1 puff IH BID 09/08/19 Spironolactone 25 mg PO DAILY 09/08/19 Torsemide [Demadex] 20 mg PO DAILY #30 tab 09/09/19 levoFLOXacin [Levaquin] 250 mg PO DAILY #7 tab 09/09/19 - Past Medical/Surgical History Has patient received pneumonia vaccine in the past: Yes Diabetic: Yes -: Hyperlipidemia -: Glaucoma -: HTN -: A-fib -: blind right eye -: asthma -: mitral valve replacement -: pancreatic/spleenic CA w/ resection -: oophorectomy -: cholecystectomy -: giovanny cataract surgery -: left breast mass removal -: pacemaker -: heart cath 11/28/17 - Family History Father Medical History: Lung disease - Social History Smoking Status: Unknown if ever smoked Alcohol use: No CD- Drugs: No Caffeine use: Yes Place of Residence: Home Review of Systems 10-point ROS is otherwise unremarkable Physical Examination - Vital Signs Temperature: 98 F Blood Pressure: 91/65 Pulse: 62 Respirations: 20 Pulse Ox (%): 97 - Physical Exam General: Alert, In no apparent distress, Oriented x3, Other (Patient is Malaysian speaking only ) HEENT: Atraumatic, PERRLA, Mucous membr. moist/pink, EOMI, Sclerae nonicteric Neck: Supple, 2+ carotid pulse no bruit, No LAD, Without JVD or thyroid abnormality Respiratory: Diminished, Crackles/rales Cardiovascular: Regular rate/rhythm, Normal S1 S2, Systolic murmur Gastrointestinal: Normal bowel sounds, Soft and benign, Non-distended, No tenderness Musculoskeletal: No clubbing, No tenderness, Swelling Integumentary: No rashes, No warmth Neurological: Normal gait, Normal speech, Normal strength at 5/5 x4 extr, Normal tone, Sensation intact, Cranial nerves 3-12 intact, Normal affect Lymphatics: No axilla or inguinal lymphadenopathy - Studies Laboratory Data (last 24 hrs) 09/08/19 16:40: PT 15.5 H, INR 1.32 09/08/19 16:40: WBC 10.4, Hgb 14.6, Hct 45.4 H, Plt Count 216 09/08/19 16:40: Sodium 125 L, Potassium 5.3 H, BUN 23 H, Creatinine 0.89, Glucose 190 H, Magnesium 2.4, Total Bilirubin 1.1 H, AST 70 H, ALT 52, Alkaline Phosphatase 148 H Assessment & Plan - Problems (Diagnosis) (1) Acute systolic CHF (congestive heart failure) Current Visit: Yes Status: Acute (2) Acute diastolic CHF (congestive heart failure) Current Visit: Yes Status: Acute (3) Atrial fibrillation Onset Date: 04/15/15 Current Visit: No Status: Acute (4) Atrioventricular block, complete Onset Date: 11/18/15 Current Visit: No Status: Acute (5) Bilateral pneumonia Onset Date: 03/22/17 Current Visit: No Status: Acute (6) Cellulitis of right lower extremity Onset Date: 12/14/17 Current Visit: No Status: Acute (7) Hyponatremia Onset Date: 12/14/17 Current Visit: No Status: Acute (8) Hypotension Onset Date: 12/15/17 Current Visit: No Status: Acute (9) SOB (shortness of breath) Onset Date: 10/30/17 Current Visit: No Status: Acute (10) Urinary tract infectious disease Onset Date: 01/30/15 Current Visit: No Status: Acute - Plan Plan: - Echocardiogram has been reviewed from April - Continue with cardiac meds - Continue with low dose Beta daphne - Cardiology consultation - Aggressive diuresis - Strict I's and O's - Repeat CXR - Daily weights - Education regarding diet and treatment of congestive heart failure Discharge Plan: Home Plan to discharge in: Greater than 2 days - Advance Directives Does patient have a Living Will: Yes Does patient have a Durable POA for Healthcare: Yes - Code Status/Comfort Care Code Status Assessed: Yes Code Status: Full Code Critical Care: No Time Spent Managing PTS Care (In Minutes): 45
--- NOTE | 2019-09-09 13:24 | PN ---
Date of Progress Note: 09/09/2019 Ms. Hogan was admitted yesterday with congestive heart failure. She has a history of hypertension, atrial fibrillation, TAVR, dyslipidemia, diabetes, COPD, has a pacemaker. She had sodium yesterday 05 11. She was diuresed well. Her sodium today is 132. Her BNP [place] 9608. She is on Lasix and Aldactone. She is to continue her home medication including her amiodarone. She is also on Mely myra. When she goes home, she needs to continue all home medicine plus p.o. Lasix as well. We will see her in the office in the near future. Echocardiogram will be done as an outpatient. LOU/BURT Voice ID: [id number] Report ID: [id number]
[2019-09-09] MEDS: INSULIN -REGULAR HUMAN 50 UNIT/0.5 ML ML SQ SCH ×2 (16:30→20:43)
[2019-09-09] MEDS ORDERED: HOME MED 1 EA UNK (Simvastatin [Simvastatin] 20 MG) PO SCH (21:00)
[2019-09-09] MEDS ORDERED: INSULIN GLARGINE 100 UNITS/ML SQ SCH (21:00)
[2019-09-09] MEDS ORDERED: ATORVASTATIN 10 MG TAB PO SCH (21:00)
[2019-09-10 05:36] VITALS: BMI 28.3
[2019-09-10] MEDS ORDERED: LEVOTHYROXINE SOD 0.025 MG TAB PO SCH (06:00)
[2019-09-10] MEDS: INSULIN -REGULAR HUMAN 50 UNIT/0.5 ML ML SQ SCH ×3 (07:30→16:30)
[2019-09-10] MEDS: SPIRONOLACTONE 25 MG TABLET PO SCH (08:13)
[2019-09-10] MEDS: CRANBERRY FRUIT EXTRACT 200 MG CAP PO SCH (08:13)
[2019-09-10] MEDS: FUROSEMIDE 40 MG/4 ML VIAL IV SCH ×2 (08:13→09:00)
[2019-09-10] MEDS: APIXABAN 2.5 MG TABLET PO SCH (08:13)
[2019-09-10] MEDS: HOME MED 1 EA UNK (Fluticasone/Vilanterol [Breo Ellipta 200-25 Mcg Inh] 1 PUFF) IH SCH (08:13)
[2019-09-10] MEDS: AMIODARONE HCL 200 MG TAB PO SCH (08:13)
[2019-09-10] MEDS ORDERED: FUROSEMIDE 20 MG TABLET PO SCH (11:54)
[2019-09-10 13:28] VITALS: O2SAT 99
[2019-09-10 16:38] VITALS: BP 104/56; TEMP 97.6
--- NOTE | 2019-09-10 20:08 | PN ---
Date of Progress Note: 09/10/2019 Code Status: Full. Medications: List reviewed. Physical Examination: Vital Signs: Temperature 97.8, heart rate 72, blood pressure 117/60, respirations 16, O2 93% on 2-1/ 2 L via nasal cannula. General: Awake and alert, not in any acute distress elderly female. CV: S1, S2. Peripheral pulses present. Respiratory: Moving air well bilaterally. No wheezing or stridor. Gastrointestinal: Abdomen is soft, nontender, nondistended. Positive bowel sounds. Extremities: No clubbing, cyanosis. Minimal pedal edema. Neuro: Cranial nerves 2 through 12 intact grossly. No focal neurological deficit. Speech is normal . Laboratory Data: Blood glucose level ranging from 95 to 76. Urine culture growing out E coli. Woun d from the right calf shows no growth to date. Assessment And Plan: 1.Acute on chronic diastolic congestive heart failure, improving. We will continue diuresis. 2.Moderate pulmonary hypertension. 3.Hypoxia secondary to congestive heart failure. Awaiting set up for home O2. 4.Atrial fibrillation, on Eliquis, dose adjusted. 5.Mixed hyperlipidemia, on statin. 6.Diabetes mellitus type 2, insulin dependent. We will continue with sliding scale insulin. Monito r blood glucose levels. Did have 1 episode of hypoglycemia. 7.Chronic obstructive pulmonary disease, chronic bronchitis, stable. Albuterol p.r.n. 8.History of bioprosthetic aortic valve replacement. 9.Hypothyroidism, stable. 10.Acute cystitis without hematuria secondary to Escherichia coli. We will add antibiotics. Plan: Discharge home once home O2 has been set-up. Patient is Dr. Qiu's patient, will talk over care to him in a.m. SA/MODL Voice ID: [id number] Report ID: [id number]
[2019-09-10] MEDS ORDERED: CEFUROXIME 250 MG TAB PO SCH (21:00)
[2019-09-11] MEDS ORDERED: BIMATOPROST OPHTH DROPS/2.5 ML BTL OPTH SCH (09:00)
--- NOTE | 2019-09-11 09:15 | ECHO ---
HEIGHT: 4 ft 10 in WEIGHT: 135 lb 8 oz DATE OF STUDY: 09/10/[address]: Tony Foley MD 2-DIMENSIONAL: YES M.MODE: YES DOPPLER: YES COLOR FLOW: YES TDS: PORTABLE: DEFINITY: BUBBLE STUDY: DIAGNOSIS: CONGESTIVE HEART FAILURE CARDIAC HISTORY: CATHERIZATION: YES SURGERY: YES PROSTHETIC VALVE: YES PACEMAKER: YES MEASUREMENTS (cm) DIASTOLIC (NORMALS) SYSTOLIC (NORMALS) IVSd 1.1 (0.6-1.2) LA Diam 4.5 (1.9-4.0) LVEF 68% LVIDd 3.6 (3.5-5.7) LVIDs 2.3 (2.0-3.5) %FS 37% LVPWd 1.2 (0.6-1.2) Ao Diam 2.4 (2.0-3.7) 2 DIMENSIONAL ASSESSMENT: RIGHT ATRIUM: NORMAL LEFT ATRIUM: DILATED RIGHT VENTRICLE: NORMAL LEFT VENTRICLE: NORMAL TRICUSPID VALVE: NORMAL MITRAL VALVE: MITRAL STENOSIS PULMONIC VALVE: NORMAL AORTIC VALVE: SCLEROSIS PERICARDIAL EFFUSION: NONE AORTIC ROOT: NORMAL LEFT VENTRICULAR WALL MOTION: NORMAL EJECTION FRACTION. DECREASED LEFT VENTRICULAR COMPLIANCE. DOPPLER/COLOR FLOW: MODERATE MITRAL STENOSIS - AREA 1.3 CENTIMETERS SQUARED. MODERATE TRICUSPID REGURGITATION - NORMAL RIGHT VENTRICULAR SYSTOLIC PRESSURE 64mmHg. COMMENTS: NORMAL LEFT VENTRICULAR SIZE. DECREASED LEFT VENTRICULAR COMPLIANCE. LEFT ATRIAL ENLARGEMENT. MODERATE MITRAL STENOSIS - AREA 1.3 CENTIMETERS SQUARED. AORTIC SCLEROSIS, NO STENOSIS. TECHNOLOGIST: LILIA ROBIN
== END 2019-09-10 19:09 | disposition home health service (06) ==
LOC: ER 16:31 → ERHOLD 19:31 → INTOOBSV 19:31 → 4TH 21:35 → 2ND 09-09 05:43
PROVIDERS: ADMIT Hospitalist; ATTEND Family Medicine
PROC: 5A09357 Assistance with Respiratory Ventilation, Less than 24 Consecutive Hours, Continuous Positive Airway Pressure (ICD-10-PCS; principal; 2019-09-08)
DX: I11.0 Hypertensive heart disease with heart failure (principal); I50.33 Acute on chronic diastolic (congestive) heart failure; E87.1 Hypo-osmolality and hyponatremia; N30.00 Acute cystitis without hematuria; B96.20 Unspecified Escherichia coli [E. coli] as the cause of diseases classified elsewhere; I27.20 Pulmonary hypertension, unspecified; R09.02 Hypoxemia; E78.5 Hyperlipidemia, unspecified; H40.9 Unspecified glaucoma; I48.91 Unspecified atrial fibrillation; H54.7 Unspecified visual loss; I44.2 Atrioventricular block, complete; E11.9 Type 2 diabetes mellitus without complications; J44.9 Chronic obstructive pulmonary disease, unspecified; E03.9 Hypothyroidism, unspecified; E78.2 Mixed hyperlipidemia; Z79.01 Long term (current) use of anticoagulants; Z20.828 Contact with and (suspected) exposure to other viral communicable diseases
CPT/HCPCS: 96365; 93005; 93306; 87088; 87070; 85025 ×2; 87086; 80048; 36415; 83735 ×2; 87205; 84100; 85610; 80061; 82947 ×10; 80076; 87077; 87186; 81003; 84484; 80053; 84145; 83880 ×2; 71045; 97116 ×2; 97161; 97530 ×2; 94760 ×3; 94660 ×4; 51702; 96375; 99285; U0002; J1940 ×3; J0696; G0378 ×3; J1650; J1815

== ENCOUNTER 2019-10-25 11:03 | Inpatient (IN) | payer OTHER ==
--- OUTSIDE RECORDS SUMMARY | 2019-10-25 11:30 | XMS REPORT | Clinical Summary ---
:1930 Author Organization [facility] Address [address] [place] [address] Care Team Providers Name Role Phone Khadijah Qiu MD Primary Care Provider [phone] [facility] Unavailable Allergies Active Allergy Reactions Severity Noted [...] 12/29/2017 Hyponatremia 12/29/2017 Hyperlipidemia 12/17/2017 Patient is Mu-ism 12/17/2017 Sepsis due to Escherichia coli 12/16/2017 UTI (urinary tract infection) 12/16/2017 CAD (coronary artery disease) 12/16/2017 SOB (shortness of breath) 12/16/2017 Cancer 04/17/2011 Overview: pancreas (tail) and spleen Severe aortic stenosis Insulin dependent diabetes mellitus Hypertension Asthma COPD (chronic obstructive pulmonary disease) Pacemaker S/P MVR (mitral valve repair) Atrial fibrillation CHF (congestive heart failure) Pulmonary hypertension Obesity Advanced age Frailty Encounters Date Type Specialty Care Team Description 09/09/2019 Lab Requisition Lab after 10/24/2018 Family History Medical History Relation Name Comments [...] Health Maintenance Due Date Last Done Comments DIABETIC EYE EXAM 09/17/1940 URINE MICROALBUMIN 09/17/1941 PNEUMOCOCCAL 65+ HIGH/HIGHEST RISK (2 of 2 - PCV13) 01/31/2016 01/30/2015 HEMOGLOBIN A1C 12/07/2017 MEDICARE ANNUAL WELLNESS (YEAR 2 or FIRST YEAR if no 04/18/2018 IPPE) INFLUENZA VACCINE (#1) 2019 Implants Implanted Type Area Certified Nurses' Aide Device Shelf Model / Identifier Expiration Serial / Date Lot Valve Heart Amanda 3 23mm [id number] - [id number] Valves N/A: SHELL [employer] 09/19/2019 [id number] / Implanted: Qty: 1 on 12/28/2017 by [facility] [id number] / Procedures Procedure Name Priority Date/Time Associated Diagnosis Comme nts SARS-COV2/RT-PCR Routine 09/08/2019 7:56 PM Resu lts for this ([facility]) CDT procedure are in the results section. after 10/24/2018 Results SARS-CoV2/RT-PCR ([facility]) (09/08/2019 7:56 PM CDT) SARS-COV2/RT-PCR Not Detected Not Detected, Negative [facility] SARS-COV-2 PERFORMING LAB [facility] Specimen Other Narrative Performed At Negative results do not preclude SARS-CoV-2 [facility] infection and should not be used as the sole basis for patient management decisions. Negative results must be combined with clinical observations, patient history, and epidemiological information. A false negative result may occur if a specimen is improperly collected, transported or handled. The limit of detection for this assay is 250 copies/mL. This SARS CoV-2 test is a rapid, real-time RT-PCR test intended for the qualitative detection of nucleic acid from SARS-CoV-2 in a nasopharyngeal swab specimen collected from individuals suspected of COVID-19 by their healthcare provider. This test has not been Food and Drug Administration (FDA) cleared or approved and has been authorized by FDA under an Emergency Use Authorization (EUA). This EUA will be effective until the declaration that circumstances exist justifying the authorization of the emergency use of in vitro diagnostic tests for detection and/or diagnosis of COVID-19 is terminated under Section 564(b)(2) of the Act or the EUA is revoked under Section 564(g) of the Act. Fact Sheet for Healthcare Providers: https://www.[employer] [place]/Documents/Xpert%20Xpre ss%20SARS%20CoV-2/Fact%20Sheets/302-3802%20SAR S-COV-2%20HEALTHCARE%20PROVIDERS%20FACT%20SHEE T.pdf Fact Sheet for Healthcare Patients: https://www.[employer]/Documents/Xpert%20Xpre ss%20SARS%20CoV-2/Fact%20Sheets/302-3801%20SAR S-COV-2%20PATIENT%20FACT%20SHEET.pdf Performing Laboratory: [facility] [address] [place] [address] Performing Organization Address City/State/Zipcode Phone Number [facility] [address] [place], [place] [phone] CENTER after 10/24/2018 Insurance Payer Benefit Plan / Group Subscriber ID Type Phone A ddress CARE IMPROVEMENT MEDICARE CARE IMPROVEMENT PLUS xxxxxxxxx MGD CARE MEDICAID MEDICAID [facility] xxxxxxxxx Medicaid Advance Directives Patient has advance care planning documents, and code status on file. For more information, please contact:[facility] [place] [address] [phone] Code Status Date Activated Date Inactivated Comments [...]
--- OUTSIDE RECORDS SUMMARY | 2019-10-25 11:34 | XMS REPORT | Continuity of Care Document ---
:1930 Author Organization [facility] t Address [address] [place] [address] Care Team Providers Name Role Phone Uyen BALBUENA, Khadijah Ruiz Primary Care Physician Kerrie ELLISON Attending Clinician Unavailable MARIE SIEGEL Attending Clinician Unavailable Kerrie ELLISON Admitting Clinician Unavailable Payers Payer Name Policy Policy Number Effective Expiration Source Type Date Date CARE IMPROVEMENT MEDICARE xxxxxxxxx [facility] CARECARE IMPROVEMENT [facility] - PLUSxxxxxxxxx [facility] MEDICAID[place]ICAID OF x[place] [facility] [place] [facility] Problems Condition Condition Condition Status Onset Resolution Last Treating Co mments Source Name Details Category Date Date Treatment Clinician Date Anemia Anemia Disease [facility] Medical 00 [place] Hematoma Hematoma Disease Active [facility] of groin, of groin, 12-29 [facility] - sequela sequela 00:00: Medical 00 [place] Ulcer of Ulcer of Disease Active [facility] left lower left lower 12[facility]29 [facility] - leg leg 00:00: Medical 00 [place] Acute on Acute on Disease Active [facility] chronic chronic 12-29 [facility] - systolic systolic 00:00: Medica l (congestiv (congestiv 00 Ce nter e) heart e) heart failure failure Hyponatrem Hyponatrem Disease Active [facility] ia ia 12-29 [facility] - 00:00: Medical 00 [place] Hyperlipid Hyperlipid Disease Active [facility] emia emia 12-17 [facility] - 00:[facility]: Medical 00 Center Patient is Patient is Disease Active [facility] Jehovah's Jehovah's 12-17 [facility] - Witness Witness 00:00: Medical 00 [place] Sepsis due Sepsis due Disease Active [facility] to to 12-16 [facility] - [place] 00:00: Me dical a coli a coli 00 Center UTI UTI Disease Active [facility] (urinary (urinary 12-16 [facility] - tract tract 00:00: Medical infection) infection) 00 Ce nter CAD CAD Disease Active [facility] (coronary (coronary 12-16 [facility] - artery artery 00:00: Medical disease) disease) 00 Center SOB SOB Disease Active [facility] (shortness (shortness 12-16 Lilia kes - of breath) of breath) 00:00: Me dical 00 [place] Cancer Cancer Disease Active Overview: [facility] pancreas [facility] - 00:00: (tail) Medical 00 and Center 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 [facility] - stenosis stenosis Medica l [place] Insulin Insulin Disease Active [facility] dependent dependent [facility] - diabetes diabetes Medica l mellitus mellitus Center Hypertensi Hypertensi Disease Active [facility] on on [facility] Asthma Asthma Disease Active [facility] COPD COPD Disease Active [facility] (chronic (chronic [facility] - obstructiv obstructiv Me dical e e Center pulmonary pulmonary disease) disease) Pacemaker Pacemaker Disease Active [facility] 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) [place] 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[facility] fibrillati fibrillati [facility] - on on Medical Center CHF CHF Disease Active [facility] (congestiv (congestiv [facility] kes - e heart e heart Medical failure) failure) [place] Pulmonary Pulmonary Disease Active [facility] hypertensi hypertensi Lilia kes - on on [facility] Obesity Obesity Disease Active [facility] Advanced Advanced Disease Active [facility] age age [facility] Frailty Frailty Disease Active [facility] Allergies, Adverse Reactions, Alerts Allergy Allergy Status Severity Reaction(s) Onset Inactive Treating Comm ents Source Name Type Date Date Clinician Riddhi Nobles Active [facility] em[facility] ty to 12-07 [facility] - adverse 00:00: Medical reaction 00 Center s Metronid Propensi Active [facility] azole ty to [facility] - adverse Medical reaction [facility] [facility] Zolpidem Propensi Active [facility] ty to [facility] adverse Medical reaction [place] Family History Family Member Diagnosis Comments Start Date Stop Date Source Natural brother Cancer [facility] Natural father Asthma [facility] Social History Social Habit Start Date Stop Date Quantity Comments Source Sex Assigned At [facility] Tobacco Comment 2017-12-11 2017-12-11 quit in 1971 [facility] 00:00:00 00:00:00 [facility] Smoking Status Start Date Stop Date Source Former smoker 2017-12-29 00:00:00 2017-12-29 00:00:00 [facility] Medications Ordered Filled Start Stop Current Ordering Indication Dosage Frequency Signature Comments Components Source Medication Medication Date Date Medication? Clinician (SIG) Name Name torsemide 2019- No 20mg QD Take 1 [facility] (DEMADEX) 01-02 tablet (20 Zenaida es - 20 MG 00:00: 23:59 mg total) Medica l tablet 00 :00 by mouth Center daily. apixaban Yes 2.5mg Q.5D Take [address] (ELIQUIS) 01-01 tablet [facility] - 2.5 mg Tab 00:00: (2.5 mg Medi hannah tablet 00 total) by Center mouth 2 (two) times daily. amiodarone 2019- No 200mg QD Take [address] (PACERONE) 01-01- tablet [facility] - 200 MG 00:00: 23:59 (200 mg Medical tablet 00 :00 total) by Center mouth daily. insulin Yes 15U QD Inject 15 [facility] glargine 8-23 Units [facility] - (LANTUS) 09:02: subcutaneo Med ical 100 unit/mL 48 usly Center injection nightly Use as directed . estradiol Yes 2g Q7D Place [address] (ESTRACE) 8-23 vaginally [facility] - 0.01 % (0.1 09:02: once a Medi hannah mg/gram) 48 week. Center vaginal cream bimatoprost 2017- Yes 1[drp] QD Place [address] (LUMIGAN) 8-23 drop into [facility] - 0.01 % Drop 09:02: both eyes M edical ophthalmic 47 nightly. Cente r solution albuterol 2017- Yes 2{puff} Inhale [address] HFA 8-23 puffs by [facility] - (VENTOLIN 09:02: mouth via Med ical HFA) 90 47 inhaler Center mcg/actuati every 6 on inhaler (six) hours as needed for Wheezing. fluticasone 2017- Yes 1{puff} QD Inhale [address] -vilanterol 8-23 puff by [facility] - (BREO 09:02: mouth via Medical ELLIPTA) 47 inhaler Center 100-25 daily. mcg/dose DsDv Procedures Procedure Date / Time Performed Performing Clinician Sour e SARS-COV2/RT-PCR ([facility] 2019-09-08 19:56:00 [facility] Medical Center Plan of Care Planned Activity Planned Date Details Comments Source Future Scheduled 2019-12-17 INFLUENZA VACCINE (#1) [facility] - Test 00:00:00 [code = INFLUENZA Medical Ce nter VACCINE (#1)] Future Scheduled 2018-04-[address] [facility] - Test 00:00:00 WELLNESS (YEAR 2 or Medical Center FIRST YEAR if no IPPE) [code = MEDICARE ANNUAL WELLNESS (YEAR 2 or FIRST YEAR if no IPPE)] Future Scheduled 2017-12-[address] Lilia kes - Test 00:00:00 measurement Medical Center (procedure) [code = 99266784] Future Scheduled 2016-01-31 PNEUMOCOCCAL [address] - Test 00:00:00 HIGH/HIGHEST RISK (2 Medical Center of 2 - PCV13) [code = PNEUMOCOCCAL 65+ HIGH/HIGHEST RISK (2 of 2 - PCV13)] Future Scheduled 1941-09-17 DIABETIC EYE EXAM [facility] - Test 00:00:00 [code = DIABETIC EYE Medical Center EXAM] Future Scheduled 1941-09-17 Urine screening for [facility] - Test 00:00:00 protein (procedure) [facility] [code = 583600539] Results Test Description Test Time Test Comments Results Result Comments Source SARS-CoV2/RT-PCR ([facility] & Ref Labs) 2019-09-09 02:59:00 Test Item Value Reference Range Interpretation Comme nts SARS-COV2/RT-PCR (test code = Not Detected Not Detected, Negative 92228-8) SARS-COV-2 PERFORMING LAB [facility] (test code = 65668-0) SHELBY (test code = SHELBY) Negative results do not preclude SARS-CoV-2 infection and should not be used as [...] of the Act. Fact Sheet for Healthcare Providers:https://www.C[employer]/Documents/Xpert%20Xpress %20SARS%20CoV-2/Fact%20Sheets /302-7382%98YAHO-OCG-2%20HEAL THCARE%20PROVIDERS%20FACT%20S HEET.pdf Fact Sheet for Healthcare Patients:https://www.[employer]/Documents/Xpert%20Xpress% 20SARS%20CoV-2/Fact%20Sheets/ 302-7801%67ZFTA-BAB-4%20PATIE NT%20FACT%20SHEET.pdf Performing Laboratory:[facility], [place] [id number] [place] [address]-COV2/RT-PCR ([facility])2019-09-09 02:59:00 Test Item Value Reference Range Interpretation Comments SARS-COV2/RT-PCR (test Not Detected Not Detected, Negative code = 3631015) SARS-COV-2 PERFORMING LAB [facility] (test code = 7839963) Negative results do not preclude SARS-CoV-2 infection and should not be used as the sole basis for patient management decisions. Negative results must be combined with clinical observations, patient history, and epidemiological information. A false negative result may occur if a specimen is improperly collected, transported or handled.The limit of detection for this assay is 250 copies/mL.This SARS CoV-2 test is a rapid, real-time RT-PCR test intended for the qualitative detection of nucleic acid from SARS-CoV-2 in a nasopharyngeal swab specimen collected from individuals suspected of COVID-19 by their healthcare provider.This test has not been Food and Drug [...] is revoked under Section 564(g) of the Act.Fact Sheet for Healthcare Pro viders:https://www.Joldit.com.[employer]/Documents/Xpert%20Xpress%20SARS%20CoV-2/Fact%20Sh eets/302-9422%19KUQR-VXO-0%20HEALTHCARE%20PROVIDERS%20FACT%20SHEET.pdfFact Sheet for Healthcare Patients:https://www.[employer]/Documents/Xpert%20Xpress%20SARS%20CoV-2/Fact%20Sheets/3023801%20SARS-COV -2%20PATIENT%20FACT%20SHEET.pdfPerforming Laboratory:[place] [address], [place] [address]OHCY-SUTKDEI [id number] 09:11:00 Test Item Value Reference Range Interpretation Comments POC-GLUCOSE METER 107 mg/dL 70-110 TESTED AT [place] [address] ([facility]) (test code = CRUZ Bean [facility] 1538) [address] POCT-GLUCOSE [id number] 21:36:00 Test Item Value Reference Range Interpretation Comments POC-GLUCOSE METER 153 mg/dL 70-110 H TESTED AT [place] [address] ([facility]) (test code = CRUZ Bean [facility] 1538) 51027 POCT-GLUCOSE [id number] 18:41:00 Test Item Value Reference Range Interpretation Comments POC-GLUCOSE METER 109 mg/dL 70-110 TESTED AT [place] [address] ([facility]) (test code = CRUZ Bean [facility] 1538) [address]233 POCT-GLUCOSE [id number] 13:04:00 Test Item Value Reference Range Interpretation Comments POC-GLUCOSE METER 152 mg/dL 70-110 H TESTED AT [place] [address] ([facility]) (test code = CRUZ Bean [facility] 1538) 21911 POCT-GLUCOSE [id number] 08:44:00 Test Item Value Reference Range Interpretation Comments POC-GLUCOSE METER 100 mg/dL 70-110 TESTED AT [place] [address] ([facility]) (test code = [facility] Vikas [facility] 1538) [address] (CELLAVISION MANUAL DIFF)2017-12-31 08:07:00 Test Item Value [...] = 3438) Received comment: User comments: Slide comments:[id number] 05:39:00 Test Item Value Reference Range Interpretation Comments MAGNESIUM (BEAKER) 1.7 mg/dL 1.6-2.6 Specimen slightly (test code = 627) hemolyzed BASIC METABOLIC [id number] 05:39:00 Test Item Value Reference Range Interpretation [...] PATIEN TS. CBC W/PLT COUNT & AUTO [id number] 05:13:00 Test Item Value Reference Range Interpretation [...] 0-0 (BEAKER) (test code = 413) POCT-GLUCOSE [id number] 20:52:00 Test Item Value Reference Range Interpretation Comments POC-GLUCOSE METER 150 mg/dL 70-110 H TESTED AT [facility] 6720 (BEAKER) (test code = [place] 1530) [address] URINALYSIS W/ REFLEX URINE [id number] 18:42:00 Test Item Value Reference Range Interpretation [...] 514) SOURCE(BEAKER) (test code = 2795) POCT-GLUCOSE [id number] 17:21:00 Test Item Value Reference Range Interpretation Comments POC-GLUCOSE METER 195 mg/dL 70-110 H TESTED AT [place] [address] (BEAKER) ([facility] = [facility] 1538) [address]335 POCT-GLUCOSE [id number] 13:31:00 Test Item Value Reference Range Interpretation Comments POC-GLUCOSE METER 181 mg/dL 70-110 H TESTED AT [place] [address] (BEAKER) (test [facility] = [facility] 1538) 6[address] POCT-GLUCOSE [id number] 08:23:00 Test Item Value Reference Range Interpretation Comments POC-GLUCOSE METER 117 mg/dL 70-110 H TESTED AT [place] [address] (BEAKER) (test code = [facility] Vikas [facility] 1538) 20741 POCT-GLUCOSE [id number] 21:13:00 Test Item Value Reference Range Interpretation Comments POC-GLUCOSE METER 186 mg/dL 70-110 H TESTED AT [place] [address] (BEAKER) (test [facility] = [facility] 1538) 8[address]99 POCT-GLUCOSE [id number] 18:30:00 Test Item Value Reference Range Interpretation Comments POC-GLUCOSE METER 135 mg/dL 70-110 H TESTED AT [facility] 6720 (BEAKER) (test code = [place] 1535) [address] CBC W/PLT COUNT & AUTO [id number] 15:55:00 Test Item Value Reference Range Interpretation Comments WHITE BLOOD CELL COUNT (BEAKER) 15.2 K/ L 3.5-10.5 H (test code = 775) RED BLOOD CELL COUNT (BEAKER) 3.56 M/ L 3.93-5.22 L (test code [...] PERCENT (BEAKER) (test code = 2801) POCT-GLUCOSE [id number] 12:55:00 Test Item Value Reference Range Interpretation Comments POC-GLUCOSE METER 162 mg/dL 70-110 H TESTED AT [facility] 6720 (BEAKER) (test code = [place] 1538) [address] CBC W/PLT COUNT & AUTO [id number] 10:06:00 Test Item Value Reference Range Interpretation [...] [employer] Adequate (CELLAVISION)(BEAKER) (test code = 4768) Received comment: User comments: Slide comments:POCT-GLUCOSE [id number] 08:47:00 Test Item Value Reference Range Interpretation Comments POC-GLUCOSE METER 133 mg/dL 70-110 H TESTED AT [place] [address] ([facility]) (test code = CRUZ [place] 1538) [address] [id number] 05:18:00 Test Item Value Reference Range Interpretation Comments MAGNESIUM (BEAKER) (test code = 1.8 mg/dL 1.6-2.6 627) BASIC METABOLIC [id number] 05:18:00 Test Item Value Reference Range Interpretation [...] (test code = 697) EGFR (BEAKER) (test 77 mL/min/1.73 ESTIMA OLIVIA GFR IS code = 1092) sq m NOT ACCURATE CREATININE CLEARANCE IN PREDICTING GLOMERULAR FILTRATION RATE . ESTIMATED GFR I S NOT APPLICABLE FOR DIALYSIS PATIEN TS. POCT-GLUCOSE [id number] 19:36:00 Test Item Value Reference Range Interpretation Comments POC-GLUCOSE METER 187 mg/dL 70-110 H TESTED AT [place] [address] ([facility]) (test code = CRUZ Bean [place] 1538) [address] [id number] 16:33:00 Test Item Value Reference Range Interpretation Comments ACTIVATED CLOTTING TIME 147 sec TEST ED AT [place] [address] ([facility]) (test code = CRUZ Bean [place] 441) [address] [id number] 16:09:00 Test Item Value Reference Range Interpretation Comments ACTIVATED CLOTTING TIME 274 sec TEST ED AT [place] [address] ([facility]) (test code = CRUZ Bean [facility] 441) [address] [id number] 16:09:00 Test Item Value Reference Range Interpretation Comments ACTIVATED CLOTTING TIME 257 sec TEST ED AT [place] [address] ([facility]) (test code = CRUZ Bean [facility] 441) 14857 POCT-GLUCOSE [id number] 09:19:00 Test Item Value Reference Range Interpretation Comments POC-GLUCOSE METER 115 mg/dL 70-110 H TESTED AT [place] [address] ([facility]) (test code = CRUZ Bean [facility] 1538) [address] COMPREHENSIVE METABOLIC [id number] 07:07:00 Test Item Value Reference Range Interpretation Comments TOTAL PROTEIN 5.7 gm/dL 6.0-8.3 L (BEAKER) (test code = 770) ALBUMIN (BEAKER) 3.1 g/dL 3.5-5.0 L (test code = 1145) ALKALINE PHOSPHATASE 111 U/L 40-150 (BEAKER) (test code = 346) BILIRUBIN TOTAL 0.8 mg/dL 0.2-1.2 (BEAKER) (test code = 377) SODIUM (BEAKER) (test 132 meq/L 136-145 L code = [...] S NOT APPLICABLE FOR DIALYSIS PATIEN TS. [id number] 06:31:00 Test Item Value Reference Range Interpretation Comments PARTIAL THROMBOPLASTIN TIME 33.9 seconds 22.5-36.0 (BEAKER) (test code = 760) PROTHROMBIN [id number] 06:30:00 Test Item Value Reference Range Interpretation [...] PERCENT (BEAKER) (test code = 2801) POCT-GLUCOSE [id number] 22:59:00 Test Item Value Reference Range Interpretation Comments POC-GLUCOSE METER 128 mg/dL 70-110 H TESTED AT [place] [address] ([facility]) (test code = CRUZ Bean [facility] 1538) [address]29 POCT-GLUCOSE [id number] 18:57:00 Test Item Value Reference Range Interpretation Comments POC-GLUCOSE METER 143 mg/dL 70-110 H TESTED AT [place] [address] ([facility]) (test code = CRUZ Bean [facility] 1538) 20778 POCT-GLUCOSE [id number] 12:03:00 Test Item Value Reference Range Interpretation Comments POC-GLUCOSE METER 113 mg/dL 70-110 H TESTED AT [place] [address] ([facility]) (test code = CRUZ Bean [facility] 1538) [address] POCT-GLUCOSE [id number] 08:00:00 Test Item Value Reference Range Interpretation Comments POC-GLUCOSE METER 110 mg/dL 70-110 TESTED AT [place] [address] ([facility]) (test code = CRUZ Bean [facility] 1538) 85694 POCT-GLUCOSE [id number] 21:07:00 Test Item Value Reference Range Interpretation Comments POC-GLUCOSE METER 185 mg/dL 70-110 H TESTED AT [place] [address] (BEAKER) (test code = CRUZ Bean [facility] 1538) 77184 POCT-GLUCOSE [id number] 18:42:00 Test Item Value Reference Range Interpretation Comments POC-GLUCOSE METER 110 mg/dL 70-110 TESTED AT [facility] 6720 (BEAKER) (test code = [facility] Vikas [facility] 1538) 6[address]84 POCT-GLUCOSE [id number] 11:54:00 Test Item Value Reference Range Interpretation Comments POC-GLUCOSE METER 172 mg/dL 70-110 H TESTED AT [facility] 6720 (BEAKER) (test code = [facility] 1538) [address] BASIC METABOLIC [id number] 10:16:00 Test Item Value Reference Range Interpretation [...] PATIEN TS. CBC W/PLT COUNT & AUTO [id number] 10:16:00 Test Item Value Reference Range Interpretation [...] NEUTROPHILS ABSOLUTE COUNT 5.41 K/ L 1.56-6.13 (BEAKER) (test code = [...] PERCENT (BEAKER) (test code = 2801) POCT-GLUCOSE [id number] 08:56:00 Test Item Value Reference Range Interpretation Comments POC-GLUCOSE METER 104 mg/dL 70-110 TESTED AT [facility] 6720 (BEAKER) (test code = [place] 1538) [address]794 POCT-GLUCOSE [id number] 21:49:00 Test Item Value Reference Range Interpretation Comments POC-GLUCOSE METER 163 mg/dL 70-110 H TESTED AT [place] [address] ([facility]) (test code = [place] 1538) [address] POCT-GLUCOSE [id number] 18:18:00 Test Item Value Reference Range Interpretation Comments POC-GLUCOSE METER 124 mg/dL 70-110 H TESTED AT [place] [address] ([facility]) (test code = CRUZ [place] 1538) [address] POCT-GLUCOSE [id number] 12:56:00 Test Item Value Reference Range Interpretation Comments POC-GLUCOSE METER 135 mg/dL 70-110 H TESTED AT [place] [address] ([facility]) (test code = CRUZ [place] 1538) [id number] POCT-GLUCOSE [id number] 08:50:00 Test Item Value Reference Range Interpretation Comments POC-GLUCOSE METER 131 mg/dL 70-110 H TESTED AT [place] [address] ([facility]) (test code = CRUZ Bean [place] 1538) [address] POCT-GLUCOSE [id number] 23:31:00 Test Item Value Reference Range Interpretation Comments POC-GLUCOSE METER 125 mg/dL 70-110 H TESTED AT [place] [address] ([facility]) (test code = CRUZ Bean [place] 1538) [address]209 POCT-GLUCOSE [id number] 18:55:00 Test Item Value Reference Range Interpretation Comments POC-GLUCOSE METER 114 mg/dL 70-110 H TESTED AT [place] [address] ([facility]) (test code = CRUZ Bean [place] 1538) 60448 POCT-GLUCOSE [id number] 13:26:00 Test Item Value Reference Range Interpretation Comments POC-GLUCOSE METER 121 mg/dL 70-110 H TESTED AT [place] [address] ([facility]) (test code = CRUZ Bean [place] 1538) [address]12 POCT-GLUCOSE [id number] 08:23:00 Test Item Value Reference Range Interpretation Comments POC-GLUCOSE METER 81 mg/dL 70-110 TESTED AT [place] [address] ([facility]) (test code = [place] [address] 1538) POCT-GLUCOSE [id number] 22:43:00 Test Item Value Reference Range Interpretation Comments POC-GLUCOSE METER 187 mg/dL 70-110 H TESTED AT [place] [address] ([facility]) (test code = CRUZ Bean [facility] 1538) 18166 POCT-GLUCOSE [id number] 18:01:00 Test Item Value Reference Range Interpretation Comments POC-GLUCOSE METER 149 mg/dL 70-110 H TESTED AT [place] [address] ([facility]) (test code = CRUZ Bean [facility] 1538) [address]31 POCT-GLUCOSE [id number] 12:48:00 Test Item Value Reference Range Interpretation Comments POC-GLUCOSE METER 87 mg/dL 70-110 TESTED AT [place] [address] ([facility]) (test code = CRUZ Bean [facility] [address] 1538) POCT-GLUCOSE [id number] 09:05:00 Test Item Value Reference Range Interpretation Comments POC-GLUCOSE METER 105 mg/dL 70-110 TESTED AT [place] [address] ([facility]) (test code = CRUZ Bean [facility] 1538) [address]39 POCT-GLUCOSE [id number] 08:04:00 Test Item Value Reference Range Interpretation Comments POC-GLUCOSE METER 67 mg/dL 70-110 L TESTED AT [place] [address] ([facility]) (test code = CRUZ Bean [facility] [address] 1538) POCT-GLUCOSE [id number] 21:37:00 Test Item Value Reference Range Interpretation Comments POC-GLUCOSE METER 274 mg/dL 70-110 H TESTED AT [place] [address] ([facility]) (test code = CRUZ Bean [facility] 1538) [address]45 POCT-GLUCOSE [id number] 14:28:00 Test Item Value Reference Range Interpretation Comments POC-GLUCOSE METER 84 mg/dL 70-110 TESTED AT [place] [address] ([facility]) (test code = CRUZ Bean [facility] [address] 1538) POCT-GLUCOSE [id number] 08:08:00 Test Item Value Reference Range Interpretation Comments POC-GLUCOSE METER 97 mg/dL 70-110 TESTED AT [place] [address] ([facility]) (test code = [facility] [facility] [id number] 1538) BASIC METABOLIC [id number] 06:56:00 Test Item Value Reference Range Interpretation [...] PATIEN TS. CBC W/PLT COUNT & AUTO [id number] 06:10:00 Test Item Value Reference Range Interpretation [...] PERCENT (BEAKER) (test code = 2801) POCT-GLUCOSE [id number] 21:34:00 Test Item Value Reference Range Interpretation Comments POC-GLUCOSE METER 194 mg/dL 70-110 H TESTED AT [place] [address] (BEAKER) (test code = [facility] Vikas [facility] 1538) [id number] POCT-GLUCOSE [id number] 13:42:00 Test Item Value Reference Range Interpretation Comments POC-GLUCOSE METER 120 mg/dL 70-110 H TESTED AT [place] [address] (BEAKER) (test code = [facility] Vikas [facility] 1538) [id number] POCT-GLUCOSE [id number] 08:16:00 Test Item Value Reference Range Interpretation Comments POC-GLUCOSE METER 134 mg/dL 70-110 H TESTED AT [place] [address] (BEAKER) (test code = [facility] 1538) [id number] BLOOD [id number] 06:00:00 Test Item Value Reference Range Interpretation Comments CULTURE (BEAKER) (test No growth in 5 days code = 1095) BLOOD [id number] 06:00:00 Test Item Value Reference Range Interpretation Comments CULTURE (BEAKER) (test No growth in 5 days code = 1095) POCT-GLUCOSE [id number] 21:09:00 Test Item Value Reference Range Interpretation Comments POC-GLUCOSE METER 93 mg/dL 70-110 TESTED AT [place] [address] ([facility]) (test code = [place] [address] 1538) POCT-GLUCOSE [id number] 17:50:00 Test Item Value Reference Range Interpretation Comments POC-GLUCOSE METER 103 mg/dL 70-110 TESTED AT [place] [address] ([facility]) (test code = [place] 1538) [id number] POCT-GLUCOSE [id number] 08:53:00 Test Item Value Reference Range Interpretation Comments POC-GLUCOSE METER 97 mg/dL 70-110 TESTED AT [place] [address] ([facility]) (test code = [place] [address] 1538) POCT-GLUCOSE [id number] 21:32:00 Test Item Value Reference Range Interpretation Comments POC-GLUCOSE METER 143 mg/dL 70-110 H TESTED AT [place] [address] ([facility]) (test code = [place] 1538) [address] POCT-GLUCOSE [id number] 17:35:00 Test Item Value Reference Range Interpretation Comments POC-GLUCOSE METER 110 mg/dL 70-110 TESTED AT [place] [address] ([facility]) (test code = [place] 1538) [id number] POCT-GLUCOSE [id number] 13:23:00 Test Item Value Reference Range Interpretation Comments POC-GLUCOSE METER 101 mg/dL 70-110 TESTED AT [place] [address] ([facility]) (test code = [place] 1538) [id number] POCT-GLUCOSE [id number] 07:50:00 Test Item Value Reference Range Interpretation Comments POC-GLUCOSE METER 91 mg/dL 70-110 TESTED AT [place] [address] ([facility]) (test code = [place] [address] 1538) POCT-GLUCOSE [id number] 22:30:00 Test Item Value Reference Range Interpretation Comments POC-GLUCOSE METER 131 mg/dL 70-110 H TESTED AT [place] [address] ([facility]) (test code = [place] 1538) [address] POCT-GLUCOSE [id number] 22:01:00 Test Item Value Reference Range Interpretation Comments POC-GLUCOSE METER 149 mg/dL 70-110 H TESTED AT [place] [address] ([facility]) (test code = [place] 1538) [address] CBC W/PLT COUNT & AUTO [id number] 10:35:00 Test Item Value Reference Range Interpretation Comments WHITE BLOOD CELL COUNT (BEAKER) 12.0 K/ L 3.5-10.5 H (test code = 775) RED BLOOD CELL COUNT (BEAKER) 3.04 M/ L 3.93-5.22 L (test code [...] 3438) Received comment: User comments: Slide comments:POCT-GLUCOSE [id number] 07:47:00 Test Item Value Reference Range Interpretation Comments POC-GLUCOSE METER 156 mg/dL 70-110 H TESTED AT [facility] 6720 (BEAKER) (test code = [place] 1538) [address] BASIC METABOLIC [id number] 07:03:00 Test Item Value Reference Range Interpretation [...] S NOT APPLICABLE FOR DIALYSIS PATIEN TS. [id number] 07:02:00 Test Item Value Reference Range Interpretation Comments MAGNESIUM (BEAKER) (test code = 2.1 mg/dL 1.6-2.6 627) [id number] 17:22:00 Test Item Value Reference Range Interpretation Comments POTASSIUM (BEAKER) (test code = 3.8 meq/L 3.5-5.1 379) Check Serum Potassium level 2 hours after oral potassium replacement completed or 30 min after intravenous potassium replacement.[id number] 17:22:00 Test Item Value Reference Range Interpretation Comments MAGNESIUM (BEAKER) (test code = 2.0 mg/dL 1.6-2.6 627) Check Serum Potassium level 2 hours after oral potassium replacement completed or 30 min after intravenous potassium replacement.POCT-GLUCOSE [id number] 13:31:00 Test Item Value Reference Range Interpretation Comments POC-GLUCOSE METER 127 mg/dL 70-110 H TESTED AT [facility] 67[address] (BEAKER) (test code = [place] 7688) [address] CBC W/PLT COUNT & AUTO [id number] 10:22:00 Test Item Value Reference Range Interpretation [...] User comments: Slide comments:URINALYSIS W/ REFLEX URINE [id number] 10:09:00 Test Item Value Reference Range Interpretation [...] 516) SOURCE(BEAKER) (test code = 2795) POCT-GLUCOSE [id number] 07:56:00 Test Item Value Reference Range Interpretation Comments POC-GLUCOSE METER 132 mg/dL 70-110 H TESTED AT [facility] 67[address] (BEAKER) (test code = [place] 1538) [address] BASIC METABOLIC [id number] 07:17:00 Test Item Value Reference Range Interpretation [...] S NOT APPLICABLE FOR DIALYSIS PATIEN TS. [id number] 07:14:00 Test Item Value Reference Range Interpretation Comments MAGNESIUM (BEAKER) (test code = 2.0 mg/dL 1.6-2.6 627) RAD, CHEST, 1 VIEW, NON [id number] 03:24:00Reason for exam:->to rule out shortness of [...] pneumothorax or acute bony abnormality. Signed: Justin Manzanares MDReport Verified Date/Time: 12/16/2017 03:24:14 Reading Location: [address] Reading Room VANCOMYCIN LEVEL, [id number] 00:20:00 Test Item Value Reference Range Interpretation Comments VANCOMYCIN RANDOM (BEAKER) (test 8.3 ug/mL code = 523) Reference Range: No [id number] 22:40:00 Test Item Value Reference Range Interpretation Comments PROCALCITONIN (BEAKER) (test code 0.05 ng/mL <0.05 H = 3036) SEPSIS RISK (ng/mL)Low: 0.05-0.50Intermediate: 0.51-2.00High: >=2.01B-TYPE NATRIURETIC FACTOR (BNP)2017-12-15 22:11:00 Test Item Value Reference Range Interpretation Comments B-TYPE NATRIURETIC PEPTIDE 3331 pg/mL 0-100 H (BEAKER) (test code = 700) CBC W/PLT COUNT & AUTO [id number] 22:07:00 Test Item Value Reference Range Interpretation [...] = 3438) Received comment: User comments: Slide comments:COMPREHENSIVE METABOLIC [...] 358) GLUCOSE RANDOM 141 mg/dL 70-105 H (AKER) (test code = 652) CALCIUM (BEAKER) 8.4 [...] NOT APPLICABLE FOR DIALYSIS PATIEN TS. POCT-GLUCOSE [id number] 19:09:00 Test Item Value Reference Range Interpretation Comments POC-GLUCOSE METER 184 mg/dL 70-110 H TESTED AT [facility] 67[address] ([facility]) (test code = [place] 1538) [address] B-TYPE NATRIURETIC FACTOR (BNP)2017-12-11 16:03:00 Test Item Value Reference Range Interpretation Comments B-TYPE NATRIURETIC PEPTIDE 1193 pg/mL 0-100 H ([facility]) (test code = 700) [id number] 15:49:00 Test Item Value Reference Range Interpretation Comments ALBUMIN (BEAKER) (test code = 1145) 3.2 g/dL 3.5-5.0 L CBC W/PLT COUNT & AUTO [id number] 14:39:00 Test Item Value Reference Range Interpretation Comments WHITE BLOOD CELL COUNT (BEAKER) 16.9 K/ L 3.5-10.5 H (test code = 775) RED BLOOD CELL COUNT (BEAKER) 2.92 M/ L 3.93-5.22 L (test code = 761) HEMOGLOBIN (BEAKER) (test code = 8.5 GM/DL 11.2-15.7 L 410) HEMATOCRIT (BEAKER) (test code = 26.9 % 34.1-44.9 L 411) MEAN CORPUSCULAR VOLUME (AKER) 92.1 fL 79.4-94.8 (test code = 753) [...] Received comment: User comments: Slide comments:BILIRUBIN, ADULT [id number] 13:43:00 Test Item Value Reference Range Interpretation Comments BILIRUBIN TOTAL (BEAKER) (test code 2.7 mg/dL 0.2-1.2 H = 377) BASIC METABOLIC [id number] 13:43:00 Test Item Value Reference Range Interpretation [...] FOR DIALYSIS PATIEN TS. Specimen slightly ictericPROTHROMBIN [id number] 13:36:00 Test Item Value Reference Range Interpretation [...] valves.Within 24 hours, if on CoumadinCT, CTA [id number] 16:55:00Addendum BeginsREPORT STATUS:A Addendum: I agree with the previously described non vascular findings by Dr. Haddad. Signed: Tay Keenan MDReport Verified Date/Time: 12/05/201716:55:06 Reading Location: [place] [address] Angio Body Reading RoomAddendum EndsFINAL REPORT CT [...] An addendum will be dictated by the Impregnator And Drier Helper Radiologist regarding the nonvascular findings. 6. Impression was discussed with Dr. Ellison at the time of dictation. Signed: Sudhir Haddad MDReport Verified Date/Time: 12/04/2017 12:28:54 Reading Location: [place] [address], CTA, [id number] 16:55:00 Addendum BeginsREPORT STATUS:A Addendum: I agree with the previously described non vascular findings by Dr. Haddad. Signed: Tay Keenan MDReport Verified Date/Time: 12/05/201716:55:06 Reading Location: [place] [address] Angio Body Reading RoomAddendum EndsFINAL REPORT CT [...] An addendum will be dictated by the Impregnator And Drier Helper Radiologist regarding the nonvascular findings. 6. Impression was discussed with Dr. Ellison at the time of dictation. Signed: Sudhir Hadaddeport Verified Date/Time: 12/04/2017 12:28:54 Reading Location: [place] [address] Cardiology MRI [id number] 08:55:00 Test Item Value Reference Range Interpretation Comments POC-CREATININE 0.5 mg/dL 0.6-1.3 L TESTED AT [facility] 67 (BEAKER) (test [place] code = 1859) [address] POC-EGFR mL/min/1.73M2 Insufficient clinical (ADITI) (test data to calcu late code = 1860) estimated GFR
--- NOTE | 2019-10-25 12:57 | RAD REPORT ---
EXAM DESCRIPTION: RAD - Pelvis - 10/25/2019 12:44 pm CLINICAL HISTORY: Pelvic pain status post injury FINDINGS: Markedly displaced fracture involves intertrochanter, greater and lesser trochanters right femur. Lesser trochanter is avulsed. Varus angulation at the fracture site No dislocation
--- NOTE | 2019-10-25 12:58 | RAD REPORT ---
EXAM DESCRIPTION: RAD - Hip Right 2 View - 10/25/2019 12:44 pm CLINICAL HISTORY: Right hip pain FINDINGS: Markedly displaced fracture involves intertrochanter, greater and lesser trochanters right femur. Lesser trochanter is avulsed. Varus angulation at the fracture site No dislocation
--- NOTE | 2019-10-25 13:17 | ER ---
Nurse's Notes [facility] Name: Hannah Hogan Age: 89 yrs Sex: Female : 1930 Arrival Date: 10/25/2019 Time: 11:13 Bed 5 Private MD: Diagnosis: Angulated, displaced, closed right intertrochanteric right hip fracture Presentation: 10/24 11:14 Chief complaint: EMS states: had a fall last night after tripping over 30 ft of O2 em hose, family was able to get pt in bed, pt is c/o pain in right upper leg, unable to straighten leg out, pt does take Eliquis, denies hitting head, also reports unable to eat and is nauseous, was given 50 mcg fentanyl and zofran 4 mg IV TELECOMMUNICATIONS PROFESSIONAL, BGL 168, VSS. Coronavirus screen: Surgical mask placed on patient. Patient moved to private room, placed in contact and droplet isolation with eye protection until further assessment. Patient denies a cough. Patient denies shortness of breath or difficulty breathing. Patient denies measured and/or subjective temperature greater than 100.4F prior to today's visit. Patient denies travel on a cruise ship or to a country the [facility] currently lists as an affected area. Patient reports contact with known and/or suspected case of COVID-19. Ebola Screen: Patient negative for fever greater than or equal to 101.5 degrees Fahrenheit, and additional compatible Ebola Virus Disease symptoms Patient denies exposure to infectious person. Patient denies travel to an Ebola-affected area in the 21 days before illness onset. No symptoms or risks identified at this time. Initial Sepsis Screen: Does the patient meet any 2 criteria? No. Patient's initial sepsis screen is negative. Does the patient have a suspected source of infection? No. Patient's initial sepsis screen is negative. Risk Assessment: Do you want to hurt yourself or someone else? Patient reports no desire to harm self or others. Onset of symptoms was October 24, 2019. 11:14 Method Of Arrival: EMS: [facility] em 11:14 Acuity: NEHEMIAH 3 em 11:15 Care prior to arrival: Placed on backboard. Medication(s) given: zofran 4 mg, fentanyl em 50 mcg. Mechanism of Injury: Fall from standing position. Trauma event details: Injury occurred in the [facility]. Historical: - Allergies: 11:21 ambien; em 11:21 Clindamycin; em 11:21 Flagyl; em - PMHx: 11:21 "Mitral Valve; Asthma; Cataracts; COPD; Diabetes - IDDM; Glaucoma; Hyperlipidemia; em Hypertension; - PSHx: 11:21 Mitral valve replacement; cardiac cath 11/28/17; Cholecystectomy; Ovary removal; em - Immunization history:: Adult Immunizations up to date. - Social history:: Smoking status: Patient denies any tobacco usage or history of. Screenin:15 Abuse screen: Denies threats or abuse. Nutritional screening: No deficits noted. em Tuberculosis screening: No symptoms or risk factors identified. Fall Risk Fall in past 12 months (25 points). Gait- Weak (10 pts.). Total Arzola Fall Scale indicates High Risk Score (45 or more points). Side Rails Up X 2 Placed Close to Nursing Station Frequent Obs/Assessments Occuring Family Present and informed to notify staff if the need to leave the bedside. Primary Survey: 11:15 NO uncontrolled hemorrhage observed. A: The patient is alert. Airway: patent. iw Breathing/Chest: Respiratory pattern: regular, Respiratory effort: spontaneous. Circulation: Heart tones present. Pulses: palpable right radial artery, right posterior tibial artery, left radial artery, left posterior tibial artery, left carotid pulse and right carotid pulse. Skin color: pink. Disability Alert. Exposure/Environment: All clothing and personal items were removed. Forensic evidence collection is not deemed to be indicated at this time. Items placed in patient belonging bag. Secondary Survey: 11:25 HEENT: No deficits noted. Head No injury/deformity Face No injury/deformity. iw Gastrointestinal: Abdomen is soft, flat, Palpation No deficit noted. Musculoskeletal: Range of motion: limited in right hip Reports pain in right leg. Assessment: 11:15 General: Appears in no apparent distress. uncomfortable, Behavior is calm, cooperative, em appropriate for age, Denies fever. Pain: Complains of pain in right quadriceps Pain currently is 4 out of 10 on a pain scale. Pain began 1 day ago. Neuro: Level of Consciousness is awake, alert, obeys commands, Oriented to person, place, time, situation, Appropriate for age. Cardiovascular: Capillary refill < 3 seconds Patient's skin is warm and dry. Respiratory: Airway is patent Respiratory effort is even, unlabored, Respiratory pattern is regular, symmetrical. GI: Abdomen is flat. Derm: Skin is intact, is healthy with good turgor, Skin is pink, warm \\T\\ dry. Musculoskeletal: Circulation, motion, and sensation intact. Capillary refill is > 3 seconds, is sluggish, toes. Range of motion: limited in right hip. 12:30 Reassessment: Patient appears in no apparent distress at this time. Patient and/or em family updated on plan of care and expected duration. Pain level reassessed. Patient is alert, oriented x 3, equal unlabored respirations, skin warm/dry/pink. 14:30 Reassessment: Patient appears in no apparent distress at this time. Patient and/or em family updated on plan of care and expected duration. Pain level reassessed. Patient is alert, oriented x 3, equal unlabored respirations, skin warm/dry/pink. Patient states feeling better. Patient states symptoms have improved. 15:30 Reassessment: Patient appears in no apparent distress at this time. Patient and/or em family updated on plan of care and expected duration. Pain level reassessed. Patient is alert, oriented x 3, equal unlabored respirations, skin warm/dry/pink. Vital Signs: 11:14 BP 121 / 55; Pulse 67; Resp 18; Temp 97.6; Pulse Ox 98% on 2 lpm NC; Pain 4/10; em 13:15 BP 119 / 56; Pulse 59; Resp 16; Pulse Ox 97% on 2 lpm NC; em 14:15 BP 106 / 59; Pulse 60; Resp 18; Pulse Ox 96% on 2 lpm NC; em 15:15 BP 104 / 57; Pulse 60; Resp 18; Pulse Ox 100% on 2 lpm NC; em 16:15 BP 108 / 59; Pulse 59; Resp 16; Pulse Ox 100% on 2 lpm NC; em Inés Coma Score: 11:15 Eye Response: spontaneous(4). Verbal Response: oriented(5). Motor Response: obeys iw commands(6). Total: 15. Trauma Score (Adult): 11:15 Eye Response: spontaneous(1); Verbal Response: oriented(1); Motor Response: obeys iw commands(2); Systolic BP: > 89 mm Hg(4); Respiratory Rate: 10 to 29 per min(4); Roulette Score: 15; Trauma Score: 12 11:25 Eye Response: spontaneous(1); Verbal Response: oriented(1); Motor Response: obeys iw commands(2); Systolic BP: > 89 mm Hg(4); Respiratory Rate: 10 to 29 per min(4); Inés Score: 15; Trauma Score: 12 ED Course: 11:13 Patient arrived in ED. em 11:13 Humberto Healy MD is Attending Physician. kdr 11:14 Brennen Raymond RN is Primary Nurse. em 11:15 Patient has correct armband on for positive identification. Placed in gown. Bed in low em position. Call light in reach. Side rails up X2. Adult w/ patient. Pulse ox on. NIBP on. 11:15 Patient maintains SpO2 saturation greater than 95% on room air. em 11:15 Maintain EMS IV. Dressing intact. Good blood return noted. Site clean \\T\\ dry. Gauge \\T\\ em site: 20 L FA. 11:20 Triage completed. em 11:21 Arm band placed on. em 12:44 Pelvis XRAY In Process Unspecified. EDMS 12:44 Hip Right 2 View XRAY In Process Unspecified. EDMS 13:15 Khadijah Qiu MD is Hospitalizing Provider. kdr 13:32 CXR XRAY In Process Unspecified. EDMS 16:40 No provider procedures requiring assistance completed. Patient admitted, IV remains in em place. Administered Medications: 13:37 Drug: morphine 1 mg Route: IVP; Site: left forearm; em 14:30 Follow up: Response: No adverse reaction; Marked relief of symptoms; Pain is decreased; em RASS: Alert and Calm (0) 17:11 Not Given (Other Intervention Used): morphine 1 mg IVP once; RASS on ADMIN: Combtv4, ss Very Agttd3, Agttd2, Rstlss1, AlertClm0, Drwsy-1, Lt Sdtn-2, Mod Sdtn-3, Dp Sdtn-4, UnArsble-5 Output: 16:41 Urine: 200ml (Vaz); Total: 200ml. em Outcome: 13:17 Decision to Hospitalize by Provider. kdr 16:40 unavailable room at the timePatient's length of stay extended due to em 16:44 Admitted to Med/surg accompanied by fely family with patient, via stretcher, room 212, em with oxygen, with chart, Report called to CHETAN Vega 16:44 Condition: good 16:44 Instructed on the need for admit, Demonstrated understanding of instructions. 17:11 Patient left the ED. ss Signatures: Dispatcher [employer] EDMS Humberto Healy MD MD [facility] Brennen Raymond RN RN Judy Palafox RN RN Naila Dillon RN RN ss Corrections: (The following items were deleted from the chart) 11:40 11:14 Chief complaint: EMS states: had a fall last night after tripping over 30 ft of em O2 hose, family was able to get pt in bed, pt was c/o pain if right upper leg, unable to straighten leg out, pt does take Eliquis, denies hitting head, also reports unable to eat and is nauseous, was given 50 mcg fentanyl and zofran 4 mg IV TELECOMM[employer]ICATIONS PROFESSIONAL, BGL 168, VSS em
--- NOTE | 2019-10-25 13:17 | EDPHYS ---
Physician Documentation [facility] Name: Hannah Hogan Age: 89 yrs Sex: Female : 1930 Arrival Date: 10/25/2019 Time: 11:13 Bed 5 Private MD: ED Physician Humberto Healy HPI: 10/24 12:06 This 89 yrs old Female presents to ER via EMS with complaints of Fall Injury. kdr 12:06 Details of fall: The patient fell from an upright position, while walking. Onset: The kdr symptoms/episode began/occurred suddenly, yesterday. Associated injuries: The patient sustained Right hip. Severity of symptoms: At their worst the symptoms were mild, in the emergency department the symptoms are unchanged. The patient has not experienced similar symptoms in the past. The patient has not recently seen a physician. Historical: - Allergies: 11:21 ambien; em 11:21 Clindamycin; em 11:21 Flagyl; em - PMHx: 11:21 "Mitral Valve; Asthma; Cataracts; COPD; Diabetes - IDDM; Glaucoma; Hyperlipidemia; em Hypertension; - PSHx: 11:21 Mitral valve replacement; cardiac cath 11/28/17; Cholecystectomy; Ovary removal; em - Immunization history:: Adult Immunizations up to date. - Social history:: Smoking status: Patient denies any tobacco usage or history of. ROS: 12:06 Constitutional: Negative for fever, chills, and weight loss, Eyes: Negative for injury, kdr pain, redness, and discharge, ENT: Negative for injury, pain, and discharge, Neck: Negative for injury, pain, and swelling, Cardiovascular: Negative for chest pain, palpitations, and edema, Respiratory: Negative for shortness of breath, cough, wheezing, and pleuritic chest pain, Abdomen/GI: Negative for abdominal pain, nausea, vomiting, diarrhea, and constipation, Back: Negative for injury and pain, : Negative for injury, bleeding, discharge, and swelling, Skin: Negative for injury, rash, and discoloration, Neuro: Negative for headache, weakness, numbness, tingling, and seizure activity. Psych: Negative for depression, anxiety, suicide ideation, homicidal ideation, and hallucinations, Allergy/Immunology: Negative for hives, rash, and allergies, Endocrine: Negative for neck swelling, polydipsia, polyuria, polyphagia, and marked weight changes, Hematologic/Lymphatic: Negative for swollen nodes, abnormal bleeding, and unusual bruising. 12:06 MS/extremity: Positive for injury or acute deformity, decreased range of motion, tenderness, of the right hip. Exam: 12:06 Constitutional: This is a well developed, well nourished patient who is awake, alert, kdr and in no acute distress. Head/Face: Normocephalic, atraumatic. Eyes: Pupils equal round and reactive to light, extra-ocular motions intact. Lids and lashes normal. Conjunctiva and sclera are non-icteric and not injected. Cornea within normal limits. Periorbital areas with no swelling, redness, or edema. Neck: Trachea midline, no thyromegaly or masses palpated, and no cervical lymphadenopathy. Supple, full range of motion without nuchal rigidity, or vertebral point tenderness. No Meningismus. Back: No spinal tenderness. No costovertebral tenderness. Full range of motion. Neuro: Awake and alert, GCS 15, oriented to person, place, time, and situation. Cranial nerves II-XII grossly intact. Motor strength 5/5 in all extremities. Sensory grossly intact. Cerebellar exam normal. Normal gait. 12:06 Skin: Appearance: ecchymosis, noted on the, , that are moderate, and are scattered, and are diffusely located, Turgor: is good. Vital Signs: 11:14 BP 121 / 55; Pulse 67; Resp 18; Temp 97.6; Pulse Ox 98% on 2 lpm NC; Pain 4/10; em 13:15 BP 119 / 56; Pulse 59; Resp 16; Pulse Ox 97% on 2 lpm NC; em 14:15 BP 106 / 59; Pulse 60; Resp 18; Pulse Ox 96% on 2 lpm NC; em 15:15 BP 104 / 57; Pulse 60; Resp 18; Pulse Ox 100% on 2 lpm NC; em 16:15 BP 108 / 59; Pulse 59; Resp 16; Pulse Ox 100% on 2 lpm NC; em [place] Coma Score: 11:15 Eye Response: spontaneous(4). Verbal Response: oriented(5). Motor Response: obeys iw commands(6). Total: 15. Trauma Score (Adult): 11:15 Eye Response: spontaneous(1); Verbal Response: oriented(1); Motor Response: obeys iw commands(2); Systolic BP: > 89 mm Hg(4); Respiratory Rate: 10 to 29 per min(4); Inés Score: 15; Trauma Score: 12 11:25 Eye Response: spontaneous(1); Verbal Response: oriented(1); Motor Response: obeys iw commands(2); Systolic BP: > 89 mm Hg(4); Respiratory Rate: 10 to 29 per min(4); [place] Score: 15; Trauma Score: 12 MDM: 13:17 Patient medically screened. kdr 13:17 Data reviewed: vital signs, nurses notes, lab test result(s), radiologic studies. kdr Counseling: I had a detailed discussion with the patient and/or guardian regarding: the historical points, exam findings, and any diagnostic results supporting the discharge/admit diagnosis, lab results, radiology results, the need for further work-up and treatment in the hospital. Physician consultation: Jonny Mitchell MD and will see patient in inpatient room, later today. Admission orders: after a detailed discussion of the patient's condition and case, the admit orders are written by me. 10/24 13:19 Order name: CBC with Diff [facility] [address] 10/24 13:19 Order name: Chem 7 [facility] [address] 10/24 13:19 Order name: Type And Screen [facility] [address] 10/24 14:16 Order name: Protime (+inr) 10/24 14:16 Order name: Ptt, Activated 10/24 14:21 Order name: COVID-19 10/24 12:05 Order name: Pelvis XRAY; Complete Time: 13:19 kdr 10/24 12:05 Order name: Hip Right 2 View XRAY; Complete Time: 13:19 kdr 10/24 13:19 Order name: CXR XRAY [facility] [address] 10/24 14:36 Order name: Basic Metabolic Panel EDHI 10/24 14:36 Order name: Basic Metabolic Panel EDMS 10/24 14:36 Order name: CBC with Automated Diff EDMS 10/24 14:36 Order name: CBC with Automated Diff EDMS 10/24 15:18 Order name: ABO/RH no charge ED[facility] 10/24 14:11 Order name: Labs - recollect needed: recollect BMP Also, ABO verification due; Complete ss Time: 14:22 10/24 14:36 Order name: Consistent Carb (ADA) 1800 Micheal EDHI 10/24 14:36 Order name: NPO EDHI Administered Medications: 13:37 Drug: morphine 1 mg Route: IVP; Site: left forearm; em 14:30 Follow up: Response: No adverse reaction; Marked relief of symptoms; Pain is decreased; em RASS: Alert and Calm (0) 17:11 Not Given (Other Intervention Used): morphine 1 mg IVP once; RASS on ADMIN: Combtv4, ss Very Agttd3, Agttd2, Rstlss1, AlertClm0, Drwsy-1, Lt Sdtn-2, Mod Sdtn-3, Dp Sdtn-4, UnArsble-5 Disposition: 10/25/19 13:17 Hospitalization ordered by Khadijah Qiu for Inpatient Admission. Preliminary diagnosis is Angulated, displaced, closed right intertrochanteric right hip fracture. - Bed requested for Telemetry/MedSurg (Inpatient). - Status is Inpatient Admission. ss - Condition is Fair. - Problem is new. - Symptoms have improved. Signatures: Dispatcher [employer] EDHI Humberto Healy MD MD [facility] [address] Brennen Raymond RN RN em Naila Dillon RN RN Cheryl Perez Corrections: (The following items were deleted from the chart) 16:13 13:17 Hospitalization Ordered by Khadijah Qiu MD for Inpatient Admission. Preliminary eb diagnosis is Angulated, displaced, closed right intertrochanteric right hip fracture. Bed requested for Telemetry/MedSurg (Inpatient). Status is Inpatient Admission. Condition is Fair. Problem is new. Symptoms have improved. kdr 17:11 16:13 10/25/2019 13:17 Hospitalization Ordered by Khadijah Qiu MD for Inpatient ss Admission. Preliminary diagnosis is Angulated, displaced, closed right intertrochanteric right hip fracture. Bed requested for Telemetry/MedSurg (Inpatient). Status is Inpatient Admission. Condition is Fair. Problem is new. Symptoms have improved. eb
[2019-10-25] MEDS ORDERED: MORPHINE 2 MG/ML SYR ONE (13:35)
[2019-10-25 13:52] LABS: Absolute Lymphocytes (CBC) 1.2 K/uL (0.7-4.9); Basophils % 0.4 % (0-1.3); Lymphocytes % 7.1 % (15.3-44.8); MPV 9.8 fL (7.6-11.3); RBC Red Blood Cell Count 4.31 M/uL (3.86-4.86)
--- NOTE | 2019-10-25 13:52 | RAD REPORT ---
EXAM DESCRIPTION: Fay Single View10/25/2019 1:32 pm CLINICAL HISTORY: Hypertension/preop for hip surgery COMPARISON: August 2019 FINDINGS: Chronic appearing opacities within the right lung base. The lungs appear clear of acute in filtrate. The heart is mildly enlarged. 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
[2019-10-25] MEDS ORDERED: ACETAMINOPHEN 500 MG TAB PO PRN (14:26)
[2019-10-25] MEDS ORDERED: MORPHINE 2 MG/ML SYR IV PRN (14:26)
[2019-10-25 14:42] LABS: Protime INR 1.19
[2019-10-25] MEDS ORDERED: NA CHLORIDE 0.9% 1,000 ML IV SCH (15:00)
[2019-10-25 15:09] LABS: Potassium 6.4 mmol/L (3.5-5.1)
[2019-10-25 17:51] VITALS: BMI 32.3
[2019-10-25] MEDS ORDERED: D50W 25 GM/50 ML SYRINGE/VIAL IV ONE ×3 (18:21→22:17)
[2019-10-25] MEDS ORDERED: ALBUTEROL 2.5 MG/3 ML NEB SOL NEB ONE (19:00)
[2019-10-25] MEDS ORDERED: SODIUM BICARB 50 MEQ/50ML VIAL IV ONE (19:00)
[2019-10-25] MEDS ORDERED: SOD POLYSTYREN SUL 15 GM/60 ML UCUP PO ONE ×2 (19:00→20:48)
--- NOTE | 2019-10-25 19:01 | P.CNS ---
Date of Consult: 10/25/19 Chief Complaint: hip pain History of Present Illness: The patient fell from an upright position, while walking. Onset: symptoms/episode began/occurred suddenly, yesterday. Associated injuries: The patient sustained Right hip. Severity of symptoms: At their worst the symptoms were mild, in The patient has not experienced similar symptoms in the past. Allergies Metronidazole HCl [From Flagyl] Allergy (Verified 10/25/19 18:01) Hives/Rash zolpidem tartrate [From Ambien] Adverse Reaction (Verified 10/25/19 18:01) HALLUCINATIONS Clindamycin Allergy (Uncoded 10/25/19 18:01) Hives/Rash Home Medications: Insulin Glargine Human [Lantus*] 15 unit SQ DAILY 02/04/13 Simvastatin 20 mg PO BEDTIME 02/04/13 Bimatoprost [Lumigan Opthalmic Drops*] 1 drop EACH EYE DAILY 04/14/15 Amiodarone HCl [Cordarone*] 200 mg PO DAILY 04/19/19 Apixaban [Eliquis *] 2.5 mg PO BID 04/19/19 Levothyroxine [Synthroid*] 25 mcg PO [id number] 04/19/19 Ospemifene [Osphena] 60 mg PO DAILY 04/19/19 Albuterol Sulfate [Proair Hfa] 2 puff IH Q6HP PRN 09/08/19 Cranberry Fruit Extract [Ellura] 1 tab PO DAILY 09/08/19 Spironolactone 50 mg PO DAILY 09/08/19 Ascorbic Acid [Vitamin C] 500 mg PO DAILY 10/25/19 Fluticasone/Umeclidin/Vilanter [Trelegy Ellipta 100-62.5-25] 1 each IH DAILY 10/25/19 - Past Medical/Surgical History Diabetic: Yes -: Hyperlipidemia -: Glaucoma -: HTN -: A-fib -: blind right eye -: asthma -: IDDM -: mitral valve replacement -: pancreatic/spleenic CA w/ resection -: oophorectomy -: cholecystectomy -: giovanny cataract surgery -: left breast mass removal -: pacemaker -: heart cath 11/28/17 - Family History Father Medical History: Lung disease - Social History Smoking Status: Never smoker Alcohol use: No CD- Drugs: No Caffeine use: Yes Review of Systems 10-point ROS is otherwise unremarkable Physical Examination Temp Pulse Resp BP Pulse Ox 98.9 F 60 18 127/60 99 10/25/19 17:31 10/25/19 17:31 10/25/19 17:31 10/25/19 17:31 10/25/19 17:31 Musculoskeletal: Other (right hip pain) Laboratory Data (last 24 hrs) 10/25/19 14:23: PT 14.0 H, INR 1.19, APTT 32.6 10/25/19 14:23: Sodium 125 L, Potassium 6.4 H*, BUN 34 H, Creatinine 1.15, Glucose 157 H 10/25/19 13:20: WBC 16.6 H, Hgb 11.9 L, Hct 37.0, Plt Count 155 - Problems (1) Closed intertrochanteric fracture of right hip Onset Date: ~10/24/19 Current Visit: Yes Status: Acute Plan: we will schedule a right hip IM rodding for tomorrow at 8:00am if she is safe and cleared
[2019-10-25 19:27] LABS: Potassium 6.6 mmol/L (3.5-5.1)
[2019-10-25] MEDS: ATORVASTATIN 10 MG TAB PO SCH (20:30)
[2019-10-25] MEDS ORDERED: GLUCAGON 1 MG/VIAL IM PRN (20:49)
[2019-10-25] MEDS ORDERED: D50W 25 GM/50 ML SYRINGE/VIAL IV PRN (20:49)
[2019-10-25] MEDS ORDERED: INSULIN -REGULAR HUMAN 50 UNIT/0.5 ML ML IV ONE (20:50)
[2019-10-25] MEDS: NA CHLORIDE 0.9% 1,000 ML IV SCH (23:58)
[2019-10-26] MEDS ORDERED: NA CHLORIDE 0.9% 1,000 ML IV SCH
[2019-10-26] MEDS: LEVOTHYROXINE SOD 0.05 MG TABLET PO SCH (05:28)
[2019-10-26 06:05] LABS: Absolute Lymphocytes (CBC) 1.1 K/uL (0.7-4.9); Basophils % 0.3 % (0-1.3); Hematocrit 31.8 % (36.0-45.0); Lymphocytes % 7.6 % (15.3-44.8); MPV 9.5 fL (7.6-11.3); RBC Red Blood Cell Count 3.72 M/uL (3.86-4.86)
[2019-10-26 06:30] LABS: Potassium 5.4 mmol/L (3.5-5.1)
[2019-10-26] MEDS ORDERED: propofoL 200 MG/20 ML VIAL IV ONE (07:53)
[2019-10-26] MEDS ORDERED: LIDOCAINE 2% MPF 5 ML VIAL ONE (07:54)
[2019-10-26] MEDS ORDERED: Phenylephrine HCl 10 MG/ML 1 ML VIAL ONE (07:55)
[2019-10-26] MEDS ORDERED: TRANEXAMIC ACID 1,000 MG in NA CHLORIDE 0.9% 50 ML IV ONE (08:00)
[2019-10-26] MEDS ORDERED: CEFAZOLIN/SWI 1gm 1 GM/10 ML SYR ONE (08:16)
[2019-10-26] MEDS ORDERED: NA CHLORIDE 0.9% 1,000 ML ONE (08:17)
[2019-10-26] MEDS ORDERED: FENTANYL CITR 100 MCG/2 ML ONE (08:47)
[2019-10-26] MEDS ORDERED: ONDANSETRON 4 MG/2 ML VIAL ONE (08:54)
[2019-10-26] MEDS ORDERED: dexAMETHasone 10 MG/ML VIAL ONE (08:54)
[2019-10-26] MEDS: AMIODARONE HCL 200 MG TAB PO SCH (09:00)
--- NOTE | 2019-10-26 10:28 | OP ---
Surgeon: Jonny Zazueta MD Cop: ALFREDA Albert. Preoperative Diagnosis: Right intertrochanteric hip fracture. Postoperative Diagnosis: Right intertrochanteric hip fracture. Procedure Performed: IM rodding right intertrochanteric hip fracture. Complications: None. Disposition: Recovery room in stable. Operative Report In Detail: Patient was taken to the operative suite, placed in supine position, ind uced anesthesia. This was at least a 4-part IT hip fracture. It was suspended in fracture table, re duced could not be anatomically reduced. There was some question about the age of this fr acture. Utilizing awl, entry portal was created at the tip of the greater trochanter, followed by a single stage reaming and placement of a 9 x 125 nail. An 85 lag screw placed followed by distal inte rlocking with 32 screw. Excellent location of the hardware was noted. Patient tolerated procedure w ell. A layered closure was being performed. Patient anesthesia. JAVIER/BURT Voice ID: [id number] Report ID: [id number]
--- NOTE | 2019-10-26 10:31 | RAD REPORT ---
EXAM DESCRIPTION: RAD - Hip In Or - 10/26/2019 9:41 am FINDINGS: There were 26 portable intraoperative C-arm views obtained during a fluoroscopic assisted placement of fracture fixation hardware. Images show stepwise placement of the hardware. No suspiciou s or unexpected finding. Fluoro time was 2.5 minutes. Cumulative dose was 24.4 mGy.
--- NOTE | 2019-10-26 10:31 | RAD REPORT ---
EXAM DESCRIPTION: RAD - Pelvis - 10/26/2019 9:54 am CLINICAL HISTORY: S/P FEM IM RODDING COMPARISON: Hip In Or dated 10/26/2019 TECHNIQUE: AP imaging of the pelvis was obtained. FINDINGS: Single AP supine view was obtained as a postoperative examination. Hardware is in place ac ross the fracture site. No suspicious or unexpected finding.
[2019-10-26] MEDS: NA CHLORIDE 0.9% 1,000 ML IV SCH (12:30)
[2019-10-26] MEDS: NACHLORIDE 0.45% 1,000 ML IV SCH (13:12)
--- NOTE | 2019-10-26 20:26 | CON ---
Date of Consultation: 10/26/2019 Reason For Consultation: Cardiac preop evaluation. History Of Present Illness: This is an 89-year-old female who has a history of diabetes, atrial fibr illation, aortic valve replacement in 2018 with a tissue valve, hypertension, dyslipidemia who ____ ground level fall. She tripped and fell. No syncope or loss of consciousness and she had fract ured her hip. Patient prior to that was active. No chest pain. No active shortness of breath or ac tive cardiac ischemia symptoms and she has no orthopnea or any heart failure symptoms. Can climb 1 f light of stairs without difficulties. Past Medical History: As outlined above in the HPI. Medications: Refer to reconciliation sheet for detailed list. Allergies: METRONIDAZOLE, AMBIEN, CLINDAMYCIN. Social History: Does not smoke or drink. Does not use any drugs. Family History: No premature coronary artery disease or cancer. Review of Systems: All systems reviewed and they were negative except for what is mentioned in the HPI. Physical Examination: Vital Signs: Temperature is 97.1, pulse 65, breathing at 18, blood pressure 120/58, saturating 99%. General: Pleasant elderly female, in no distress. HEAD AND NECK: Pupils are equal, react to light. Intact eye movements. No JVD. No cervical lympha denopathy. Neck is supple. Thyroid is not enlarged. Lungs: Clear to auscultation bilaterally. No rhonchi, rales, or crackles. No accessory muscle use. Heart: Regular rate and rhythm with aortic systolic murmur and there is a diastolic murmur rumble in the mitral area. Abdomen: Soft, nontender. Bowel sounds positive. No organomegaly. No masses or hernia. No rigidi ty or rebound. Extremities: No edema, clubbing, or cyanosis. Intact pulses. Skin: No rash noted. Neurologic: Alert, awake, and oriented x3. No acute focal deficits associated. Investigations: Sodium 129, BUN is 43, creatinine 1.56, hemoglobin 10.5. Assessment And Plan: 1.Cardiac preop evaluation. This patient has valvular heart disease that appears to be controlled w ith good capacity. So, she will be at [id number] cardiac risk for noncardiac surgery, for the h ip surgery per se and I recommend no further workup prior to the surgery. We will monitor the patien t closely; however, no further cardiac workup will be ordered at this point. 2.Aortic valve replacement. She has a tissue valve that appears to be functioning very well and she has no symptoms. Resume her home medications and she was recently evaluated by echo. 3.Dyslipidemia. Continue statin. 4.Paroxysmal atrial fibrillation, on amiodarone, doing very well. We will continue current manageme nt. Thank you for the courtesy of this consultation. /BURT Voice ID: [id number] Report ID: [id number]
[2019-10-26] MEDS: DOCUSATE NA 100 MG CAP PO SCH (21:55)
[2019-10-26] MEDS: ATORVASTATIN 10 MG TAB PO SCH (21:55)
--- NOTE | 2019-10-26 22:44 | HP ---
Date of Admission: 10/25/2019 History Of Present Illness: An 89-year-old female who was at home. She tripped with the line of her oxygen nasal prong. She fell and landed on her right hip and accounting right hip fracture, came in the emergency room and was admitted for that. The patient at the time of admission had right hip pa in; however, she denied any increased shortness of breath, cough, fever, or chills and had no other c omplaints. Review of Systems: MUSCULOSKELETAL: As above. CARDIOVASCULAR: No complaints. RESPIRATORY: No complaints. GENITOURINAR Y: No complaints. GASTROINTESTINAL: No complaints. NEUROLOGICAL: No complaints. Past Medical History: 1.Chronic obstructive pulmonary disease. 2.Hypertension. 3.Hyperlipidemia. 4.Gastroesophageal reflux disease. 5.Type 2 diabetes mellitus. 6.Osteoarthritis. 7.Persistent atrial fibrillation. 8.Glaucoma. 9.Asymptomatic varicose veins in bilateral lower extremities. 10.Secondary pulmonary arterial hypertension. Social History: No smoking, alcohol, or drug abuse history. Family History: Noncontributing. Medications: Include simvastatin 20 mg p.o. daily, albuterol HFA 2 puffs q.i.d., spironolactone 25 m g p.o. daily, prednisone 10 mg p.o. daily, Lantus 25 units subcutaneous daily, losartan 25 mg p.o. da pedrito, Breo Ellipta 1 puff daily, amiodarone 200 mg p.o. daily, Eliquis 2.5 mg p.o. b.i.d. Allergies: INCLUDE CLINDAMYCIN, AMBIEN, AND FLAGYL. Physical Examination: Vital Signs: Blood pressure 110/60, pulse 64, temperature 96.2, respiratory rate to 18. Heart: Regular rate and rhythm. Chest: Clear to auscultation. Abdomen: Soft, nontender. Neurological: Alert, oriented, nonfocal. Grossly intact. Extremities: Right hip pain, tenderness. Laboratory Data: Blood sugar fingersticks noted. Hip x-ray and pelvic x-ray showed marked displaced fracture intertrochanteric, greater and lesser trochanter over the right femur. Chest x-ray, no acu te pathology. On admission, her sodium 124, potassium 6.6. Discharge dropped to 5.4 this morning. Her sodium went up to 129. The patient was given Kayexalate and IV glucose with insulin. BUN 43, creatinine 1.56, GFR 31. White cell count of 14.9, hemoglobin 10.5, hematocrit 31.8, and platelets 137. Assessment And Plan: 1.Right hip fracture. The patient has gone to surgery for arthroplasty. 2.Hyperkalemia. I have stopped the patient's spironolactone, any potassium supplements, and also he r ARB. The patient cannot handle those medicines. She seems to have retained potassium until a sign ificant high level. 3.The patient was screened for coronavirus disease 2019 virus. She came back positive. We will tra nsfer her to the 4th floor for isolation. We will continue her postoperative care and continue her h ome medicines for chronic medical illnesses and we will monitor her electrolytes and blood count. 4.Look orders for details. MFS/MODL Voice ID: [id number]
[2019-10-27] MEDS: NACHLORIDE 0.45% 1,000 ML IV SCH (01:50)
[2019-10-27] MEDS: LEVOTHYROXINE SOD 0.05 MG TABLET PO SCH (05:55)
[2019-10-27 06:56] LABS: Absolute Lymphocytes (CBC) 0.6 K/uL (0.7-4.9); Basophils % 0.1 % (0-1.3); Hematocrit 27.8 % (36.0-45.0); MPV 9.3 fL (7.6-11.3); RBC Red Blood Cell Count 3.28 M/uL (3.86-4.86)
[2019-10-27] MEDS: DOCUSATE NA 100 MG CAP PO SCH ×2 (07:47→21:00)
[2019-10-27] MEDS: FERROUS SULFATE 325 MG TAB PO SCH (07:47)
[2019-10-27] MEDS: AMIODARONE HCL 200 MG TAB PO SCH (07:48)
--- NOTE | 2019-10-27 09:38 | P.PN ---
Subjective Date of Service: 10/27/19 Chief Complaint: hip pain Subjective: No new changes Physical Examination - Vital Signs Temperature: 97.3 F Blood Pressure: 103/52 Pulse: 66 Respirations: 16 Pulse Ox (%): 96 Assessment And Plan - Current Problems (Diagnosis) (1) Closed intertrochanteric fracture of right hip Onset Date: ~10/24/19 Current Visit: Yes Status: Acute Plan: we will discharge when safe and stable, she needs touch down weight baring only for 6 weeks post op, may do transfers, anticoagulate 28 days post op, follow up in the office 2 weeks postop Qualifiers: Encounter type: subsequent encounter Fracture alignment: displaced Fracture healing: with routine healing Qualified Code(s): S72.141D - Displaced intertrochanteric fracture of right femur, subsequent encounter for closed fracture with routine healing
[2019-10-27 09:55] LABS: Blood Morphology Comment NOT SEEN (NOT SEEN); Platelet Estimate DECR; White Blood Cell Scan OK
--- NOTE | 2019-10-27 10:20 | P.CNS ---
Date of Consult: 10/27/19 Reason for Consult: History of asthma Chief Complaint: Status post repair of right hip fracture History of Present Illness: Patient is 89 years of age well known to me with a history of asthma she is well controlled recently on an inhaler came in and had a fall fracture hep that was repaired she is doing much better now patient is finn virus positive does not have any worsening lung complaints or any fever or chills Allergies Metronidazole HCl [From Flagyl] Allergy (Verified 10/25/19 18:01) Hives/Rash zolpidem tartrate [From Ambien] Adverse Reaction (Verified 10/25/19 18:01) HALLUCINATIONS Clindamycin Allergy (Uncoded 10/25/19 18:01) Hives/Rash Home Medications: Insulin Glargine Human [Lantus*] 15 unit SQ DAILY 02/04/13 Simvastatin 20 mg PO BEDTIME 02/04/13 Bimatoprost [Lumigan Opthalmic Drops*] 1 drop EACH EYE DAILY 04/14/15 Amiodarone HCl [Cordarone*] 200 mg PO DAILY 04/19/19 Apixaban [Eliquis *] 2.5 mg PO BID 04/19/19 Levothyroxine [Synthroid*] 25 mcg PO [id number] 04/19/19 Ospemifene [Osphena] 60 mg PO DAILY 04/19/19 Albuterol Sulfate [Proair Hfa] 2 puff IH Q6HP PRN 09/08/19 Cranberry Fruit Extract [Ellura] 1 tab PO DAILY 09/08/19 Spironolactone 50 mg PO DAILY 09/08/19 Ascorbic Acid [Vitamin C] 500 mg PO DAILY 10/25/19 Fluticasone/Umeclidin/Vilanter [Trelegy Ellipta 100-62.5-25] 1 each IH DAILY 10/25/19 - Past Medical/Surgical History Diabetic: Yes -: Hyperlipidemia -: Glaucoma -: HTN -: A-fib -: blind right eye -: asthma -: IDDM -: mitral valve replacement -: pancreatic/spleenic CA w/ resection -: oophorectomy -: cholecystectomy -: giovanny cataract surgery -: left breast mass removal -: pacemaker -: heart cath 11/28/17 - Family History Father Medical History: Lung disease - Social History Smoking Status: Never smoker Alcohol use: No CD- Drugs: No Caffeine use: Yes Review of Systems is unable to be obtained Physical Examination Temp Pulse Resp BP Pulse Ox 97.3 F 66 16 103/52 L 96 10/27/19 09:37 10/27/19 09:37 10/27/19 09:37 10/27/19 09:37 10/27/19 09:37 General: Alert, Cooperative - Problems (1) Asthma Current Visit: Yes Status: Acute Plan: Patient has a history of moderately severe asthma and is been controlled with inhaled steroids as far as lung cao a concern patient is stable resume her inhaler vital signs are also stable and to transfer her to a rehab unit renal function has improved resume full p.o. intake patient has a pacemaker stable AFib only to resume anticoagulation in 1 or 2 days patient is on apixaban at home Qualifiers: Asthma severity: moderate
[2019-10-27] MEDS: ENOXAPARIN 30 MG/0.3 ML SQ SCH (10:55)
[2019-10-27] MEDS: NA CHLORIDE 0.9% 1,000 ML IV SCH (11:10)
[2019-10-27] MEDS: ONDANSETRON 4 MG/2 ML VIAL IV PRN (18:24)
--- NOTE | 2019-10-27 19:30 | PN ---
Subjective: The patient is doing well, has been moved to the fourth floor as she is COVID virus posi tive; however, she is having no upper respiratory symptoms or fever or chills. She, after her hip duke rgery, reports she is doing well. Objective: Vital Signs: Her blood pressure 105/50, pulse 66, temperature 97.3. Heart: Regular rate and rhythm. Chest: Clear to auscultation. Abdomen: Soft, nontender. bowel sounds normoactive. Extremities: No edema, no cyanosis. Peripheral pulses felt. Neurological: Alert and oriented. Grossly intact. Laboratory Data: White cell count dropped down to 14.8, hemoglobin 9.4, hematocrit 27.8, platelets 1 27. Sodium 127, potassium 5, chloride 96, bicarb 23, BUN 45, creatinine 1.08. Blood sugar fingersti cks noted. Assessment And Plan: 1.Coronavirus disease virus nonsymptomatic positive. The patient is on isolation. 2.Status post right hip replacement surgery after fracture. She is doing well postoperatively. 3.Acute renal failure on top of chronic, improving. 4.She is clinically stable. We will start her on physical therapy for ambulation as per Surgery. 5.Look orders for details. 6.Hyponatremia secondary to pain medications likely. The patient is on normal saline. I will monitor her electrolytes. MFS/MODL Voice ID: [id number] Report ID: [id number]
[2019-10-27] MEDS: ATORVASTATIN 10 MG TAB PO SCH (20:58)
[2019-10-28] MEDS: NA CHLORIDE 0.9% 1,000 ML IV SCH ×3 (02:01→20:20)
[2019-10-28] MEDS: LEVOTHYROXINE SOD 0.05 MG TABLET PO SCH (05:24)
[2019-10-28 05:49] LABS: Absolute Lymphocytes (CBC) 1.3 K/uL (0.7-4.9); Basophils % 0.1 % (0-1.3); Hematocrit 27.7 % (36.0-45.0); Lymphocytes % 7.3 % (15.3-44.8); MPV 9.5 fL (7.6-11.3); Potassium 4.7 mmol/L (3.5-5.1); RBC Red Blood Cell Count 3.23 M/uL (3.86-4.86)
[2019-10-28] MEDS: DOCUSATE NA 100 MG CAP PO SCH ×2 (08:28→20:03)
[2019-10-28] MEDS: ENOXAPARIN 30 MG/0.3 ML SQ SCH (08:28)
[2019-10-28] MEDS: FERROUS SULFATE 325 MG TAB PO SCH (08:28)
[2019-10-28] MEDS: AMIODARONE HCL 200 MG TAB PO SCH ×2 (08:28→08:29)
--- NOTE | 2019-10-28 18:43 | PN ---
Subjective: The patient is doing well. Has no upper respiratory symptoms. Objective: Vital signs: Her blood pressure 110/64, pulse 72, temperature 97.3. Heart: Regular rate and rhythm. Chest: Clear to auscultation. Abdomen: Soft, benign. Neurological: Alert, oriented. Grossly intact. Room air pulse oximetry at 91. Laboratory Data: White cell count 17.3, hemoglobin 9, hematocrit 27.7, platelets 150. Sodium 126, p otassium 4.7, BUN 51, creatinine 1.16. GFR is 44. Assessment And Plan: 1.Status post arthroplasty for hip fracture. The patient clinically is doing well. 2.Coronavirus disease positive showing no signs and symptoms of pulmonary or gastrointestinal proble ms. Clinically stable from that standpoint. 3.Leukocytosis after surgery and also with viremia. We will watch her white cell count. 4.Postoperative anemia. Hemoglobin at 9. The patient is a [employer]ism and refusing blood tra nsfusions. At this point, she is still hemodynamically stable. 5.Hyponatremia. The patient is on normal saline IV fluids. We will monitor her electrolytes. I th ink her hyponatremia is also related to her pain in her hip after surgery and we will monitor that. Her GFR is at 44. The patient clinically stable. Look orders for details. I have also asked for rehab consultation for transfer. BERTO/BURT Voice ID: [id number] Report ID: [id number]
--- NOTE | 2019-10-28 18:58 | P.PN ---
Subjective Date of Service: 10/28/19 Chief Complaint: Status post repair of right hip fracture Subjective: No new changes Physical Examination - Vital Signs Temperature: 98.9 F Blood Pressure: 97/53 Pulse: 68 Respirations: 20 Pulse Ox (%): 96 Assessment And Plan - Current Problems (Diagnosis) (1) Closed intertrochanteric fracture of right hip Onset Date: ~10/24/19 Current Visit: Yes Status: Acute Plan: we will discharge when safe and stable, she needs touch down weight baring only for 6 weeks post op, may do transfers, anticoagulate 28 days post op, follow up in the office 2 weeks postop Qualifiers: Encounter type: subsequent encounter Fracture alignment: displaced Fracture healing: with routine healing Qualified Code(s): S72.141D - Displaced intertrochanteric fracture of right femur, subsequent encounter for closed fracture with routine healing Discharge Plan: Halfway Plan to discharge in: 24 Hours
[2019-10-28] MEDS: ATORVASTATIN 10 MG TAB PO SCH (20:03)
[2019-10-29 04:37] LABS: Absolute Lymphocytes (CBC) 1.3 K/uL (0.7-4.9); Basophils % 0.2 % (0-1.3); Hematocrit 29.3 % (36.0-45.0); Lymphocytes % 7.7 % (15.3-44.8); MPV 9.3 fL (7.6-11.3); RBC Red Blood Cell Count 3.42 M/uL (3.86-4.86)
[2019-10-29 04:42] LABS: Potassium 4.4 mmol/L (3.5-5.1)
[2019-10-29] MEDS: NA CHLORIDE 0.9% 1,000 ML IV SCH (05:01)
[2019-10-29] MEDS: LEVOTHYROXINE SOD 0.05 MG TABLET PO SCH (05:02)
[2019-10-29] MEDS: UMECLIDIN IH SCH (09:00)
[2019-10-29] MEDS: FLUTICASONE IH SCH (09:00)
[2019-10-29] MEDS: VILANTER IH SCH (09:00)
[2019-10-29] MEDS: ENOXAPARIN 30 MG/0.3 ML SQ SCH (09:03)
[2019-10-29] MEDS: DOCUSATE NA 100 MG CAP PO SCH ×2 (09:04→20:37)
[2019-10-29] MEDS: FERROUS SULFATE 325 MG TAB PO SCH (09:04)
--- NOTE | 2019-10-29 12:12 | EKG ---
Test Date: 2019-10-26 Test Time: 07:41:23 Bookkeeping Clerk: CARMELO Zamora MEASUREMENT RESULTS: Intervals: Rate: 70 LA: 400 QRSD: 212 QT: 608 QTc: 656 [place]: P: LA: 400 QRS: -52 T: 91 INTERPRETIVE STATEMENTS: Electronic ventricular pacemaker Compared to ECG 09/08/2019 16:57:29 Atrial-paced complex(es) or rhythm no longer present Left-axis deviation no longer present Left ventricular hypertrophy no longer present Early repolarization no longer present Myocardial infarct finding no longer present Electronically Signed On 10-29-19 12:09:38 CDT by Mike Russell
--- NOTE | 2019-10-29 18:29 | PN ---
Subjective: The patient is doing well. No complaint. Participating with physical therapy. Objective: Vital Signs: Blood pressure 105/55, pulse 74, temperature 97.7. Heart: Regular rate and rhythm. Chest: Clear to auscultation. Abdomen: Soft, benign. Neurological: Alert, oriented. Grossly intact.. Laboratory Data: White cell count 16.7, hemoglobin 9.6, hematocrit 29.3, and platelets 169. Sodium 130, BUN 41, creatinine 0.87, GFR 61, blood sugar fingersticks noted 270-170. Assessment And Plan: 1.Status post right hip arthroplasty after a fracture. She is doing well postoperatively, participa ting with physical therapy. We are waiting on discharge planning where the physical therapy will be done according to her insurance. 2.COVID-19 positive. The patient is asymptomatic at this time from that, has no respiratory symptom s. No other symptoms. 3.Hyponatremia, resolving. MFS/MODL Voice ID: [id number] Report ID: [id number]
[2019-10-29] MEDS: ATORVASTATIN 10 MG TAB PO SCH (20:37)
[2019-10-29] MEDS: ALBUTEROL INHALER 60 PUFF/8 GM IH PRN (22:00)
[2019-10-30] MEDS: NA CHLORIDE 0.9% 1,000 ML IV SCH ×2 (02:36→22:20)
[2019-10-30] MEDS: LEVOTHYROXINE SOD 0.05 MG TABLET PO SCH (05:41)
[2019-10-30] MEDS: HYDROCODONE/APAP 5/325 MG TAB PO PRN (05:52)
[2019-10-30] MEDS: FERROUS SULFATE 325 MG TAB PO SCH (07:40)
[2019-10-30] MEDS: ENOXAPARIN 30 MG/0.3 ML SQ SCH (07:40)
[2019-10-30] MEDS: VILANTER IH SCH (07:41)
[2019-10-30] MEDS: FLUTICASONE IH SCH (07:41)
[2019-10-30] MEDS: UMECLIDIN IH SCH (07:41)
[2019-10-30] MEDS: DOCUSATE NA 100 MG CAP PO SCH ×2 (07:42→21:15)
[2019-10-30] MEDS: ALBUTEROL INHALER 60 PUFF/8 GM IH PRN ×2 (08:08→17:06)
[2019-10-30] MEDS: AMIODARONE HCL 200 MG TAB PO SCH (08:09)
--- NOTE | 2019-10-30 15:06 | PN ---
Subjective: The patient is clinically stable, doing well. Objective: Vital Signs: Her blood pressure 128/90, pulse 72, temperature 98.5. Heart: Regular rate and rhythm. Chest: Clear to auscultation. Abdomen: Soft, benign. Neurologic: Alert and intact. Laboratory Data: White cell count continues to drop 16.7, hemoglobin 9.6, hematocrit 29.3, platelets 169. Assessment/plan: 1.The patient is status post right arthroplasty, doing well with current care. 2.COVID-19 positive. No symptoms, clinically stable. 3.Chronic medical problems, stable. 4.Hyponatremia, corrected. 5.Pending transfer to group home facility for continued physical therapy. MFS/MODL Voice ID: [id number] Report ID: [id number]
[2019-10-30] MEDS: METHYLPREDNISOLONE 125 MG INJ IM ONE ×2 (21:04→21:15)
[2019-10-30] MEDS: ATORVASTATIN 10 MG TAB PO SCH (21:15)
[2019-10-30] MEDS ORDERED: FUROSEMIDE 20 MG/ 2ML VIAL IV ONE (21:22)
[2019-10-30] MEDS ORDERED: METHYLPREDNISOLONE 125 MG INJ IV ONE (21:22)
[2019-10-30] MEDS: ENOXAPARIN 60 MG/0.6 ML SQ SCH (21:32)
[2019-10-31] MEDS: LEVOTHYROXINE SOD 0.05 MG TABLET PO SCH (04:52)
--- NOTE | 2019-10-31 07:24 | RAD REPORT ---
EXAM DESCRIPTION: RAD - Chest Single View - 10/30/2019 10:04 pm CLINICAL HISTORY: sob, COVID positive COMPARISON: Portable chest October 24 TECHNIQUE: AP portable chest image was obtained 10/30/2019 10:04 pm . FINDINGS: Extensive alveolar opacification is present in the mid and lower lung tee. Interstitial markings are prominent as well. Motion degradation accentuates the lung parenchymal opacification. L davi pattern is consistent with COVID-19 pneumonia. Pacemaker is in place. No additional tube or line identifiable. Heart and vasculature are normal. Sma ll bilateral pleural effusions are present. No acute bony abnormality seen. No acute aortic findings suspected. IMPRESSION: Moderately severe bilateral pneumonia pattern consistent with COVID-19 pneumonia. Small bilateral pleural effusions.
[2019-10-31] MEDS: FERROUS SULFATE 325 MG TAB PO SCH (09:00)
[2019-10-31] MEDS: SPIRONOLACTONE 25 MG TABLET PO SCH ×2 (09:00→09:06)
[2019-10-31] MEDS: ENOXAPARIN 60 MG/0.6 ML SQ SCH ×2 (09:00→22:06)
[2019-10-31] MEDS: FUROSEMIDE 20 MG/ 2ML VIAL IV SCH ×2 (09:00→09:05)
[2019-10-31] MEDS: DOCUSATE NA 100 MG CAP PO SCH ×2 (09:00→22:06)
[2019-10-31] MEDS: Levofloxacin500mg IV 500 MG/100 ML BAG IV SCH (09:06)
[2019-10-31] MEDS: dexAMETHasone 4 MG/ML VIAL IV SCH ×2 (09:06→22:06)
[2019-10-31] MEDS: VILANTER IH SCH (09:31)
[2019-10-31] MEDS: UMECLIDIN IH SCH (09:31)
[2019-10-31] MEDS: FLUTICASONE IH SCH (09:31)
--- NOTE | 2019-10-31 10:18 | RAD REPORT ---
EXAM DESCRIPTION: RAD - Chest Single View - 10/31/2019 12:51 am CLINICAL HISTORY: The patient is 89 years old and is Female; picc line insertion TECHNIQUE: Frontal view of the chest. COMPARISON: No relevant prior studies available. FINDINGS: LUNGS: Diffuse interstitial opacities are noted throughout the lungs. PLEURAL SPACE: Unremarkable. No pneumothorax. HEART: The cardiac silhouette is enlarged. MEDIASTINUM: Unremarkable. BONES/JOINTS: There are degenerative changes of the bones. VASCULATURE: Prominence of central vasculature is present. TUBES, LINES AND DEVICES: A right upper extremity PICC is present with the tip at the SVC/RA gustabo ction. A dual-lead left-sided pacemaker is noted. IMPRESSION: 1. A right upper extremity PICC is present with the tip at the SVC/RA junction. 2. Cardiomegaly with findings suggestive of edema. Superimposed infection is also suggested. Electronically signed by: Lory Hernandez MD 10/31/2019 1:39 AM CDT Due to temporary technical issues with the PACS/Fluency reporting system, reports are being signed by the in house radiologist without review as a courtesy to ensure prompt reporting. The interpreting r adiologist is fully responsible for the content of the report.
[2019-10-31] MEDS: NA CHLORIDE 0.9% 1,000 ML IV SCH (11:28)
--- NOTE | 2019-10-31 16:49 | PN ---
Subjective: The patient has been having cough with production of sputum. She is now on BiPAP with o xygen supplement. Objective: Vital Signs: Blood pressure 100/55, pulse 70, temperature 95.9. Heart: Regular rate and rhythm. Chest: Bilateral crackles. Abdomen: Soft, benign. Neurologic: Alert, oriented. Grossly intact. Extremities: No edema. No cyanosis. Chest x-ray showed bilateral lobar pneumonia consistent with COVID-19 pneumonia. Assessment/plan: 1.Viral pneumonia with COVID-19. The patient has been put on Decadron 3 mg IV b.i.d. She is on bet a-2 agonist breathing treatments, oxygen supplementation and BiPAP. She is also on Levaquin IV antib iotic. At this time, the patient is comfortable with this set up and clinically stable. 2.Hypotension. The patient will put her back on her IV fluids. 3.Status post arthroplasty, right hip, stable from that standpoint. 4.Appreciate Dr. Leal's input. We will follow his recommendations. MFS/MODL Voice ID: [id number] Report ID: [id number]
[2019-10-31] MEDS ORDERED: FUROSEMIDE 20 MG/ 2ML VIAL IV ONE (19:00)
[2019-10-31] MEDS: BUDESONIDE 0.5 MG/2 ML NEB NEB SCH (20:35)
[2019-10-31] MEDS: ACETYLCYST 20% 800 MG/4 ML VIAL PO SCH (21:00)
[2019-10-31] MEDS ORDERED: GLUCERNA SHAKE 237 ML CAN PO SCH (21:00)
[2019-10-31] MEDS: ENSURE HIGH PROTEIN 237 ML CAN PO SCH (21:00)
[2019-10-31] MEDS: ATORVASTATIN 10 MG TAB PO SCH (22:06)
[2019-10-31] MEDS: ZINC SULFATE 220 MG CAP PO SCH (22:06)
[2019-10-31] MEDS: HYDROCODONE/APAP 5/325 MG TAB PO PRN (22:07)
[2019-10-31] MEDS ORDERED: ACETYLCYST 6,000 MG/30 ML VIAL ONE (22:44)
[2019-10-31] MEDS: ONDANSETRON 4 MG/2 ML VIAL IV PRN (23:00)
--- NOTE | 2019-11-01 01:51 | PN ---
The patient is apparently not doing well. Her chest x-ray showed bilateral lobar pneumonia consisten t with the COVID-19 pneumonia. She is getting more short of breath and now she is on high-flow oxyge n and she is a Confucianist, refusing blood products and convalescent plasma. Dr. Leal and myself had talked with the family, and I just talked with her daughter, and the family has decided th at the patient do not be intubated or resuscitated with shocks, and after explaining that to them and listening to their wishes, we have put the patient as do not resuscitate, DNR. MFS/MODL Voice ID: [id number] Report ID: [id number]
[2019-11-01] MEDS: LEVOTHYROXINE SOD 0.05 MG TABLET PO SCH (05:51)
[2019-11-01 06:58] LABS: Absolute Lymphocytes (CBC) 0.4 K/uL (0.7-4.9); Basophils % 0.1 % (0-1.3); Hematocrit 31.9 % (36.0-45.0); Lymphocytes % 2.1 % (15.3-44.8); RBC Red Blood Cell Count 3.67 M/uL (3.86-4.86)
[2019-11-01 07:14] LABS: Potassium 5.7 mmol/L (3.5-5.1)
[2019-11-01] MEDS: BUDESONIDE 0.5 MG/2 ML NEB NEB SCH ×2 (08:00→20:45)
--- NOTE | 2019-11-01 08:47 | P.PN ---
Subjective Date of Service: 10/31/19 Chief Complaint: Respiratory failure Patient's condition deteriorated last night developed the became more hypoxic chest x-ray revealed bilateral infiltrates consistent with finn virus pneumonia is tachypneic was not tolerating BiPAP Review of Systems is unable to be obtained Physical Examination - Vital Signs Temperature: 97 F Blood Pressure: 110/67 Pulse: 71 Respirations: 18 Pulse Ox (%): 86 - Physical Exam General: Alert, Moderate distress Assessment & Plan - Problems (Diagnosis) (1) Pneumonia due to human coronavirus Current Visit: Yes Status: Acute Plan: Patient developed pneumonia due to finn virus she has got bilateral infiltrates patient was started on steroids low-dose diuretics and extensive di scussion with the family members including resume video conference he is not DNR plan for comfort care prognosis very poor she has frequent exacerbations of her underlying obstructive airways disease at baseline requiring high concentrations of oxygen
--- NOTE | 2019-11-01 08:49 | P.PN ---
Subjective Date of Service: 11/01/19 Chief Complaint: Respiratory failure Patient's condition is not improved get his still very tachypneic agitated requiring high concentrations of oxygen currently on nasal cannula high-flow oxygen worsening renal function slightly hyperkalemia Review of Systems is unable to be obtained Physical Examination - Vital Signs Temperature: 97 F Blood Pressure: 110/67 Pulse: 71 Respirations: 18 Pulse Ox (%): 86 - Physical Exam General: Moderate distress Assessment & Plan - Problems (Diagnosis) (1) Pneumonia due to human coronavirus Current Visit: Yes Status: Acute Plan: Patient has respiratory failure from finn virus MRI continue with steroids low-dose diuretics this currently DNR labs reviewed white count is elevated may be due to the fact of steroids continue with levofloxacin patient has no fever prognosis is very poor
[2019-11-01] MEDS ORDERED: FUROSEMIDE 20 MG/ 2ML VIAL IV ONE (09:00)
[2019-11-01] MEDS: Levofloxacin500mg IV 500 MG/100 ML BAG IV SCH (09:08)
[2019-11-01] MEDS: ZINC SULFATE 220 MG CAP PO SCH (09:08)
[2019-11-01] MEDS: DOCUSATE NA 100 MG CAP PO SCH ×2 (09:08→19:48)
[2019-11-01] MEDS: FERROUS SULFATE 325 MG TAB PO SCH (09:09)
[2019-11-01] MEDS: dexAMETHasone 4 MG/ML VIAL IV SCH ×2 (09:09→19:48)
[2019-11-01] MEDS: THIAMINE HCL 100 MG TABLET PO SCH (09:09)
[2019-11-01] MEDS: ACETYLCYST 20% 800 MG/4 ML VIAL PO SCH ×2 (09:10→19:49)
[2019-11-01] MEDS: FLUTICASONE IH SCH (09:13)
[2019-11-01] MEDS: UMECLIDIN IH SCH (09:13)
[2019-11-01] MEDS: ENSURE HIGH PROTEIN 237 ML CAN PO SCH ×2 (09:13→19:47)
[2019-11-01] MEDS: VILANTER IH SCH (09:13)
[2019-11-01] MEDS ORDERED: SOD POLYSTYREN SUL 15 GM/60 ML UCUP PO ONE (09:41)
[2019-11-01 10:01] LABS: Platelet Estimate ADEQ
[2019-11-01 10:02] LABS: Blood Morphology Comment NOT SEEN (NOT SEEN)
[2019-11-01] MEDS: ENOXAPARIN 60 MG/0.6 ML SQ SCH (19:48)
[2019-11-01] MEDS: ATORVASTATIN 10 MG TAB PO SCH (19:48)
[2019-11-02] MEDS: LEVOTHYROXINE SOD 0.05 MG TABLET PO SCH (05:11)
[2019-11-02] MEDS ORDERED: NA CHLORIDE 0.9% 250 ML IV ONE ×2 (07:00→09:17)
[2019-11-02] MEDS ORDERED: NA CHLORIDE 0.9% 250 ML IV SCH (07:00)
[2019-11-02] MEDS ORDERED: D5 0.45 NS 1,000 ML IV SCH (07:00)
[2019-11-02] MEDS: ACETYLCYST 20% 800 MG/4 ML VIAL PO SCH (07:26)
[2019-11-02] MEDS: Levofloxacin500mg IV 500 MG/100 ML BAG IV SCH (07:26)
[2019-11-02] MEDS: dexAMETHasone 4 MG/ML VIAL IV SCH ×2 (07:27→19:59)
[2019-11-02] MEDS: THIAMINE HCL 100 MG TABLET PO SCH ×2 (07:27→08:16)
[2019-11-02] MEDS: DOCUSATE NA 100 MG CAP PO SCH ×3 (07:27→19:59)
[2019-11-02] MEDS: FERROUS SULFATE 325 MG TAB PO SCH ×2 (07:27→08:16)
[2019-11-02] MEDS: ZINC SULFATE 220 MG CAP PO SCH ×2 (07:27→08:16)
[2019-11-02] MEDS: FLUTICASONE IH SCH (07:28)
[2019-11-02] MEDS: VILANTER IH SCH (07:28)
[2019-11-02] MEDS: ENSURE HIGH PROTEIN 237 ML CAN PO SCH ×3 (07:28→21:00)
[2019-11-02] MEDS: UMECLIDIN IH SCH (07:28)
[2019-11-02 07:31] LABS: Absolute Lymphocytes (CBC) 0.4 K/uL (0.7-4.9); Basophils % 0.2 % (0-1.3); Hematocrit 32.7 % (36.0-45.0); Lymphocytes % 1.4 % (15.3-44.8); MPV 10.6 fL (7.6-11.3); RBC Red Blood Cell Count 3.75 M/uL (3.86-4.86)
[2019-11-02 07:45] LABS: Potassium 6.1 mmol/L (3.5-5.1)
[2019-11-02] MEDS: BUDESONIDE 0.5 MG/2 ML NEB NEB SCH ×2 (08:40→20:30)
[2019-11-02 08:54] LABS: Anisocytosis 1+; Blood Morphology Comment NOTED (NOT SEEN); Burr Cells 1+; Hypochromasia 2+; Platelet Estimate ADEQ; Polychromasia 1+
[2019-11-02] MEDS ORDERED: SOD POLYSTYREN SUL 15 GM/60 ML UCUP PO ONE (08:57)
[2019-11-02] MEDS: INSULIN 70/30 100 UNITS/ML SQ SCH ×2 (08:59→17:30)
[2019-11-02] MEDS ORDERED: GLUCAGON 1 MG/VIAL IM PRN (08:59)
[2019-11-02] MEDS: Levofloxacin 250mg IV 250 MG/50 ML BAG IV SCH (09:40)
[2019-11-02] MEDS ORDERED: CALCIUM CL 10% 13.6 MEQ in NA CHLORIDE 0.9% 100 ML IV ONE (10:00)
[2019-11-02] MEDS ORDERED: SODIUM BICARB 50 MEQ/50ML VIAL IV ONE (10:00)
[2019-11-02] MEDS: INSULIN -REGULAR HUMAN 50 UNIT/0.5 ML ML SQ SCH ×3 (13:05→19:58)
[2019-11-02] MEDS: WATER FOR INJ,STERILE 1,000 ML with NA BICARB 8.4% 150 MEQ IV SCH ×2 (13:45)
[2019-11-02] MEDS: FUROSEMIDE 100 MG in NA CHLORIDE 0.9% 90 ML IV SCH ×2 (13:45→21:48)
--- NOTE | 2019-11-02 13:49 | RAD REPORT ---
EXAM DESCRIPTION: Fay Single View11/02/2019 1:38 pm CLINICAL HISTORY: Cough COMPARISON: October 31, 2019 FINDINGS: Mild improvement in the bilateral pulmonary opacities Heart remains enlarged. Pacemaker leads in place. PICC line with its tip in the superior vena cava IMPRESSION: Mild improvement in the bilateral pulmonary opacities
[2019-11-02 14:37] LABS: Arterial Blood Carboxyhemoglob 1.7 % (0-1.5); Blood Gas Oxyhemoglobin 91.7 % (94-97); Blood O2 Saturation 94.4 % (92-98.5)
[2019-11-02 15:04] LABS: Urine Protein/Creatinine Ratio 1.55 ratio (<0.15)
--- NOTE | 2019-11-02 17:18 | CON ---
Date of Consultation: 11/02/2019 Consulting Physician: Dr. Ramos. Reason For Consultation: Elevated BUN and creatinine, fluid management. History Of Present Illness: This is an 89-year-old female. All the information has been obtained fr om the record as the patient is on BiPAP, respiratory distress. The patient has chronic obstructive pulmonary disease, hypertension, hyperlipidemia, diabetes complicated with neuropathy, osteoarthritis , atrial fibrillation, pulmonary hypertension. The patient was admitted back on the with right hip fracture. The patient denied any fevers, any cough. The patient has been positive for COVID. F or that reason, the patient was placed in COVID unit. Gradually her kidney function had been deterio rated with severe leukocytosis. For that reason, we have been consulted. The patient's upon admissi on creatinine was 1.5 to trend down to 1.1, 0.8 back on the 14, then found back to 2.3 today for GFR of 20. For that reason, we have been consulted. The patient started being oliguric in the last 48 h ours with only 150-200 of urine output. Reviewing the record for the patient, the patient had low bl ood pressure, started on the 14 and on the 16 down to the 90s. Past Medical History: Reviewing the record on medication. There is no other insulting medication. Patient was on S pre no lactone and diuresis. Otherwise, no MARISABEL inhibitor. No food hot or insulting medication no non-steroidals. The patient received Kayexalate for her hyperkalemia. Past Medical History: Include: 1.COPD. 2.Pulmonary hypertension. 3.Hyperlipidemia. 4.Diabetes complicated with neuropathy. 5.Atrial fibrillation. 6.Hypertension. Social History: Denies smoking. Denies drinking. Denies drugs abuse. Family History: Positive for hypertension. Home Medications: Include: 1.Simvastatin. 2.Albuterol. 3.Spironolactone. 4.Prednisone. 5.Lantus. 6.Amiodarone. 7.Eliquis. Allergies: ALLERGY TO CLINDAMYCIN, FLAGYL, AND AMBIEN. Review of Systems: None obtainable. Physical Examination: Vital Signs: When I saw the patient, blood pressure 132/74, pulse of 88. Chest: Crackles, bilatera l heart. S1, S2. Regular. Abdomen: Soft, nontender. Extremities: Bruises both lower extremities, +2 edema. Neuro: Confused. Mild tremor. Laboratory Data: X-ray back on the 16, cardiomegaly with severe congestion. Worsening from the ches t x-ray before. Sodium 130, potassium 6.1, bicarb 17, chloride 101, BUN 93, creatinine 2.3, GFR of 2 0, calcium 7.5. Current Medications: Include: 1.Levaquin 250. 2.Lovenox. 3.Atorvastatin. 4.Tylenol. 5.Ensure. 6.Zinc sulfate. 7.Dexamethasone. 8.Insulin. 9.Levothyroxine. 10.IV fluid. Assessment And Plan: 1.Acute kidney injury secondary to poor perfusion, acute tubular necrosis/cardiorenal complicated wi th severe hyperkalemia and acidosis. The patient on marginal low blood pressure. I am going to go a head and start the patient on Lasix drip. We will speak to the family to discuss, the patient may ne ed to initiate on renal replacement therapy given the hyperkalemia and acidosis if she did not respon se to the Lasix drip. 2.Hyperkalemia. The patient already received cocktail. We will start Lasix drip and we will follow up. 3.Hypertension, currently hypotension. Hold all blood pressure medication, especially spironolacton e. Given the current condition and hyperkalemia, we will utilize the blood pressure for more diuresi s. 4.Congestive heart failure with pulmonary hypertension. As above, we will try to establish better v olume control. 5.COVID pneumonia. Continue current antibiotic. Follow up with Pulmonary. 6.Respiratory failure, multifactorial secondary to COVID pneumonia/chronic obstructive pulmonary dis ease/over volume. I am going to continue BiPAP. Start the patient on Lasix. We will get chest x-ra y. We will follow up with Pulmonary. 7.Acidosis, non-anion gap secondary to renal failure. We will start the patient on gentle bicarb dr ip to establish better potassium diuresis and we will follow up. Thank you Dr. Ramos for allowing us to participate in the care of your patient. MA/MODL Voice ID: [id number] Report ID: [id number]
[2019-11-02] MEDS ORDERED: ALBUMIN HUMAN 25% 100 ML IV ONE (18:29)
[2019-11-02] MEDS: HYDROCORTISONE SUC 100 MG INJ IV SCH (18:39)
--- NOTE | 2019-11-02 18:41 | RAD REPORT ---
EXAM DESCRIPTION: US - Renal Ultrasound-Complete - 11/02/2019 6:34 pm CLINICAL HISTORY: Acute renal insufficiency COMPARISON: 2018 FINDINGS: The right kidney measures 10 cm with an increased echotexture. 3 millimeter cyst The left kidney was unable to be imaged secondary to difficulty with patient positioning Hydronephrosis is not seen. The bladder is decompressed and poorly evaluated IMPRESSION: Mildly increased right renal echotexture consistent with parenchymal disease
[2019-11-02] MEDS: ENOXAPARIN 60 MG/0.6 ML SQ SCH (19:58)
[2019-11-02] MEDS: ATORVASTATIN 10 MG TAB PO SCH (19:59)
[2019-11-03] MEDS: MORPHINE 2 MG/ML SYR IV PRN ×2 (00:06→11:17)
[2019-11-03] MEDS: HYDROCORTISONE SUC 100 MG INJ IV SCH ×2 (03:40→11:00)
[2019-11-03] MEDS: LEVOTHYROXINE SOD 0.05 MG TABLET PO SCH (05:43)
[2019-11-03] MEDS: INSULIN 70/30 100 UNITS/ML SQ SCH ×2 (07:30→16:30)
[2019-11-03] MEDS: INSULIN -REGULAR HUMAN 50 UNIT/0.5 ML ML SQ SCH ×3 (07:30→16:30)
[2019-11-03] MEDS: D50W 25 GM/50 ML SYRINGE/VIAL IV PRN ×2 (07:50→16:44)
[2019-11-03 08:23] LABS: Albumin 2.3 g/dL (3.4-5.0); Phosphorus 3.9 mg/dL (2.5-4.9); Potassium 4.8 mmol/L (3.5-5.1); Thyroid Stimulating Hormone 1.26 uIU/mL (0.360-3.740); Uric Acid 10.7 mg/dL (2.6-6.0)
[2019-11-03] MEDS: BUDESONIDE 0.5 MG/2 ML NEB NEB SCH ×2 (08:30→20:45)
[2019-11-03] MEDS: FLUTICASONE IH SCH (09:00)
[2019-11-03] MEDS: ZINC SULFATE 220 MG CAP PO SCH (09:00)
[2019-11-03] MEDS: THIAMINE HCL 100 MG TABLET PO SCH (09:00)
[2019-11-03] MEDS: UMECLIDIN IH SCH (09:00)
[2019-11-03] MEDS: ENSURE HIGH PROTEIN 237 ML CAN PO SCH ×2 (09:00→19:30)
[2019-11-03] MEDS: DOCUSATE NA 100 MG CAP PO SCH ×2 (09:00→19:30)
[2019-11-03] MEDS: VILANTER IH SCH (09:00)
[2019-11-03] MEDS: dexAMETHasone 4 MG/ML VIAL IV SCH ×3 (09:00→19:39)
[2019-11-03] MEDS: FERROUS SULFATE 325 MG TAB PO SCH (09:00)
[2019-11-03 10:48] LABS: Ferritin 3773.2 ng/mL (8-388); Folic Acid, (Folate) 7.6 ng/mL (3.1-17.5)
[2019-11-03] MEDS: Levofloxacin 250mg IV 250 MG/50 ML BAG IV SCH (11:17)
[2019-11-03] MEDS: WATER FOR INJ,STERILE 1,000 ML with NA BICARB 8.4% 150 MEQ IV SCH ×2 (13:00)
--- NOTE | 2019-11-03 14:05 | P.PN ---
Subjective Date of Service: 11/03/19 Chief Complaint: Respiratory failure Patient's condition is steadily worsening she is nonresponsive on BiPAP on 75% FiO2 renal function is also worse Review of Systems is unable to be obtained Physical Examination - Vital Signs Temperature: 96.8 F Blood Pressure: 107/43 Pulse: 74 Respirations: 17 Pulse Ox (%): 90 - Physical Exam General: Other (Deferred) Assessment & Plan - Problems (Diagnosis) (1) Pneumonia due to human coronavirus Current Visit: Yes Status: Acute Plan: Patient has respiratory failure condition has been stable vital signs stable she is requiring high concentrations of oxygen BUN has increased potassium is no stable patient is already on Decadron rip Dc hydrocortisone white count is elevated of loom changer to vancomycin and meropenem prognosis very poor
[2019-11-03] MEDS ORDERED: Pharmacy Consult 1 EA XX PRN (14:07)
--- NOTE | 2019-11-03 14:10 | P.PN ---
Subjective Date of Service: 11/02/19 Chief Complaint: Respiratory failure hyperkalemia Patient is a confused on BiPAP renal function is worse hyperkalemia on high concentrations of oxygen agitated Review of Systems is unable to be obtained Physical Examination - Vital Signs Temperature: 96.8 F Blood Pressure: 107/43 Pulse: 74 Respirations: 17 Pulse Ox (%): 90 - Physical Exam General: Other (Referred) Assessment & Plan - Problems (Diagnosis) (1) Pneumonia due to human coronavirus Current Visit: Yes Status: Acute Plan: Patient has severe pneumonia from finn virus worsening renal function/continue with steroids Consul nephrology patient was treated for hyper Oliva anemia with type with a calcium was started on a bicarbonate drip she is DNR
[2019-11-03] MEDS ORDERED: VANCOMYCIN 1.5 GM in NA CHLORIDE 0.9% 500 ML IVPB ONE (15:00)
[2019-11-03] MEDS ORDERED: Meropenem 500 MG in NA CHLORIDE 0.9% 100 ML IV SCH (15:00)
--- NOTE | 2019-11-03 17:43 | PN ---
Date of Progress Note: 11/03/2019 Subjective: The patient was admitted with COVID pneumonia, hip fracture, status post surgery. Patient had acute kidney injury with over-volume, oliguric. Yesterday, we tried the patient on Lasix drip, blood pressure dropped. Patient being on BiPAP, I had long discussion with the patient's family regarding the poor prognosis for the patient. Family in agreement for comfort care to today. Physical Examination: Vital Signs: Blood pressure 107/43, pulse of 74: Chest: Crackles bilateral. Patient on BiPAP. Extremity: Bruises. Bilateral +2 edema. Laboratory Data: WBC 29.2, H and H 10.7/32.7. Sodium 135, potassium 4.8, bicarb 24, BUN 110, creatinine 2.3. GFR of 20. The patient oliguric. Uric acid 10.7. Assessment And Plan: 1. Acute kidney injury secondary to coronavirus disease nephropathy. Oliguric, over-volume continue Lasix. I had long discussion with the patient regarding the prognosis of the patient, agreed on comfort care. We will discontinue Lasix drip. Start morphine p.r.n. 2. Respiratory failure secondary to coronavirus disease pneumonia, over-volume as above. Continue comfort care. Follow up with Pulmonary. PEDRO/BURT Voice ID: [id number] Report ID: [id number] CLARE
[2019-11-03] MEDS: ATORVASTATIN 10 MG TAB PO SCH (19:30)
[2019-11-03] MEDS: ENOXAPARIN 60 MG/0.6 ML SQ SCH (19:39)
[2019-11-03] MEDS ORDERED: Meropenem 500 MG VIAL IV SCH (21:00)
[2019-11-03 21:42] VITALS: TEMP 96.1
[2019-11-03 21:45] VITALS: O2SAT 91
[2019-11-03 22:28] VITALS: BP 104/51
[2019-11-04] MEDS ORDERED: INSULIN -REGULAR HUMAN 50 UNIT/0.5 ML ML SQ SCH
[2019-11-04 10:46] LABS: Rheumatoid Factor POS (NEG)
[2019-11-05] MEDS ORDERED: VANCOMYCIN/NS 1 gm 1 GM/250 ML BAG IVPB SCH (15:00)
[2019-11-09 21:35] LABS: HBsAG Nonreactive (Nonreactive)
[2019-11-11 16:49] LABS: Hepatitis C Virus RNA (PCR)log <1.18 log IU/mL
[2019-11-11 22:29] LABS: Albumin, (SPE) 1.7 g/dL (3.8-4.8); Alpha-1-Globulins 0.3 g/dL (0.2-0.3); Alpha-2-Globulins 0.4 g/dL (0.5-0.9); Gamma Globulins 0.4 g/dL (0.8-1.7); INTERPRETATION REPORT
--- NOTE | 2019-11-12 03:04 | DS ---
Date of Discharge: 11/04/2019 History: An 89-year-old female who was admitted to the hospital because she encountered the fall and had right hip fracture. However, on her admission, she also was screened for coronavirus. Past Medical History: As per admit note. Social History: As per admit note. Family History: As per admit note. Medications: As per admit note. Allergies: PER ADMIT NOTE. Physical Examination: As per admit note. Diagnostic Data: As per admit note. Hospital Course: The patient was admitted to the hospital. Orthopedic was consulted and the patient went ahead and did open reduction and internal fixation of her right hip fracture. The patient post operatively seemed to be doing well. However with the coronavirus test came back positive, she start ed showing also symptoms of pneumonia with increased shortness of breath and fever and chest x-ray sh owed that the patient had bilateral opacities consistent with coronavirus pneumonia. Her blood cultu res for bacteria were negative, but her coronavirus test was positive. The patient, however, shortly after that started deteriorating with multiple organ failure including her kidneys. Dr. Elvis bustos s consulted. She was put on Decadron and supportive care and oxygen protocol. 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 It was then decided by the family and the patient that she wants to be do not resuscitate status. Should her heart stops and she stops breathing. She was put DNR and continued her supportive care until she gave in and . MFS/MODL Voice ID: [id number] Report ID: [id number]
[2019-11-14 12:09] LABS: Vitamin D 1,25-Dihydroxy Total <8 (L)
[2019-11-14 12:10] LABS: Vitamin D,1,25-OH2, D2 <8
== END 2019-11-04 02:35 | disposition expired | DRG 480 ==
LOC: ER 11:03 → ERHOLD 15:33 → 2ND 16:37 → 4TH 10-26 16:19
PROVIDERS: ADMIT Internal Medicine; ATTEND Internal Medicine
PROC: 8E0ZXY6 Isolation (ICD-10-PCS; 2019-10-25)
PROC: 0QS606Z Reposition Right Upper Femur with Intramedullary Internal Fixation Device, Open Approach (ICD-10-PCS; principal; 2019-10-26 08:00)
PROC: 02HV33Z Insertion of Infusion Device into Superior Vena Cava, Percutaneous Approach (ICD-10-PCS; 2019-10-31)
DX: S72.141A Displaced intertrochanteric fracture of right femur, initial encounter for closed fracture (principal); U07.1 COVID-19; J12.89 Other viral pneumonia; N17.0 Acute kidney failure with tubular necrosis; E87.1 Hypo-osmolality and hyponatremia; E87.2 Acidosis; J44.0 Chronic obstructive pulmonary disease with (acute) lower respiratory infection; E78.5 Hyperlipidemia, unspecified; I48.0 Paroxysmal atrial fibrillation; K21.9 Gastro-esophageal reflux disease without esophagitis; E11.9 Type 2 diabetes mellitus without complications; E87.5 Hyperkalemia; I27.20 Pulmonary hypertension, unspecified; I50.9 Heart failure, unspecified; I11.0 Hypertensive heart disease with heart failure; D72.829 Elevated white blood cell count, unspecified; W01.0XXA Fall on same level from slipping, tripping and stumbling without subsequent striking against object, initial encounter; Z79.4 Long term (current) use of insulin; Z95.2 Presence of prosthetic heart valve; Z79.01 Long term (current) use of anticoagulants; Z66 Do not resuscitate; Z88.8 Allergy status to other drugs, medicaments and biological substances; Z90.49 Acquired absence of other specified parts of digestive tract; Z95.0 Presence of cardiac pacemaker; Z79.899 Other long term (current) drug therapy; Z53.1 Procedure and treatment not carried out because of patient's decision for reasons of belief and group pressure; Z79.890 Hormone replacement therapy; Z90.710 Acquired absence of both cervix and uterus; Z88.1 Allergy status to other antibiotic agents
CPT/HCPCS: 36415; 36569; 71045; 72170; 73530; 76770; 80048; 80069; 82550; 82553; 82570; 82652; 82728; 82746; 82805; 82947; 83520; 83525; 83735; 83970; 84132; 84156; 84165; 84443; 84550; 85025; 85610; 85730; 86021; 86160; 86225; 86430; 86704; 86706; 86850; 86900; 86901; 87340; 87522; 93005; 94640; 94660; 94760; 96374; 97110; 97112; 97161; 99285; G0390; J0690; J1100; J1650; J1720; J1815; J1940; J2270; J2370; J2405; J2704; J2930; J3010; J3370; J7030; J7040; J7050; J7799; P9047; U0002